=== PATIENT | male | born 1955 | race Caucasian/White ===

== ENCOUNTER 2016-11-12 20:37 | Inpatient (IN) | payer BC, MEDICARE, OTHER ==
[~2016-11-12] VITALS: Ht 177.8 cm; Wt 114.5 kg
[~2016-11-12 20:37] MED LIST: AMLO-147 PO; AMLO2.5T78; ATOR40TA68 PO; AZIT500T2 PO; BACL10TA PO; BUSP10TA2; BUSP10TA2 PO; CAPS42.510 TOP; CLON1TAB3; FLUO120C4 TOP; FORM12CA2; INSU100V19; IPRA30SP7; IPRA4AER INHALATION; LAMO150T15; LANT3I SC; LASIX; LIT300; LOSA100T7 PO; LOSA25TA2; METF1000 PO; METO-429 PO; METO100T13; MOMETASONE FUROATE; MTF1000T; MUPI22OI; NITR0.4T6; NOV; NOVO3I SC; OMEP20TA42; POTA-57; ROSU20TA; RTPRO5; TAMS0.4C2 PO; TOF50 PO; TRAZ50TA18; TRIA15CR; [UNRECOGNIZED DRUG - CODE]
--- NOTE | 2016-11-12 22:25 | ERA ---
ER Documentation Chief Complaint Date/Time DATE: 11/12/16 TIME: 22:24 Chief Complaint chest pain since 6 pm HPI The patient is a 61-year-old male, presenting to the ER because of sternal chest pain that began at 6 PM, associated with dyspnea. He had similar symptoms previously. He was admitted recently on October 28, 2016 He already had 3 stents about 10 years ago. The chest pain is 5/10, not associated with exertion, vomiting, diaphoresis. He did take antacid without relief. He denies vomiting, diarrhea, dysuria, polyuria. He used to smoke and drink but he quit many years ago. Past medical history: CAD, hypertension, diabetes mellitus, OCD, dyslipidemia, obstructive sleep apnea, bipolar disorder, asthma, history of CHF, GERD, pulmonary nodule Past surgical history: 3 stent PCI, thoracic outlet obstruction, cholecystectomy , appendectomy, right ankle ROS All systems reviewed and are negative except as per history of present illness. Medications Home Meds Reported Medications Amlodipine Besylate* (Amlodipine Besylate*) 10 Mg Tablet, 10 MG PO DAILY, #30 TAB 11/12/16 Losartan Potassium* (Losartan Potassium*) 100 Mg Tablet, 100 MG PO DAILY, TAB 11/12/16 Albuterol/Ipratropium* (Combivent Respimat*) 20-100 Mcg/Inh - 4 Gm Aer.w.adap, 1 PUFF INHALATION QID, #1 INHALER 11/12/16 Tamsulosin Hcl* (Tamsulosin Hcl*) 0.4 Mg Cap.er.24h, 0.4 MG PO HS, CAP 11/12/16 Insulin Glargine* (Lantus*) 100 Unit/Ml Soln, 56 UNIT SC QHS, #1 VIAL 11/12/16 Insulin Glargine* (Lantus*) 100 Unit/Ml Soln, 46 UNIT SC QAM, #1 VIAL 11/12/16 Fluocinonide* (Fluocinonide* Cream) 0.1% - 120 Gm Cream..g., 1 APPLIC TOP BID, TUB 11/12/16 Insulin Aspart* (Novolog Insulin Pen*) 100 Unit/Ml Soln, 30-40 UNIT SC WITH MEALS, EA 11/12/16 Metformin Hcl* (Metformin Hcl*) 1,000 Mg Tablet, 1000 MG PO WITH BREAKFAST DINNE , #60 TAB 11/12/16 Imipramine Hcl* (Imipramine Hcl*) 50 Mg Tablet, 100 MG PO BID, TAB 11/12/16 Baclofen* (Baclofen*) 10 Mg Tablet, 10 MG PO TID, TAB 11/12/16 Metoprolol Tartrate* (Lopressor*) 50 Mg Tab, 50 MG PO BID, #60 TAB 11/12/16 Capsaicin (Capsaicin) 42.5 Gm Cream.gm., 1 APPLIC TOP QID, #1 TUB 11/12/16 Atorvastatin* (Atorvastatin*) 40 Mg Tablet, 40 MG PO QHS, #30 TAB 11/12/16 Buspirone Hcl* (Buspirone Hcl*) 10 Mg Tab, 20 MG PO TID, TAB 11/12/16 Discontinued Reported Medications Triamcinolone Acetonide/L.s.b. (Aristocort A 0.1% Cream) 15 Gm Cream.gm. 03/17/10 Trazodone Hcl* (Desyrel*) 50 Mg Tablet 03/17/10 Rosuvastatin Calcium* (Crestor*) 20 Mg Tablet 03/17/10 Potassium Chloride* (Klor-Con*) 20 Meq Tabsr 03/17/10 Omeprazole (Omeprazole) 20 Mg Tablet.dr 03/17/10 Nitroglycerin* (Nitroglycerin* SL) 0.4 Mg Tab.subl 03/17/10 Mupirocin (Bactroban) 22 Gm Oint..gm. 03/17/10 [Mometasone Furoate] No Conflict Check 03/17/10 Metoprolol Succinate* (Toprol XL*) 100 Mg Tab.sr.24h 03/17/10 Metformin* (Glucophage*) 1,000 Mg Tablet 03/17/10 Losartan Potassium* (Cozaar*) 25 Mg Tablet 03/17/10 Casmalia Carbonate* (Casmalia*) 300 Mg Cap 03/17/10 Casmalia Carbonate* (Casmalia*) 300 Mg Cap 03/17/10 Lamotrigine* (Lamictal*) 150 Mg Tablet 03/17/10 Ipratropium [place]* (Atrovent*) 21 Mcg [place] 03/17/10 Insulin Glargine,Hum.rec.anlog (Lantus) 100 U/Ml Vial 03/17/10 Insulin Aspart* (Novolog Insulin Vial*) 100 U/Ml Vial 03/17/10 [Lasix] No Conflict Check 03/17/10 Flunisolide (Nasarel) 25 Ml [place] 03/17/10 Formoterol Fumarate* (Foradil*) 12 Mcg Cap.w.dev 03/17/10 Clonazepam* (Clonazepam*) 1 Mg Tablet 03/17/10 Buspirone Hcl* (Buspirone Hcl*) 10 Mg Tablet 03/17/10 Amlodipine Besylate* (Amlodipine Besylate*) 2.5 Mg Tablet 03/17/10 Albuterol Sulfate* (Proventil* Neb) 0.5 Ml Nebu 03/17/10 Allergies Allergies: Coded Allergies: Penicillins (Verified Allergy, Severe, DIFFICULTY BREATHING, 11/12/16) cefazolin (Verified Allergy, Severe, DIFFICULTY BREATHING, 11/12/16) ciprofloxacin (Verified Allergy, Mild, RASH, 11/12/16) ketorolac (Verified Allergy, Unknown, pain worse, 11/12/16) PMhx/Soc History of Surgery: Yes (MANY MANY PER PT. STATES, IT'S ON FILE.) Anesthesia Reaction: No Hx Neurological Disorder: No Hx Respiratory Disorders: No Hx Cardiac Disorders: No Hx Psychiatric Problems: Yes (BIPOLAR) Hx Miscellaneous Medical Probl: No Hx Alcohol Use: No Hx Substance Use: No Hx Tobacco Use: No Physical Exam Vitals Vital Signs Date Time Temp Pulse Resp B/P Pulse Ox O2 Delivery O2 Flow Rate FiO2 11/12/16 20:45 98.0 77 20 169/77 96 Physical Exam Const: No acute distress. Head: Atraumatic. Eyes: Normal Conjunctiva. ENT: Normal External Ears, Nose and Mouth. Neck: Full range of motion. No meningismus. Resp: Clear to auscultation bilaterally. Cardio: Regular rate and rhythm, no murmurs. Abd: Soft, non distended, normal bowel sounds, non tender. Skin: No petechiae or rashes. Back: No midline or flank tenderness. Ext: No cyanosis, or edema. Neur: Awake and alert. No focal deficit Psych: Normal Mood and Affect. Result Diagram: 11/12/16 2250 11/12/16 2250 Results 24 hrs Laboratory Tests Test 11/12/16 22:50 Activated Partial Thromboplast Time 24.4Sec Anion Gap 15 Basophils # 0.010^3/ul Basophils % 0.3% Blood Morphology Comment Blood Urea Nitrogen 26mg/dl Calcium Level 9.9mg/dl Carbon Dioxide Level 25mmol/L Chloride Level 98mmol/L Creatinine 0.81mg/dl Eosinophils # 0.110^3/ul Eosinophils % 1.8% Glucose Level 201mg/dl Hematocrit 39.7% Hemoglobin 13.6g/dl INR International Normalized Ratio 0.91 Lymphocytes # 2.010^3/ul Lymphocytes % 27.7% Mean Corpuscular Hemoglobin 29.3pg Mean Corpuscular Hemoglobin Concent 34.4g/dl Mean Corpuscular Volume 85.3fl Mean Platelet Volume 7.7fl Monocytes # 0.710^3/ul Monocytes % 9.6% Neutrophils # 4.310^3/ul Neutrophils % 60.6% Nucleated Red Blood Cells # 0.010^3/ul Nucleated Red Blood Cells % 0.0/100WBC Platelet Count 26463^3/UL Potassium Level 4.2mmol/L Prothrombin Time 12.3Sec Prothrombin Time Ratio 1.0 Red Blood Count 4.6510^6/ul Red Cell Distribution Width 15.6% Sodium Level 134mmol/L Troponin I 0.056ng/ml White Blood Count 7.010^3/ul Current Medications Medications (Trade) Dose Ordered Sig/Giovanni Route PRN Reason Start Time Stop Time Status Last Admin Dose Admin Aspirin (Aspirin) 162 mg ONCE STAT PO 11/12/16 22:37 11/12/16 22:48 DC 11/12/16 23:16 Nitroglycerin (Nitroglycerin 2% Oint) 1 inch ONCE STAT TD 11/12/16 22:37 11/12/16 22:48 DC 11/12/16 23:17 Morphine Sulfate (morphine) 4 mg ONCE STAT IV 11/13/16 00:23 11/13/16 00:24 DC Ondansetron HCl (Zofran Inj) 4 mg ONCE STAT IV 11/13/16 00:23 11/13/16 00:24 DC Procedures/MDM EKG: Read by emergency physician at 10:52 PM Rate/Rhythm: Normal Sinus Rhythm 75 beats per min QRS, ST, T-waves: No ST elevation, no T wave inversion, nonspecific T abnormality Impression: Abnormal EKG EKG: Read by emergency physician at 11:26 PM Rate/Rhythm: Normal Sinus Rhythm 79 beats per min QRS, ST, T-waves: No ST elevation, no T wave inversion, nonspecific T abnormality Impression: Abnormal EKG [place] [id number] Radiology Main Line: [phone] DIAGNOSTIC IMAGING REPORT Patient: ZONIA BRAR : 1955 Age: 61 Sex: M MR #: [id number] DOS: 11/12/162236 Ordering MD: MUNDO HERZOG MD Location: E/R Room/Bed: PROCEDURE: XR Chest. CLINICAL INDICATION: Chest pain. TECHNIQUE: Single frontal view of the chest was obtained COMPARISON: 07/01/2007. FINDINGS: Cardiomegaly. This is substantially stable over interval, given differences in technique. Mild right lung base atelectasis. Lungs otherwise clear. There is no pleural effusion or pneumothorax. IMPRESSION: New mild right lung base atelectasis, with substantially stable cardiomegaly. RPTAT: [facility] Physician Titus Date Time Electronically viewed and signed by Physician Titus on 11/12/2016 23:03 RS/ CC: MUNDO HERZOG MD MEDICAL MAKING DECISION: The patient is a 61-year-old male, with multiple cardiac risk factors, presenting with acute chest pain that is concerning for ACS. He was treated with aspirin 160 mg since he already took 2 baby aspirin at home, 1 inch of nitroglycerin ointment, morphine formula IV for pain, Zofran formula IV for nausea with good response. The differential diagnoses considered include but are not limited to acute coronary syndrome, acute myocardial infarction, pericarditis, pulmonary embolism, aortic dissection, pneumonia, pleural effusion, pneumothorax, GERD, chest wall pain. Departure Diagnosis: Primary Impression: Chest pain Additional Impression: Anemia Condition: Stable Comments I discussed the findings with the patient. I discussed the patient with the on- call hospitalist Dr. Whitley who was made aware of the lab, the treatment, the patient condition. The patient is admitted to telemetry at 11:40 PM. Please note that this patient was last admitted on October 28, 2016 with a different medical record [id number] MUNDO HERZOG MD Nov 12, 2016 22:24
[2016-11-12] MEDS ORDERED: ASPIRIN 81 MG TAB PO STA (22:37)
[2016-11-12] MEDS ORDERED: NITROGLYCERIN 2% 1 GM OINT PKT TD STA (22:37)
[2016-11-12] MEDS ORDERED: BUSP10TA2 PO (22:46)
[2016-11-12] MEDS ORDERED: ATOR40TA68 PO (22:46)
[2016-11-12] MEDS ORDERED: METO-429 PO (22:47)
[2016-11-12] MEDS ORDERED: CAPS42.510 TOP (22:47)
[2016-11-12] MEDS ORDERED: BACL10TA PO (22:48)
[2016-11-12] MEDS ORDERED: TOF50 PO (22:48)
[2016-11-12] MEDS ORDERED: NOVO3I SC (22:49)
[2016-11-12] MEDS ORDERED: METF1000 PO (22:49)
[2016-11-12] MEDS ORDERED: FLUO120C4 TOP (22:50)
[2016-11-12] MEDS ORDERED: LANT3I SC ×2 (22:51)
[2016-11-12] MEDS ORDERED: TAMS0.4C2 PO (22:51)
[2016-11-12] MEDS ORDERED: IPRA4AER INHALATION (22:52)
[2016-11-12] MEDS ORDERED: AMLO-147 PO (22:53)
[2016-11-12] MEDS ORDERED: LOSA100T7 PO (22:53)
--- NOTE | 2016-11-12 23:03 | RADRPT ---
PROCEDURE: XR Chest. CLINICAL INDICATION: Chest pain. TECHNIQUE: Single frontal view of the chest was obtained COMPARISON: 07/01/2007. FINDINGS: Cardiomegaly. This is substantially stable over interval, given differences in technique. Mild right lung base atelectasis. Lungs otherwise clear. There is no pleural effusion or pneumothorax. IMPRESSION: New mild right lung base atelectasis, with substantially stable cardiomegaly. RPTAT: [facility] Physician Titus Date Time Electronically viewed and signed by Physician Titus on 11/12/2016 23:03 RS/
[2016-11-12 23:11] LABS: BASOPHILS % 0.3 % (0.0-2.0); EOSINOPHILS # 0.1 10^3/ul (0.0-0.5); EOSINOPHILS % 1.8 % (0.0-7.0); HEMATOCRIT 39.7 % (42.0-52.0); HEMOGLOBIN 13.6 g/dl (14.0-18.0); LYMPHOCYTES % 27.7 % (15.0-51.0); MEAN CORPUSCULAR HEMOGLOBIN 29.3 pg (29.0-33.0); MEAN CORPUSCULAR HGB CONC 34.4 g/dl (32.0-37.0); MEAN CORPUSCULAR VOLUME 85.3 fl (82.0-101.0); MEAN PLATELET VOLUME 7.7 fl (7.4-10.4); MONOCYTE # 0.7 10^3/ul (0.3-0.9); MONOCYTES % 9.6 % (0.0-11.0); NEUTROPHIL # 4.3 10^3/ul (1.6-7.5); NEUTROPHILS % 60.6 % (39.0-77.0); PLATELET COUNT 183 10^3/UL (140-440); RED BLOOD COUNT 4.65 10^6/ul (4.70-6.10); RED CELL DISTRIBUTION WIDTH 15.6 % (11.5-14.5)
[2016-11-12 23:12] LABS: CONDITION 1; LH ANALYZER COMMENTS 1
[2016-11-12 23:17] LABS: INR 0.91; PARTIAL THROMBOPLASTIN TIME 24.4 Sec (25.0-35.0); PROTIME 12.3 Sec (12.2-14.2)
[2016-11-12 23:24] LABS: POTASSIUM 4.2 mmol/L (3.5-5.1)
[2016-11-12 23:27] LABS: CALCIUM 9.9 mg/dl (8.4-10.2); CREATININE 0.81 mg/dl (0.61-1.24)
[2016-11-12 23:39] LABS: TROPONIN-I 0.056 ng/ml (0.00-0.12)
[2016-11-13] MEDS ORDERED: morphine 4 MG/ML VIAL IV STA (00:23)
[2016-11-13] MEDS ORDERED: ONDANSETRON 4 MG INJ IV STA (00:23)
[2016-11-13 06:27] LABS: CK-MB 1.45 ng/ml (0.0-2.4); TROPONIN-I 0.166 ng/ml (0.00-0.12)
[2016-11-13] MEDS ORDERED: ONDANSETRON 4 MG INJ IV PRN (07:30)
[2016-11-13] MEDS ORDERED: NACL 0.9% 3 ML SYG IV SCH (07:30)
[2016-11-13] MEDS ORDERED: ACETAMINOPHEN 325 MG TAB PO PRN (07:30)
[2016-11-13 08:29] LABS: ALBUMIN 3.7 g/dl (3.3-4.9)
[2016-11-13 08:30] LABS: BASOPHILS % 0.7 % (0.0-2.0); EOSINOPHILS # 0.1 10^3/ul (0.0-0.5); EOSINOPHILS % 1.8 % (0.0-7.0); HEMATOCRIT 40.6 % (42.0-52.0); HEMOGLOBIN 13.7 g/dl (14.0-18.0); LYMPHOCYTES # 2.2 10^3/ul (0.8-2.9); LYMPHOCYTES % 34.1 % (15.0-51.0); MEAN CORPUSCULAR HGB CONC 33.8 g/dl (32.0-37.0); MEAN CORPUSCULAR VOLUME 85.8 fl (82.0-101.0); MEAN PLATELET VOLUME 8.5 fl (7.4-10.4); MONOCYTE # 0.7 10^3/ul (0.3-0.9); NEUTROPHIL # 3.4 10^3/ul (1.6-7.5); NEUTROPHILS % 52.4 % (39.0-77.0); PLATELET COUNT 181 10^3/UL (140-440); POTASSIUM 4.3 mmol/L (3.5-5.1); RED BLOOD COUNT 4.73 10^6/ul (4.70-6.10); RED CELL DISTRIBUTION WIDTH 15.9 % (11.5-14.5); UNCORRECTED WBC 6.5 10^3/ul (4.8-10.8); WHITE BLOOD COUNT 6.5 10^3/ul (4.8-10.8)
[2016-11-13] MEDS ORDERED: NITROGLYCERIN (SL) 0.4 MG TAB ONE (08:30)
[2016-11-13 08:31] LABS: CONDITION 1; LH ANALYZER COMMENTS 1
[2016-11-13 08:32] LABS: ALBUMIN/GLOBULIN RATIO 1.15; CREATININE 0.8 mg/dl (0.61-1.24); TOTAL PROTEIN 6.9 g/dl (6.1-8.1)
[2016-11-13 08:33] LABS: CALCIUM 9.5 mg/dl (8.4-10.2)
[2016-11-13] MEDS: NITROGLYCERIN (SL) 0.4 MG TAB SL PRN ×2 (08:38→08:43)
[2016-11-13] MEDS: morphine 2 MG INJ IV PRN ×2 (08:38→21:05)
[2016-11-13] MEDS: FLUOCINONIDE 0.05% CR 30GM TUBE TOP SCH ×2 (09:00→21:00)
[2016-11-13] MEDS ORDERED: DEXTROSE 5%-0.45% NACL 1,000 ML IV SCH (09:00)
[2016-11-13] MEDS ORDERED: HEPARIN 5,000 UNIT/0.5 ML SYG SC SCH (09:00)
[2016-11-13] MEDS: IMIPRAMINE 25 MG TAB PO SCH ×2 (09:44→22:18)
[2016-11-13] MEDS: BUSPIRONE 10 MG TAB PO SCH ×3 (09:44→22:18)
[2016-11-13] MEDS: LOSARTAN 50 MG TAB PO SCH (09:44)
[2016-11-13] MEDS: BACLOFEN 10 MG TAB PO SCH ×3 (09:45→21:09)
[2016-11-13] MEDS: AMLODIPINE 10 MG TAB PO SCH (09:45)
[2016-11-13] MEDS: METOPROLOL 50 MG TAB PO SCH ×2 (09:54→21:10)
--- NOTE | 2016-11-13 10:29 | HP ---
DATE OF ADMISSION: 11/12/2016 TIME SEEN: 4 a.m. CHIEF COMPLAINT: Chest pain. HISTORY OF PRESENT ILLNESS: The patient is a 61-year-old male with a history of coronary artery dis ease with stent, hypertension, CHF, asthma, sleep apnea, diabetes, bipolar and obsessive compulsive disorder and a history of pericardial window, who presented to the emergency department with chest p ain. The pain started late in the afternoon and associated with shortness of breath. Reported nonb ilious, nonbloody vomiting. Denied diaphoresis, palpitations, or lightheadedness. When he presented to the ER, blood pressure 169/77, heart rate 77, respiratory rate 20, temperature 98, oxygen saturation 97% on room air. Laboratory value shows a hemoglobin of 13.6. Sodium 134 and second troponin of 0.166. Otherwise, the rest of his basic labs were within normal limits. Chest x-ray shows new mild right lung base atelectasis with substantially stable cardiomegaly. The patient was given aspirin, nitroglycerin, Zofran and morphine in the ER and currently awaiting telem etry admission. REVIEW OF SYSTEMS: A 12-point review of systems negative except as mentioned in HPI. PAST MEDICAL HISTORY: As per HPI. PAST SURGICAL HISTORY: Cardiac stents, pericardial window, cholecystectomy, appendectomy, right ank le surgery. ALLERGIES: 1. PENICILLIN. 2. CEFAZOLIN. 3. CIPROFLOXACIN. 4. KETOROLAC. PHYSICAL EXAMINATION: VITAL SIGNS: Blood pressure 151/84, heart rate 84, respiratory rate 18, temperature 98.0, oxygen sa turation 98% on 2 liters. GENERAL: No acute distress, answering questions appropriately. HEENT: No obvious head deformity. Pupils reactive to light. CARDIOVASCULAR: Regular rate and rhythm. No extra sounds. LUNGS: Clear. ABDOMEN: Obese, soft, nontender, nondistended. Positive bowel sounds. EXTREMITIES: No edema. IMAGING: Chest x-ray revealed mild right lung base atelectasis with essentially stable cardiomegaly , otherwise, lungs are clear. IMPRESSION: 1. Non-ST elevation myocardial infarction. 2. History of coronary artery disease with stent. 3. History of diabetes. 4. History of obstructive sleep apnea. 5. History of asthma. 6. History of congestive heart failure. 7. History of dyslipidemia. 8. History of bipolar disorder and obsessive compulsive disorder. PLAN: Admit to telemetry unit. He will be placed on oxygen, beta tomas, statin and as needed nit roglycerin and morphine. Breathing treatments will also be provided as needed. We will trend his t roponin, obtain a 2D echo and place a cardiology consult. For diabetes, he will be on insulin. Further workup and management per clinical course. Dictated By: TIM MAIN/TEVIN Conf#: [id number] DID#: [id number]
[2016-11-13] MEDS: ALBUTEROL HFA 8 GM INHALER INH SCH ×3 (12:00→22:29)
[2016-11-13] MEDS: IPRATROPIUM (HFA) 12.9 GM INHALER INH SCH ×3 (12:00→20:00)
[2016-11-13 12:26] LABS: CHOL/HDL RATIO 3.6 RATIO
[2016-11-13] MEDS: INSULIN ASPART [NOVOLOG] 3 ML PEN SC SCH ×4 (12:31→21:31)
[2016-11-13 12:48] LABS: CK-MB 1.7 ng/ml (0.0-2.4); TROPONIN-I 0.221 ng/ml (0.00-0.12)
[2016-11-13] MEDS ORDERED: HEPARIN 25000 UNITS/250 ML 250 ML IV SCH (14:30)
[2016-11-13] MEDS ORDERED: HEPARIN 1000 UNITS/ML 10 ML INJ IV ONE (14:30)
[2016-11-13] MEDS ORDERED: SOD CHLORIDE 0.9% 1,000 ML IV SCH (14:30)
[2016-11-13] MEDS ORDERED: HEPARIN 1000 UNITS/ML 10 ML INJ IV PRN (14:30)
--- NOTE | 2016-11-13 14:42 | CONS ---
Date/Time of Note Date/Time of Note DATE: 11/13/16 TIME: 14:30 Assessment/Plan Assessment/Plan Additional Assessment/Plan Hypertension Elevated troponin Chest pain Preserved ejection fraction Coronary artery disease with history of PCI -Patient with recent bronchitis infection. Yesterday with elevated blood pressure and mild chest pain afterwards. Over a number of years he has been having intermittent shortness of breath and chest pain. He did have a cardiac catheterization approximately 3 years ago at the [facility] and as per the patient everything was normal. Angiogram was reviewed done at our facility in 2009 with patent LAD stent and mild to moderate disease in the mid RCA. Troponins are minimally elevated and unclear if secondary to hypertension versus ACS. Would continue to trend troponins. If trending down, would proceed with vasodilatory nuclear stress test. Continue aspirin, statin, beta tomas. FYI patient was admitted in early October under different medical record number. Consultation Date/Type/Reason Admit Date/Time Type of Consultation: cv Reason for Consultation Hypertension, chest pain and elevated troponin Hx of Present Illness This is a 61-year-old male known to me from a recent previous admission ( patient admitted under different medical record number on the previous visit in early October) who presents with hypertension and chest pain. Patient has been having symptoms of cough, phlegm production and shortness of breath off-and-on over the past 2 months. He has had intermittent chest discomfort at times with inspiration. Yesterday, patient with elevated blood pressure in the 190s. When he saw us pressure that elevated, he also had chest pain to was well. He believes the hypertension occurred prior to the chest pain. Because of his continued symptoms, he came to the emergency room for further evaluation and care. He currently denies any chest pain, dizziness or lightheadedness. He denies any shortness of breath. 12 point review of systems was performed with all pertinent positives and negatives mentioned above and all else is negative Past Medical History Sleep apnea Medical History: coronary artery disease, high cholesterol, hypertension Past Surgical History Thoracic outlet surgery Past Surgical Hx: angioplasty Social History Smoking Status: Former smoker Exam/Review of Systems Vital Signs Vitals Vital Signs Date Time Temp Pulse Resp B/P Pulse Ox O2 Delivery O2 Flow Rate FiO2 11/13/16 12:50 77 136/82 11/13/16 10:55 18 98 Room Air 11/12/16 23:00 2 11/12/16 20:45 98.0 Exam No apparent distress Constitutional: alert, obese, oriented Head: normocephalic Neck: supple Respiratory: other (course breath sounds bilaterally, no wheezing) Cardiovascular: other (S1-S2 heard), regular rate and rhythm Gastrointestinal: bowel sounds, non-tender, soft Extremities: edema Results Result Diagram: 11/13/16 0520 11/13/16 0520 Results 24 hrs Laboratory Tests Test 11/12/16 22:50 11/13/16 05:20 11/13/16 11:30 11/13/16 12:20 Activated Partial Thromboplast Time 24.4 L Anion Gap 15 14 Basophils # 0.0 0.0 Basophils % 0.3 0.7 Blood Morphology Comment Blood Urea Nitrogen 26 H 23 H Calcium Level 9.9 9.5 Carbon Dioxide Level 25 26 Chloride Level 98 100 Creatinine 0.81 0.80 Eosinophils # 0.1 0.1 Eosinophils % 1.8 1.8 Glucose Level 201 156 Hematocrit 39.7 L 40.6 L Hemoglobin 13.6 L 13.7 L INR International Normalized Ratio 0.91 Lymphocytes # 2.0 2.2 Lymphocytes % 27.7 34.1 Mean Corpuscular Hemoglobin 29.3 29.0 Mean Corpuscular Hemoglobin Concent 34.4 33.8 Mean Corpuscular Volume 85.3 85.8 Mean Platelet Volume 7.7 8.5 Monocytes # 0.7 0.7 Monocytes % 9.6 11.0 Neutrophils # 4.3 3.4 Neutrophils % 60.6 52.4 Nucleated Red Blood Cells # 0.0 0.0 Nucleated Red Blood Cells % 0.0 0.0 Platelet Count 183 181 Potassium Level 4.2 4.3 Prothrombin Time 12.3 Prothrombin Time Ratio 1.0 Red Blood Count 4.65 L 4.73 Red Cell Distribution Width 15.6 H 15.9 H Sodium Level 134 L 136 Troponin I 0.056 0.166 *H 0.221 *H White Blood Count 7.0 6.5 Alanine Aminotransferase (ALT/SGPT) 92 H Albumin 3.7 Albumin/Globulin Ratio 1.15 Alkaline Phosphatase 163 H Aspartate Amino Transf (AST/SGOT) 138 H Creatine Kinase 59 56 Creatine Kinase Index 2.5 3.0 Creatinine Kinase MB (Mass) 1.45 1.70 Direct Bilirubin 0.00 Globulin 3.20 Indirect Bilirubin 0.0 Total Bilirubin 0.0 L Total Protein 6.9 Cholesterol Level 149 Cholesterol/HDL Ratio 3.6 Free Thyroxine 0.95 HDL Cholesterol 41 Hemoglobin A1c 12.3 H LDL Cholesterol, Calculated 60 Thyroid Stimulating Hormone (TSH) 2.830 Triglycerides Level 239 H Bedside Glucose 308 H Medications Medications Current Medications Ondansetron HCl (Zofran Inj) 4 mg Q6H PRN IV NAUSEA AND/OR VOMITING; Start 11/13 at 07:30 Nitroglycerin (Nitroglycerin (Sl Tab) 0.4 Mg) 1 tab Q5M PRN SL CHEST PAIN Last administered on 11/13/16 08:43; Admin Dose 1 TAB; Start 11/13/16 at 07:30 Acetaminophen (Tylenol Tab) 650 mg Q6H PRN PO PAIN LEVEL 1-3 OR FEVER; Start at 07:30 Morphine Sulfate (morphine) 2 mg Q4H PRN IV PAIN LEVEL 7-10 Last administered on 11/13/16 08:38; Admin Dose 2 MG; Start 11/13/16 at 07:30 Amlodipine Besylate (Norvasc) 10 mg DAILY PO Last administered on 11/13/16 09: 45; Admin Dose 10 MG; Start 11/13/16 at 09:00 Atorvastatin Calcium (Lipitor) 40 mg QHS PO ; Start 11/13/16 at 21:00 Baclofen (Lioresal) 10 mg TID PO Last administered on 11/13/16 12:34; Admin Dose 10 MG; Start 11/13/16 at 09:00 Buspirone HCl (Buspar) 20 mg TID PO Last administered on 11/13/16 12:34; Admin Dose 20 MG; Start 11/13/16 at 09:00 Fluocinonide (Lidex 0.05% Cr) 1 applic BID TOP Last administered on 11/13/16 09 :00; Admin Dose 1 APPLIC; Start 11/13/16 at 09:00 Imipramine HCl (Tofranil) 100 mg BID PO Last administered on 11/13/16 09:44; Admin Dose 100 MG; Start 11/13/16 at 09:00 Insulin Glargine (Lantus) 56 unit QHS SC ; Start 11/13/16 at 21:00 Losartan Potassium (Cozaar) 100 mg DAILY PO Last administered on 11/13/16 09:44 ; Admin Dose 100 MG; Start 11/13/16 at 09:00 Metoprolol Tartrate (Lopressor) 50 mg BID PO Last administered on 11/13/16 09: 54; Admin Dose 50 MG; Start 11/13/16 at 09:00 Tamsulosin HCl (Flomax) 0.4 mg HS PO ; Start 11/13/16 at 21:00 Insulin Aspart (Novolog Insulin Pen) NOVOLOG *MILD* ALGORI... Q6 SC Last administered on 11/13/16 12:31; Admin Dose 5 UNIT; Start 11/13/16 at 12:00 Heparin Sodium (Porcine) 4000 unit 4,000 unit ONCE ONCE IV ; Start 11/13/16 at 14:30; Stop 11/13/16 at 14:31 Sodium Chloride (NS) 1,000 ml @ 75 mls/hr [id number] IV ; Start 11/13/16 at 14:30 Procedures Procedures ECG demonstrates sinus rhythm, normal QRS duration, nonspecific T-wave abnormalities Humble Cohen DO Nov 13, 2016 14:41
--- NOTE | 2016-11-13 14:58 | PN ---
DATE: 11/13/2016 TIME OF EVALUATION: 1400 SUBJECTIVE DATA: Denies any chest pain at this time. OBJECTIVE DATA: VITAL SIGNS: Temperature 98.0, pulse rate 77, respiratory rate 18, blood pressure 136/82, oxygen saturation 98% on room air. GENERAL: This is an obese male patient sitting in bed in no apparent distress. HEENT: Head normocephalic and atraumatic. Eyes: Anicteric sclerae. Conjunctivae clear. ENT: Nasal septum is midline. Oral mucosa is dry. NECK: Short and obese. RESPIRATORY: Bilaterally diminished breath sounds. No adventitious breath sounds. No use of accessory muscles of respiration. CARDIAC: Regular rate and rhythm. No murmurs heard. ABDOMEN: Soft, nontender and nondistended. Bowel sounds positive in all 4 quadrants. GENITOURINARY: Deferred. EXTREMITIES: No cyanosis, no clubbing. Bilateral lower extremity 1 to 2+ pitting edema. Peripheral pulses are palpable. NEUROLOGIC: The patient is awake, alert and oriented. Cranial nerves are grossly intact. LABORATORY AND DIAGNOSTIC DATA: WBC 6.5, hemoglobin 13.7, hematocrit 40.6, platelets of 181. Sodium 136, potassium 4.3, chloride 100, carbon dioxide 26, anion gap 14, BUN 23, creatinine 0.87, glucose 156, calcium 9.5, AST 138, ALT 90 , alkaline phosphatase 163. Troponin 0.221. ASSESSMENT AND PLAN: 1. Non-ST elevation myocardial infarction. The patient will be started on a heparin drip. The patient will be kept n.p.o. A cardiology consult was already called on this patient. 2. CAD, status post stenting in the past. Continue aspirin. 3. Essential hypertension. Continue antihypertensives. Blood pressure fairly well controlled. 4. Dyslipidemia. Fasting lipid panel suboptimal. However, the patient was noticed to have transaminitis. Hence, the patient's statins will be put on hold. 5. Type 2 diabetes mellitus. Hemoglobin A1c 12.3. The patient will be continued on sliding scale insulin. 6. Obstructive sleep apnea. 7. Obesity. Weight reduction will be advised. 8. Depression. Continue TCAs. 9. Fluid, electrolytes and nutrition. The patient was on a calorie controlled diet. However, because of worsening troponins, the patient will be kept n.p.o. 10. Deep venous thrombosis prophylaxis. The patient already on therapeutic heparin. 11. Gastrointestinal prophylaxis. H2 receptor blockers. PLAN: Start the patient on heparin drip. Keep the patient n.p.o. Continue telemetry monitoring. Case discussed with Dr. Pillai. FARZANA PILLAI MD, AM/TEVIN Conf#: [id number] DID#: [id number] MTDD
--- NOTE | 2016-11-13 15:03 | RADRPT ---
Echocardiogram Report Patient Name: ZONIA BRAR Gender: Male Date: 1955 Study Date: 13-Nov-2016 Hatchery Helper: Jah Rose RDCS Location: [facility] Ref. Physician: TIM SARMIENTO Quality: Technically Difficult Study Procedures: Transthoracic echocardiogram with complete 2D, M-Mode, and doppler examination. Indications: NSTEMI. 2D/M Mode Doppler Measurement Value Normal Ranges Measurement Value Normal Ranges LVIDd 2D 4.5 3.5 - 5.6 cm AV Peak Deniz 1.5 m/sec LVIDs 2D 2.1 2.1 - 4.1 cm AV Peak PG 9.0 mmHg FS 2D 53.2 % LVOT Peak Deinz 1.4 m/sec LVPWd 2D 1.3 0.6 - 1.1 cm LVOT Peak PG 8.0 mmHg IVSd 2D 1.2 0.6 - 1.1 cm MV E Peak Deniz 0.7 m/sec IVS/LVPW 2D 1.0 MV A Peak Deniz 0.9 m/sec AoR Diam 2D 3.1 2.0 - 3.7 cm MV E/A 0.7 LA/Ao 2D 1 0 - 1 MV Decel Time 183 msec EDV 2D 90.5 cm3 MV E/A 0.7 ESV 2D 9.3 cm3 LA Dimen 2D 3.6 2.3 - 4.0 cm Findings Left Ventricle: Normal left ventricular systolic function. Normal left ventricular cavity size. Mild concentric left ventricular hypertrophy. Ejection fraction is visually estimated at 60 %. Tissue Doppler/Mitral Doppler indices are consistent with impaired relaxation (Stage I diastolic dysfunction). Right Ventricle: Normal right ventricular size. Normal right ventricular systolic function. Left Atrium: Upper limit of normal left atrial size. Right Atrium: The right atrium is normal in size. Mitral Valve: Normal appearance and function of the mitral valve with trace physiologic regurgitation. Aortic Valve: No significant aortic stenosis or insufficiency. Aortic cusps appear mildly calcified. Tricuspid Valve: Normal appearance and function of the tricuspid valve with trace physiologic regurgitation. Pericardium: Normal pericardium with no significant pericardial effusion. Aorta: Normal aortic root. IVC: Normal size and normal respiratory collapse consistent with normal right atrial pressure. Conclusions Normal left ventricular systolic function. Normal left ventricular cavity size. Mild concentric left ventricular hypertrophy. Ejection fraction is visually estimated at 60 %. Tissue Doppler/Mitral Doppler indices are consistent with impaired relaxation (Stage I diastolic dysfunction). Normal right ventricular size. Normal right ventricular systolic function. Upper limit of normal left atrial size. The right atrium is normal in size. No significant valvular stenosis or regurgitation seen. Normal pericardium with no significant pericardial effusion. Electronically Signed By: Humble Cohen 13-Nov-2016 15:02:01 0800 Patient Name: ZONIA BRAR Study Date: 13-Nov-2016 [id number]
[2016-11-13 17:39] VITALS: BP 133/60; PULSE 70; RESP 18
[2016-11-13 17:58] VITALS: Ht 177.8 cm; Wt 114.5 kg
[2016-11-13 19:24] LABS: CK-MB 1.59 ng/ml (0.0-2.4); TROPONIN-I 0.231 ng/ml (0.00-0.12)
[2016-11-13 19:40] VITALS: PULSE 78
[2016-11-13 20:00] VITALS: BP 161/66; RESP 19
[2016-11-13 20:09] VITALS: PULSE 86
[2016-11-13] MEDS ORDERED: GLUCAGON 1 MG INJ IM PRN (21:00)
[2016-11-13] MEDS ORDERED: GLUCOSE GEL 15 GRAM TUBE BUCCAL PRN (21:00)
[2016-11-13] MEDS ORDERED: DEXTROSE 50% 50 ML SYRINGE IV PRN ×2 (21:00)
[2016-11-13] MEDS ORDERED: GLUCOSE GEL 15 GRAM TUBE PO PRN ×2 (21:00)
[2016-11-13] MEDS ORDERED: ATORVASTATIN 40 MG TAB PO SCH (21:00)
[2016-11-13] MEDS: TAMSULOSIN (SR) 0.4 MG CAP PO SCH (21:09)
[2016-11-13] MEDS: FAMOTIDINE 20 MG TAB PO SCH (21:09)
[2016-11-13] MEDS: ENOXAPARIN 60 MG/0.6 ML SYG SC SCH (21:24)
[2016-11-13] MEDS: INSULIN GLARGINE [LANtus] 3 ML PEN SC SCH (22:01)
[2016-11-14] VITALS (12 sets, daily range): BP systolic 105–149; BP diastolic 53–67; PULSE 70–97; RESP 17–20
[2016-11-14] MEDS: ACCUCHECK XX SCH (02:00)
[2016-11-14] MEDS: TOPIRAMATE 25 MG TAB PO SCH ×3 (02:14→21:33)
[2016-11-14] MEDS: INSULIN ASPART [NOVOLOG] 3 ML PEN SC SCH ×9 (07:25→21:42)
[2016-11-14 07:44] LABS: MAGNESIUM 1.9 mg/dl (1.7-2.5); PHOSPHORUS 3.2 mg/dl (2.5-4.9)
[2016-11-14 07:46] LABS: POTASSIUM 4.4 mmol/L (3.5-5.1)
[2016-11-14 07:49] LABS: CALCIUM 8.8 mg/dl (8.4-10.2); CREATININE 0.85 mg/dl (0.61-1.24)
[2016-11-14 07:50] LABS: CK-MB 0.83 ng/ml (0.0-2.4)
[2016-11-14 07:52] LABS: TROPONIN-I 0.157 ng/ml (0.00-0.12)
[2016-11-14] MEDS: IPRATROPIUM (HFA) 12.9 GM INHALER INH SCH ×5 (08:00→21:13)
[2016-11-14 08:06] LABS: CHOL/HDL RATIO 5.6 RATIO
[2016-11-14 08:11] LABS: ALBUMIN 3.1 g/dl (3.3-4.9)
[2016-11-14 08:14] LABS: TOTAL PROTEIN 5.8 g/dl (6.1-8.1)
[2016-11-14] MEDS: LOSARTAN 50 MG TAB PO SCH (08:17)
[2016-11-14] MEDS: BUSPIRONE 10 MG TAB PO SCH ×3 (08:17→21:14)
[2016-11-14] MEDS: ASPIRIN 81 MG TAB PO SCH (08:17)
[2016-11-14] MEDS: AMLODIPINE 10 MG TAB PO SCH (08:18)
[2016-11-14] MEDS: BACLOFEN 10 MG TAB PO SCH ×3 (08:18→21:15)
[2016-11-14] MEDS: FAMOTIDINE 20 MG TAB PO SCH ×2 (08:18→21:15)
[2016-11-14] MEDS: IMIPRAMINE 25 MG TAB PO SCH ×2 (08:18→21:15)
[2016-11-14] MEDS: ENOXAPARIN 60 MG/0.6 ML SYG SC SCH ×2 (08:20→21:41)
[2016-11-14] MEDS: METOPROLOL 50 MG TAB PO SCH ×2 (08:21→21:18)
[2016-11-14] MEDS: FLUOCINONIDE 0.05% CR 30GM TUBE TOP SCH ×2 (08:22→21:16)
[2016-11-14 08:37] LABS: THYROID STIMULATING HORMONE 1.88 MIU/L (0.465-4.680)
[2016-11-14] MEDS ORDERED: ASPIRIN (EC) 81 MG TAB PO SCH (09:00)
[2016-11-14 09:03] LABS: HEMATOCRIT 37.1 % (42.0-52.0); HEMOGLOBIN 12.3 g/dl (14.0-18.0); MEAN CORPUSCULAR HEMOGLOBIN 28.8 pg (29.0-33.0); MEAN CORPUSCULAR VOLUME 86.9 fl (82.0-101.0); RED BLOOD COUNT 4.27 10^6/ul (4.70-6.10); UNCORRECTED WBC 5.6 10^3/ul (4.8-10.8); WHITE BLOOD COUNT 5.6 10^3/ul (4.8-10.8)
[2016-11-14 09:04] LABS: BASOPHILS % 0.7 % (0.0-2.0); EOSINOPHILS # 0.1 10^3/ul (0.0-0.5); EOSINOPHILS % 1.3 % (0.0-7.0); LYMPHOCYTES # 1.8 10^3/ul (0.8-2.9); LYMPHOCYTES % 32.1 % (15.0-51.0); MEAN CORPUSCULAR HGB CONC 33.2 g/dl (32.0-37.0); MEAN PLATELET VOLUME 9.9 fl (7.4-10.4); MONOCYTE # 0.7 10^3/ul (0.3-0.9); MONOCYTES % 12.3 % (0.0-11.0); NEUTROPHILS % 53.2 % (39.0-77.0); PLATELET COUNT 164 10^3/UL (140-440); RED CELL DISTRIBUTION WIDTH 14.8 % (11.5-14.5)
[2016-11-14] MEDS: ALBUTEROL HFA 8 GM INHALER INH SCH ×5 (10:17→21:13)
--- NOTE | 2016-11-14 10:49 | PN ---
Date/Time of Note Date/Time of Note DATE: 11/14/16 TIME: 10:46 Assessment/Plan VTE Prophylaxis VTE Prophylaxis Intervention: heparin Lines/Catheters IV Catheter Type (from Nrs): Saline Lock Assessment/Plan Problems: (1) Obstructive sleep apnea Status: Chronic Comment: Will place him on CPAP BiPAP during hours of sleep to assist with this and decrease any stress on his system ultimately management as an outpatient as per the doctors that he sees through the [facility] (2) Systolic CHF with reduced left ventricular function, NYHA class 2 Status: Chronic Comment: Please note he is on beta blockade and H2 receptor tomas drug therapy for this (3) Diabetes mellitus type 2 in obese Status: Chronic Comment: I am going to add back in metformin to help control his sugars which are not well controlled and have not been controlled as an outpatient. I discussed this with the patient at length he at this time is not interested in making aggressive changes. Please note anything that would decrease his p.o. intake such as the addition of a medicine that would decrease appetite and deal with his headaches and a psychiatric disorder such as topiramate would be a legitimate consideration (4) Obesity (BMI 30-39.9) Status: Chronic Comment: Noted attempting to work with (5) Bipolar affective disorder Status: Chronic Comment: Noted he is on treatment through the psychiatry staff at the [facility] Qualifiers: Active/Remission status: currently active Current bipolar episode type: depressed Current episode severity: mild Qualified Code: F31.31 - Bipolar affective disorder, currently depressed, mild (6) Coronary artery disease Status: Chronic Comment: Please see cardiology consultation. I believe he has had an NST DAVE and needs investigation Qualifiers: Coronary Disease-Associated Artery/Lesion type: [place] artery [place] vs. transplanted heart: [place] heart Associated angina: with unstable angina Qualified Code: I25.110 - Coronary artery disease involving [place] coronary artery of [place] heart with unstable angina pectoris (7) Elevated troponin Status: Acute Comment: As per cardiology Subjective 24 Hr Interval Summary Free Text/Dictation Sleeping in bed on his side easily awakened; please note he informs me [facility] in the [place]; as well as going to private physicians that and that these groups do not have communication with each other Constitutional: no complaints Respiratory: no complaints Cardiovascular: no complaints (Presently denies chest pain or palpitations) Gastrointestinal: no complaints Genitourinary: no complaints Exam/Review of Systems Vital Signs Vitals Vital Signs Date Time Temp Pulse Resp B/P Pulse Ox O2 Delivery O2 Flow Rate FiO2 11/14/16 08:07 79 11/14/16 07:03 97.8 18 127/66 93 11/13/16 17:39 Room Air 11/12/16 23:00 2 Intake and Output 11/13/16 11/13/16 11/14/16 15:00 23:00 07:00 Intake Total 350 ml Balance 350 ml Exam Constitutional: alert, oriented Respiratory: clear to auscultation, normal air movement Cardiovascular: nl pulses, regular rate and rhythm Results Result Diagram: 11/14/16 0638 11/14/16 0638 Results 24 hrs Laboratory Tests Test 11/13/16 11:30 11/13/16 12:20 11/13/16 18:31 11/13/16 18:37 Cholesterol Level 149 Cholesterol/HDL Ratio 3.6 Creatine Kinase 56 64 Creatine Kinase Index 3.0 2.5 Creatinine Kinase MB (Mass) 1.70 1.59 Free Thyroxine 0.95 HDL Cholesterol 41 Hemoglobin A1c 12.3 H LDL Cholesterol, Calculated 60 Thyroid Stimulating Hormone (TSH) 2.830 Triglycerides Level 239 H Troponin I 0.221 *H 0.231 *H Bedside Glucose 308 H 387 H Test 11/13/16 21:14 11/14/16 02:28 11/14/16 06:30 11/14/16 06:38 Bedside Glucose 401 *H 248 H Cholesterol Level 152 Cholesterol/HDL Ratio 5.6 HDL Cholesterol 27 #L LDL Cholesterol, Calculated 44 Thyroid Stimulating Hormone (TSH) 1.880 Triglycerides Level 404 H Alanine Aminotransferase (ALT/SGPT) 84 H Albumin 3.1 L Alkaline Phosphatase 112 Anion Gap 13 Aspartate Amino Transf (AST/SGOT) 61 #H Basophils # 0.0 Basophils % 0.7 Blood Urea Nitrogen 19 Calcium Level 8.8 Carbon Dioxide Level 28 Chloride Level 101 Creatine Kinase 48 Creatine Kinase Index 1.7 Creatinine 0.85 Creatinine Kinase MB (Mass) 0.83 Direct Bilirubin 0.00 Eosinophils # 0.1 Eosinophils % 1.3 Glucose Level 230 H Hematocrit 37.1 L Hemoglobin 12.3 L Hemoglobin A1c 12.1 H Indirect Bilirubin 0.0 Lymphocytes # 1.8 Lymphocytes % 32.1 Magnesium Level 1.9 Mean Corpuscular Hemoglobin 28.8 L Mean Corpuscular Hemoglobin Concent 33.2 Mean Corpuscular Volume 86.9 Mean Platelet Volume 9.9 Monocytes # 0.7 Monocytes % 12.3 H Neutrophils # 3.0 Neutrophils % 53.2 Nucleated Red Blood Cells # 0.0 Nucleated Red Blood Cells % 0.0 Phosphorus Level 3.2 Platelet Count 164 Potassium Level 4.4 Red Blood Count 4.27 L Red Cell Distribution Width 14.8 H Sodium Level 138 Total Bilirubin 0.0 L Total Protein 5.8 #L Troponin I 0.157 *H White Blood Count 5.6 Test 11/14/16 07:41 Bedside Glucose 225 H Medications Medications Current Medications Ondansetron HCl (Zofran Inj) 4 mg Q6H PRN IV NAUSEA AND/OR VOMITING; Start 11/13 at 07:30 Nitroglycerin (Nitroglycerin (Sl Tab) 0.4 Mg) 1 tab Q5M PRN SL CHEST PAIN Last administered on 11/13/16 08:43; Admin Dose 1 TAB; Start 11/13/16 at 07:30 Acetaminophen (Tylenol Tab) 650 mg Q6H PRN PO PAIN LEVEL 1-3 OR FEVER; Start at 07:30 Morphine Sulfate (morphine) 2 mg Q4H PRN IV PAIN LEVEL 7-10 Last administered on 11/13/16 21:05; Admin Dose 2 MG; Start 11/13/16 at 07:30 Amlodipine Besylate (Norvasc) 10 mg DAILY PO Last administered on 11/14/16 08: 18; Admin Dose 10 MG; Start 11/13/16 at 09:00 Baclofen (Lioresal) 10 mg TID PO Last administered on 11/14/16 08:18; Admin Dose 10 MG; Start 11/13/16 at 09:00 Buspirone HCl (Buspar) 20 mg TID PO Last administered on 11/14/16 08:17; Admin Dose 20 MG; Start 11/13/16 at 09:00 Fluocinonide (Lidex 0.05% Cr) 1 applic BID TOP Last administered on 11/14/16 08 :22; Admin Dose 1 APPLIC; Start 11/13/16 at 09:00 Imipramine HCl (Tofranil) 100 mg BID PO Last administered on 11/14/16 08:18; Admin Dose 100 MG; Start 11/13/16 at 09:00 Insulin Glargine (Lantus) 56 unit QHS SC Last administered on 11/13/16 22:01; Admin Dose 56 UNIT; Start 11/13/16 at 21:00 Losartan Potassium (Cozaar) 100 mg DAILY PO Last administered on 11/14/16 08:17 ; Admin Dose 100 MG; Start 11/13/16 at 09:00 Metoprolol Tartrate (Lopressor) 50 mg BID PO Last administered on 11/13/16 21: 10; Admin Dose 50 MG; Start 11/13/16 at 09:00 Tamsulosin HCl (Flomax) 0.4 mg HS PO Last administered on 11/13/16 21:09; Admin Dose 0.4 MG; Start 11/13/16 at 21:00 Famotidine (Pepcid) 20 mg BID PO Last administered on 11/14/16 08:18; Admin Dose 20 MG; Start 11/13/16 at 21:00 Enoxaparin Sodium (Lovenox) 110 mg BID SC Last administered on 11/14/16 08:20; Admin Dose 110 MG; Start 11/13/16 at 21:00 Aspirin (Aspirin) 81 mg DAILY PO Last administered on 11/14/16 08:17; Admin Dose 81 MG; Start 11/14/16 at 09:00 Diagnostic Test (Pha) (Accucheck) 1 ea 02 XX ; Start 11/14/16 at 02:00 Miscellaneous Information 1 ea NOTE XX ; Start 11/13/16 at 21:00 Glucose (Glutose) 15 gm Q15M PRN PO DECREASED GLUCOSE; Start 11/13/16 at 21:00 Glucose (Glutose) 22.5 gm Q15M PRN PO DECREASED GLUCOSE; Start 11/13/16 at 21:00 Dextrose (D50w Syringe) 25 ml Q15M PRN IV DECREASED GLUCOSE; Start 11/13/16 at 21:00 Dextrose (D50w Syringe) 50 ml Q15M PRN IV DECREASED GLUCOSE; Start 11/13/16 at 21:00 Glucagon (Glucagen) 1 mg Q15M PRN IM DECREASED GLUCOSE; Start 11/13/16 at 21:00 Glucose (Glutose) 15 gm Q15M PRN BUCCAL DECREASED GLUCOSE; Start 11/13/16 at 21: 00 Topiramate (Topamax) 25 mg BID PO ; Start 11/14/16 at 11:00 SUNI CORRALES MD Nov 14, 2016 10:49
[2016-11-14] MEDS ORDERED: REGADENOSON 0.4 MG/5 ML SYG ONE (11:37)
[2016-11-14 11:58] LABS: IRON 48 ug/dl (35-150)
[2016-11-14 12:09] LABS: TOTAL IRON BINDING CAPACITY 230 ug/dl (241-421)
--- NOTE | 2016-11-14 13:51 | ECORPT ---
DATE OF SERVICE: 11/14/2016 SUPERVISING PHYSICIAN: Jovani Cronin MD CLINICAL INDICATION: Chest pain. PROCEDURE: The patient was attached to clinical monitoring, as well as EKG monitoring. Subsequentl y open 4 mg of Lexiscan was injected. This was followed by SPECT nuclear imaging. CLINICAL INFORMATION: Resting heart rate is 83, peak heart rate is 91, resting blood pressure is 15 3/85. Blood pressure after Lexiscan injection 145/73. CLINICAL SYMPTOMS: None. Resting EKG sinus rhythm, nonspecific ST-T changes. EKG post-Lexiscan injection sinus rhythm, nonsp ecific ST-T changes. This was followed by SPECT nuclear imaging, which is reportedly separately. Dictated By: JOVANI JIN/TEVIN Conf#: [id number] DID#: [id number]
--- NOTE | 2016-11-14 13:53 | CONS ---
Date/Time of Note Date/Time of Note DATE: 11/14/16 TIME: 13:52 Assessment/Plan Assessment/Plan Chief Complaint/Hosp Course Hypertension Elevated troponin Chest pain Preserved ejection fraction Coronary artery disease with history of PCI Problems: Additional Assessment/Plan 1) continue current meds 2) await results of stress test 3) if stress negative would further optimize BP treatment Consultation Date/Type/Reason Admit Date/Time Nov 12, 2016 at 23:43 Initial Consult Date Type of Consultation: cv 24 HR Interval Summary Free Text/Dictation no further chest pain, no sob, no syncope or near syncope, no palpitations. has palpitations at home Detailed Summary Respiratory: no complaints Cardiovascular: no complaints Gastrointestinal: no complaints Musculoskeletal: no complaints Skin: no complaints Neurologic: no complaints Exam/Review of Systems Vital Signs Vitals Vital Signs Date Time Temp Pulse Resp B/P Pulse Ox O2 Delivery O2 Flow Rate FiO2 11/14/16 12:05 87 11/14/16 07:03 97.8 18 127/66 93 11/13/16 17:39 Room Air 11/12/16 23:00 2 Intake and Output 11/13/16 11/13/16 11/14/16 15:00 23:00 07:00 Intake Total 350 ml Balance 350 ml Exam Constitutional: alert, oriented Head: atraumatic, normocephalic Neck: supple Respiratory: clear to auscultation Cardiovascular: regular rate and rhythm Gastrointestinal: soft Musculoskeletal: nl extremities to inspection Extremities: normal pulses Results Result Diagram: 11/14/16 0638 11/14/16 0638 Results 24 hrs Laboratory Tests Test 11/13/16 18:31 11/13/16 18:37 11/13/16 21:14 11/14/16 02:28 Bedside Glucose 387 H 401 *H 248 H Creatine Kinase 64 Creatine Kinase Index 2.5 Creatinine Kinase MB (Mass) 1.59 Troponin I 0.231 *H Test 11/14/16 06:30 11/14/16 06:38 11/14/16 07:41 Cholesterol Level 152 Cholesterol/HDL Ratio 5.6 HDL Cholesterol 27 #L LDL Cholesterol, Calculated 44 Thyroid Stimulating Hormone (TSH) 1.880 Triglycerides Level 404 H Alanine Aminotransferase (ALT/SGPT) 84 H Albumin 3.1 L Alkaline Phosphatase 112 Anion Gap 13 Aspartate Amino Transf (AST/SGOT) 61 #H Basophils # 0.0 Basophils % 0.7 Blood Urea Nitrogen 19 Calcium Level 8.8 Carbon Dioxide Level 28 Chloride Level 101 Creatine Kinase 48 Creatine Kinase Index 1.7 Creatinine 0.85 Creatinine Kinase MB (Mass) 0.83 Direct Bilirubin 0.00 Eosinophils # 0.1 Eosinophils % 1.3 Ferritin 215.0 Glucose Level 230 H Hematocrit 37.1 L Hemoglobin 12.3 L Hemoglobin A1c 12.1 H Hepatitis B Surface Antigen NEGATIVE Hepatitis C Antibody NEGATIVE Indirect Bilirubin 0.0 Iron Level 48 Lymphocytes # 1.8 Lymphocytes % 32.1 Magnesium Level 1.9 Mean Corpuscular Hemoglobin 28.8 L Mean Corpuscular Hemoglobin Concent 33.2 Mean Corpuscular Volume 86.9 Mean Platelet Volume 9.9 Monocytes # 0.7 Monocytes % 12.3 H Neutrophils # 3.0 Neutrophils % 53.2 Nucleated Red Blood Cells # 0.0 Nucleated Red Blood Cells % 0.0 Percent Iron Saturation 21 L Phosphorus Level 3.2 Platelet Count 164 Potassium Level 4.4 Red Blood Count 4.27 L Red Cell Distribution Width 14.8 H Sodium Level 138 Total Bilirubin 0.0 L Total Iron Binding Capacity 230 L Total Protein 5.8 #L Troponin I 0.157 *H White Blood Count 5.6 Bedside Glucose 225 H Medications Medications Current Medications Ondansetron HCl (Zofran Inj) 4 mg Q6H PRN IV NAUSEA AND/OR VOMITING; Start 11/13 at 07:30 Nitroglycerin (Nitroglycerin (Sl Tab) 0.4 Mg) 1 tab Q5M PRN SL CHEST PAIN Last administered on 11/13/16 08:43; Admin Dose 1 TAB; Start 11/13/16 at 07:30 Acetaminophen (Tylenol Tab) 650 mg Q6H PRN PO PAIN LEVEL 1-3 OR FEVER; Start at 07:30 Morphine Sulfate (morphine) 2 mg Q4H PRN IV PAIN LEVEL 7-10 Last administered on 11/13/16 21:05; Admin Dose 2 MG; Start 11/13/16 at 07:30 Amlodipine Besylate (Norvasc) 10 mg DAILY PO Last administered on 11/14/16 08: 18; Admin Dose 10 MG; Start 11/13/16 at 09:00 Baclofen (Lioresal) 10 mg TID PO Last administered on 11/14/16 08:18; Admin Dose 10 MG; Start 11/13/16 at 09:00 Buspirone HCl (Buspar) 20 mg TID PO Last administered on 11/14/16 08:17; Admin Dose 20 MG; Start 11/13/16 at 09:00 Fluocinonide (Lidex 0.05% Cr) 1 applic BID TOP Last administered on 11/14/16 08 :22; Admin Dose 1 APPLIC; Start 11/13/16 at 09:00 Imipramine HCl (Tofranil) 100 mg BID PO Last administered on 11/14/16 08:18; Admin Dose 100 MG; Start 11/13/16 at 09:00 Insulin Glargine (Lantus) 56 unit QHS SC Last administered on 11/13/16 22:01; Admin Dose 56 UNIT; Start 11/13/16 at 21:00 Losartan Potassium (Cozaar) 100 mg DAILY PO Last administered on 11/14/16 08:17 ; Admin Dose 100 MG; Start 11/13/16 at 09:00 Metoprolol Tartrate (Lopressor) 50 mg BID PO Last administered on 11/13/16 21: 10; Admin Dose 50 MG; Start 11/13/16 at 09:00 Tamsulosin HCl (Flomax) 0.4 mg HS PO Last administered on 11/13/16 21:09; Admin Dose 0.4 MG; Start 11/13/16 at 21:00 Famotidine (Pepcid) 20 mg BID PO Last administered on 11/14/16 08:18; Admin Dose 20 MG; Start 11/13/16 at 21:00 Enoxaparin Sodium (Lovenox) 110 mg BID SC Last administered on 11/14/16 08:20; Admin Dose 110 MG; Start 11/13/16 at 21:00 Aspirin (Aspirin) 81 mg DAILY PO Last administered on 11/14/16 08:17; Admin Dose 81 MG; Start 11/14/16 at 09:00 Diagnostic Test (Pha) (Accucheck) 1 ea 02 XX ; Start 11/14/16 at 02:00 Miscellaneous Information 1 ea NOTE XX ; Start 11/13/16 at 21:00 Glucose (Glutose) 15 gm Q15M PRN PO DECREASED GLUCOSE; Start 11/13/16 at 21:00 Glucose (Glutose) 22.5 gm Q15M PRN PO DECREASED GLUCOSE; Start 11/13/16 at 21:00 Dextrose (D50w Syringe) 25 ml Q15M PRN IV DECREASED GLUCOSE; Start 11/13/16 at 21:00 Dextrose (D50w Syringe) 50 ml Q15M PRN IV DECREASED GLUCOSE; Start 11/13/16 at 21:00 Glucagon (Glucagen) 1 mg Q15M PRN IM DECREASED GLUCOSE; Start 11/13/16 at 21:00 Glucose (Glutose) 15 gm Q15M PRN BUCCAL DECREASED GLUCOSE; Start 11/13/16 at 21: 00 Topiramate (Topamax) 25 mg BID PO ; Start 11/14/16 at 11:00 JOVANI LONGORIA MD Nov 14, 2016 13:53
[2016-11-14] MEDS: metFORMIN 500 MG TAB PO SCH ×2 (14:13→17:06)
--- NOTE | 2016-11-14 14:27 | RADRPT ---
PROCEDURE: Lexiscan myocardial perfusion study CLINICAL INDICATION: 61 -year-old patient complaining of chest pain. TECHNIQUE: Lexiscan 0.4 mg intravenously separate acquisition gated myocardial perfusion SPECT usi ng Tc 99m Myoview 29.1 mCi intravenously at stress and Tc-99m Myoview, 10.9 mCi intravenously at res t was performed using the rest/stress sequence. Poststress Myoview SPECT images were obtained in th e supine position. COMPARISON: No prior studies. FINDINGS: Perfusion images reveal a small size mild to moderate in degree reversible perfusion defect in the d istal to mid anterior wall. Lexiscan post stress gated SPECT images demonstrate no wall motion abnormalities. IMPRESSION: 1. The type and distribution of the scintigraphic abnormalities are most consistent with a small re versible perfusion defect in the distal to mid anterior wall. 2. No wall motion abnormalities. 3. The left ventricle ejection fraction at stress is 63%. A call report was made to Dr. Cronin at 02:34 p.m. on November 14 2016. RPTAT: HH .Greta Rose MD, Date Time Electronically viewed and signed by .Greta Rose MD, on 11/14/2016 14:26 .L/
[2016-11-14] MEDS: morphine 2 MG INJ IV PRN (15:33)
[2016-11-14] MEDS: TAMSULOSIN (SR) 0.4 MG CAP PO SCH (21:14)
[2016-11-14] MEDS: INSULIN GLARGINE [LANtus] 3 ML PEN SC SCH (21:40)
[2016-11-15] VITALS (12 sets, daily range): BP systolic 118–151; BP diastolic 52–71; PULSE 72–95; RESP 12–20
[2016-11-15] MEDS: ACCUCHECK XX SCH (02:00)
[2016-11-15] MEDS: INSULIN ASPART [NOVOLOG] 3 ML PEN SC SCH ×7 (07:30→21:00)
[2016-11-15] MEDS: ASPIRIN 81 MG TAB PO SCH (08:38)
[2016-11-15] MEDS: AMLODIPINE 10 MG TAB PO SCH (08:39)
[2016-11-15] MEDS: LOSARTAN 50 MG TAB PO SCH (08:39)
[2016-11-15] MEDS: metFORMIN 500 MG TAB PO SCH (08:40)
[2016-11-15] MEDS: BACLOFEN 10 MG TAB PO SCH ×3 (08:40→21:11)
[2016-11-15] MEDS: METOPROLOL 50 MG TAB PO SCH ×2 (08:40→21:12)
[2016-11-15] MEDS: ENOXAPARIN 60 MG/0.6 ML SYG SC SCH (08:42)
[2016-11-15] MEDS: TOPIRAMATE 25 MG TAB PO SCH ×2 (08:43→21:00)
[2016-11-15] MEDS: IMIPRAMINE 25 MG TAB PO SCH ×2 (08:43→21:10)
[2016-11-15] MEDS: IPRATROPIUM (HFA) 12.9 GM INHALER INH SCH ×4 (08:44→21:13)
[2016-11-15] MEDS: ALBUTEROL HFA 8 GM INHALER INH SCH ×4 (08:45→21:13)
[2016-11-15] MEDS: FLUOCINONIDE 0.05% CR 30GM TUBE TOP SCH ×2 (08:53→21:15)
[2016-11-15] MEDS: BUSPIRONE 10 MG TAB PO SCH ×3 (08:55→21:11)
[2016-11-15] MEDS: FAMOTIDINE 20 MG TAB PO SCH ×2 (08:55→21:11)
--- NOTE | 2016-11-15 11:26 | PN ---
Date/Time of Note Date/Time of Note DATE: 11/15/16 TIME: 11:23 Assessment/Plan VTE Prophylaxis VTE Prophylaxis Intervention: LMWH Lines/Catheters IV Catheter Type (from Nrs): Saline Lock Assessment/Plan Problems: (1) Systolic CHF with reduced left ventricular function, NYHA class 2 Status: Chronic Comment: Patient's on appropriate medication management using losartan and beta blockade. Continue treatment and optimize (2) Obstructive sleep apnea Status: Chronic Comment: This is noted. He has his home CPAP device as he does not use hospital CPAP BiPAP (3) Diabetes mellitus type 2 in obese Status: Chronic Comment: Well-controlled and improved now with the adjustments to the medication regimen (4) Obesity (BMI 30-39.9) Status: Chronic Comment: Counseled. Specifically a modest degree of weight loss of 5% would have a drastic beneficial effect on almost all his metabolic parameters (5) Bipolar affective disorder Status: Chronic Comment: He is on treatment Qualifiers: Active/Remission status: currently active Current bipolar episode type: depressed Current episode severity: mild Qualified Code: F31.31 - Bipolar affective disorder, currently depressed, mild (6) Status post angioplasty with stent Status: Chronic Comment: Given the positive troponin and the prior history of this Dr. Cohen has informed me that he believes the patient would best served with angiography to verify. He will be set up for that in the morning. (7) Coronary artery disease Status: Chronic Comment: As above Qualifiers: Coronary Disease-Associated Artery/Lesion type: [place] artery [place] vs. transplanted heart: [place] heart Associated angina: with unstable angina Qualified Code: I25.110 - Coronary artery disease involving [place] coronary artery of [place] heart with unstable angina pectoris (8) Chest pain Status: Acute Comment: As above Qualifiers: Chest pain type: unspecified Qualified Code: R07.9 - Chest pain, unspecified type Subjective 24 Hr Interval Summary Free Text/Dictation Patient on the phone speaking to his brother Constitutional: no complaints (No fever chills or sweats) Respiratory: no complaints (No shortness of breath) Cardiovascular: no complaints (No complaints of chest pain pressure gripping sensation cramping or anything to the neck or the lower jaw) Gastrointestinal: no complaints Genitourinary: no complaints Neurologic: no complaints Exam/Review of Systems Vital Signs Vitals Vital Signs Date Time Temp Pulse Resp B/P Pulse Ox O2 Delivery O2 Flow Rate FiO2 2/5/17 11:08 97.8 79 18 151/71 94 11/15/16 02:13 2.0 11/13/16 17:39 Room Air Intake and Output 11/14/16 11/14/16 11/15/16 15:00 23:00 07:00 Intake Total 480 ml 800 ml Balance 480 ml 800 ml Exam Constitutional: alert Neck: non-tender, supple Respiratory: clear to auscultation, normal air movement Cardiovascular: nl pulses, regular rate and rhythm Gastrointestinal: nl liver, spleen, non-tender, soft Results Result Diagram: 11/14/16 0638 11/14/16 0638 Results 24 hrs Laboratory Tests Test 11/14/16 14:11 11/14/16 17:02 11/14/16 21:11 11/15/16 02:40 Bedside Glucose 252 H 328 H 340 H 238 H Test 11/15/16 07:19 Bedside Glucose 228 H Medications Medications Current Medications Ondansetron HCl (Zofran Inj) 4 mg Q6H PRN IV NAUSEA AND/OR VOMITING; Start 11/13 at 07:30 Nitroglycerin (Nitroglycerin (Sl Tab) 0.4 Mg) 1 tab Q5M PRN SL CHEST PAIN Last administered on 11/13/16 08:43; Admin Dose 1 TAB; Start 11/13/16 at 07:30 Acetaminophen (Tylenol Tab) 650 mg Q6H PRN PO PAIN LEVEL 1-3 OR FEVER; Start at 07:30 Morphine Sulfate (morphine) 2 mg Q4H PRN IV PAIN LEVEL 7-10 Last administered on 11/14/16 15:33; Admin Dose 2 MG; Start 11/13/16 at 07:30 Amlodipine Besylate (Norvasc) 10 mg DAILY PO Last administered on 11/15/16 08: 39; Admin Dose 10 MG; Start 11/13/16 at 09:00 Baclofen (Lioresal) 10 mg TID PO Last administered on 11/15/16 08:40; Admin Dose 10 MG; Start 11/13/16 at 09:00 Buspirone HCl (Buspar) 20 mg TID PO Last administered on 11/15/16 08:55; Admin Dose 20 MG; Start 11/13/16 at 09:00 Fluocinonide (Lidex 0.05% Cr) 1 applic BID TOP Last administered on 11/15/16 08 :53; Admin Dose 1 APPLIC; Start 11/13/16 at 09:00 Imipramine HCl (Tofranil) 100 mg BID PO Last administered on 11/15/16 08:43; Admin Dose 100 MG; Start 11/13/16 at 09:00 Insulin Glargine (Lantus) 56 unit QHS SC Last administered on 11/14/16 21:40; Admin Dose 56 UNIT; Start 11/13/16 at 21:00 Losartan Potassium (Cozaar) 100 mg DAILY PO Last administered on 11/15/16 08:39 ; Admin Dose 100 MG; Start 11/13/16 at 09:00 Metoprolol Tartrate (Lopressor) 50 mg BID PO Last administered on 11/15/16 08: 40; Admin Dose 50 MG; Start 11/13/16 at 09:00 Tamsulosin HCl (Flomax) 0.4 mg HS PO Last administered on 11/14/16 21:14; Admin Dose 0.4 MG; Start 11/13/16 at 21:00 Famotidine (Pepcid) 20 mg BID PO Last administered on 11/15/16 08:55; Admin Dose 20 MG; Start 11/13/16 at 21:00 Enoxaparin Sodium (Lovenox) 110 mg BID SC Last administered on 11/15/16 08:42; Admin Dose 110 MG; Start 11/13/16 at 21:00 Aspirin (Aspirin) 81 mg DAILY PO Last administered on 11/15/16 08:38; Admin Dose 81 MG; Start 11/14/16 at 09:00 Diagnostic Test (Pha) (Accucheck) 1 ea 02 XX ; Start 11/14/16 at 02:00 Miscellaneous Information 1 ea NOTE XX ; Start 11/13/16 at 21:00 Glucose (Glutose) 15 gm Q15M PRN PO DECREASED GLUCOSE; Start 11/13/16 at 21:00 Glucose (Glutose) 22.5 gm Q15M PRN PO DECREASED GLUCOSE; Start 11/13/16 at 21:00 Dextrose (D50w Syringe) 25 ml Q15M PRN IV DECREASED GLUCOSE; Start 11/13/16 at 21:00 Dextrose (D50w Syringe) 50 ml Q15M PRN IV DECREASED GLUCOSE; Start 11/13/16 at 21:00 Glucagon (Glucagen) 1 mg Q15M PRN IM DECREASED GLUCOSE; Start 11/13/16 at 21:00 Glucose (Glutose) 15 gm Q15M PRN BUCCAL DECREASED GLUCOSE; Start 11/13/16 at 21: 00 Topiramate (Topamax) 25 mg BID PO ; Start 11/14/16 at 11:00 SUNI CORRALES MD Nov 15, 2016 11:26
--- NOTE | 2016-11-15 15:55 | CONS ---
Date/Time of Note Date/Time of Note DATE: 11/15/16 TIME: 15:50 Assessment/Plan Assessment/Plan Additional Assessment/Plan Hypertension Elevated troponin with abnormal stress test Chest pain Preserved ejection fraction Coronary artery disease with history of PCI -Patient with anterior ischemia noted on stress test and history of LAD stent. Extensive discussion was had with the patient, given symptoms, abnormal stress test and elevated troponin, would proceed with coronary angiogram. Patient to be nothing by mouth after midnight. Consultation Date/Type/Reason Admit Date/Time Nov 12, 2016 at 23:43 Initial Consult Date Type of Consultation: cv 24 HR Interval Summary Free Text/Dictation denies any shortness of breath or chest pain today Exam/Review of Systems Vital Signs Vitals Vital Signs Date Time Temp Pulse Resp B/P Pulse Ox O2 Delivery O2 Flow Rate FiO2 11/15/16 15:41 97.9 76 18 139/63 93 11/15/16 02:13 2.0 11/13/16 17:39 Room Air Intake and Output 11/14/16 11/14/16 11/15/16 15:00 23:00 07:00 Intake Total 480 ml 800 ml Balance 480 ml 800 ml Exam No apparent distress Constitutional: alert, obese, oriented Head: normocephalic Neck: supple Respiratory: other (course breath sounds bilaterally, no wheezing) Cardiovascular: other (S1 and S2 heard), regular rate and rhythm Gastrointestinal: bowel sounds, non-tender, soft Extremities: edema Results Result Diagram: 11/14/16 0638 11/14/16 0638 Results 24 hrs Laboratory Tests Test 11/14/16 17:02 11/14/16 21:11 11/15/16 02:40 11/15/16 07:19 Bedside Glucose 328 H 340 H 238 H 228 H Test 11/15/16 11:38 Bedside Glucose 236 H Medications Medications Current Medications Ondansetron HCl (Zofran Inj) 4 mg Q6H PRN IV NAUSEA AND/OR VOMITING; Start 11/13 at 07:30 Nitroglycerin (Nitroglycerin (Sl Tab) 0.4 Mg) 1 tab Q5M PRN SL CHEST PAIN Last administered on 11/13/16t 08:43; Admin Dose 1 TAB; Start 11/13/16 at 07:30 Acetaminophen (Tylenol Tab) 650 mg Q6H PRN PO PAIN LEVEL 1-3 OR FEVER; Start at 07:30 Morphine Sulfate (morphine) 2 mg Q4H PRN IV PAIN LEVEL 7-10 Last administered on 11/14/16 15:33; Admin Dose 2 MG; Start 11/13/16 at 07:30 Amlodipine Besylate (Norvasc) 10 mg DAILY PO Last administered on 11/15/16 08: 39; Admin Dose 10 MG; Start 11/13/16 at 09:00 Baclofen (Lioresal) 10 mg TID PO Last administered on 11/15/16 13:01; Admin Dose 10 MG; Start 11/13/16 at 09:00 Buspirone HCl (Buspar) 20 mg TID PO Last administered on 11/15/16 13:01; Admin Dose 20 MG; Start 11/13/16 at 09:00 Fluocinonide (Lidex 0.05% Cr) 1 applic BID TOP Last administered on 11/15/16 08 :53; Admin Dose 1 APPLIC; Start 11/13/16 at 09:00 Imipramine HCl (Tofranil) 100 mg BID PO Last administered on 11/15/16 08:43; Admin Dose 100 MG; Start 11/13/16 at 09:00 Insulin Glargine (Lantus) 56 unit QHS SC Last administered on 11/14/16 21:40; Admin Dose 56 UNIT; Start 11/13/16 at 21:00 Losartan Potassium (Cozaar) 100 mg DAILY PO Last administered on 11/15/16 08:39 ; Admin Dose 100 MG; Start 11/13/16 at 09:00 Metoprolol Tartrate (Lopressor) 50 mg BID PO Last administered on 11/15/16 08: 40; Admin Dose 50 MG; Start 11/13/16 at 09:00 Tamsulosin HCl (Flomax) 0.4 mg HS PO Last administered on 11/14/16 21:14; Admin Dose 0.4 MG; Start 11/13/16 at 21:00 Famotidine (Pepcid) 20 mg BID PO Last administered on 11/15/16 08:55; Admin Dose 20 MG; Start 11/13/16 at 21:00 Enoxaparin Sodium (Lovenox) 110 mg BID SC Last administered on 2/5/17at 08:42; Admin Dose 110 MG; Start 11/13/16 at 21:00; Status Future hold Aspirin (Aspirin) 81 mg DAILY PO Last administered on 11/15/16t 08:38; Admin Dose 81 MG; Start 11/14/16 at 09:00 Diagnostic Test (Pha) (Accucheck) 1 ea 02 XX ; Start 11/14/16 at 02:00 Miscellaneous Information 1 ea NOTE XX ; Start 11/13/16 at 21:00 Glucose (Glutose) 15 gm Q15M PRN PO DECREASED GLUCOSE; Start 11/13/16 at 21:00 Glucose (Glutose) 22.5 gm Q15M PRN PO DECREASED GLUCOSE; Start 11/13/16 at 21:00 Dextrose (D50w Syringe) 25 ml Q15M PRN IV DECREASED GLUCOSE; Start 11/13/16 at 21:00 Dextrose (D50w Syringe) 50 ml Q15M PRN IV DECREASED GLUCOSE; Start 11/13/16 at 21:00 Glucagon (Glucagen) 1 mg Q15M PRN IM DECREASED GLUCOSE; Start 11/13/16 at 21:00 Glucose (Glutose) 15 gm Q15M PRN BUCCAL DECREASED GLUCOSE; Start 11/13/16 at 21: 00 Topiramate (Topamax) 25 mg BID PO ; Start 11/14/16 at 11:00 Humble Cohen DO Nov 15, 2016 15:55
[2016-11-15] MEDS: morphine 2 MG INJ IV PRN (15:58)
[2016-11-15] MEDS: TAMSULOSIN (SR) 0.4 MG CAP PO SCH (21:11)
[2016-11-15] MEDS: INSULIN GLARGINE [LANtus] 3 ML PEN SC SCH (21:21)
[2016-11-16] VITALS (19 sets, daily range): BP systolic 111–159; BP diastolic 56–90; PULSE 69–85; RESP 12–20
[2016-11-16] MEDS: ACCUCHECK XX SCH (02:00)
[2016-11-16] MEDS: INSULIN ASPART [NOVOLOG] 3 ML PEN SC SCH ×7 (07:25→20:53)
[2016-11-16] MEDS: BUSPIRONE 10 MG TAB PO SCH ×3 (08:35→23:07)
[2016-11-16] MEDS: ASPIRIN 81 MG TAB PO SCH (08:35)
[2016-11-16] MEDS: AMLODIPINE 10 MG TAB PO SCH (08:36)
[2016-11-16] MEDS: IMIPRAMINE 25 MG TAB PO SCH ×2 (08:36→23:07)
[2016-11-16] MEDS: FAMOTIDINE 20 MG TAB PO SCH ×2 (08:36→20:43)
[2016-11-16] MEDS: FLUOCINONIDE 0.05% CR 30GM TUBE TOP SCH (08:37)
[2016-11-16] MEDS: METOPROLOL 50 MG TAB PO SCH ×2 (08:37→20:44)
[2016-11-16] MEDS: TOPIRAMATE 25 MG TAB PO SCH ×2 (08:37→20:56)
[2016-11-16] MEDS: BACLOFEN 10 MG TAB PO SCH ×3 (08:41→20:44)
--- NOTE | 2016-11-16 09:41 | PN ---
Date/Time of Note Date/Time of Note DATE: 11/16/16 TIME: 09:40 Assessment/Plan VTE Prophylaxis VTE Prophylaxis Intervention: SCD's Lines/Catheters IV Catheter Type (from Nrsg): [place] Assessment/Plan Assessment/Plan 1. Non-ST elevation myocardial infarction. 2. History of coronary artery disease with stent. 3. History of diabetes. 4. History of obstructive sleep apnea. 5. History of asthma. 6. History of congestive heart failure. 7. History of dyslipidemia. 8. History of bipolar disorder and obsessive compulsive disorder. Plan: continue current care Plan for C today if Cath negativen will plan for d/c on Wednesday Subjective 24 Hr Interval Summary Free Text/Dictation pt plan for [facility] today Exam/Review of Systems Vital Signs Vitals Vital Signs Date Time Temp Pulse Resp B/P Pulse Ox O2 Delivery O2 Flow Rate FiO2 11/16/16 08:51 72 11/16/16 07:42 98.0 20 129/69 96 11/16/16 00:29 CPAP 11/15/16 22:37 2.0 Intake and Output 11/15/16 11/15/16 11/16/16 15:00 23:00 07:00 Intake Total 960 ml Balance 960 ml Exam GENERAL: No acute distress, answering questions appropriately. HEENT: No obvious head deformity. Pupils reactive to light. CARDIOVASCULAR: Regular rate and rhythm. No extra sounds. LUNGS: Clear. ABDOMEN: Obese, soft, nontender, nondistended. Positive bowel sounds. EXTREMITIES: No edema. Results Result Diagram: 11/14/16 0638 11/14/16 0638 Results 24 hrs Laboratory Tests Test 11/15/16 11:38 11/15/16 16:57 11/15/16 21:06 11/16/16 07:55 Bedside Glucose 236 H 140 130 237 H Medications Medications Current Medications Ondansetron HCl (Zofran Inj) 4 mg Q6H PRN IV NAUSEA AND/OR VOMITING; Start 11/13 at 07:30 Nitroglycerin (Nitroglycerin (Sl Tab) 0.4 Mg) 1 tab Q5M PRN SL CHEST PAIN Last administered on 11/13/16 08:43; Admin Dose 1 TAB; Start 11/13/16 at 07:30 Acetaminophen (Tylenol Tab) 650 mg Q6H PRN PO PAIN LEVEL 1-3 OR FEVER; Start at 07:30 Morphine Sulfate (morphine) 2 mg Q4H PRN IV PAIN LEVEL 7-10 Last administered on 11/15/16 15:58; Admin Dose 2 MG; Start 11/13/16 at 07:30 Amlodipine Besylate (Norvasc) 10 mg DAILY PO Last administered on 11/16/16 08: 36; Admin Dose 10 MG; Start 11/13/16 at 09:00 Baclofen (Lioresal) 10 mg TID PO Last administered on 11/16/16 08:41; Admin Dose 10 MG; Start 11/13/16 at 09:00 Buspirone HCl (Buspar) 20 mg TID PO Last administered on 11/16/16 08:35; Admin Dose 20 MG; Start 11/13/16 at 09:00 Fluocinonide (Lidex 0.05% Cr) 1 applic BID TOP Last administered on 11/16/16 08 :37; Admin Dose 1 APPLIC; Start 11/13/16 at 09:00 Imipramine HCl (Tofranil) 100 mg BID PO Last administered on 11/16/16 08:36; Admin Dose 100 MG; Start 11/13/16 at 09:00 Losartan Potassium (Cozaar) 100 mg DAILY PO Last administered on 11/15/16 08:39 ; Admin Dose 100 MG; Start 11/13/16 at 09:00; Status Future Hold Metoprolol Tartrate (Lopressor) 50 mg BID PO Last administered on 11/16/16 08: 37; Admin Dose 50 MG; Start 11/13/16 at 09:00 Tamsulosin HCl (Flomax) 0.4 mg HS PO Last administered on 11/15/16 21:11; Admin Dose 0.4 MG; Start 11/13/16 at 21:00 Famotidine (Pepcid) 20 mg BID PO Last administered on 11/16/16 08:36; Admin Dose 20 MG; Start 11/13/16 at 21:00 Enoxaparin Sodium (Lovenox) 110 mg BID SC Last administered on 11/15/16 08:42; Admin Dose 110 MG; Start 11/13/16 at 21:00; Status Future hold Aspirin (Aspirin) 81 mg DAILY PO Last administered on 2/6/17at 08:35; Admin Dose 81 MG; Start 11/14/16 at 09:00 Diagnostic Test (Pha) (Accucheck) 1 ea 02 XX ; Start 11/14/16 at 02:00 Miscellaneous Information 1 ea NOTE XX ; Start 11/13/16 at 21:00 Glucose (Glutose) 15 gm Q15M PRN PO DECREASED GLUCOSE; Start 11/13/16 at 21:00 Glucose (Glutose) 22.5 gm Q15M PRN PO DECREASED GLUCOSE; Start 11/13/16 at 21:00 Dextrose (D50w Syringe) 25 ml Q15M PRN IV DECREASED GLUCOSE; Start 11/13/16 at 21:00 Dextrose (D50w Syringe) 50 ml Q15M PRN IV DECREASED GLUCOSE; Start 11/13/16 at 21:00 Glucagon (Glucagen) 1 mg Q15M PRN IM DECREASED GLUCOSE; Start 11/13/16 at 21:00 Glucose (Glutose) 15 gm Q15M PRN BUCCAL DECREASED GLUCOSE; Start 11/13/16 at 21: 00 Topiramate (Topamax) 25 mg BID PO ; Start 11/14/16 at 11:00 Insulin Glargine (Lantus) 25 unit QHS SC Last administered on 11/15/16t 21:21; Admin Dose 25 UNIT; Start 11/15/16 at 21:00 ESHA SIMMONS MD Nov 16, 2016 09:41
[2016-11-16] MEDS: IPRATROPIUM (HFA) 12.9 GM INHALER INH SCH ×4 (12:00→21:00)
[2016-11-16] MEDS ORDERED: DIAZEPAM 5 MG TAB PO ONE (12:00)
--- NOTE | 2016-11-16 12:22 | CONS ---
Date/Time of Note Date/Time of Note DATE: 11/16/16 TIME: 12:20 Assessment/Plan Assessment/Plan Additional Assessment/Plan Hypertension Elevated troponin with abnormal stress test Chest pain Preserved ejection fraction Coronary artery disease with history of PCI -Patient plan for left heart catheterization today. The procedure was explained to the patient including benefits and risks and agree to proceed. Given patient nothing by mouth, Lantus dose was decreased last night and metformin held. Consultation Date/Type/Reason Admit Date/Time Nov 12, 2016 at 23:43 Type of Consultation: cv 24 HR Interval Summary Free Text/Dictation Denies shortness of breath or chest pain today. Exam/Review of Systems Vital Signs Vitals Vital Signs Date Time Temp Pulse Resp B/P Pulse Ox O2 Delivery O2 Flow Rate FiO2 11/16/16 12:14 98.2 54 20 111/56 96 11/16/16 00:29 CPAP 11/15/16 22:37 2.0 Intake and Output 11/15/16 11/15/16 11/16/16 15:00 23:00 07:00 Intake Total 960 ml Balance 960 ml Exam No apparent distress Constitutional: alert, obese, oriented Head: normocephalic Neck: supple Respiratory: clear to auscultation, normal air movement Cardiovascular: other (S1-S2 heard), regular rate and rhythm Gastrointestinal: bowel sounds, non-tender, other (no guarding), soft Extremities: edema Results Result Diagram: 11/14/16 0638 11/14/16 0638 Results 24 hrs Laboratory Tests Test 11/15/16 16:57 11/15/16 21:06 11/16/16 07:55 11/16/16 11:24 Bedside Glucose 140 130 237 H 256 H Medications Medications Current Medications Ondansetron HCl (Zofran Inj) 4 mg Q6H PRN IV NAUSEA AND/OR VOMITING; Start 11/13 at 07:30 Nitroglycerin (Nitroglycerin (Sl Tab) 0.4 Mg) 1 tab Q5M PRN SL CHEST PAIN Last administered on 11/13/16 08:43; Admin Dose 1 TAB; Start 11/13/16 at 07:30 Acetaminophen (Tylenol Tab) 650 mg Q6H PRN PO PAIN LEVEL 1-3 OR FEVER; Start at 07:30 Morphine Sulfate (morphine) 2 mg Q4H PRN IV PAIN LEVEL 7-10 Last administered on 11/15/16 15:58; Admin Dose 2 MG; Start 11/13/16 at 07:30 Amlodipine Besylate (Norvasc) 10 mg DAILY PO Last administered on 11/16/16 08: 36; Admin Dose 10 MG; Start 11/13/16 at 09:00 Baclofen (Lioresal) 10 mg TID PO Last administered on 11/16/16 08:41; Admin Dose 10 MG; Start 11/13/16 at 09:00 Buspirone HCl (Buspar) 20 mg TID PO Last administered on 11/16/16 08:35; Admin Dose 20 MG; Start 11/13/16 at 09:00 Fluocinonide (Lidex 0.05% Cr) 1 applic BID TOP Last administered on 11/16/16 08 :37; Admin Dose 1 APPLIC; Start 11/13/16 at 09:00 Imipramine HCl (Tofranil) 100 mg BID PO Last administered on 11/16/16 08:36; Admin Dose 100 MG; Start 11/13/16 at 09:00 Losartan Potassium (Cozaar) 100 mg DAILY PO Last administered on 11/15/16 08:39 ; Admin Dose 100 MG; Start 11/13/16 at 09:00; Status Future Hold Metoprolol Tartrate (Lopressor) 50 mg BID PO Last administered on 11/16/16 08: 37; Admin Dose 50 MG; Start 11/13/16 at 09:00 Tamsulosin HCl (Flomax) 0.4 mg HS PO Last administered on 11/15/16 21:11; Admin Dose 0.4 MG; Start 11/13/16 at 21:00 Famotidine (Pepcid) 20 mg BID PO Last administered on 11/16/16 08:36; Admin Dose 20 MG; Start 11/13/16 at 21:00 Enoxaparin Sodium (Lovenox) 110 mg BID SC Last administered on 11/15/16 08:42; Admin Dose 110 MG; Start 11/13/16 at 21:00; Status Future hold Aspirin (Aspirin) 81 mg DAILY PO Last administered on 11/16/16 08:35; Admin Dose 81 MG; Start 11/14/16 at 09:00 Diagnostic Test (Pha) (Accucheck) 1 ea 02 XX ; Start 11/14/16 at 02:00 Miscellaneous Information 1 ea NOTE XX ; Start 11/13/16 at 21:00 Glucose (Glutose) 15 gm Q15M PRN PO DECREASED GLUCOSE; Start 11/13/16 at 21:00 Glucose (Glutose) 22.5 gm Q15M PRN PO DECREASED GLUCOSE; Start 11/13/16 at 21:00 Dextrose (D50w Syringe) 25 ml Q15M PRN IV DECREASED GLUCOSE; Start 11/13/16 at 21:00 Dextrose (D50w Syringe) 50 ml Q15M PRN IV DECREASED GLUCOSE; Start 11/13/16 at 21:00 Glucagon (Glucagen) 1 mg Q15M PRN IM DECREASED GLUCOSE; Start 11/13/16 at 21:00 Glucose (Glutose) 15 gm Q15M PRN BUCCAL DECREASED GLUCOSE; Start 11/13/16 at 21: 00 Topiramate (Topamax) 25 mg BID PO ; Start 11/14/16 at 11:00 Insulin Glargine (Lantus) 25 unit QHS SC Last administered on 11/15/16t 21:21; Admin Dose 25 UNIT; Start 11/15/16 at 21:00 Humble Cohen DO Nov 16, 2016 12:22
[2016-11-16] MEDS ORDERED: IODIXANOL LOCM 100 ML BTL ONE ×3 (12:58→15:29)
[2016-11-16] MEDS ORDERED: LIDOCAINE 1% (MDV) 20 ML INJ ONE (12:58)
[2016-11-16] MEDS ORDERED: FENTAnyl 50 MCG/ML VIAL ONE ×3 (12:58→16:23)
[2016-11-16] MEDS ORDERED: MIDAZOLAM 1 MG/ML 2 ML INJ ONE ×2 (12:58→14:40)
[2016-11-16] MEDS ORDERED: VERAPAMIL 5 MG INJ ONE (12:58)
[2016-11-16] MEDS ORDERED: HEPARIN 1000 UNITS/ML 10 ML INJ ONE (12:58)
[2016-11-16] MEDS ORDERED: NITROGLYCERIN (IC) 100 MCG/ML INJ ONE (12:58)
[2016-11-16] MEDS ORDERED: BIVALIRUDIN 250MG /NS 50 ML 50 ML IVPB ONE ×2 (14:34→14:56)
[2016-11-16] MEDS ORDERED: SOD CHLORIDE 0.9% 500 ML ONE (14:34)
[2016-11-16] MEDS ORDERED: IODIXANOL LOCM 50 ML BTL ONE (14:34)
[2016-11-16] MEDS ORDERED: TICAGRELOR 90 MG TABLET ONE (15:38)
[2016-11-16] MEDS ORDERED: ASPIRIN 81 MG TAB ONE (15:38)
[2016-11-16] MEDS ORDERED: ACETAMINOPHEN 325 MG TAB PO PRN (16:30)
[2016-11-16] MEDS ORDERED: ONDANSETRON 4 MG INJ IV PRN (16:30)
[2016-11-16] MEDS ORDERED: AL HYDROX/MG HYDROX/SIMETH 30 ML CUP PO PRN (16:30)
[2016-11-16] MEDS: morphine 2 MG INJ IV PRN ×2 (17:46→23:28)
[2016-11-16] MEDS: ALBUTEROL HFA 8 GM INHALER INH SCH ×2 (17:54→20:00)
[2016-11-16] MEDS ORDERED: OXYCODONE/ACETAMINOPHEN (5/325) TAB PO PRN (18:00)
[2016-11-16] MEDS: TAMSULOSIN (SR) 0.4 MG CAP PO SCH (20:43)
[2016-11-16] MEDS: INSULIN GLARGINE [LANtus] 3 ML PEN SC SCH (20:54)
[2016-11-16] MEDS: FLUOCINONIDE 0.05% 15 GM CR TOP SCH (20:59)
--- NOTE | 2016-11-16 21:04 | CARRPT ---
DATE OF PROCEDURE: 11/16/2016 PROCEDURES: 1. Left heart catheterization. 2. Right and left coronary angiogram. 3. Interpretation and supervision of right and left coronary angiogram. 4. Left ventricular pressure measurements. 5. PCI of the mid to distal LAD with placement of a 2.5 x 12 mm Promus drug-eluting stent. 6. PCI of the first obtuse marginal with a 2.25 x 8 mm Resolute drug-eluting stent. 7. PCI of the second obtuse marginal with placement of a 3.0 x 60 mm Promus drug-eluting stent. 8. Left radial artery approach. PATIENT HISTORY: This is a 61-year-old male who presents with non-ST elevation VA. HEMODYNAMICS: 1. LV pressure was 135/0 with EDP of 11. 2. Aortic pressure was 141/71. FINDINGS: 1. Left main is a large-caliber vessel with no significant disease. 2. Circumflex is a medium-caliber vessel. There is bifurcation stenting seen into the first and se cond obtuse marginal. The second obtuse marginal at the distal edge of the stent has an 80% eccentr ic calcified area of stenosis. Distally there is 20% stenosis. The true circumflex has mid 20% luis felipe nosis. 3. LAD is a medium-caliber vessel. In the mid region, there is bifurcation stenting into the diago nal. The LAD has 20% in-stent restenosis. In the mid to distal aspect, there is a 95% stenosis. T he diagonal which is stented, at the distal edge, there is a 90% stenosis. 4. RCA is a medium-caliber vessel and is dominant. In the mid vessel where the acute marginal come s off, there is a 30% to 40% area of stenosis. DESCRIPTION OF PROCEDURE: The patient was brought to the microbiology laboratory manager after informed consent. The art ent was prepped and draped as per protocol. Left radial access was obtained, and a 5/6-Slovak sheat h was placed in left radial artery. A 5-Slovak JL3.5 diagnostic catheter was used in attempts to en nieves the left main but unsuccessful. We next exchanged for a 6-Slovak JL3.0 diagnostic catheter. T his fell into the left ventricle, and pressure measurements were obtained as well as pullback. We n ext engaged the left main. Angiogram was performed. We next engaged the RCA with a 5-Slovak JR4 ca theter, and angiogram was performed. There is severe disease noted in the LAD and diagonal as well as obtuse marginal. Given the setting of a non-ST elevation myocardial infarction, intervention was performed within the same setting. Angiomax was used for anticoagulation. We used an XB 3.0 guide catheter to engage the left main. We were able to wire the lesion with a Runthrough wire. We init ially tried to direct stent but unable to. We predilated the LAD with a 2.0 balloon and then stente d with a 2.5 x 12 mm Promus drug-eluting stent. This was postdilated with the stent delivery system balloon at high pressure. There was an excellent angiographic result with FRANCOIS 3 flow with no evid ence of dissection. Given also the disease noted at distal edge of the diagonal, proceeded with int ervention of that vessel. A Runthrough wire was used to cross the lesion. This lesion was predilat ed and stented with a 2.25 x 8 mm Resolute drug-eluting stent. There was some spasming noted distal to the stent with some residual disease of approximately 20%. Given the small vessel distally and ____ dissection, no further intervention was performed of this vessel. We next turned out attention to the circumflex/obtuse marginal given the severe disease noted at the distal edge of the stent. This lesion was crossed with a Runthrough wire, was predilated first with a 2.5 compliant balloon. There was still residual stenosis and not good balloon expansion so used a 2.75 noncompliant balloon at high pressure. We next stented with a 3.0 x 60 mm Promus drug-eluting stent. This was postdila brianne with 3.25 noncompliant balloon at high pressure. There was a good step up proximally and step d own distally. There was some residual stenosis also at the edge before the bend of the obtuse grady nal, but given it being the bend and the risks of dissection and this area of stenosis being approxi mately 20%, no further intervention was performed. All catheters and wires removed. There were no immediate complications. DIAGNOSES: 1. Non-ST elevation myocardial infarction. 2. Coronary artery disease. COMPLICATIONS: None. BLOOD LOSS: Minimal. RECOMMENDATIONS: Dual antiplatelet therapy for minimum of 1 year to maintain stent patency. Aggres sive risk factor modification. Dictated By: MUNDO BROWNING/TEVIN Conf#: [id number] DID#: [id number]
[2016-11-16] MEDS: SOD CHLORIDE 0.9% 1,000 ML IV SCH (23:28)
[2016-11-17] VITALS (14 sets, daily range): BP systolic 119–145; BP diastolic 57–87; PULSE 61–80; RESP 12–18
[2016-11-17] MEDS: ACCUCHECK XX SCH (02:35)
[2016-11-17] MEDS: SOD CHLORIDE 0.9% 1,000 ML IV SCH (02:53)
[2016-11-17] MEDS ORDERED: INSULIN ASPART [NOVOLOG] 3 ML PEN SC ONE ×2 (03:00)
[2016-11-17 04:57] LABS: BASOPHILS % 0.3 % (0.0-2.0); EOSINOPHILS # 0.1 10^3/ul (0.0-0.5); EOSINOPHILS % 1.6 % (0.0-7.0); HEMATOCRIT 36.9 % (42.0-52.0); HEMOGLOBIN 12.4 g/dl (14.0-18.0); LYMPHOCYTES # 1.4 10^3/ul (0.8-2.9); LYMPHOCYTES % 26.8 % (15.0-51.0); MEAN CORPUSCULAR HEMOGLOBIN 28.8 pg (29.0-33.0); MEAN CORPUSCULAR HGB CONC 33.7 g/dl (32.0-37.0); MEAN CORPUSCULAR VOLUME 85.4 fl (82.0-101.0); MEAN PLATELET VOLUME 7.6 fl (7.4-10.4); MONOCYTE # 0.6 10^3/ul (0.3-0.9); NEUTROPHILS % 59.3 % (39.0-77.0); PLATELET COUNT 155 10^3/UL (140-440); RED BLOOD COUNT 4.32 10^6/ul (4.70-6.10); RED CELL DISTRIBUTION WIDTH 15.2 % (11.5-14.5); UNCORRECTED WBC 5.1 10^3/ul (4.8-10.8); WHITE BLOOD COUNT 5.1 10^3/ul (4.8-10.8)
[2016-11-17 04:59] LABS: CREATININE 0.75 mg/dl (0.61-1.24)
[2016-11-17 05:00] LABS: CALCIUM 8.8 mg/dl (8.4-10.2)
[2016-11-17 05:04] LABS: INR 1.09; PROTIME 14.1 Sec (12.2-14.2); PT RATIO 1.1
[2016-11-17 05:13] LABS: POTASSIUM 4.2 mmol/L (3.5-5.1)
[2016-11-17 05:14] LABS: PARTIAL THROMBOPLASTIN TIME 35.5 Sec (25.0-35.0)
[2016-11-17 05:30] LABS: CONDITION 1; LH ANALYZER COMMENTS 1
[2016-11-17] MEDS: INSULIN ASPART [NOVOLOG] 3 ML PEN SC SCH ×4 (08:23→12:56)
[2016-11-17] MEDS: ALBUTEROL HFA 8 GM INHALER INH SCH ×2 (08:26→12:58)
[2016-11-17] MEDS: IPRATROPIUM (HFA) 12.9 GM INHALER INH SCH ×2 (08:26→12:58)
[2016-11-17] MEDS: TICAGRELOR 90 MG TABLET PO SCH ×2 (08:33→08:42)
[2016-11-17] MEDS: BUSPIRONE 10 MG TAB PO SCH ×2 (08:34→14:32)
[2016-11-17] MEDS: ASPIRIN 81 MG TAB PO SCH (08:34)
[2016-11-17] MEDS: BACLOFEN 10 MG TAB PO SCH ×2 (08:35→13:19)
[2016-11-17] MEDS: METOPROLOL 50 MG TAB PO SCH (08:35)
[2016-11-17] MEDS: AMLODIPINE 10 MG TAB PO SCH (08:36)
[2016-11-17] MEDS: TOPIRAMATE 25 MG TAB PO SCH (08:37)
[2016-11-17] MEDS: FAMOTIDINE 20 MG TAB PO SCH (08:38)
[2016-11-17] MEDS: FLUOCINONIDE 0.05% 15 GM CR TOP SCH (08:38)
--- NOTE | 2016-11-17 08:43 | PN ---
Date/Time of Note Date/Time of Note DATE: 11/17/16 TIME: 08:42 Assessment/Plan VTE Prophylaxis VTE Prophylaxis Intervention: SCD's Lines/Catheters IV Catheter Type (from Nrs): Peripheral IV Urinary Cath still in place: No Assessment/Plan Assessment/Plan 1. Non-ST elevation myocardial infarction s/p LHC and Stent placement x 3 2. History of coronary artery disease with stent. 3. History of diabetes. 4. History of obstructive sleep apnea. 5. History of asthma. 6. History of congestive heart failure. 7. History of dyslipidemia. 8. History of bipolar disorder and obsessive compulsive disorder. Plan: continue current care s/p LHC with stent placement downgrade to telemetry floor Subjective 24 Hr Interval Summary Free Text/Dictation s/p LHC and PCI with stent placement, no chest pain, vitals stable Exam/Review of Systems Vital Signs Vitals Vital Signs Date Time Temp Pulse Resp B/P Pulse Ox O2 Delivery O2 Flow Rate FiO2 11/17/16 06:00 63 14 133/75 97 Room Air 11/17/16 04:00 97.7 11/15/16 22:37 2.0 Intake and Output 11/16/16 11/16/16 11/17/16 15:00 23:00 07:00 Intake Total 360 ml 1150 ml Output Total 600 ml 1900 ml Balance -240 ml -750 ml Exam GENERAL: No acute distress, answering questions appropriately. HEENT: No obvious head deformity. Pupils reactive to light. CARDIOVASCULAR: Regular rate and rhythm. No extra sounds. LUNGS: Clear. ABDOMEN: Obese, soft, nontender, nondistended. Positive bowel sounds. EXTREMITIES: No edema. Results Result Diagram: 11/17/16 0400 11/17/16 0400 Results 24 hrs Laboratory Tests Test 11/16/16 11:24 11/16/16 16:55 11/16/16 20:51 11/17/16 02:29 Bedside Glucose 256 H 221 H 215 216 Test 11/17/16 04:00 11/17/16 08:14 Activated Partial Thromboplast Time 35.5 H Anion Gap 12 Basophils # 0.0 Basophils % 0.3 Blood Morphology Comment Blood Urea Nitrogen 13 Calcium Level 8.8 Carbon Dioxide Level 26 Chloride Level 103 Creatinine 0.75 Eosinophils # 0.1 Eosinophils % 1.6 Glucose Level 203 Hematocrit 36.9 L Hemoglobin 12.4 L INR International Normalized Ratio 1.09 Lymphocytes # 1.4 Lymphocytes % 26.8 Mean Corpuscular Hemoglobin 28.8 L Mean Corpuscular Hemoglobin Concent 33.7 Mean Corpuscular Volume 85.4 Mean Platelet Volume 7.6 # Monocytes # 0.6 Monocytes % 12.0 H Neutrophils # 3.0 Neutrophils % 59.3 Nucleated Red Blood Cells # 0.0 Nucleated Red Blood Cells % 0.0 Platelet Count 155 Potassium Level 4.2 Prothrombin Time 14.1 Prothrombin Time Ratio 1.1 Red Blood Count 4.32 L Red Cell Distribution Width 15.2 H Sodium Level 137 White Blood Count 5.1 Bedside Glucose 234 H Medications Medications Current Medications Nitroglycerin (Nitroglycerin (Sl Tab) 0.4 Mg) 1 tab Q5M PRN SL CHEST PAIN Last administered on 11/13/16 08:43; Admin Dose 1 TAB; Start 11/13/16 at 07:30 Acetaminophen (Tylenol Tab) 650 mg Q6H PRN PO PAIN LEVEL 1-3 OR FEVER; Start at 07:30 Morphine Sulfate (morphine) 2 mg Q4H PRN IV PAIN LEVEL 7-10 Last administered on 11/16/16 23:28; Admin Dose 2 MG; Start 11/13/16 at 07:30 Amlodipine Besylate (Norvasc) 10 mg DAILY PO Last administered on 11/17/16 08: 36; Admin Dose 10 MG; Start 11/13/16 at 09:00 Baclofen (Lioresal) 10 mg TID PO Last administered on 11/17/16 08:35; Admin Dose 10 MG; Start 11/13/16 at 09:00 Buspirone HCl (Buspar) 20 mg TID PO Last administered on 11/17/16 08:34; Admin Dose 20 MG; Start 11/13/16 at 09:00 Imipramine HCl (Tofranil) 100 mg BID PO Last administered on 11/16/16 23:07; Admin Dose 100 MG; Start 11/13/16 at 09:00 Metoprolol Tartrate (Lopressor) 50 mg BID PO Last administered on 11/17/16 08: 35; Admin Dose 50 MG; Start 11/13/16 at 09:00 Tamsulosin HCl (Flomax) 0.4 mg HS PO Last administered on 11/16/16 20:43; Admin Dose 0.4 MG; Start 11/13/16 at 21:00 Famotidine (Pepcid) 20 mg BID PO Last administered on 11/17/16 08:38; Admin Dose 20 MG; Start 11/13/16 at 21:00 Aspirin (Aspirin) 81 mg DAILY PO Last administered on 11/17/16 08:34; Admin Dose 81 MG; Start 11/14/16 at 09:00 Diagnostic Test (Pha) (Accucheck) 1 ea 02 XX Last administered on 11/17/16 02: 35; Admin Dose 1 EA; Start 11/14/16 at 02:00 Miscellaneous Information 1 ea NOTE XX ; Start 11/13/16 at 21:00 Glucose (Glutose) 15 gm Q15M PRN PO DECREASED GLUCOSE; Start 11/13/16 at 21:00 Glucose (Glutose) 22.5 gm Q15M PRN PO DECREASED GLUCOSE; Start 11/13/16 at 21:00 Dextrose (D50w Syringe) 25 ml Q15M PRN IV DECREASED GLUCOSE; Start 11/13/16 at 21:00 Dextrose (D50w Syringe) 50 ml Q15M PRN IV DECREASED GLUCOSE; Start 11/13/16 at 21:00 Glucagon (Glucagen) 1 mg Q15M PRN IM DECREASED GLUCOSE; Start 11/13/16 at 21:00 Glucose (Glutose) 15 gm Q15M PRN BUCCAL DECREASED GLUCOSE; Start 11/13/16 at 21: 00 Topiramate (Topamax) 25 mg BID PO ; Start 11/14/16 at 11:00 Insulin Glargine (Lantus) 25 unit QHS SC Last administered on 11/16/16 20:54; Admin Dose 25 UNIT; Start 11/15/16 at 21:00 Ticagrelor (Brilinta) 90 mg BID PO Last administered on 11/17/16 08:33; Admin Dose 90 MG; Start 11/17/16 at 08:00 Acetaminophen (Tylenol Tab) 650 mg Q4H PRN PO NON-CARDIAC PAIN LEVEL 1-3; Start 11/16/16 at 16:30 Al Hydrox/Mg Hydrox/Simethicone (Mag-Al Plus) 30 ml Q4H PRN PO GASTROINTESTINAL UPSET; Start 2/6/17 at 16:30 Ondansetron HCl 4 mg 4 mg Q4H PRN IV NAUSEA AND/OR VOMITING; Start 11/16/16 at 16:30 Sodium Chloride (NS) 1,000 ml @ 100 mls/hr Q10H IV Last administered on 23:28; Admin Dose 100 MLS/HR; Start 11/16/16 at 18:00; Stop 11/17/16 at 13:59 Oxycodone/ Acetaminophen (Percocet (5/ 325)) 1 tab Q4H PRN PO PAIN; Start at 18:00 Fluocinonide (Lidex 0.05% Cr) 1 applic BID TOP Last administered on 11/17/16 08 :38; Admin Dose 1 APPLIC; Start 11/16/16 at 21:00 ESHA SIMMONS MD Nov 17, 2016 08:43
[2016-11-17] MEDS: IMIPRAMINE 25 MG TAB PO SCH (12:44)
[2016-11-17] MEDS ORDERED: BUSPIRONE 10 MG TAB PO SCH (13:26)
--- NOTE | 2016-11-17 15:44 | CONS ---
Date/Time of Note Date/Time of Note DATE: 11/17/16 TIME: 15:41 Assessment/Plan Assessment/Plan Additional Assessment/Plan Non-ST elevation [place] status post PCI to LAD, diagonal and obtuse marginal Hypertension Preserved ejection fraction Coronary artery disease Diabetes -Patient status post cardiac catheterization yesterday with multivessel PCI. Multiple vessels were performed at once secondary to severe stenosis in the vessels and difficulty with access and concern of staging procedures. Patient has been doing well. Renal function has remained stable. I did discuss with case management, and Brilinta is covered by patient's insurance. Patient counseled on importance of taking dual antiplatelet therapy for minimum of 1 year to maintain stent patency. Would continue statin therapy and beta tomas. Hold ARB for the next few days secondary to contrast use and hold metformin for the next 2 days. Did recommend patient to have outpatient BMP checked in the next one to 2 days. DC planning. Consultation Date/Type/Reason Admit Date/Time Nov 12, 2016 at 23:43 Type of Consultation: cv 24 HR Interval Summary Free Text/Dictation Denies chest pain, shortness of breath or palpitations. Feeling better since cardiac catheterization. Exam/Review of Systems Vital Signs Vitals Vital Signs Date Time Temp Pulse Resp B/P Pulse Ox O2 Delivery O2 Flow Rate FiO2 11/17/16 12:00 71 11/17/16 10:00 17 135/76 100 Room Air 11/17/16 07:00 98.6 11/15/16 22:37 2.0 Intake and Output 11/16/16 11/16/16 11/17/16 15:00 23:00 07:00 Intake Total 360 ml 1150 ml Output Total 600 ml 1900 ml Balance -240 ml -750 ml Exam No apparent distress Constitutional: alert, obese, oriented Head: normocephalic Neck: supple Respiratory: clear to auscultation, normal air movement Cardiovascular: other (S1 and S2 heard), regular rate and rhythm Gastrointestinal: bowel sounds, non-tender, soft Extremities: edema (trace) Results Result Diagram: 11/17/16 0400 11/17/16 0400 Results 24 hrs Laboratory Tests Test 11/16/16 16:55 11/16/16 20:51 11/17/16 02:29 11/17/16 04:00 Bedside Glucose 221 H 215 216 Activated Partial Thromboplast Time 35.5 H Anion Gap 12 Basophils # 0.0 Basophils % 0.3 Blood Morphology Comment Blood Urea Nitrogen 13 Calcium Level 8.8 Carbon Dioxide Level 26 Chloride Level 103 Creatinine 0.75 Eosinophils # 0.1 Eosinophils % 1.6 Glucose Level 203 Hematocrit 36.9 L Hemoglobin 12.4 L INR International Normalized Ratio 1.09 Lymphocytes # 1.4 Lymphocytes % 26.8 Mean Corpuscular Hemoglobin 28.8 L Mean Corpuscular Hemoglobin Concent 33.7 Mean Corpuscular Volume 85.4 Mean Platelet Volume 7.6 # Monocytes # 0.6 Monocytes % 12.0 H Neutrophils # 3.0 Neutrophils % 59.3 Nucleated Red Blood Cells # 0.0 Nucleated Red Blood Cells % 0.0 Platelet Count 155 Potassium Level 4.2 Prothrombin Time 14.1 Prothrombin Time Ratio 1.1 Red Blood Count 4.32 L Red Cell Distribution Width 15.2 H Sodium Level 137 White Blood Count 5.1 Test 11/17/16 08:14 11/17/16 12:41 Bedside Glucose 234 H 205 Medications Medications Current Medications Nitroglycerin (Nitroglycerin (Sl Tab) 0.4 Mg) 1 tab Q5M PRN SL CHEST PAIN Last administered on 11/13/16 08:43; Admin Dose 1 TAB; Start 11/13/16 at 07:30 Acetaminophen (Tylenol Tab) 650 mg Q6H PRN PO PAIN LEVEL 1-3 OR FEVER; Start at 07:30 Morphine Sulfate (morphine) 2 mg Q4H PRN IV PAIN LEVEL 7-10 Last administered on 11/16/16 23:28; Admin Dose 2 MG; Start 11/13/16 at 07:30 Amlodipine Besylate (Norvasc) 10 mg DAILY PO Last administered on 11/17/16 08: 36; Admin Dose 10 MG; Start 11/13/16 at 09:00 Baclofen (Lioresal) 10 mg TID PO Last administered on 11/17/16 13:19; Admin Dose 10 MG; Start 11/13/16 at 09:00 Buspirone HCl (Buspar) 20 mg TID PO Last administered on 11/17/16 14:32; Admin Dose 20 MG; Start 11/13/16 at 09:00 Imipramine HCl (Tofranil) 100 mg BID PO Last administered on 11/17/16 12:44; Admin Dose 100 MG; Start 11/13/16 at 09:00 Metoprolol Tartrate (Lopressor) 50 mg BID PO Last administered on 11/17/16 08: 35; Admin Dose 50 MG; Start 11/13/16 at 09:00 Tamsulosin HCl (Flomax) 0.4 mg HS PO Last administered on 11/16/16 20:43; Admin Dose 0.4 MG; Start 11/13/16 at 21:00 Famotidine (Pepcid) 20 mg BID PO Last administered on 11/17/16 08:38; Admin Dose 20 MG; Start 11/13/16 at 21:00 Aspirin (Aspirin) 81 mg DAILY PO Last administered on 11/17/16 08:34; Admin Dose 81 MG; Start 11/14/16 at 09:00 Diagnostic Test (Pha) (Accucheck) 1 ea 02 XX Last administered on 11/17/16 02: 35; Admin Dose 1 EA; Start 11/14/16 at 02:00 Miscellaneous Information 1 ea NOTE XX ; Start 11/13/16 at 21:00 Glucose (Glutose) 15 gm Q15M PRN PO DECREASED GLUCOSE; Start 11/13/16 at 21:00 Glucose (Glutose) 22.5 gm Q15M PRN PO DECREASED GLUCOSE; Start 11/13/16 at 21:00 Dextrose (D50w Syringe) 25 ml Q15M PRN IV DECREASED GLUCOSE; Start 11/13/16 at 21:00 Dextrose (D50w Syringe) 50 ml Q15M PRN IV DECREASED GLUCOSE; Start 11/13/16 at 21:00 Glucagon (Glucagen) 1 mg Q15M PRN IM DECREASED GLUCOSE; Start 11/13/16 at 21:00 Glucose (Glutose) 15 gm Q15M PRN BUCCAL DECREASED GLUCOSE; Start 11/13/16 at 21: 00 Topiramate (Topamax) 25 mg BID PO ; Start 11/14/16 at 11:00 Insulin Glargine (Lantus) 25 unit QHS SC Last administered on 11/16/16 20:54; Admin Dose 25 UNIT; Start 11/15/16 at 21:00 Ticagrelor (Brilinta) 90 mg BID PO Last administered on 11/17/16 08:42; Admin Dose 90 MG; Start 11/17/16 at 08:00 Acetaminophen (Tylenol Tab) 650 mg Q4H PRN PO NON-CARDIAC PAIN LEVEL 1-3; Start 11/16/16 at 16:30 Al Hydrox/Mg Hydrox/Simethicone (Mag-Al Plus) 30 ml Q4H PRN PO GASTROINTESTINAL UPSET; Start 11/16/16 at 16:30 Ondansetron HCl (Zofran Inj) 4 mg Q4H PRN IV NAUSEA AND/OR VOMITING; Start 11/16 at 16:30 Oxycodone/ Acetaminophen (Percocet (5/ 325)) 1 tab Q4H PRN PO PAIN; Start at 18:00 Fluocinonide (Lidex 0.05% Cr) 1 applic BID TOP Last administered on 11/17/16t 08 :38; Admin Dose 1 APPLIC; Start 11/16/16 at 21:00 Humble Cohen DO Nov 17, 2016 15:44
--- NOTE | 2016-11-17 16:17 | PDOCDIS ---
Discharge Instructions CONDITION Patient Condition: Good HOME CARE INSTRUCTIONS: Special Diet: Cardiac diet ACTIVITY: Activity Restrictions: Slowly Increase Activity Rest between Activity Avoid heavy lifting Avoid Heavy Housework FOLLOW UP/APPOINTMENTS Appointments Follow up with DR.Kalpesh Simmons in 2-3 week. Follow up with Dr.Michael Penny in 2 weeks after discharge ESHA SIMMONS MD Nov 17, 2016 16:17
[2016-11-17] MEDS ORDERED: TICA90TA PO (16:19)
--- NOTE | 2016-11-17 17:06 | DS ---
DATE OF ADMISSION: 11/12/2016 DATE OF DISCHARGE: 11/17/2016 FINAL DISCHARGE DIAGNOSES: 1. Acute non-ST elevation myocardial infarction, status post left heart catheterization with stent placement x3. 2. History of coronary artery disease with previous percutaneous coronary intervention and stent pl acement. 3. History of diabetes mellitus. 4. History of asthma. 5. History of obstructive sleep apnea. 6. History of congestive heart failure, diastolic and systolic. 7. History of dyslipidemia. 8. History of bipolar disorder and obsessive-compulsive disorder. CONSULTATIONS DONE DURING THIS HOSPITALIZATION: Cardiology consult, Dr. Humble Cohen. PROCEDURES PERFORMED DURING THIS HOSPITALIZATION: The patient underwent a left heart catheterizatio n with PCI to left anterior descending and diagonal and obtuse marginal with stent placement. HOSPITAL COURSE: This is a 61-year-old male with a past medical history of hypertension, CHF, histo ry of previous coronary artery disease, and had multiple stent placements, as per the patient, asthm a, sleep apnea, gastroesophageal reflux disease, BPH, diabetes mellitus, bipolar disorder. The art ent presented with a complaint of chest pain. He was noted to have acute non-ST elevation myocardia l infarction for which he was treated with IV heparin drip for a non-ST elevation myocardial infarct ion. He was evaluated by wharf operator, Dr. Humble Cohen, and had left heart catheterization done, which revealed obstructive coronary artery disease and the patient had a stent placement in the lef t anterior descending artery, diagonal, and obtuse marginal. Post-cath, the patient was monitored i n the ICU where he remained hemodynamically stable. He was started on Brilinta 90 mg p.o. b.i.d. P rescription was written by cardiology. He is being discharged to home. DISPOSITION: To home. DISCHARGE CONDITION: Stable and improved compared to admission. DISCHARGE ACTIVITIES: As tolerated, slowly resume to the normal baseline activity. DISCHARGE DIET: Cardiac diet. DISCHARGE MEDICATIONS: 1. He is given a new prescription of Brilinta 90 mg p.o. b.i.d. 2. He is continued on all of his other home medications. DISCHARGE FOLLOWUP AND INSTRUCTIONS: 1. The patient is to follow with Dr. Esha Simmons [facility] 2. The patient is to follow up with wharf operator, Dr. Humble Cohen, in 1 to 2 weeks after dischar ge. He has been explained about the discharge plan and followup instructions. He understood and verbali zed understanding. Dictated By: ESHA SIMMONS MD, KP/NTS Conf#: [id number] DID#: [id number] CC: TIM SARMIENTO MD;*EndCC*
[2016-11-17] MEDS ORDERED: ATORVASTATIN 40 MG TAB PO SCH (21:00)
--- NOTE | 2016-11-19 11:49 | RADRPT ---
Vent Rate: 76 bpm RR Interval: 0 msec MI Interval: 188 msec QRS Duration: 94 msec QT Interval: 402 msec QTC Interval: 452 msec P-R-T Brady: 19 - 52 - 19 degrees Normal sinus rhythm Nonspecific T wave abnormality Abnormal ECG Electronically Signed By: Garry Hurtado [id number]
== END 2016-11-17 18:09 | disposition home or self-care (01) | DRG 247 ==
LOC: E/R 20:37 → TEL 23:43 → ICU 11-16 16:53
PROVIDERS: ADMIT Internal Medicine; ATTEND Internal Medicine
PROC: C22G1ZZ Tomographic (Tomo) Nuclear Medicine Imaging of Myocardium using Technetium 99m (Tc-99m) (ICD-10-PCS; 2016-11-14)
PROC: 027236Z Dilation of Coronary Artery, Three Arteries with Three Drug-eluting Intraluminal Devices, Percutaneous Approach (ICD-10-PCS; principal; 2016-11-16)
PROC: 4A023N7 Measurement of Cardiac Sampling and Pressure, Left Heart, Percutaneous Approach (ICD-10-PCS; 2016-11-16)
PROC: B2111ZZ Fluoroscopy of Multiple Coronary Arteries using Low Osmolar Contrast (ICD-10-PCS; 2016-11-16)
DX: I21.4 Non-ST elevation (NSTEMI) myocardial infarction (principal); T82.855A Stenosis of coronary artery stent, initial encounter; I11.0 Hypertensive heart disease with heart failure; I50.40 Unspecified combined systolic (congestive) and diastolic (congestive) heart failure; I25.118 Atherosclerotic heart disease of native coronary artery with other forms of angina pectoris; Z95.5 Presence of coronary angioplasty implant and graft; G47.33 Obstructive sleep apnea (adult) (pediatric); E78.5 Hyperlipidemia, unspecified; F31.9 Bipolar disorder, unspecified; F42.9 Obsessive-compulsive disorder, unspecified; J45.909 Unspecified asthma, uncomplicated; E11.9 Type 2 diabetes mellitus without complications; E66.9 Obesity, unspecified; Z68.36 Body mass index [BMI] 36.0-36.9, adult; K21.9 Gastro-esophageal reflux disease without esophagitis; N40.0 Benign prostatic hyperplasia without lower urinary tract symptoms; Y71.3 Surgical instruments, materials and cardiovascular devices (including sutures) associated with adverse incidents
CPT/HCPCS: 71010; 78452; 80048; 80053; 80061; 80076; 82550; 82553; 82728; 82962; 83036; 83540; 83735; 84100; 84439; 84443; 84484; 85025; 85610; 85730; 86803; 87081; 87340; 93005; 93017; 93306; 93458; 96372; 96374; 96375; 96376; A9500; A9505; C1725; C1769; C1874; C1887; C9600; C9601; J0583; J1644; J1815; J2250; J2270; J2405; J2785; J3010; J7030; J7040; J7042; Q9967

== ENCOUNTER 2016-12-24 16:59 | Inpatient (IN) | payer BC, MEDICARE, OTHER ==
[~2016-12-24] VITALS: Ht 179.1 cm; Wt 97.0 kg
[~2016-12-24 16:59] MED LIST changes: -AMLO2.5T78; -AZIT500T2 PO; -BUSP10TA2; -CLON1TAB3; -FORM12CA2; -INSU100V19; -IPRA30SP7; -LAMO150T15; -LASIX; -LIT300; -LOSA25TA2; -METO100T13; -MOMETASONE FUROATE; -MTF1000T; -MUPI22OI; -NITR0.4T6; -NOV; -OMEP20TA42; -POTA-57; -ROSU20TA; -RTPRO5; +TICA90TA PO; -TRAZ50TA18; -TRIA15CR; -[UNRECOGNIZED DRUG - CODE]
[2016-12-24] MEDS ORDERED: morphine 4 MG/ML VIAL IV STA (17:42)
[2016-12-24] MEDS ORDERED: NITROGLYCERIN 2% 1 GM OINT PKT TD STA (17:42)
[2016-12-24] MEDS ORDERED: ONDANSETRON 4 MG INJ IV STA (17:42)
[2016-12-24] MEDS ORDERED: NITROGLYCERIN (SL) 0.4 MG TAB SL PRN ×2 (18:00→21:30)
[2016-12-24 18:19] LABS: ADD SCAN DIFF NO
[2016-12-24 18:21] LABS: BASOPHILS % 0.3 % (0.0-2.0); EOSINOPHILS # 0.1 10^3/ul (0.0-0.5); EOSINOPHILS % 1.4 % (0.0-7.0); LYMPHOCYTES % 15.4 % (15.0-51.0); MEAN CORPUSCULAR HEMOGLOBIN 28.4 pg (29.0-33.0); MEAN CORPUSCULAR HGB CONC 32.4 g/dl (32.0-37.0); MEAN CORPUSCULAR VOLUME 87.9 fl (82.0-101.0); MEAN PLATELET VOLUME 10.3 fl (7.4-10.4); MONOCYTES % 14.8 % (0.0-11.0); NEUTROPHIL # 4.3 10^3/ul (1.6-7.5); NEUTROPHILS % 67.6 % (39.0-77.0); PLATELET COUNT 147 10^3/UL (140-415); RED BLOOD COUNT 3.87 10^6/ul (4.70-6.10); RED CELL DISTRIBUTION WIDTH 15.5 % (11.5-14.5); WHITE BLOOD COUNT 6.4 10^3/ul (4.8-10.8)
--- NOTE | 2016-12-24 18:25 | RADRPT ---
PROCEDURE: CHEST 1VW CLINICAL INDICATION: Shortness of breath TECHNIQUE: Single frontal view of the chest was obtained COMPARISON: 11/12/2016 FINDINGS: Stable cervical orthopedic hardware. The cardiac size is moderately enlarged, stable. Aortic vascular calcifications are demonstrated. There is no pulmonary vascular congestion. The lungs are clear. No consolidation, effusion, or pneumothorax. Mild degenerative changes of the visualized osseous structures are visualized. IMPRESSION: 1. No acute cardiopulmonary process. 2. Atherosclerosis with stable cardiomegaly. 3. Cervical orthopedic hardware is seen. RPTAT:PP .Markus Crum MD, Date Time Electronically viewed and signed by .Markus Crum MD, on 12/24/2016 18:25 .V/
[2016-12-24 18:31] LABS: ALBUMIN 3.5 g/dl (3.3-4.9); CHLORIDE 101 mmol/L (97-110); SODIUM 138 mmol/L (135-144)
[2016-12-24 18:32] LABS: INR 1.09; POTASSIUM 4.4 mmol/L (3.5-5.1); PROTIME 14.1 Sec (12.2-14.2); PT RATIO 1.1
[2016-12-24 18:33] LABS: CREATININE 1.17 mg/dl (0.61-1.24); PARTIAL THROMBOPLASTIN TIME 29.3 Sec (25.0-35.0)
[2016-12-24 18:34] LABS: ALANINE AMINOTRANSFERASE 44 IU/L (13-69); ALBUMIN/GLOBULIN RATIO 1.12; ALKALINE PHOSPHATASE 128 IU/L (42-121); ANION GAP 16 (8-16); ASPARTATE AMINO TRANSFERASE 25 IU/L (15-46); BILIRUBIN,INDIRECT 0.4 mg/dl (0-1.1); BILIRUBIN,TOTAL 0.4 mg/dl (0.2-1.3); BLOOD UREA NITROGEN 36 mg/dl (7-20); CARBON DIOXIDE 25 mmol/L (21-31); GLUCOSE 264 mg/dl (70-220); TOTAL PROTEIN 6.6 g/dl (6.1-8.1)
[2016-12-24 18:35] LABS: CALCIUM 9.5 mg/dl (8.4-10.2)
[2016-12-24 19:08] LABS: TROPONIN-I < 0.012 ng/ml (0.00-0.12)
[2016-12-24] MEDS ORDERED: ALBUTEROL/IPRATROPIUM (NEB) 3 ML AMP HHN PRN (21:30)
[2016-12-24] MEDS ORDERED: DOCUSATE SODIUM 100 MG CAP PO PRN (21:30)
[2016-12-24] MEDS ORDERED: MAGNESIUM HYDROXIDE 30ML CUP PO PRN (21:30)
[2016-12-24] MEDS ORDERED: ONDANSETRON 4 MG INJ IV PRN ×2 (21:30→22:30)
[2016-12-24] MEDS ORDERED: NACL 0.9% 3 ML SYG IV SCH (21:30)
[2016-12-24] MEDS ORDERED: ACETAMINOPHEN 325 MG TAB PO PRN ×2 (21:30→22:30)
[2016-12-24] MEDS ORDERED: NA PHOSPHATE/BIPHOS 133 ML ENEMA PR PRN (21:30)
[2016-12-24] MEDS ORDERED: LORAZEPAM 2 MG INJ IV PRN (21:30)
[2016-12-24] MEDS ORDERED: DEXTROSE 50% 50 ML SYRINGE IV PRN ×2 (22:00)
[2016-12-24] MEDS ORDERED: GLUCOSE GEL 15 GRAM TUBE BUCCAL PRN (22:00)
[2016-12-24] MEDS ORDERED: GLUCOSE GEL 15 GRAM TUBE PO PRN ×2 (22:00)
[2016-12-24] MEDS ORDERED: GLUCAGON 1 MG INJ IM PRN (22:00)
[2016-12-24] MEDS: morphine 2 MG INJ IV PRN (22:02)
[2016-12-24] MEDS ORDERED: SOD CHLORIDE 0.9% 1,000 ML IV SCH (22:04)
--- NOTE | 2016-12-24 22:09 | ERA ---
ER Documentation Chief Complaint Date/Time DATE: 12/24/16 TIME: 22:05 Chief Complaint SHOULDER PAIN 2 DAYS MAXIMUM WITH CHEST TIGHTNESS WITH NO DIAPHORESIS HPI This is a 61-year-old male who 3 months ago had 3 stents placed in his heart, one was a replacement the other 2 are new. Stents are in the distal LAD, circumflex, OM. The patient states that today he has been having chest pain that smiled in the substernal region but mostly located in both shoulders and radiates up his neck into his jaw with some shortness of breath and mild diaphoresis. No palpitations no syncope. The patient states this is how his chest pain felt when he had the stents placed. Did not have a myocardial infarction he states that they caught it early before a cardiac event. The patient does not have any nitroglycerin at home. Currently his pain is mild ROS All systems reviewed and are negative except as per history of present illness. Medications Home Meds Active Scripts Ticagrelor* (Brilinta*) 90 Mg Tablet, 90 MG PO BID for 30 Days, #60 TAB Prov:ESHA SIMMONS MD 11/17/16 Reported Medications Insulin Glargine* (Lantus*) 100 Unit/Ml Soln, 56 UNIT SC QHS, #1 VIAL 11/12/16 Insulin Glargine* (Lantus*) 100 Unit/Ml Soln, 50 UNIT SC QAM, #1 VIAL 11/12/16 Insulin Aspart* (Novolog Insulin Pen*) 100 Unit/Ml Soln, 30-40 UNIT SC WITH MEALS, EA 11/12/16 Buspirone Hcl* (Buspirone Hcl*) 10 Mg Tab, 20 MG PO TID, TAB 10/28/16 Atorvastatin* (Atorvastatin*) 40 Mg Tablet, 40 MG PO DAILY, #30 TAB 10/28/16 Capsaicin (Capsaicin) 42.5 Gm Cream.gm., 1 APPLIC TOP QID, #1 TUB 10/28/16 Metoprolol Tartrate* (Lopressor*) 50 Mg Tab, 50 MG PO BID, #60 TAB 10/28/16 Baclofen* (Baclofen*) 10 Mg Tablet, 10 MG PO TID, TAB 10/28/16 Imipramine Hcl* (Imipramine Hcl*) 50 Mg Tablet, 100 MG PO BID, TAB 10/28/16 Metformin Hcl* (Metformin Hcl*) 1,000 Mg Tablet, 1000 MG PO WITH BREAKFAST DINNE , #60 TAB 10/28/16 Fluocinonide* (Fluocinonide* Cream) 0.1% - 120 Gm Cream..g., 1 APPLIC TOP BID, TUB 10/28/16 Tamsulosin Hcl* (Tamsulosin Hcl*) 0.4 Mg Cap.er.24h, 0.4 MG PO HS, CAP 10/28/16 Albuterol/Ipratropium* (Combivent Respimat*) 20-100 Mcg/Inh - 4 Gm Aer.w.adap, 1 PUFF INHALATION QID, #1 INHALER 10/28/16 Losartan Potassium* (Losartan Potassium*) 100 Mg Tablet, 100 MG PO DAILY, TAB 10/28/16 Amlodipine Besylate* (Amlodipine Besylate*) 10 Mg Tablet, 10 MG PO DAILY, #30 TAB 10/28/16 Allergies Allergies: Coded Allergies: Penicillins (Verified Allergy, Severe, DIFFICULTY BREATHING, 12/24/16) cefazolin (Verified Allergy, Severe, DIFFICULTY BREATHING, 12/24/16) ciprofloxacin (Verified Allergy, Mild, RASH, 12/24/16) benazepril (Unverified Allergy, Unknown, 12/24/16) ketorolac (Verified Allergy, Unknown, pain worse, 12/24/16) sildenafil (Unverified Allergy, Unknown, 12/24/16) PMhx/Soc History of Surgery: Yes (Apendix removed, 3 stents placed around 10years ago. ) Anesthesia Reaction: No Hx Neurological Disorder: No Hx Respiratory Disorders: Yes (Asthma, Sleep Apnea ) Hx Cardiac Disorders: Yes (HTN, CHF, CAD, 3 Stents placed. ) Hx Psychiatric Problems: Yes (OCD, Biploar) Hx Miscellaneous Medical Probl: No Hx Alcohol Use: No Hx Substance Use: No Hx Tobacco Use: No Smoking Status: Former smoker FmHx Family History: No coronary disease Physical Exam Vitals Vital Signs Date Time Temp Pulse Resp B/P Pulse Ox O2 Delivery O2 Flow Rate FiO2 12/24/16 20:30 99.0 81 20 147/65 98 Nasal Cannula 2.0 12/24/16 18:42 98.9 74 20 150/71 98 Nasal Cannula 2.0 12/24/16 17:30 Nasal Cannula 2 12/24/16 17:06 99.8 80 20 174/74 98 Physical Exam Const: [Well-developed, well-nourished] Head: [Atraumatic, normocephalic] Eyes: [Normal Conjunctiva, PERRLA, EOMI, normal sclera, no nystagmus] ENT: [Normal External Ears, Nose and Mouth, moist mucus membranes.] Neck: [Full range of motion. No meningismus, no lymphadenopathy.] Resp: [Clear to auscultation bilaterally, no wheezing, rhonchi, rales] Cardio: [Regular rate and rhythm, no murmurs, S1 S2 present] Abd: [Soft, non tender x 4, non distended. Normal bowel sounds, no guarding or rebound, no pulsitile abdominal masses or bruits] Skin: [No petechiae or rashes, no ecchymosis , no maculopapular rash] Back: [No midline or flank tenderness] Ext: [No cyanosis, or edema, FROM x 4, normal inspection, neurovascularly intact x 4] Neur: [Awake and alert, STR 5/5 x 4, sensation intact x 4, no focal findings, cerebellum intact] Psych: [Normal Mood and Affect] Result Diagram: 12/24/16 1735 12/24/16 1735 Results 24 hrs Laboratory Tests Test 12/24/16 17:35 Activated Partial Thromboplast Time 29.3Sec Alanine Aminotransferase (ALT/SGPT) 44IU/L Albumin 3.5g/dl Albumin/Globulin Ratio 1.12 Alkaline Phosphatase 128IU/L Anion Gap 16 Aspartate Amino Transf (AST/SGOT) 25IU/L Basophils # 0.010^3/ul Basophils % 0.3% Blood Urea Nitrogen 36mg/dl Calcium Level 9.5mg/dl Carbon Dioxide Level 25mmol/L Chloride Level 101mmol/L Creatinine 1.17mg/dl Direct Bilirubin 0.00mg/dl Eosinophils # 0.110^3/ul Eosinophils % 1.4% Globulin 3.10g/dl Glucose Level 264mg/dl Hematocrit 34.0% Hemoglobin 11.0g/dl INR International Normalized Ratio 1.09 Indirect Bilirubin 0.4mg/dl Lymphocytes # 1.010^3/ul Lymphocytes % 15.4% Mean Corpuscular Hemoglobin 28.4pg Mean Corpuscular Hemoglobin Concent 32.4g/dl Mean Corpuscular Volume 87.9fl Mean Platelet Volume 10.3fl Monocytes # 1.010^3/ul Monocytes % 14.8% Neutrophils # 4.310^3/ul Neutrophils % 67.6% Nucleated Red Blood Cells # 0.010^3/ul Nucleated Red Blood Cells % 0.0/100WBC Platelet Count 91322^3/UL Potassium Level 4.4mmol/L Prothrombin Time 14.1Sec Prothrombin Time Ratio 1.1 Red Blood Count 3.8710^6/ul Red Cell Distribution Width 15.5% Sodium Level 138mmol/L Total Bilirubin 0.4mg/dl Total Protein 6.6g/dl Troponin I < 0.012ng/ml White Blood Count 6.410^3/ul Current Medications Medications (Trade) Dose Ordered Sig/Giovanni Route PRN Reason Start Time Stop Time Status Last Admin Dose Admin Nitroglycerin (Nitroglycerin 2% Oint) 1 inch ONCE STAT TD 12/24/16 17:42 12/24/16 17:45 DC 12/24/16 18:01 Nitroglycerin (Nitroglycerin (Sl Tab) 0.4 Mg) 1 tab Q5M UP TO 3 DOSES PRN SL CHEST PAIN 12/24/16 18:00 12/24/16 21:56 DC Morphine Sulfate (morphine) 4 mg ONCE STAT IV 12/24/16 17:42 12/24/16 17:45 DC 12/24/16 18:01 Ondansetron HCl (Zofran Inj) 4 mg ONCE STAT IV 12/24/16 17:42 12/24/16 17:45 DC 12/24/16 18:01 IV Flush (NS 3 ml) 3 ml PER PROTOCOL IV 12/24/16 21:30 Ondansetron HCl (Zofran Inj) 4 mg Q6H PRN IV NAUSEA AND/OR VOMITING 12/24/16 21:30 Acetaminophen (Tylenol Tab) 650 mg Q6H PRN PO PAIN LEVEL 1-3 OR FEVER 12/24/16 21:30 Acetaminophen/ Hydrocodone Bitart ([place] (5/325)) 1 tab Q6H PRN PO MODERATE PAIN LEVEL 4-6 12/24/16 21:30 Morphine Sulfate (morphine) 2 mg Q4H PRN IV SEVERE PAIN LEVEL 7-10 12/24/16 21:30 12/24/16 22:02 Docusate Sodium (Colace) 100 mg Q12H PRN PO CONSTIPATION 12/24/16 21:30 Magnesium Hydroxide (Milk Of Mag) 30 ml DAILY PRN PO CONSTIPATION 12/24/16 21:30 Sodium Biphosphate/ Sodium Phosphate (Fleet Enema) 133 ml DAILY PRN IA CONSTIPATION 12/24/16 21:30 Heparin Sodium (Porcine) (Heparin (5000 Units/0.5 ml)) 5,000 unit Q12 SC 12/25/16 09:00 Lorazepam (Ativan) 0.5 mg Q6H PRN IV ANXIETY 12/24/16 21:30 Albuterol/ Ipratropium (Duoneb) 3 ml Q4H RESP THERAPY PRN HHN SHORTNESS OF BREATH 12/24/16 21:30 Nitroglycerin (Nitroglycerin (Sl Tab) 0.4 Mg) 1 tab Q5M PRN SL ANGINA 12/24/16 21:30 Amlodipine Besylate (Norvasc) 10 mg DAILY PO 12/25/16 09:00 Atorvastatin Calcium (Lipitor) 40 mg DAILY PO 12/25/16 09:00 Baclofen (Lioresal) 10 mg TID PO 12/25/16 09:00 Buspirone HCl (Buspar) 20 mg TID PO 12/25/16 09:00 Fluocinonide (Lidex 0.05% Cr) 1 applic BID TOP 12/25/16 09:00 Imipramine HCl (Tofranil) 100 mg BID PO 12/25/16 09:00 Insulin Aspart (Novolog Insulin Pen) 30 unit WITH MEALS SC 12/25/16 08:00 Insulin Glargine (Lantus) 50 unit QAM SC 12/25/16 09:00 Insulin Glargine (Lantus) 56 unit QHS SC 12/25/16 21:00 Losartan Potassium (Cozaar) 100 mg DAILY PO 12/25/16 09:00 Metoprolol Tartrate (Lopressor) 50 mg BID PO 12/25/16 09:00 Tamsulosin HCl (Flomax) 0.4 mg HS PO 12/25/16 21:00 Ticagrelor (Brilinta) 90 mg BID PO 12/25/16 09:00 Miscellaneous Information 1 puff QID INHALATION 12/25/16 09:00 UNV Miscellaneous Information 1 applic QID TOP 12/25/16 09:00 UNV Famotidine (Pepcid) 20 mg DAILY PO 12/25/16 09:00 Insulin Aspart (Novolog Insulin Pen) NOVOLOG *MODERATE* ALGORITHM WITH MEALS BEDTIME SC 12/25/16 08:00 Miscellaneous Information (* Miscellaneous Pharmacy Order) HYPOGLYCEMIA PROTOCOL w... ONCE ONCE XX 12/24/16 21:30 12/24/16 21:49 DC Miscellaneous Information (* Miscellaneous Pharmacy Order) Discontinue Glyburide, Glipizide,... ONCE ONCE XX 12/24/16 21:30 12/24/16 21:49 DC Miscellaneous Information (* Miscellaneous Pharmacy Order) Discontinue all previ... ONCE ONCE XX 12/24/16 21:30 12/24/16 21:49 DC Miscellaneous Information 1 ea NOTE XX 12/24/16 22:00 Glucose (Glutose) 15 gm Q15M PRN PO DECREASED GLUCOSE 12/24/16 22:00 Glucose (Glutose) 22.5 gm Q15M PRN PO DECREASED GLUCOSE 12/24/16 22:00 Dextrose (D50w Syringe) 25 ml Q15M PRN IV DECREASED GLUCOSE 12/24/16 22:00 Dextrose (D50w Syringe) 50 ml Q15M PRN IV DECREASED GLUCOSE 12/24/16 22:00 Glucagon (Glucagen) 1 mg Q15M PRN IM DECREASED GLUCOSE 12/24/16 22:00 Glucose (Glutose) 15 gm Q15M PRN BUCCAL DECREASED GLUCOSE 12/24/16 22:00 Procedures/MDM PROCEDURE: CHEST 1VW CLINICAL INDICATION: Shortness of breath TECHNIQUE: Single frontal view of the chest was obtained COMPARISON: 11/12/2016 FINDINGS: Stable cervical orthopedic hardware. The cardiac size is moderately enlarged, stable. Aortic vascular calcifications are demonstrated. There is no pulmonary vascular congestion. The lungs are clear. No consolidation, effusion, or pneumothorax. Mild degenerative changes of the visualized osseous structures are visualized. IMPRESSION: 1. No acute cardiopulmonary process. 2. Atherosclerosis with stable cardiomegaly. 3. Cervical orthopedic hardware is seen. RPTAT:PP .Markus Crum MD, MD Date Time Electronically viewed and signed by .Markus Crum MD, on 12/24/2016 18:25 .V/ CC: GLENN CALLAWAY DO EKG: Rate/Rhythm: Normal Sinus Rhythm,NL intervals QRS, ST, QT: NORMAL IA, QRS, QT] Impression: NORMAL EKG Patient received sublingual nitroglycerin and morphine is pain-free. Workup is negative Patient's symptoms are concerning for cardiac cause will require inpatient workup and continuous monitoring. Further w/u for ischemia, arrhythmia, PE or dissection will be deferred to the inpatient team. Accepting Care Team: Current data and ongoing care discussed. Time: Time of admission Primary Provider: Consulting: [dr Henry] Outstanding Data: none Departure Diagnosis: Primary Impression: Chest pain Qualified Code: R07.9 - Chest pain, unspecified type Additional Impression: Status post angioplasty with stent Condition: Stable GLENN CALLAWAY DO Dec 24, 2016 22:09
[2016-12-24 23:17] LABS: CK-MB 1.06 ng/ml (0.0-2.4)
[2016-12-24 23:18] VITALS: TEMP 98.7
[2016-12-24 23:20] LABS: TROPONIN-I 0.019 ng/ml (0.00-0.12)
[2016-12-25] VITALS (12 sets, daily range): BP systolic 124–188; BP diastolic 58–84; PULSE 65–90; RESP 17–20; Ht 179.1 cm; Wt 97.0 kg
[2016-12-25] MEDS: morphine 2 MG INJ IV PRN ×2 (02:07→08:15)
[2016-12-25] MEDS: hydrALAzine 20 MG INJ IV PRN (02:07)
[2016-12-25] MEDS: HYDROCODONE/APAP (5/325) TAB PO PRN ×2 (05:09→15:32)
--- NOTE | 2016-12-25 05:28 | HP ---
DATE OF ADMISSION: 12/24/2016 The patient was seen and examined by me on 12/24/2016 at 9:30 p.m. CHIEF COMPLAINT: Shoulder pain and chest tightness. HISTORY OF PRESENT ILLNESS: The patient is a 61-year-old male with past medical history of hyperten makayla, CHF, coronary artery disease status post 3 stent placements in the past, OCD, and bipolar diso rder who presents with chest pain in the substernal area radiating to the shoulders and up to the ne ck and jaw. Denied any palpitations. No upper or lower GI bleeding. No fevers or chills. No naus ea or vomiting. No diarrhea or constipation. The patient was recently here at our hospital from to 11/17/2016. At that time, he had a non-ST elevation myocardial infarction and had left heart catheterization with 3 stents placed at that time. The patient does not take any nitroglyceri n at home. PAST MEDICAL HISTORY: As stated above. ALLERGIES: 1. PENICILLIN. 2. BENAZEPRIL. 3. CEFAZOLIN. 4. CIPROFLOXACIN. 5. TORADOL. 6. SILDENAFIL. PAST SURGICAL HISTORY: Appendectomy in the past and again 3 coronary stents placed as well. SOCIAL HISTORY: Negative for smoking, drinking, or IV drug abuse. FAMILY HISTORY: Noncontributory. PHYSICAL EXAMINATION: VITAL SIGNS: T-max 99.8, pulse 74 to 81, respirations 20, blood pressure is 147 to 174 systolic ove r 65 to 74 diastolic, saturating at 98% on 2 liters nasal cannula. GENERAL: The patient is lying in bed, answering questions appropriately, in no acute distress. HEENT: Pupils equal, round, react to light. Extraocular muscles intact. NECK: Supple, no thyromegaly. LUNGS: Clear to auscultation bilaterally. CARDIOVASCULAR: S1, S2 heard. No rubs or gallops. ABDOMEN: Soft, nontender, nondistended. Normal bowel sounds. No rebound or guarding. MUSCULOSKELETAL: No lower extremity edema bilaterally. NEUROLOGIC: No focal deficits. LABORATORIES: CBC is normal. Basic metabolic panel: Sodium 138, potassium 4.4, chloride 101, CO2 of 25, BUN of 36, creatinine 1.17, glucose of 264. LFTs are normal. Troponin is negative x1. Coag s are normal. IMAGING: Chest x-ray was performed and shows no acute cardiopulmonary process. ASSESSMENT AND PLAN: The patient is a 61-year-old male with recent non-ST elevation myocardial infa rction, status post stent placement x3, 1 month ago, who presented with chest pain. 1. Chest pain, rule out for acute coronary syndrome. Admit him to telemetry floor. We will get a cardiology consult. Continue current medications of Norvasc, Lipitor, Brilinta, and metoprolol. Fo llow up cardiology recommendations as well. 2. History of type 2 diabetes. Continue sliding scale insulin and home Lantus medicine. Consider checking an A1c. 3. History of bipolar disorder. He is on Ativan p.r.n. No signs of any current issues. 4. History of congestive heart failure. Again, see #1. Continue to monitor for now. 5. History of chronic obstructive pulmonary disease. No signs of any shortness breath. He is on D uoNeb p.r.n. 6. High cholesterol. Continue lipid medication. 7. Gastrointestinal prophylaxis. He is on famotidine. 8. Deep venous thrombosis prophylaxis. He is on aspirin and Brilinta for now. Dictated By: FRACISCO PENA/TEVIN Conf#: [id number] DID#: [id number]
[2016-12-25] MEDS: ALBUTEROL/IPRATROPIUM (NEB) 3 ML AMP NEB SCH ×4 (07:57→19:27)
[2016-12-25] MEDS: INSULIN ASPART [NOVOLOG] 3 ML PEN SC SCH ×7 (08:00→21:00)
[2016-12-25 08:15] LABS: TROPONIN-I 0.033 ng/ml (0.00-0.12)
[2016-12-25 08:20] LABS: CK-MB 0.62 ng/ml (0.0-2.4)
[2016-12-25] MEDS: LOSARTAN 50 MG TAB PO SCH (08:33)
[2016-12-25] MEDS: AMLODIPINE 10 MG TAB PO SCH (08:34)
[2016-12-25] MEDS: ATORVASTATIN 40 MG TAB PO SCH (08:34)
[2016-12-25] MEDS: FAMOTIDINE 20 MG TAB PO SCH (08:34)
[2016-12-25 08:36] LABS: ADD SCAN DIFF NO
[2016-12-25 08:49] LABS: POTASSIUM 4.8 mmol/L (3.5-5.1)
[2016-12-25 08:52] LABS: CREATININE 1.03 mg/dl (0.61-1.24)
[2016-12-25 08:53] LABS: CALCIUM 8.8 mg/dl (8.4-10.2)
[2016-12-25 08:58] LABS: THYROID STIMULATING HORMONE 1.89 MIU/L (0.465-4.680)
[2016-12-25] MEDS: CAPSAICIN 0.025% 60 GM CR TOP SCH ×4 (09:00→21:53)
[2016-12-25] MEDS ORDERED: HEPARIN 5,000 UNIT/0.5 ML SYG SC SCH (09:00)
[2016-12-25] MEDS ORDERED: METOPROLOL 50 MG TAB PO SCH (09:00)
[2016-12-25] MEDS ORDERED: INSULIN GLARGINE [LANtus] 3 ML PEN SC SCH (09:00)
[2016-12-25] MEDS: IMIPRAMINE 25 MG TAB PO SCH ×2 (09:29→21:49)
[2016-12-25 09:52] LABS: BASOPHILS % 0.3 % (0.0-2.0); EOSINOPHILS % 0.6 % (0.0-7.0); HEMATOCRIT 32.9 % (42.0-52.0); HEMOGLOBIN 10.5 g/dl (14.0-18.0); LYMPHOCYTES # 0.7 10^3/ul (0.8-2.9); LYMPHOCYTES % 9.7 % (15.0-51.0); MEAN CORPUSCULAR HEMOGLOBIN 28.4 pg (29.0-33.0); MEAN CORPUSCULAR HGB CONC 31.9 g/dl (32.0-37.0); MEAN CORPUSCULAR VOLUME 88.9 fl (82.0-101.0); MEAN PLATELET VOLUME 10.6 fl (7.4-10.4); MONOCYTES % 13.8 % (0.0-11.0); NEUTROPHIL # 5.2 10^3/ul (1.6-7.5); NEUTROPHILS % 75.3 % (39.0-77.0); PLATELET COUNT 150 10^3/UL (140-415); RED CELL DISTRIBUTION WIDTH 15.4 % (11.5-14.5); WHITE BLOOD COUNT 6.9 10^3/ul (4.8-10.8)
[2016-12-25 10:49] LABS: CHOL/HDL RATIO 2.3 RATIO
[2016-12-25] MEDS: BACLOFEN 10 MG TAB PO SCH ×3 (10:57→21:52)
[2016-12-25] MEDS: TICAGRELOR 90 MG TABLET PO SCH ×2 (10:57→21:47)
[2016-12-25] MEDS: BUSPIRONE 10 MG TAB PO SCH ×3 (10:57→21:51)
[2016-12-25] MEDS: FLUOCINONIDE 0.05% 15 GM CR TOP SCH ×2 (10:59→21:53)
--- NOTE | 2016-12-25 11:40 | CONS ---
Date/Time of Note Date/Time of Note DATE: 12/25/16 TIME: 11:33 Assessment/Plan Assessment/Plan Additional Assessment/Plan Shortness of breath, body aches and mild fevers CAD with history of recent PCI Hypertension Preserved ejection fraction Diabetes Obesity Arthritis -Patient with multiple complaints including body aches, cough, and subjective fevers and chills. Temperature has been mildly elevated. Serial ECGs have remained unremarkable, cardiac enzymes within normal limits. Chest x-ray reviewed with no evidence of significant pulmonary vascular congestion. Blood pressure has been elevated, would change metoprolol to Coreg given diabetic and for better blood pressure control. Would give 1 dose of IV Lasix now. Consider infectious workup and diabetes medication adjustments. Continue dual antiplatelet therapy, statin therapy. Consultation Date/Type/Reason Admit Date/Time Dec 24, 2016 at 22:04 Type of Consultation: cv Reason for Consultation Shortness of breath, fatigue Hx of Present Illness This is a 61-year-old male well-known to me from previous admission with a recent myocardial infarction status post multivessel stenting who presented with multiple complaints. Patient states he has been having issues with his CPAP machine at nighttime and has not been using it. He has been complaining of daytime sleepiness and shortness of breath. He also complains of subjective fevers and chills, cough which is wet and mildly productive. He denies any abdominal pain, but has been having intermittent nausea. He also has been complaining of body aches more show in his bilateral shoulders. He does have a history of osteoarthritis in her shoulders and with his arm movements, he is been getting shooting pains from his shoulders to his neck. He also complains of blood sugars have been uncontrolled over the past few weeks. Because of the multiple complaints he came to the emergency room for evaluation. He currently feels much better, denies shortness of breath, dizziness or chest pain. He denies exertional chest pain. 12 point review of systems was performed with all pertinent positives and negatives mentioned above and all else is negative Past Medical History Osteoarthritis Obstructive sleep apnea Medical History: coronary artery disease, diabetes, high cholesterol, hypertension Past Surgical History Thoracic outlet surgery Past Surgical Hx: angioplasty Family History Significant Family History: no pertinent family hx Social History Smoking Status: Former smoker Other Social History Retired respiratory therapist Exam/Review of Systems Vital Signs Vitals Vital Signs Date Time Temp Pulse Resp B/P Pulse Ox O2 Delivery O2 Flow Rate FiO2 3/17/17 08:51 84 12/25/16 08:15 Nasal Cannula 2.0 12/25/16 04:00 100.7 20 188/84 88 Intake and Output 12/24/16 12/24/16 12/25/16 15:00 23:00 07:00 Intake Total 400 ml Output Total 450 ml Balance -50 ml Exam No apparent distress Constitutional: alert, obese, oriented Head: normocephalic Neck: supple Respiratory: other (Coarse breath sounds bilaterally, no wheezing or rhonchi) Cardiovascular: other (S1-S2 heard, no murmurs appreciated), regular rate and rhythm Gastrointestinal: bowel sounds, non-tender, other (No guarding), soft Extremities: edema (Trace to +1), other (No cyanosis) Results Result Diagram: 12/25/16 0625 12/25/16 0625 Results 24 hrs Laboratory Tests Test 12/24/16 17:35 12/24/16 21:55 12/24/16 22:35 12/25/16 02:17 Activated Partial Thromboplast Time 29.3 Alanine Aminotransferase (ALT/SGPT) 44 Albumin 3.5 Albumin/Globulin Ratio 1.12 Alkaline Phosphatase 128 H Anion Gap 16 Aspartate Amino Transf (AST/SGOT) 25 Basophils # 0.0 Basophils % 0.3 Blood Urea Nitrogen 36 H Calcium Level 9.5 Carbon Dioxide Level 25 Chloride Level 101 Creatinine 1.17 Direct Bilirubin 0.00 Eosinophils # 0.1 Eosinophils % 1.4 Globulin 3.10 Glucose Level 264 H Hematocrit 34.0 L Hemoglobin 11.0 L INR International Normalized Ratio 1.09 Indirect Bilirubin 0.4 Lymphocytes # 1.0 Lymphocytes % 15.4 Mean Corpuscular Hemoglobin 28.4 L Mean Corpuscular Hemoglobin Concent 32.4 Mean Corpuscular Volume 87.9 Mean Platelet Volume 10.3 # Monocytes # 1.0 H Monocytes % 14.8 H Neutrophils # 4.3 Neutrophils % 67.6 Nucleated Red Blood Cells # 0.0 Nucleated Red Blood Cells % 0.0 Platelet Count 147 Potassium Level 4.4 Prothrombin Time 14.1 Prothrombin Time Ratio 1.1 Red Blood Count 3.87 L Red Cell Distribution Width 15.5 H Sodium Level 138 Total Bilirubin 0.4 Total Protein 6.6 Troponin I < 0.012 0.019 White Blood Count 6.4 # Free Thyroxine 1.10 Creatine Kinase 78 Creatine Kinase Index 1.4 Creatinine Kinase MB (Mass) 1.06 Bedside Glucose 279 H Test 12/25/16 06:25 12/25/16 08:03 Anion Gap 15 Basophils # 0.0 Basophils % 0.3 Blood Urea Nitrogen 28 H Calcium Level 8.8 Carbon Dioxide Level 24 Chloride Level 104 Cholesterol Level 105 Cholesterol/HDL Ratio 2.3 Creatine Kinase 64 Creatine Kinase Index 1.0 Creatinine 1.03 Creatinine Kinase MB (Mass) 0.62 Eosinophils # 0.0 Eosinophils % 0.6 Glucose Level 273 H HDL Cholesterol 45 Hematocrit 32.9 L Hemoglobin 10.5 L Hemoglobin A1c 10.2 H LDL Cholesterol, Calculated 38 Lymphocytes # 0.7 L Lymphocytes % 9.7 L Mean Corpuscular Hemoglobin 28.4 L Mean Corpuscular Hemoglobin Concent 31.9 L Mean Corpuscular Volume 88.9 Mean Platelet Volume 10.6 H Monocytes # 1.0 H Monocytes % 13.8 H Neutrophils # 5.2 Neutrophils % 75.3 Nucleated Red Blood Cells # 0.0 Nucleated Red Blood Cells % 0.0 Platelet Count 150 Potassium Level 4.8 Red Blood Count 3.70 L Red Cell Distribution Width 15.4 H Sodium Level 138 Thyroid Stimulating Hormone (TSH) 1.890 Triglycerides Level 111 Troponin I 0.033 White Blood Count 6.9 Bedside Glucose 307 H Medications Medications Current Medications Ondansetron HCl (Zofran Inj) 4 mg Q6H PRN IV NAUSEA AND/OR VOMITING; Start at 21:30 Acetaminophen (Tylenol Tab) 650 mg Q6H PRN PO PAIN LEVEL 1-3 OR FEVER; Start at 21:30 Acetaminophen/ Hydrocodone Bitart ([place] (5/325)) 1 tab Q6H PRN PO MODERATE PAIN LEVEL 4-6 Last administered on 12/25/16 05:09; Admin Dose 1 TAB; Start at 21:30 Morphine Sulfate (morphine) 2 mg Q4H PRN IV SEVERE PAIN LEVEL 7-10 Last administered on 12/25/16 08:15; Admin Dose 2 MG; Start 12/24/16 at 21:30 Docusate Sodium (Colace) 100 mg Q12H PRN PO CONSTIPATION; Start 12/24/16 at 21: 30 Magnesium Hydroxide (Milk Of Mag) 30 ml DAILY PRN PO CONSTIPATION; Start at 21:30 Sodium Biphosphate/ Sodium Phosphate (Fleet Enema) 133 ml DAILY PRN [place] CONSTIPATION; Start 12/24/16 at 21:30 Lorazepam (Ativan) 0.5 mg Q6H PRN IV ANXIETY; Start 12/24/16 at 21:30 Nitroglycerin (Nitroglycerin (Sl Tab) 0.4 Mg) 1 tab Q5M PRN SL ANGINA; Start at 21:30 Amlodipine Besylate (Norvasc) 10 mg DAILY PO Last administered on 12/25/16 08: 34; Admin Dose 10 MG; Start 12/25/16 at 09:00 Atorvastatin Calcium (Lipitor) 40 mg DAILY PO Last administered on 12/25/16 08 :34; Admin Dose 40 MG; Start 12/25/16 at 09:00 Baclofen (Lioresal) 10 mg TID PO Last administered on 12/25/16 10:57; Admin Dose 10 MG; Start 12/25/16 at 09:00 Buspirone HCl (Buspar) 20 mg TID PO Last administered on 12/25/16 10:57; Admin Dose 20 MG; Start 12/25/16 at 09:00 Fluocinonide (Lidex 0.05% Cr) 1 applic BID TOP Last administered on 12/25/16 10:59; Admin Dose 1 APPLIC; Start 12/25/16 at 09:00 Imipramine HCl (Tofranil) 100 mg BID PO Last administered on 12/25/16 09:29; Admin Dose 100 MG; Start 12/25/16 at 09:00 Insulin Glargine (Lantus) 50 unit QAM SC Last administered on 12/25/16 09:28; Admin Dose 50 UNIT; Start 12/25/16 at 09:00 Insulin Glargine (Lantus) 56 unit QHS SC ; Start 12/25/16 at 21:00 Losartan Potassium (Cozaar) 100 mg DAILY PO Last administered on 12/25/16 08: 33; Admin Dose 100 MG; Start 12/25/16 at 09:00 Metoprolol Tartrate (Lopressor) 50 mg BID PO Last administered on 12/25/16 08: 35; Admin Dose 50 MG; Start 12/25/16 at 09:00 Tamsulosin HCl (Flomax) 0.4 mg HS PO ; Start 12/25/16 at 21:00 Ticagrelor (Brilinta) 90 mg BID PO Last administered on 12/25/16 10:57; Admin Dose 90 MG; Start 12/25/16 at 09:00 Capsaicin (Theragen) 1 applic QID TOP Last administered on 12/25/16 09:00; Admin Dose 1 APPLIC; Start 12/25/16 at 09:00 Famotidine (Pepcid) 20 mg DAILY PO Last administered on 12/25/16 08:34; Admin Dose 20 MG; Start 12/25/16 at 09:00 Miscellaneous Information 1 ea NOTE XX ; Start 12/24/16 at 22:00 Glucose (Glutose) 15 gm Q15M PRN PO DECREASED GLUCOSE; Start 12/24/16 at 22:00 Glucose (Glutose) 22.5 gm Q15M PRN PO DECREASED GLUCOSE; Start 12/24/16 at 22: 00 Dextrose (D50w Syringe) 25 ml Q15M PRN IV DECREASED GLUCOSE; Start 12/24/16 at 22:00 Dextrose (D50w Syringe) 50 ml Q15M PRN IV DECREASED GLUCOSE; Start 12/24/16 at 22:00 Glucagon (Glucagen) 1 mg Q15M PRN IM DECREASED GLUCOSE; Start 12/24/16 at 22:00 Glucose (Glutose) 15 gm Q15M PRN BUCCAL DECREASED GLUCOSE; Start 12/24/16 at 22 :00 Hydralazine HCl (Apresoline) 10 mg Q6H PRN IV sbp Last administered on 02:07; Admin Dose 10 MG; Start 12/25/16 at 02:00 Procedures Procedures ECG done this morning demonstrates sinus rhythm at 85 bpm, QRS 70 ms, nonspecific T-wave abnormalities, no significant ischemic abnormalities seen on 2 ECGs done yesterday. Humble Cohen DO Dec 25, 2016 11:39
[2016-12-25] MEDS ORDERED: FUROSEMIDE 20 MG INJ IV ONE (12:00)
--- NOTE | 2016-12-25 12:42 | PN ---
Date/Time of Note Date/Time of Note DATE: 12/25/16 TIME: 11:59 Assessment/Plan VTE Prophylaxis VTE Prophylaxis Intervention: other Lines/Catheters IV [facility] Type (from [facility]): [facility] Urinary Cath still in place: No Assessment/Plan Assessment/Plan 1. Chest pain, atypical, follow up with cardiology 2. Acute bronchitis/pneumonia, levaquin 3. COPD, exacerbation, on neb/levaquin, no steroid needed at this point. 4. Diabetes mellitus, increase lantus 5. Sleep apnea, on CPAP at night 6. CAD, s/p PCI/stent, follow up with cardiology 7. Bipolar disorder. He is on Ativan p.r.n. No signs of any current issues. 8. Dyslipidemia, on statin. 9. Hypertension, stable 10. Gastrointestinal prophylaxis. He is on famotidine. 11. Deep venous thrombosis prophylaxis. He is on aspirin and Brilinta for now. Subjective 24 Hr Interval Summary Free Text/Dictation cough, shortness of breath Exam/Review of Systems Vital Signs Vitals Vital Signs Date Time Temp Pulse Resp B/P Pulse Ox O2 Delivery O2 Flow Rate FiO2 12/25/16 08:51 84 12/25/16 08:15 Nasal Cannula 2.0 12/25/16 04:00 100.7 20 188/84 88 Intake and Output 12/24/16 12/24/16 12/25/16 14:59 22:59 06:59 Intake Total 400 ml Output Total 450 ml Balance -50 ml Exam Constitutional: alert, obese, oriented, well developed Psych: nl mood/affect, no complaints Head: atraumatic, normocephalic Eyes: EOMI, PERRL, nl conjunctiva, nl lids ENMT: nl external ears & nose, nl lips & teeth, nl nasal mucosa & septum Neck: non-tender, supple Respiratory: crackles/rales (both back) Cardiovascular: nl pulses, regular rate and rhythm, No S3, No S4, No bruits, No diastolic murmur, No edema, No gallop, No irregular rhythm, No jugular venous distention (JVD), No murmurs/extra sounds, No other, No rub, No systolic murmur Gastrointestinal: nl liver, spleen, non-tender, soft, No ascites, No bowel sounds, No distended, No firm, No hepatomegaly, No mass , No other, No rebound or guarding, No splenomegaly, No surgical scars, No tender Musculoskeletal: nl extremities to inspection Extremities: normal pulses, No calf tenderness, No clubbing, No cyanosis, No edema, No other, No palpable cord, No pitting pedal edema, No tenderness Neurological: [employer] II-XII intact, nl mental status, nl speech, nl strength Skin: nl turgor Results Result Diagram: 12/25/16 0625 12/25/16 0625 Results 24 hrs Laboratory Tests Test 12/24/16 17:35 12/24/16 21:55 12/24/16 22:35 12/25/16 02:17 Activated Partial Thromboplast Time 29.3 Alanine Aminotransferase (ALT/SGPT) 44 Albumin 3.5 Albumin/Globulin Ratio 1.12 Alkaline Phosphatase 128 H Anion Gap 16 Aspartate Amino Transf (AST/SGOT) 25 Basophils # 0.0 Basophils % 0.3 Blood Urea Nitrogen 36 H Calcium Level 9.5 Carbon Dioxide Level 25 Chloride Level 101 Creatinine 1.17 Direct Bilirubin 0.00 Eosinophils # 0.1 Eosinophils % 1.4 Globulin 3.10 Glucose Level 264 H Hematocrit 34.0 L Hemoglobin 11.0 L INR International Normalized Ratio 1.09 Indirect Bilirubin 0.4 Lymphocytes # 1.0 Lymphocytes % 15.4 Mean Corpuscular Hemoglobin 28.4 L Mean Corpuscular Hemoglobin Concent 32.4 Mean Corpuscular Volume 87.9 Mean Platelet Volume 10.3 # Monocytes # 1.0 H Monocytes % 14.8 H Neutrophils # 4.3 Neutrophils % 67.6 Nucleated Red Blood Cells # 0.0 Nucleated Red Blood Cells % 0.0 Platelet Count 147 Potassium Level 4.4 Prothrombin Time 14.1 Prothrombin Time Ratio 1.1 Red Blood Count 3.87 L Red Cell Distribution Width 15.5 H Sodium Level 138 Total Bilirubin 0.4 Total Protein 6.6 Troponin I < 0.012 0.019 White Blood Count 6.4 # Free Thyroxine 1.10 Creatine Kinase 78 Creatine Kinase Index 1.4 Creatinine Kinase MB (Mass) 1.06 Bedside Glucose 279 H Test 12/25/16 06:25 12/25/16 08:03 12/25/16 11:54 Anion Gap 15 Basophils # 0.0 Basophils % 0.3 Blood Urea Nitrogen 28 H Calcium Level 8.8 Carbon Dioxide Level 24 Chloride Level 104 Cholesterol Level 105 Cholesterol/HDL Ratio 2.3 Creatine Kinase 64 Creatine Kinase Index 1.0 Creatinine 1.03 Creatinine Kinase MB (Mass) 0.62 Eosinophils # 0.0 Eosinophils % 0.6 Glucose Level 273 H HDL Cholesterol 45 Hematocrit 32.9 L Hemoglobin 10.5 L Hemoglobin A1c 10.2 H LDL Cholesterol, Calculated 38 Lymphocytes # 0.7 L Lymphocytes % 9.7 L Mean Corpuscular Hemoglobin 28.4 L Mean Corpuscular Hemoglobin Concent 31.9 L Mean Corpuscular Volume 88.9 Mean Platelet Volume 10.6 H Monocytes # 1.0 H Monocytes % 13.8 H Neutrophils # 5.2 Neutrophils % 75.3 Nucleated Red Blood Cells # 0.0 Nucleated Red Blood Cells % 0.0 Platelet Count 150 Potassium Level 4.8 Red Blood Count 3.70 L Red Cell Distribution Width 15.4 H Sodium Level 138 Thyroid Stimulating Hormone (TSH) 1.890 Triglycerides Level 111 Troponin I 0.033 White Blood Count 6.9 Bedside Glucose 307 H 265 H Medications Medications Current Medications Ondansetron HCl (Zofran Inj) 4 mg Q6H PRN IV NAUSEA AND/OR VOMITING; Start at 21:30 Acetaminophen (Tylenol Tab) 650 mg Q6H PRN PO PAIN LEVEL 1-3 OR FEVER; Start at 21:30 Acetaminophen/ Hydrocodone Bitart ([place] (5/325)) 1 tab Q6H PRN PO MODERATE PAIN LEVEL 4-6 Last administered on 12/25/16 05:09; Admin Dose 1 TAB; Start at 21:30 Morphine Sulfate (morphine) 2 mg Q4H PRN IV SEVERE PAIN LEVEL 7-10 Last administered on 12/25/16 08:15; Admin Dose 2 MG; Start 12/24/16 at 21:30 Docusate Sodium (Colace) 100 mg Q12H PRN PO CONSTIPATION; Start 12/24/16 at 21: 30 Magnesium Hydroxide (Milk Of Mag) 30 ml DAILY PRN PO CONSTIPATION; Start at 21:30 Sodium Biphosphate/ Sodium Phosphate (Fleet Enema) 133 ml DAILY PRN [place] CONSTIPATION; Start 12/24/16 at 21:30 Lorazepam (Ativan) 0.5 mg Q6H PRN IV ANXIETY; Start 12/24/16 at 21:30 Nitroglycerin (Nitroglycerin (Sl Tab) 0.4 Mg) 1 tab Q5M PRN SL ANGINA; Start at 21:30 Amlodipine Besylate (Norvasc) 10 mg DAILY PO Last administered on 12/25/16 08: 34; Admin Dose 10 MG; Start 12/25/16 at 09:00 Atorvastatin Calcium (Lipitor) 40 mg DAILY PO Last administered on 12/25/16 08 :34; Admin Dose 40 MG; Start 12/25/16 at 09:00 Baclofen (Lioresal) 10 mg TID PO Last administered on 12/25/16 10:57; Admin Dose 10 MG; Start 12/25/16 at 09:00 Buspirone HCl (Buspar) 20 mg TID PO Last administered on 12/25/16 10:57; Admin Dose 20 MG; Start 12/25/16 at 09:00 Fluocinonide (Lidex 0.05% Cr) 1 applic BID TOP Last administered on 12/25/16 10:59; Admin Dose 1 APPLIC; Start 12/25/16 at 09:00 Imipramine HCl (Tofranil) 100 mg BID PO Last administered on 12/25/16 09:29; Admin Dose 100 MG; Start 12/25/16 at 09:00 Insulin Glargine (Lantus) 50 unit QAM SC Last administered on 12/25/16 09:28; Admin Dose 50 UNIT; Start 12/25/16 at 09:00 Insulin Glargine (Lantus) 56 unit QHS SC ; Start 12/25/16 at 21:00 Losartan Potassium (Cozaar) 100 mg DAILY PO Last administered on 12/25/16 08: 33; Admin Dose 100 MG; Start 12/25/16 at 09:00 Tamsulosin HCl (Flomax) 0.4 mg HS PO ; Start 12/25/16 at 21:00 Ticagrelor (Brilinta) 90 mg BID PO Last administered on 12/25/16 10:57; Admin Dose 90 MG; Start 12/25/16 at 09:00 Capsaicin (Theragen) 1 applic QID TOP Last administered on 12/25/16 09:00; Admin Dose 1 APPLIC; Start 12/25/16 at 09:00 Famotidine (Pepcid) 20 mg DAILY PO Last administered on 12/25/16 08:34; Admin Dose 20 MG; Start 12/25/16 at 09:00 Miscellaneous Information 1 ea NOTE XX ; Start 12/24/16 at 22:00 Glucose (Glutose) 15 gm Q15M PRN PO DECREASED GLUCOSE; Start 12/24/16 at 22:00 Glucose (Glutose) 22.5 gm Q15M PRN PO DECREASED GLUCOSE; Start 12/24/16 at 22: 00 Dextrose (D50w Syringe) 25 ml Q15M PRN IV DECREASED GLUCOSE; Start 12/24/16 at 22:00 Dextrose (D50w Syringe) 50 ml Q15M PRN IV DECREASED GLUCOSE; Start 12/24/16 at 22:00 Glucagon (Glucagen) 1 mg Q15M PRN IM DECREASED GLUCOSE; Start 12/24/16 at 22:00 Glucose (Glutose) 15 gm Q15M PRN BUCCAL DECREASED GLUCOSE; Start 12/24/16 at 22 :00 Hydralazine HCl (Apresoline) 10 mg Q6H PRN IV sbp Last administered on 02:07; Admin Dose 10 MG; Start 12/25/16 at 02:00 Carvedilol (Coreg) 6.25 mg BID PO ; Start 12/25/16 at 12:00 Furosemide (Lasix) 20 mg ONCE ONCE IV ; Start 12/25/16 at 12:00; Stop 12/25/16 at 12:01 MARLYN PELAYO MD Dec 25, 2016 12:09
[2016-12-25] MEDS: LEVOFLOXACIN 500MG/D5W (PMX) 100 ML IVPB SCH (13:33)
[2016-12-25] MEDS: INSULIN GLARGINE [LANtus] 3 ML PEN SC SCH (21:48)
[2016-12-25] MEDS: TAMSULOSIN (SR) 0.4 MG CAP PO SCH (21:51)
[2016-12-26] VITALS (9 sets, daily range): BP systolic 137–163; BP diastolic 60–72; PULSE 83–102; RESP 17–20
[2016-12-26] MEDS: hydrALAzine 20 MG INJ IV PRN (06:03)
[2016-12-26] MEDS: HYDROCODONE/APAP (5/325) TAB PO PRN ×2 (06:11→12:52)
[2016-12-26] MEDS: INSULIN ASPART [NOVOLOG] 3 ML PEN SC SCH ×7 (08:00→20:17)
[2016-12-26] MEDS: ALBUTEROL/IPRATROPIUM (NEB) 3 ML AMP NEB SCH ×5 (08:25→20:05)
[2016-12-26] MEDS: CAPSAICIN 0.025% 60 GM CR TOP SCH ×4 (09:00→20:18)
[2016-12-26] MEDS: ATORVASTATIN 40 MG TAB PO SCH (09:52)
[2016-12-26] MEDS: BUSPIRONE 10 MG TAB PO SCH ×3 (09:53→20:15)
[2016-12-26] MEDS: IMIPRAMINE 25 MG TAB PO SCH ×2 (09:53→20:16)
[2016-12-26] MEDS: FLUOCINONIDE 0.05% 15 GM CR TOP SCH ×2 (09:54→20:18)
[2016-12-26] MEDS: FAMOTIDINE 20 MG TAB PO SCH (09:54)
[2016-12-26] MEDS: LOSARTAN 50 MG TAB PO SCH (09:57)
[2016-12-26] MEDS: BACLOFEN 10 MG TAB PO SCH ×3 (09:58→20:16)
[2016-12-26] MEDS: AMLODIPINE 10 MG TAB PO SCH (09:59)
[2016-12-26 10:02] LABS: ADD SCAN DIFF NO
[2016-12-26 10:04] LABS: BASOPHILS % 0.3 % (0.0-2.0); EOSINOPHILS # 0.1 10^3/ul (0.0-0.5); EOSINOPHILS % 1.2 % (0.0-7.0); HEMATOCRIT 34.7 % (42.0-52.0); HEMOGLOBIN 11.2 g/dl (14.0-18.0); LYMPHOCYTES # 0.9 10^3/ul (0.8-2.9); MEAN CORPUSCULAR HEMOGLOBIN 28.6 pg (29.0-33.0); MEAN CORPUSCULAR HGB CONC 32.3 g/dl (32.0-37.0); MEAN CORPUSCULAR VOLUME 88.5 fl (82.0-101.0); MEAN PLATELET VOLUME 9.7 fl (7.4-10.4); MONOCYTE # 0.9 10^3/ul (0.3-0.9); MONOCYTES % 12.9 % (0.0-11.0); NEUTROPHIL # 4.7 10^3/ul (1.6-7.5); PLATELET COUNT 168 10^3/UL (140-415); RED BLOOD COUNT 3.92 10^6/ul (4.70-6.10); RED CELL DISTRIBUTION WIDTH 15.1 % (11.5-14.5); WHITE BLOOD COUNT 6.7 10^3/ul (4.8-10.8)
[2016-12-26 10:16] LABS: POTASSIUM 4.4 mmol/L (3.5-5.1)
[2016-12-26 10:18] LABS: CREATININE 0.95 mg/dl (0.61-1.24)
[2016-12-26 10:19] LABS: CALCIUM 9.2 mg/dl (8.4-10.2)
[2016-12-26] MEDS: INSULIN GLARGINE [LANtus] 3 ML PEN SC SCH ×2 (10:32→20:17)
--- NOTE | 2016-12-26 11:02 | CONS ---
Date/Time of Note Date/Time of Note DATE: 12/26/16 TIME: 10:58 Assessment/Plan Assessment/Plan Chief Complaint/Hosp Course Shortness of breath, body aches and mild fevers CAD with history of recent PCI Hypertension Preserved ejection fraction Diabetes Obesity Arthritis Problems: Additional Assessment/Plan 1) Patient does not seem to be asa. Will restart ASA provided he did not have adverse events 2) Currently symptoms seem to be non cardiac 3) No other cardiac studies Consultation Date/Type/Reason Admit Date/Time Dec 24, 2016 at 22:04 Initial Consult Date Type of Consultation: cv 24 HR Interval Summary Free Text/Dictation no chest pain, no sob, no palpitations Detailed Summary Respiratory: no complaints Cardiovascular: no complaints Gastrointestinal: no complaints Musculoskeletal: no complaints Skin: no complaints Neurologic: no complaints Exam/Review of Systems Vital Signs Vitals Vital Signs Date Time Temp Pulse Resp B/P Pulse Ox O2 Delivery O2 Flow Rate FiO2 12/26/16 08:25 94 2.0 12/26/16 08:25 101 20 Nasal Cannula 12/26/16 07:30 99.0 163/72 Intake and Output 12/25/16 12/25/16 12/26/16 15:00 23:00 07:00 Intake Total 1200 ml 800 ml Output Total 900 ml 1000 ml Balance 300 ml -200 ml Exam Constitutional: alert, oriented Head: atraumatic, normocephalic Neck: supple Respiratory: clear to auscultation Cardiovascular: regular rate and rhythm Gastrointestinal: soft Musculoskeletal: nl extremities to inspection Extremities: normal pulses Results Result Diagram: 12/26/16 0945 12/26/16 0945 Results 24 hrs Laboratory Tests Test 12/25/16 11:54 12/25/16 17:19 12/25/16 21:23 12/26/16 02:39 Bedside Glucose 265 H 436 *H 154 290 H Test 12/26/16 08:27 12/26/16 09:45 Bedside Glucose 279 H Anion Gap 15 Basophils # 0.0 Basophils % 0.3 Blood Urea Nitrogen 23 H Calcium Level 9.2 Carbon Dioxide Level 26 Chloride Level 99 Creatinine 0.95 Eosinophils # 0.1 Eosinophils % 1.2 Glucose Level 332 H Hematocrit 34.7 L Hemoglobin 11.2 L Lymphocytes # 0.9 Lymphocytes % 14.0 L Mean Corpuscular Hemoglobin 28.6 L Mean Corpuscular Hemoglobin Concent 32.3 Mean Corpuscular Volume 88.5 Mean Platelet Volume 9.7 Monocytes # 0.9 Monocytes % 12.9 H Neutrophils # 4.7 Neutrophils % 71.0 Nucleated Red Blood Cells # 0.0 Nucleated Red Blood Cells % 0.0 Platelet Count 168 Potassium Level 4.4 Red Blood Count 3.92 L Red Cell Distribution Width 15.1 H Sodium Level 136 White Blood Count 6.7 Medications Medications Current Medications Ondansetron HCl (Zofran Inj) 4 mg Q6H PRN IV NAUSEA AND/OR VOMITING; Start at 21:30 Acetaminophen (Tylenol Tab) 650 mg Q6H PRN PO PAIN LEVEL 1-3 OR FEVER; Start at 21:30 Acetaminophen/ Hydrocodone Bitart ([place] (5/325)) 1 tab Q6H PRN PO MODERATE PAIN LEVEL 4-6 Last administered on 12/26/16 06:11; Admin Dose 1 TAB; Start at 21:30 Morphine Sulfate (morphine) 2 mg Q4H PRN IV SEVERE PAIN LEVEL 7-10 Last administered on 12/25/16 08:15; Admin Dose 2 MG; Start 12/24/16 at 21:30 Docusate Sodium (Colace) 100 mg Q12H PRN PO CONSTIPATION; Start 12/24/16 at 21: 30 Magnesium Hydroxide (Milk Of Mag) 30 ml DAILY PRN PO CONSTIPATION; Start at 21:30 Sodium Biphosphate/ Sodium Phosphate (Fleet Enema) 133 ml DAILY PRN [place] CONSTIPATION; Start 12/24/16 at 21:30 Lorazepam (Ativan) 0.5 mg Q6H PRN IV ANXIETY; Start 12/24/16 at 21:30 Nitroglycerin (Nitroglycerin (Sl Tab) 0.4 Mg) 1 tab Q5M PRN SL ANGINA; Start at 21:30 Amlodipine Besylate (Norvasc) 10 mg DAILY PO Last administered on 12/26/16 09: 59; Admin Dose 10 MG; Start 12/25/16 at 09:00 Atorvastatin Calcium (Lipitor) 40 mg DAILY PO Last administered on 12/26/16 09 :52; Admin Dose 40 MG; Start 12/25/16 at 09:00 Baclofen (Lioresal) 10 mg TID PO Last administered on 12/26/16 09:58; Admin Dose 10 MG; Start 12/25/16 at 09:00 Buspirone HCl (Buspar) 20 mg TID PO Last administered on 12/26/16 09:53; Admin Dose 20 MG; Start 12/25/16 at 09:00 Fluocinonide (Lidex 0.05% Cr) 1 applic BID TOP Last administered on 12/26/16 09:54; Admin Dose 1 APPLIC; Start 12/25/16 at 09:00 Imipramine HCl (Tofranil) 100 mg BID PO Last administered on 12/26/16 09:53; Admin Dose 100 MG; Start 12/25/16 at 09:00 Insulin Glargine (Lantus) 56 unit QHS SC Last administered on 12/25/16 21:48; Admin Dose 56 UNIT; Start 12/25/16 at 21:00 Losartan Potassium (Cozaar) 100 mg DAILY PO Last administered on 12/26/16 09: 57; Admin Dose 100 MG; Start 12/25/16 at 09:00 Tamsulosin HCl (Flomax) 0.4 mg HS PO Last administered on 12/25/16 21:51; Admin Dose 0.4 MG; Start 12/25/16 at 21:00 Ticagrelor (Brilinta) 90 mg BID PO Last administered on 12/25/16 21:47; Admin Dose 90 MG; Start 12/25/16 at 09:00 Capsaicin (Theragen) 1 applic QID TOP Last administered on 12/26/16 09:00; Admin Dose 1 APPLIC; Start 12/25/16 at 09:00 Famotidine (Pepcid) 20 mg DAILY PO Last administered on 12/26/16 09:54; Admin Dose 20 MG; Start 12/25/16 at 09:00 Miscellaneous Information 1 ea NOTE XX ; Start 12/24/16 at 22:00 Glucose (Glutose) 15 gm Q15M PRN PO DECREASED GLUCOSE; Start 12/24/16 at 22:00 Glucose (Glutose) 22.5 gm Q15M PRN PO DECREASED GLUCOSE; Start 12/24/16 at 22: 00 Dextrose (D50w Syringe) 25 ml Q15M PRN IV DECREASED GLUCOSE; Start 3/16/17 at 22:00 Dextrose (D50w Syringe) 50 ml Q15M PRN IV DECREASED GLUCOSE; Start 12/24/16 at 22:00 Glucagon (Glucagen) 1 mg Q15M PRN IM DECREASED GLUCOSE; Start 12/24/16 at 22:00 Glucose (Glutose) 15 gm Q15M PRN BUCCAL DECREASED GLUCOSE; Start 12/24/16 at 22 :00 Hydralazine HCl (Apresoline) 10 mg Q6H PRN IV sbp Last administered on 06:03; Admin Dose 10 MG; Start 12/25/16 at 02:00 Carvedilol (Coreg) 6.25 mg BID PO Last administered on 12/26/16 09:53; Admin Dose 6.25 MG; Start 12/25/16 at 12:00 Insulin Glargine 56 unit 56 unit QAM SC Last administered on 12/26/16 10:32; Admin Dose 56 UNIT; Start 12/26/16 at 09:00 Levofloxacin/ Dextrose (Levaquin 500mg/ D5W 100 ml (Pmx)) 100 ml @ 100 mls/hr Q24H IVPB Last administered on 12/25/16 13:33; Admin Dose 100 MLS/HR; Start at 13:00 JOVANI LONGORIA MD Dec 26, 2016 11:02
[2016-12-26] MEDS: LEVOFLOXACIN 500MG/D5W (PMX) 100 ML IVPB SCH (12:52)
[2016-12-26] MEDS: TICAGRELOR 90 MG TABLET PO SCH ×2 (12:53→20:15)
[2016-12-26] MEDS: ASPIRIN (EC) 81 MG TAB PO SCH (13:07)
[2016-12-26] MEDS ORDERED: CARV6.2579 PO (14:17)
[2016-12-26] MEDS ORDERED: NOVO3I SC (14:17)
[2016-12-26] MEDS ORDERED: LANT3I SC (14:17)
[2016-12-26] MEDS ORDERED: ASPI-664 PO (14:17)
[2016-12-26] MEDS ORDERED: LEVO500T72 PO (14:18)
--- NOTE | 2016-12-26 17:23 | PN ---
Date/Time of Note Date/Time of Note DATE: 12/26/16 TIME: 17:21 Assessment/Plan VTE Prophylaxis VTE Prophylaxis Intervention: other Lines/Catheters IV Catheter Type (from Nrs): [facility] Urinary Cath still in place: No Assessment/Plan Assessment/Plan 1. Chest pain, atypical, follow up with cardiology 2. Acute bronchitis/pneumonia, levaquin 3. COPD, exacerbation, on neb/levaquin, no steroid needed at this point. 4. Diabetes mellitus, increase lantus 5. Sleep apnea, on CPAP at night 6. CAD, s/p PCI/stent, follow up with cardiology 7. Bipolar disorder. He is on Ativan p.r.n. No signs of any current issues. 8. Dyslipidemia, on statin. 9. Hypertension, stable 10. Gastrointestinal prophylaxis. He is on famotidine. 11. Deep venous thrombosis prophylaxis. He is on aspirin and Brilinta for now. DISPO: Patient needs better DM control and more diuresis prior to d/c Subjective 24 Hr Interval Summary Constitutional: improved, no complaints Musculoskeletal: swelling Exam/Review of Systems Vital Signs Vitals Vital Signs Date Time Temp Pulse Resp B/P Pulse Ox O2 Delivery O2 Flow Rate FiO2 12/26/16 16:18 100 12/26/16 16:10 18 98 Nasal Cannula 2.0 12/26/16 15:50 98.8 137/65 Intake and Output 12/25/16 12/25/16 12/26/16 15:00 23:00 07:00 Intake Total 1200 ml 800 ml Output Total 900 ml 1000 ml Balance 300 ml -200 ml Exam Constitutional: alert, obese Psych: nl mood/affect Head: normocephalic ENMT: mucosa pink and moist Neck: supple Respiratory: diminished breath sounds, No wheezing Cardiovascular: regular rate and rhythm Gastrointestinal: bowel sounds, non-tender, soft Extremities: pitting pedal edema (2+) Neurological: nl mental status, nl speech, No focal weakness Skin: No diaphoresis Results Result Diagram: 12/26/16 0945 12/26/16 0945 Results 24 hrs Laboratory Tests Test 12/25/16 21:23 12/26/16 02:39 12/26/16 08:27 12/26/16 09:45 Bedside Glucose 154 290 H 279 H Anion Gap 15 Basophils # 0.0 Basophils % 0.3 Blood Urea Nitrogen 23 H Calcium Level 9.2 Carbon Dioxide Level 26 Chloride Level 99 Creatinine 0.95 Eosinophils # 0.1 Eosinophils % 1.2 Glucose Level 332 H Hematocrit 34.7 L Hemoglobin 11.2 L Lymphocytes # 0.9 Lymphocytes % 14.0 L Mean Corpuscular Hemoglobin 28.6 L Mean Corpuscular Hemoglobin Concent 32.3 Mean Corpuscular Volume 88.5 Mean Platelet Volume 9.7 Monocytes # 0.9 Monocytes % 12.9 H Neutrophils # 4.7 Neutrophils % 71.0 Nucleated Red Blood Cells # 0.0 Nucleated Red Blood Cells % 0.0 Platelet Count 168 Potassium Level 4.4 Red Blood Count 3.92 L Red Cell Distribution Width 15.1 H Sodium Level 136 White Blood Count 6.7 Test 12/26/16 12:31 Bedside Glucose 214 Medications Medications Current Medications Ondansetron HCl (Zofran Inj) 4 mg Q6H PRN IV NAUSEA AND/OR VOMITING; Start at 21:30 Acetaminophen (Tylenol Tab) 650 mg Q6H PRN PO PAIN LEVEL 1-3 OR FEVER; Start at 21:30 Acetaminophen/ Hydrocodone Bitart ([place] (5/325)) 1 tab Q6H PRN PO MODERATE PAIN LEVEL 4-6 Last administered on 12/26/16 12:52; Admin Dose 1 TAB; Start at 21:30 Morphine Sulfate (morphine) 2 mg Q4H PRN IV SEVERE PAIN LEVEL 7-10 Last administered on 12/25/16 08:15; Admin Dose 2 MG; Start 12/24/16 at 21:30 Docusate Sodium (Colace) 100 mg Q12H PRN PO CONSTIPATION; Start 12/24/16 at 21: 30 Magnesium Hydroxide (Milk Of Mag) 30 ml DAILY PRN PO CONSTIPATION; Start at 21:30 Sodium Biphosphate/ Sodium Phosphate (Fleet Enema) 133 ml DAILY PRN [place] CONSTIPATION; Start 12/24/16 at 21:30 Lorazepam (Ativan) 0.5 mg Q6H PRN IV ANXIETY; Start 12/24/16 at 21:30 Nitroglycerin (Nitroglycerin (Sl Tab) 0.4 Mg) 1 tab Q5M PRN SL ANGINA; Start at 21:30 Amlodipine Besylate (Norvasc) 10 mg DAILY PO Last administered on 12/26/16 09: 59; Admin Dose 10 MG; Start 12/25/16 at 09:00 Atorvastatin Calcium (Lipitor) 40 mg DAILY PO Last administered on 12/26/16 09 :52; Admin Dose 40 MG; Start 12/25/16 at 09:00 Baclofen (Lioresal) 10 mg TID PO Last administered on 12/26/16 12:54; Admin Dose 10 MG; Start 12/25/16 at 09:00 Buspirone HCl (Buspar) 20 mg TID PO Last administered on 12/26/16 12:54; Admin Dose 20 MG; Start 12/25/16 at 09:00 Fluocinonide (Lidex 0.05% Cr) 1 applic BID TOP Last administered on 12/26/16 09:54; Admin Dose 1 APPLIC; Start 12/25/16 at 09:00 Imipramine HCl (Tofranil) 100 mg BID PO Last administered on 12/26/16 09:53; Admin Dose 100 MG; Start 12/25/16 at 09:00 Insulin Glargine (Lantus) 56 unit QHS SC Last administered on 12/25/16 21:48; Admin Dose 56 UNIT; Start 12/25/16 at 21:00 Losartan Potassium (Cozaar) 100 mg DAILY PO Last administered on 12/26/16 09: 57; Admin Dose 100 MG; Start 12/25/16 at 09:00 Tamsulosin HCl (Flomax) 0.4 mg HS PO Last administered on 12/25/16 21:51; Admin Dose 0.4 MG; Start 12/25/16 at 21:00 Ticagrelor (Brilinta) 90 mg BID PO Last administered on 12/26/16 12:53; Admin Dose 90 MG; Start 12/25/16 at 09:00 Capsaicin (Theragen) 1 applic QID TOP Last administered on 12/26/16 12:54; Admin Dose 1 APPLIC; Start 12/25/16 at 09:00 Famotidine (Pepcid) 20 mg DAILY PO Last administered on 12/26/16 09:54; Admin Dose 20 MG; Start 12/25/16 at 09:00 Miscellaneous Information 1 ea NOTE XX ; Start 12/24/16 at 22:00 Glucose (Glutose) 15 gm Q15M PRN PO DECREASED GLUCOSE; Start 12/24/16 at 22:00 Glucose (Glutose) 22.5 gm Q15M PRN PO DECREASED GLUCOSE; Start 12/24/16 at 22: 00 Dextrose (D50w Syringe) 25 ml Q15M PRN IV DECREASED GLUCOSE; Start 12/24/16 at 22:00 Dextrose (D50w Syringe) 50 ml Q15M PRN IV DECREASED GLUCOSE; Start 12/24/16 at 22:00 Glucagon (Glucagen) 1 mg Q15M PRN IM DECREASED GLUCOSE; Start 12/24/16 at 22:00 Glucose (Glutose) 15 gm Q15M PRN BUCCAL DECREASED GLUCOSE; Start 12/24/16 at 22 :00 Hydralazine HCl (Apresoline) 10 mg Q6H PRN IV sbp Last administered on 06:03; Admin Dose 10 MG; Start 12/25/16 at 02:00 Carvedilol (Coreg) 6.25 mg BID PO Last administered on 12/26/16 09:53; Admin Dose 6.25 MG; Start 12/25/16 at 12:00 Insulin Glargine 56 unit 56 unit QAM SC Last administered on 12/26/16 10:32; Admin Dose 56 UNIT; Start 12/26/16 at 09:00 Levofloxacin/ Dextrose (Levaquin 500mg/ D5W 100 ml (Pmx)) 100 ml @ 100 mls/hr Q24H IVPB Last administered on 12/26/16 12:52; Admin Dose 100 MLS/HR; Start at 13:00 Aspirin (Halfprin) 81 mg DAILY PO Last administered on 12/26/16 13:07; Admin Dose 81 MG; Start 12/26/16 at 11:30 SHILO PAREKH Dec 26, 2016 17:23
[2016-12-26] MEDS: FUROSEMIDE 20 MG INJ IV SCH (18:09)
[2016-12-26] MEDS: TAMSULOSIN (SR) 0.4 MG CAP PO SCH (20:16)
[2016-12-27] VITALS (11 sets, daily range): BP systolic 129–169; BP diastolic 60–79; PULSE 77–92; RESP 18–19
[2016-12-27] MEDS: morphine 2 MG INJ IV PRN (04:35)
[2016-12-27] MEDS: FUROSEMIDE 20 MG INJ IV SCH ×2 (05:54→18:29)
[2016-12-27] MEDS: FLUOCINONIDE 0.05% 15 GM CR TOP SCH ×2 (07:55→21:13)
[2016-12-27] MEDS: LOSARTAN 50 MG TAB PO SCH (07:55)
[2016-12-27] MEDS: ATORVASTATIN 40 MG TAB PO SCH (07:55)
[2016-12-27] MEDS: BACLOFEN 10 MG TAB PO SCH ×3 (07:56→21:12)
[2016-12-27] MEDS: ASPIRIN (EC) 81 MG TAB PO SCH (07:56)
[2016-12-27] MEDS: FAMOTIDINE 20 MG TAB PO SCH (07:56)
[2016-12-27] MEDS: IMIPRAMINE 25 MG TAB PO SCH ×2 (07:57→21:00)
[2016-12-27] MEDS: TICAGRELOR 90 MG TABLET PO SCH ×2 (07:58→21:09)
[2016-12-27] MEDS: INSULIN GLARGINE [LANtus] 3 ML PEN SC SCH ×2 (07:59→21:10)
[2016-12-27] MEDS: INSULIN ASPART [NOVOLOG] 3 ML PEN SC SCH ×7 (08:00→21:11)
[2016-12-27] MEDS: AMLODIPINE 10 MG TAB PO SCH (08:11)
[2016-12-27] MEDS: CAPSAICIN 0.025% 60 GM CR TOP SCH ×4 (08:13→21:13)
[2016-12-27] MEDS: BUSPIRONE 10 MG TAB PO SCH ×3 (08:21→21:11)
[2016-12-27] MEDS: ALBUTEROL/IPRATROPIUM (NEB) 3 ML AMP NEB SCH ×4 (08:34→20:14)
[2016-12-27 09:19] LABS: ADD SCAN DIFF NO
[2016-12-27 09:36] LABS: BASOPHILS % 0.4 % (0.0-2.0); EOSINOPHILS # 0.1 10^3/ul (0.0-0.5); EOSINOPHILS % 2.2 % (0.0-7.0); HEMATOCRIT 35.1 % (42.0-52.0); HEMOGLOBIN 11.5 g/dl (14.0-18.0); LYMPHOCYTES # 0.9 10^3/ul (0.8-2.9); LYMPHOCYTES % 19.6 % (15.0-51.0); MEAN CORPUSCULAR HEMOGLOBIN 28.7 pg (29.0-33.0); MEAN CORPUSCULAR HGB CONC 32.8 g/dl (32.0-37.0); MEAN CORPUSCULAR VOLUME 87.5 fl (82.0-101.0); MEAN PLATELET VOLUME 9.6 fl (7.4-10.4); MONOCYTE # 0.6 10^3/ul (0.3-0.9); NEUTROPHIL # 2.9 10^3/ul (1.6-7.5); NEUTROPHILS % 64.6 % (39.0-77.0); PLATELET COUNT 194 10^3/UL (140-415); RED BLOOD COUNT 4.01 10^6/ul (4.70-6.10); RED CELL DISTRIBUTION WIDTH 14.9 % (11.5-14.5); WHITE BLOOD COUNT 4.5 10^3/ul (4.8-10.8)
[2016-12-27 09:44] LABS: CREATININE 0.96 mg/dl (0.61-1.24)
[2016-12-27 09:45] LABS: CALCIUM 9.2 mg/dl (8.4-10.2)
[2016-12-27] MEDS: LEVOFLOXACIN 500MG/D5W (PMX) 100 ML IVPB SCH (12:57)
--- NOTE | 2016-12-27 17:59 | PN ---
Date/Time of Note Date/Time of Note DATE: 12/27/16 TIME: 17:57 Assessment/Plan VTE Prophylaxis VTE Prophylaxis Intervention: heparin Lines/Catheters IV Catheter Type (from Nrs): Saline Lock Urinary Cath still in place: No Assessment/Plan Assessment/Plan 1. Chest pain, atypical: resolved 2. Acute bronchitis/pneumonia: improving on levaquin 3. COPD, exacerbation: much improved, on neb/levaquin, no steroid needed at this point. 4. Diabetes mellitus on high doses of insulin , stil with hyperglycemia, ?2/2 steroids vs poor dietary compliance, no change to regimen for now / d/c steroid cream 5. Sleep apnea, on CPAP at night 6. CAD, s/p recent multivessel PCI/stent 11/27: stable 7. Bipolar disorder. He is on Ativan p.r.n. Patient has a history of this condition. No acute issues so far on this admission. 8. Dyslipidemia, on statin. 9. Hypertension, stable 10. Liam LE edema: ?venous stasis, no CHF on echo or CXR: keep LE elevated DISPO: Patient needs better DM control and more diuresis prior to d/c hold steroid cream / get UA / get LE duplex Gastrointestinal prophylaxis. He is on famotidine. Deep venous thrombosis prophylaxis. He is on aspirin and Brilinta for now. Subjective 24 Hr Interval Summary Constitutional: improved Cardiovascular: No chest pain Exam/Review of Systems Vital Signs Vitals Vital Signs Date Time Temp Pulse Resp B/P Pulse Ox O2 Delivery O2 Flow Rate FiO2 12/27/16 16:43 2.0 12/27/16 16:23 83 20 97 Nasal Cannula 12/27/16 16:19 99.1 129/69 Intake and Output 12/26/16 12/26/16 12/27/16 15:00 23:00 07:00 Intake Total 100 ml 800 ml Balance 100 ml 800 ml Exam Constitutional: alert, obese Psych: nl mood/affect Head: normocephalic ENMT: mucosa pink and moist Neck: supple Respiratory: diminished breath sounds, No wheezing Cardiovascular: regular rate and rhythm Gastrointestinal: bowel sounds, non-tender, soft Extremities: pitting pedal edema (2+) Neurological: nl mental status, nl speech, No focal weakness Skin: No diaphoresis Results Result Diagram: 12/27/1657 12/27/16 0857 Results 24 hrs Laboratory Tests Test 12/26/16 18:05 12/26/16 20:12 12/27/16 07:36 12/27/16 08:57 Bedside Glucose 73 130 265 H Anion Gap 15 Basophils # 0.0 Basophils % 0.4 Blood Urea Nitrogen 22 H Calcium Level 9.2 Carbon Dioxide Level 29 Chloride Level 98 Creatinine 0.96 Eosinophils # 0.1 Eosinophils % 2.2 Glucose Level 278 H Hematocrit 35.1 L Hemoglobin 11.5 L Lymphocytes # 0.9 Lymphocytes % 19.6 Mean Corpuscular Hemoglobin 28.7 L Mean Corpuscular Hemoglobin Concent 32.8 Mean Corpuscular Volume 87.5 Mean Platelet Volume 9.6 Monocytes # 0.6 Monocytes % 13.0 H Neutrophils # 2.9 Neutrophils % 64.6 Nucleated Red Blood Cells # 0.0 Nucleated Red Blood Cells % 0.0 Platelet Count 194 Potassium Level 4.0 Red Blood Count 4.01 L Red Cell Distribution Width 14.9 H Sodium Level 138 White Blood Count 4.5 #L Test 12/27/16 12:31 Bedside Glucose 335 H Medications Medications Current Medications Ondansetron HCl (Zofran Inj) 4 mg Q6H PRN IV NAUSEA AND/OR VOMITING; Start at 21:30 Acetaminophen (Tylenol Tab) 650 mg Q6H PRN PO PAIN LEVEL 1-3 OR FEVER; Start at 21:30 Acetaminophen/ Hydrocodone Bitart ([place] (5/325)) 1 tab Q6H PRN PO MODERATE PAIN LEVEL 4-6 Last administered on 12/26/16 12:52; Admin Dose 1 TAB; Start at 21:30 Morphine Sulfate (morphine) 2 mg Q4H PRN IV SEVERE PAIN LEVEL 7-10 Last administered on 12/27/16 04:35; Admin Dose 2 MG; Start 12/24/16 at 21:30 Docusate Sodium (Colace) 100 mg Q12H PRN PO CONSTIPATION Last administered on 07:55; Admin Dose 100 MG; Start 12/24/16 at 21:30 Magnesium Hydroxide (Milk Of Mag) 30 ml DAILY PRN PO CONSTIPATION; Start at 21:30 Sodium Biphosphate/ Sodium Phosphate (Fleet Enema) 133 ml DAILY PRN [place] CONSTIPATION; Start 12/24/16 at 21:30 Lorazepam (Ativan) 0.5 mg Q6H PRN IV ANXIETY; Start 12/24/16 at 21:30 Nitroglycerin (Nitroglycerin (Sl Tab) 0.4 Mg) 1 tab Q5M PRN SL ANGINA; Start at 21:30 Amlodipine Besylate (Norvasc) 10 mg DAILY PO Last administered on 12/27/16 08: 11; Admin Dose 10 MG; Start 12/25/16 at 09:00 Atorvastatin Calcium (Lipitor) 40 mg DAILY PO Last administered on 12/27/16 07 :55; Admin Dose 40 MG; Start 12/25/16 at 09:00 Baclofen (Lioresal) 10 mg TID PO Last administered on 12/27/16 13:02; Admin Dose 10 MG; Start 12/25/16 at 09:00 Buspirone HCl (Buspar) 20 mg TID PO Last administered on 12/27/16 12:58; Admin Dose 20 MG; Start 12/25/16 at 09:00 Fluocinonide (Lidex 0.05% Cr) 1 applic BID TOP Last administered on 12/27/16 07:55; Admin Dose 1 APPLIC; Start 12/25/16 at 09:00 Imipramine HCl (Tofranil) 100 mg BID PO Last administered on 12/27/16 07:57; Admin Dose 100 MG; Start 12/25/16 at 09:00 Insulin Glargine (Lantus) 56 unit QHS SC Last administered on 12/25/16 21:48; Admin Dose 56 UNIT; Start 12/25/16 at 21:00 Losartan Potassium (Cozaar) 100 mg DAILY PO Last administered on 12/27/16 07: 55; Admin Dose 100 MG; Start 12/25/16 at 09:00 Tamsulosin HCl (Flomax) 0.4 mg HS PO Last administered on 12/26/16 20:16; Admin Dose 0.4 MG; Start 12/25/16 at 21:00 Ticagrelor (Brilinta) 90 mg BID PO Last administered on 12/27/16 07:58; Admin Dose 90 MG; Start 12/25/16 at 09:00 Capsaicin (Theragen) 1 applic QID TOP Last administered on 12/27/16 13:02; Admin Dose 1 APPLIC; Start 12/25/16 at 09:00 Famotidine (Pepcid) 20 mg DAILY PO Last administered on 12/27/16 07:56; Admin Dose 20 MG; Start 12/25/16 at 09:00 Miscellaneous Information 1 ea NOTE XX ; Start 12/24/16 at 22:00 Glucose (Glutose) 15 gm Q15M PRN PO DECREASED GLUCOSE; Start 12/24/16 at 22:00 Glucose (Glutose) 22.5 gm Q15M PRN PO DECREASED GLUCOSE; Start 12/24/16 at 22: 00 Dextrose (D50w Syringe) 25 ml Q15M PRN IV DECREASED GLUCOSE; Start 12/24/16 at 22:00 Dextrose (D50w Syringe) 50 ml Q15M PRN IV DECREASED GLUCOSE; Start 12/24/16 at 22:00 Glucagon (Glucagen) 1 mg Q15M PRN IM DECREASED GLUCOSE; Start 12/24/16 at 22:00 Glucose (Glutose) 15 gm Q15M PRN BUCCAL DECREASED GLUCOSE; Start 12/24/16 at 22 :00 Hydralazine HCl (Apresoline) 10 mg Q6H PRN IV sbp Last administered on 06:03; Admin Dose 10 MG; Start 12/25/16 at 02:00 Carvedilol (Coreg) 6.25 mg BID PO Last administered on 12/27/16 07:56; Admin Dose 6.25 MG; Start 12/25/16 at 12:00 Insulin Glargine 56 unit 56 unit QAM SC Last administered on 12/27/16 07:59; Admin Dose 56 UNIT; Start 12/26/16 at 09:00 Levofloxacin/ Dextrose (Levaquin 500mg/ D5W 100 ml (Pmx)) 100 ml @ 100 mls/hr Q24H IVPB Last administered on 12/27/16 12:57; Admin Dose 100 MLS/HR; Start at 13:00 Aspirin (Halfprin) 81 mg DAILY PO Last administered on 12/27/16 07:56; Admin Dose 81 MG; Start 12/26/16 at 11:30 SHILO PAREKH 19, 2017 17:59
[2016-12-27] MEDS: TAMSULOSIN (SR) 0.4 MG CAP PO SCH (21:12)
[2016-12-27] MEDS: HYDROCODONE/APAP (5/325) TAB PO PRN (21:14)
[2016-12-28] VITALS (13 sets, daily range): BP systolic 131–173; BP diastolic 60–91; PULSE 80–102; RESP 17–20
[2016-12-28] MEDS: HYDROCODONE/APAP (5/325) TAB PO PRN ×3 (05:48→18:16)
[2016-12-28] MEDS: ALBUTEROL/IPRATROPIUM (NEB) 3 ML AMP NEB SCH ×4 (08:02→19:41)
[2016-12-28] MEDS: ASPIRIN (EC) 81 MG TAB PO SCH (08:25)
[2016-12-28] MEDS: ATORVASTATIN 40 MG TAB PO SCH (08:25)
[2016-12-28] MEDS: AMLODIPINE 10 MG TAB PO SCH (08:25)
[2016-12-28] MEDS: BUSPIRONE 10 MG TAB PO SCH ×3 (08:25→22:40)
[2016-12-28] MEDS: LOSARTAN 50 MG TAB PO SCH (08:26)
[2016-12-28] MEDS: INSULIN ASPART [NOVOLOG] 3 ML PEN SC SCH ×7 (08:26→21:00)
[2016-12-28] MEDS: FAMOTIDINE 20 MG TAB PO SCH (08:28)
[2016-12-28] MEDS: TICAGRELOR 90 MG TABLET PO SCH ×2 (08:28→22:40)
[2016-12-28] MEDS: BACLOFEN 10 MG TAB PO SCH ×3 (08:28→22:38)
[2016-12-28] MEDS: INSULIN GLARGINE [LANtus] 3 ML PEN SC SCH (08:28)
[2016-12-28] MEDS: IMIPRAMINE 25 MG TAB PO SCH ×2 (08:34→21:00)
--- NOTE | 2016-12-28 09:44 | RADRPT ---
PROCEDURE: US Lower extremity Venous. CLINICAL INDICATION: Bilateral lower extremity swelling TECHNIQUE: Multiple sonographic images of the bilateral lower extremity deep venous system was obt ained utilizing grayscale, color-flow, compressive sonography and doppler imaging with augmentation. The images were reviewed on a PACS workstation. COMPARISON: None. FINDINGS: There is normal compressibility and flow within the bilateral common femoral, superficial femoral , posterior tibial and popliteal veins. RPTAT: AA IMPRESSION: No sonographic evidence for deep venous thrombosis. .Tan Lopez MD, MD Date Time Electronically viewed and signed by .Tan Lopez MD, on 12/28/2016 09:43 .S/
[2016-12-28] MEDS: DOCUSATE SODIUM 100 MG CAP PO SCH ×2 (09:46→22:38)
[2016-12-28] MEDS: CAPSAICIN 0.025% 60 GM CR TOP SCH ×4 (09:51→21:00)
[2016-12-28 10:30] LABS: ADD SCAN DIFF NO
[2016-12-28 10:34] LABS: BASOPHILS % 0.4 % (0.0-2.0); EOSINOPHILS # 0.1 10^3/ul (0.0-0.5); EOSINOPHILS % 1.8 % (0.0-7.0); HEMATOCRIT 35.7 % (42.0-52.0); HEMOGLOBIN 11.4 g/dl (14.0-18.0); LYMPHOCYTES # 0.9 10^3/ul (0.8-2.9); MEAN CORPUSCULAR HEMOGLOBIN 28.1 pg (29.0-33.0); MEAN CORPUSCULAR HGB CONC 31.9 g/dl (32.0-37.0); MEAN CORPUSCULAR VOLUME 88.1 fl (82.0-101.0); MEAN PLATELET VOLUME 9.6 fl (7.4-10.4); MONOCYTE # 0.5 10^3/ul (0.3-0.9); MONOCYTES % 10.7 % (0.0-11.0); NEUTROPHIL # 3.1 10^3/ul (1.6-7.5); NEUTROPHILS % 68.1 % (39.0-77.0); PLATELET COUNT 197 10^3/UL (140-415); RED BLOOD COUNT 4.05 10^6/ul (4.70-6.10); RED CELL DISTRIBUTION WIDTH 14.8 % (11.5-14.5); WHITE BLOOD COUNT 4.5 10^3/ul (4.8-10.8)
[2016-12-28 11:01] LABS: POTASSIUM 4.5 mmol/L (3.5-5.1)
[2016-12-28 11:03] LABS: CREATININE 1.01 mg/dl (0.61-1.24)
[2016-12-28 11:04] LABS: CALCIUM 9.3 mg/dl (8.4-10.2)
[2016-12-28] MEDS: LEVOFLOXACIN 500MG/D5W (PMX) 100 ML IVPB SCH (12:26)
--- NOTE | 2016-12-28 13:25 | PN ---
Date/Time of Note Date/Time of Note DATE: 12/28/16 TIME: 13:23 Assessment/Plan VTE Prophylaxis VTE Prophylaxis Intervention: other Lines/Catheters IV Catheter Type (from Nrs): [facility] Urinary Cath still in place: No Assessment/Plan Assessment/Plan 1. Chest pain, atypical, no further cardiac work up needed per cardiology 2. Acute bronchitis/pneumonia, levaquin 3. COPD, exacerbation, on neb/levaquin, no steroid needed at this point. 4. Diabetes mellitus, increase lantus 5. Sleep apnea, on CPAP at night 6. CAD, s/p PCI/stent, follow up with cardiology 7. Bipolar disorder. He is on Ativan p.r.n. No signs of any current issues. 8. Dyslipidemia, on statin. 9. Hypertension, stable 10. Gastrointestinal prophylaxis. He is on famotidine. 11. Deep venous thrombosis prophylaxis. He is on aspirin and Brilinta for now. Subjective 24 Hr Interval Summary Free Text/Dictation much less SOB Exam/Review of Systems Vital Signs Vitals Vital Signs Date Time Temp Pulse Resp B/P Pulse Ox O2 Delivery O2 Flow Rate FiO2 12/28/16 12:12 82 12/28/16 12:07 98.5 20 131/60 95 12/28/16 11:17 Nasal Cannula 2.0 12/28/16 08:03 21 Intake and Output 12/27/16 12/27/16 12/28/16 15:00 23:00 07:00 Intake Total 750 ml 800 ml 700 ml Output Total 900 ml 850 ml 300 ml Balance -150 ml -50 ml 400 ml Exam Constitutional: alert, obese, oriented, well developed Psych: nl mood/affect, no complaints Head: atraumatic, normocephalic Eyes: EOMI, PERRL, nl conjunctiva, nl lids ENMT: nl external ears & nose, nl lips & teeth, nl nasal mucosa & septum Neck: non-tender, supple Respiratory: clear to auscultation, normal air movement, No congested cough, No crackles/rales, No diminished breath sounds, No intercostal retraction, No labored breathing, No other, No respirations, No tactile fremitus, No wheezing Cardiovascular: nl pulses, regular rate and rhythm, No S3, No S4, No bruits, No diastolic murmur, No edema, No gallop, No irregular rhythm, No jugular venous distention (JVD), No murmurs/extra sounds, No other, No rub, No systolic murmur Gastrointestinal: nl liver, spleen, non-tender, soft, No ascites, No bowel sounds, No distended, No firm, No hepatomegaly, No mass , No other, No rebound or guarding, No splenomegaly, No surgical scars, No tender Musculoskeletal: nl extremities to inspection Extremities: normal pulses, No calf tenderness, No clubbing, No cyanosis, No edema, No other, No palpable cord, No pitting pedal edema, No tenderness Neurological: DEVICE ENGINEER II-XII intact, nl mental status, nl speech, nl strength Skin: nl turgor Lymph: nl lymph nodes Results Result Diagram: 12/28/16 0946 12/28/16 0946 Results 24 hrs Laboratory Tests Test 12/27/16 18:28 12/27/16 21:07 12/28/16 02:16 12/28/16 07:59 Bedside Glucose 381 H 313 H 253 H 241 H Test 12/28/16 09:46 12/28/16 12:08 Anion Gap 16 Basophils # 0.0 Basophils % 0.4 Blood Urea Nitrogen 22 H Calcium Level 9.3 Carbon Dioxide Level 29 Chloride Level 97 Creatinine 1.01 Eosinophils # 0.1 Eosinophils % 1.8 Glucose Level 322 H Hematocrit 35.7 L Hemoglobin 11.4 L Lymphocytes # 0.9 Lymphocytes % 19.0 Mean Corpuscular Hemoglobin 28.1 L Mean Corpuscular Hemoglobin Concent 31.9 L Mean Corpuscular Volume 88.1 Mean Platelet Volume 9.6 Monocytes # 0.5 Monocytes % 10.7 Neutrophils # 3.1 Neutrophils % 68.1 Nucleated Red Blood Cells # 0.0 Nucleated Red Blood Cells % 0.0 Platelet Count 197 Potassium Level 4.5 Red Blood Count 4.05 L Red Cell Distribution Width 14.8 H Sodium Level 137 White Blood Count 4.5 L Bedside Glucose 320 H Medications Medications Current Medications Ondansetron HCl (Zofran Inj) 4 mg Q6H PRN IV NAUSEA AND/OR VOMITING; Start at 21:30 Acetaminophen (Tylenol Tab) 650 mg Q6H PRN PO PAIN LEVEL 1-3 OR FEVER; Start at 21:30 Acetaminophen/ Hydrocodone Bitart ([place] (5/325)) 1 tab Q6H PRN PO MODERATE PAIN LEVEL 4-6 Last administered on 12/28/16 12:25; Admin Dose 1 TAB; Start at 21:30 Morphine Sulfate (morphine) 2 mg Q4H PRN IV SEVERE PAIN LEVEL 7-10 Last administered on 12/27/16 04:35; Admin Dose 2 MG; Start 12/24/16 at 21:30 Magnesium Hydroxide (Milk Of Mag) 30 ml DAILY PRN PO CONSTIPATION; Start at 21:30 Sodium Biphosphate/ Sodium Phosphate (Fleet Enema) 133 ml DAILY PRN [place] CONSTIPATION; Start 12/24/16 at 21:30 Lorazepam (Ativan) 0.5 mg Q6H PRN IV ANXIETY; Start 12/24/16 at 21:30 Nitroglycerin (Nitroglycerin (Sl Tab) 0.4 Mg) 1 tab Q5M PRN SL ANGINA; Start at 21:30 Amlodipine Besylate (Norvasc) 10 mg DAILY PO Last administered on 12/28/16 08: 25; Admin Dose 10 MG; Start 12/25/16 at 09:00 Atorvastatin Calcium (Lipitor) 40 mg DAILY PO Last administered on 12/28/16 08 :25; Admin Dose 40 MG; Start 12/25/16 at 09:00 Baclofen (Lioresal) 10 mg TID PO Last administered on 12/28/16 12:25; Admin Dose 10 MG; Start 12/25/16 at 09:00 Buspirone HCl (Buspar) 20 mg TID PO Last administered on 12/28/16 12:25; Admin Dose 20 MG; Start 12/25/16 at 09:00 Imipramine HCl (Tofranil) 100 mg BID PO Last administered on 12/27/16 07:57; Admin Dose 100 MG; Start 12/25/16 at 09:00 Losartan Potassium (Cozaar) 100 mg DAILY PO Last administered on 12/28/16 08: 26; Admin Dose 100 MG; Start 12/25/16 at 09:00 Tamsulosin HCl (Flomax) 0.4 mg HS PO Last administered on 12/27/16 21:12; Admin Dose 0.4 MG; Start 12/25/16 at 21:00 Ticagrelor (Brilinta) 90 mg BID PO Last administered on 12/28/16 08:28; Admin Dose 90 MG; Start 12/25/16 at 09:00 Capsaicin (Theragen) 1 applic QID TOP Last administered on 12/28/16 09:51; Admin Dose 1 APPLIC; Start 12/25/16 at 09:00 Famotidine (Pepcid) 20 mg DAILY PO Last administered on 12/28/16 08:28; Admin Dose 20 MG; Start 12/25/16 at 09:00 Miscellaneous Information 1 ea NOTE XX ; Start 12/24/16 at 22:00 Glucose (Glutose) 15 gm Q15M PRN PO DECREASED GLUCOSE; Start 12/24/16 at 22:00 Glucose (Glutose) 22.5 gm Q15M PRN PO DECREASED GLUCOSE; Start 12/24/16 at 22: 00 Dextrose (D50w Syringe) 25 ml Q15M PRN IV DECREASED GLUCOSE; Start 12/24/16 at 22:00 Dextrose (D50w Syringe) 50 ml Q15M PRN IV DECREASED GLUCOSE; Start 12/24/16 at 22:00 Glucagon (Glucagen) 1 mg Q15M PRN IM DECREASED GLUCOSE; Start 12/24/16 at 22:00 Glucose (Glutose) 15 gm Q15M PRN BUCCAL DECREASED GLUCOSE; Start 12/24/16 at 22 :00 Hydralazine HCl (Apresoline) 10 mg Q6H PRN IV sbp Last administered on 06:03; Admin Dose 10 MG; Start 12/25/16 at 02:00 Carvedilol 6.25 mg 6.25 mg BID PO Last administered on 12/28/16 08:25; Admin Dose 6.25 MG; Start 12/25/16 at 12:00 Levofloxacin/ Dextrose (Levaquin 500mg/ D5W 100 ml (Pmx)) 100 ml @ 100 mls/hr Q24H IVPB Last administered on 12/28/16 12:26; Admin Dose 100 MLS/HR; Start at 13:00 Aspirin (Halfprin) 81 mg DAILY PO Last administered on 12/28/16 08:25; Admin Dose 81 MG; Start 12/26/16 at 11:30 Docusate Sodium (Colace) 100 mg Q12H PO Last administered on 12/28/16t 09:46; Admin Dose 100 MG; Start 12/28/16 at 09:30 Insulin Glargine (Lantus) 58 unit QHS SC ; Start 12/28/16 at 21:00 Insulin Glargine (Lantus) 58 unit QAM SC ; Start 12/29/16 at 09:00 MARLYN PELAYO MD Dec 28, 2016 13:25
[2016-12-28] MEDS: metFORMIN 850 MG TAB PO SCH ×2 (14:57→17:25)
--- NOTE | 2016-12-28 18:41 | CONS ---
Date/Time of Note Date/Time of Note DATE: 12/28/16 TIME: 18:39 Assessment/Plan Assessment/Plan Additional Assessment/Plan Respiratory infection SIRS CAD with history of recent PCI Hypertension Preserved ejection fraction Diabetes Obesity Arthritis -Blood pressure remains elevated, would give 1 dose of diuretics today. Blood pressure remains elevated, would adjust antihypertensive medications. Continue dual antiplatelet therapy given recent PCI. Consultation Date/Type/Reason Admit Date/Time Dec 24, 2016 at 22:04 Initial Consult Date Type of Consultation: cv 24 HR Interval Summary Free Text/Dictation Shortness of breath is much better, denies chest pain or palpitations. Still with lower extremity edema Exam/Review of Systems Vital Signs Vitals Vital Signs Date Time Temp Pulse Resp B/P Pulse Ox O2 Delivery O2 Flow Rate FiO2 12/28/16 17:47 2.0 12/28/16 17:16 98.1 96 20 173/83 97 12/28/16 16:29 Nasal Cannula 12/28/16 08:03 21 Intake and Output 12/27/16 12/27/16 12/28/16 14:59 22:59 06:59 Intake Total 750 ml 800 ml 700 ml Output Total 900 ml 850 ml 300 ml Balance -150 ml -50 ml 400 ml Exam Sitting in chair, no apparent distress Constitutional: alert, obese, oriented Head: normocephalic Neck: supple Respiratory: other (Coarse breath sounds bilaterally, no wheezing) Cardiovascular: other, regular rate and rhythm Gastrointestinal: bowel sounds, non-tender, other (No guarding), soft Extremities: edema, other (No cyanosis) Results Result Diagram: 12/28/16 0946 12/28/16 0946 Results 24 hrs Laboratory Tests Test 12/27/16 21:07 12/28/16 02:16 12/28/16 07:59 12/28/16 09:46 Bedside Glucose 313 H 253 H 241 H Anion Gap 16 Basophils # 0.0 Basophils % 0.4 Blood Urea Nitrogen 22 H Calcium Level 9.3 Carbon Dioxide Level 29 Chloride Level 97 Creatinine 1.01 Eosinophils # 0.1 Eosinophils % 1.8 Glucose Level 322 H Hematocrit 35.7 L Hemoglobin 11.4 L Lymphocytes # 0.9 Lymphocytes % 19.0 Mean Corpuscular Hemoglobin 28.1 L Mean Corpuscular Hemoglobin Concent 31.9 L Mean Corpuscular Volume 88.1 Mean Platelet Volume 9.6 Monocytes # 0.5 Monocytes % 10.7 Neutrophils # 3.1 Neutrophils % 68.1 Nucleated Red Blood Cells # 0.0 Nucleated Red Blood Cells % 0.0 Platelet Count 197 Potassium Level 4.5 Red Blood Count 4.05 L Red Cell Distribution Width 14.8 H Sodium Level 137 White Blood Count 4.5 L Test 12/28/16 12:08 12/28/16 16:54 Bedside Glucose 320 H 225 H Medications Medications Current Medications Ondansetron HCl (Zofran Inj) 4 mg Q6H PRN IV NAUSEA AND/OR VOMITING; Start at 21:30 Acetaminophen (Tylenol Tab) 650 mg Q6H PRN PO PAIN LEVEL 1-3 OR FEVER; Start at 21:30 Acetaminophen/ Hydrocodone Bitart ([place] (5/325)) 1 tab Q6H PRN PO MODERATE PAIN LEVEL 4-6 Last administered on 12/28/16 18:16; Admin Dose 1 TAB; Start at 21:30 Morphine Sulfate (morphine) 2 mg Q4H PRN IV SEVERE PAIN LEVEL 7-10 Last administered on 12/27/16 04:35; Admin Dose 2 MG; Start 12/24/16 at 21:30 Magnesium Hydroxide (Milk Of Mag) 30 ml DAILY PRN PO CONSTIPATION; Start at 21:30 Sodium Biphosphate/ Sodium Phosphate (Fleet Enema) 133 ml DAILY PRN [place] CONSTIPATION; Start 12/24/16 at 21:30 Lorazepam (Ativan) 0.5 mg Q6H PRN IV ANXIETY; Start 12/24/16 at 21:30 Nitroglycerin (Nitroglycerin (Sl Tab) 0.4 Mg) 1 tab Q5M PRN SL ANGINA; Start at 21:30 Amlodipine Besylate (Norvasc) 10 mg DAILY PO Last administered on 12/28/16 08: 25; Admin Dose 10 MG; Start 12/25/16 at 09:00 Atorvastatin Calcium (Lipitor) 40 mg DAILY PO Last administered on 12/28/16 08 :25; Admin Dose 40 MG; Start 12/25/16 at 09:00 Baclofen (Lioresal) 10 mg TID PO Last administered on 12/28/16 12:25; Admin Dose 10 MG; Start 12/25/16 at 09:00 Buspirone HCl (Buspar) 20 mg TID PO Last administered on 12/28/16 12:25; Admin Dose 20 MG; Start 12/25/16 at 09:00 Imipramine HCl (Tofranil) 100 mg BID PO Last administered on 12/27/16 07:57; Admin Dose 100 MG; Start 12/25/16 at 09:00 Losartan Potassium (Cozaar) 100 mg DAILY PO Last administered on 12/28/16 08: 26; Admin Dose 100 MG; Start 12/25/16 at 09:00 Tamsulosin HCl (Flomax) 0.4 mg HS PO Last administered on 12/27/16 21:12; Admin Dose 0.4 MG; Start 12/25/16 at 21:00 Ticagrelor (Brilinta) 90 mg BID PO Last administered on 12/28/16 08:28; Admin Dose 90 MG; Start 12/25/16 at 09:00 Capsaicin (Theragen) 1 applic QID TOP Last administered on 12/28/16 17:25; Admin Dose 1 APPLIC; Start 12/25/16 at 09:00 Famotidine (Pepcid) 20 mg DAILY PO Last administered on 12/28/16 08:28; Admin Dose 20 MG; Start 12/25/16 at 09:00 Miscellaneous Information 1 ea NOTE XX ; Start 12/24/16 at 22:00 Glucose (Glutose) 15 gm Q15M PRN PO DECREASED GLUCOSE; Start 12/24/16 at 22:00 Glucose (Glutose) 22.5 gm Q15M PRN PO DECREASED GLUCOSE; Start 12/24/16 at 22: 00 Dextrose (D50w Syringe) 25 ml Q15M PRN IV DECREASED GLUCOSE; Start 12/24/16 at 22:00 Dextrose (D50w Syringe) 50 ml Q15M PRN IV DECREASED GLUCOSE; Start 12/24/16 at 22:00 Glucagon (Glucagen) 1 mg Q15M PRN IM DECREASED GLUCOSE; Start 12/24/16 at 22:00 Glucose (Glutose) 15 gm Q15M PRN BUCCAL DECREASED GLUCOSE; Start 12/24/16 at 22 :00 Hydralazine HCl (Apresoline) 10 mg Q6H PRN IV sbp Last administered on 06:03; Admin Dose 10 MG; Start 12/25/16 at 02:00 Carvedilol (Coreg) 6.25 mg BID PO Last administered on 12/28/16 08:25; Admin Dose 6.25 MG; Start 12/25/16 at 12:00 Aspirin (Halfprin) 81 mg DAILY PO Last administered on 12/28/16 08:25; Admin Dose 81 MG; Start 12/26/16 at 11:30 Docusate Sodium (Colace) 100 mg Q12H PO Last administered on 12/28/16 09:46; Admin Dose 100 MG; Start 12/28/16 at 09:30 Insulin Glargine (Lantus) 58 unit QHS SC ; Start 12/28/16 at 21:00 Insulin Glargine (Lantus) 58 unit QAM SC ; Start 12/29/16 at 09:00 Levofloxacin (Levaquin) 500 mg DAILY@06 PO ; Start 12/29/16 at 06:00 Humble Cohen DO Dec 28, 2016 18:41
[2016-12-28 18:47] LABS: ADD UMIC YES; URINE BILIRUBIN (Dip) NEGATIVE (NEGATIVE); URINE BLOOD (Dip) NEGATIVE (NEGATIVE); URINE COLOR LT. YELLOW (YELLOW); URINE KETONES (Dip) NEGATIVE (NEGATIVE); URINE LEUKOCYTE ESTERASE (Dip) NEGATIVE (NEGATIVE); URINE NITRITE (Dip) NEGATIVE (NEGATIVE); URINE TOTAL PROTEIN (Dip) 1+ (NEGATIVE); URINE UROBILINOGEN (Dip) 0.2 E.U./dL (0.1-1.0)
[2016-12-28 18:55] LABS: URINE RBCS NONE SEEN /HPF (0)
[2016-12-28 18:56] LABS: MUCUS,URINE FEW
[2016-12-28] MEDS ORDERED: FUROSEMIDE 40 MG INJ IV ONE (19:00)
[2016-12-28] MEDS ORDERED: INSULIN GLARGINE [LANtus] 3 ML PEN SC SCH (21:00)
[2016-12-28] MEDS: TAMSULOSIN (SR) 0.4 MG CAP PO SCH (22:38)
[2016-12-29] VITALS (7 sets, daily range): BP systolic 117–132; BP diastolic 62–72; PULSE 77–89; RESP 17–20
[2016-12-29] MEDS: HYDROCODONE/APAP (5/325) TAB PO PRN (05:47)
[2016-12-29] MEDS ORDERED: LEVOFLOXACIN 500 MG TAB PO SCH (06:00)
[2016-12-29] MEDS: INSULIN ASPART [NOVOLOG] 3 ML PEN SC SCH ×4 (08:00→12:55)
[2016-12-29 08:12] LABS: ADD SCAN DIFF NO
[2016-12-29 08:23] LABS: BASOPHILS % 0.4 % (0.0-2.0); EOSINOPHILS # 0.1 10^3/ul (0.0-0.5); EOSINOPHILS % 2.1 % (0.0-7.0); HEMATOCRIT 35.9 % (42.0-52.0); HEMOGLOBIN 11.6 g/dl (14.0-18.0); LYMPHOCYTES % 19.9 % (15.0-51.0); MEAN CORPUSCULAR HEMOGLOBIN 28.2 pg (29.0-33.0); MEAN CORPUSCULAR HGB CONC 32.3 g/dl (32.0-37.0); MEAN CORPUSCULAR VOLUME 87.3 fl (82.0-101.0); MEAN PLATELET VOLUME 9.5 fl (7.4-10.4); MONOCYTE # 0.7 10^3/ul (0.3-0.9); MONOCYTES % 13.3 % (0.0-11.0); NEUTROPHIL # 3.1 10^3/ul (1.6-7.5); NEUTROPHILS % 64.1 % (39.0-77.0); PLATELET COUNT 206 10^3/UL (140-415); RED BLOOD COUNT 4.11 10^6/ul (4.70-6.10); RED CELL DISTRIBUTION WIDTH 14.6 % (11.5-14.5); WHITE BLOOD COUNT 4.9 10^3/ul (4.8-10.8)
[2016-12-29] MEDS: ALBUTEROL/IPRATROPIUM (NEB) 3 ML AMP NEB SCH ×2 (08:46→12:31)
[2016-12-29] MEDS: metFORMIN 850 MG TAB PO SCH (08:51)
[2016-12-29] MEDS: FAMOTIDINE 20 MG TAB PO SCH (08:53)
[2016-12-29] MEDS: LOSARTAN 50 MG TAB PO SCH (08:53)
[2016-12-29] MEDS: DOCUSATE SODIUM 100 MG CAP PO SCH (08:53)
[2016-12-29] MEDS: BUSPIRONE 10 MG TAB PO SCH ×2 (08:53→12:53)
[2016-12-29] MEDS: BACLOFEN 10 MG TAB PO SCH ×2 (08:53→12:52)
[2016-12-29] MEDS: ATORVASTATIN 40 MG TAB PO SCH (08:53)
[2016-12-29] MEDS: ASPIRIN (EC) 81 MG TAB PO SCH (08:53)
[2016-12-29] MEDS: AMLODIPINE 10 MG TAB PO SCH (08:53)
[2016-12-29] MEDS: IMIPRAMINE 25 MG TAB PO SCH (08:54)
[2016-12-29] MEDS ORDERED: INSULIN GLARGINE [LANtus] 3 ML PEN SC SCH (09:00)
[2016-12-29] MEDS: TICAGRELOR 90 MG TABLET PO SCH (09:01)
[2016-12-29] MEDS: CAPSAICIN 0.025% 60 GM CR TOP SCH ×2 (09:05→12:53)
[2016-12-29 09:23] LABS: POTASSIUM 4.1 mmol/L (3.5-5.1)
[2016-12-29 09:25] LABS: CREATININE 0.95 mg/dl (0.61-1.24)
[2016-12-29 09:26] LABS: CALCIUM 9.2 mg/dl (8.4-10.2)
--- NOTE | 2016-12-29 13:32 | DS ---
Date/Time of Note Date/Time of Note DATE: 12/29/16 TIME: 13:26 Discharge Summary Admission/Discharge Info Admit Date/Time Dec 24, 2016 at 22:04 Discharge Date/Time Final Diagnosis 1. Chest pain, atypical, no further cardiac work up needed per cardiology 2. Acute bronchitis/pneumonia, stable, levaquin 3. COPD, exacerbation, improved 4. Diabetes mellitus, stable 5. Sleep apnea, on CPAP at night 6. CAD, s/p PCI/stent, stable, follow up with cardiology 7. Bipolar disorder. stable 8. Dyslipidemia, on statin. 9. Hypertension, stable Patient Condition: Stable Hospital Course The patient is a 61-year-old male with past medical history of hypertension, CHF , coronary artery disease status post 3 stent placements in the past, OCD, and bipolar disorder who presents with chest pain in the substernal area radiating to the shoulders and up to the neck and jaw. Denied any palpitations. No upper or lower GI bleeding. No fevers or chills. No nausea or vomiting. No diarrhea or constipation. The patient was recently here at our hospital from to 11/17/2016. At that time, he had a non-ST elevation myocardial infarction and had left heart catheterization with 3 stents placed at that time. The patient does not take any nitroglycerin at home. For chest pain, it is atypical, negative ECG changes and troponin.Chest pain resolved. Follow up with cardiology outpatient. Patient has cough and shortness of breath. He used to smoke. He is treated with antibiotics and nebulizer for COPD, acute bronchitis. Symp=toms improved. Home Meds Active Scripts Levofloxacin* (Levaquin*) 500 Mg Tablet, 500 MG PO DAILY for 5 Days, TAB Prov:JAY PAREKHCeli Ferrera. 12/26/16 Carvedilol* (Carvedilol*) 6.25 Mg Tablet, 6.25 MG PO BID for 30 Days, TAB 2 Refills Prov:IGLESIA,GAETANOHEIDY Ferrera. 12/26/16 Aspirin* (Aspirin* EC) 81 Mg Tablet.dr, 81 MG PO DAILY for 30 Days, 2 Refills Prov:SHILO PAREKH. 12/26/16 Insulin Glargine* (Lantus*) 100 Unit/Ml Soln, 56 UNIT SC BID for 30 Days, VIAL 2 Refills Prov:SHILO PAREKH. 12/26/16 Insulin Aspart* (Novolog Insulin Pen*) 100 Unit/Ml Soln, 30 UNIT SC WITH MEALS for 30 Days, EA 2 Refills Prov:SHILO PAREKH. 12/26/16 Ticagrelor* (Brilinta*) 90 Mg Tablet, 90 MG PO BID for 30 Days, #60 TAB Prov:ESHA SIMMONS MD 11/17/16 Reported Medications Buspirone Hcl* (Buspirone Hcl*) 10 Mg Tab, 20 MG PO TID, TAB 10/28/16 Atorvastatin* (Atorvastatin*) 40 Mg Tablet, 40 MG PO DAILY, #30 TAB 10/28/16 Capsaicin (Capsaicin) 42.5 Gm Cream.gm., 1 APPLIC TOP QID, #1 TUB 10/28/16 Baclofen* (Baclofen*) 10 Mg Tablet, 10 MG PO TID, TAB 10/28/16 Metformin Hcl* (Metformin Hcl*) 1,000 Mg Tablet, 1000 MG PO WITH BREAKFAST DINNE , #60 TAB 10/28/16 Fluocinonide* (Fluocinonide* Cream) 0.1% - 120 Gm Cream..g., 1 APPLIC TOP BID, TUB 10/28/16 Tamsulosin Hcl* (Tamsulosin Hcl*) 0.4 Mg Cap.er.24h, 0.4 MG PO HS, CAP 10/28/16 Albuterol/Ipratropium* (Combivent Respimat*) 20-100 Mcg/Inh - 4 Gm Aer.w.adap, 1 PUFF INHALATION QID, #1 INHALER 10/28/16 Losartan Potassium* (Losartan Potassium*) 100 Mg Tablet, 100 MG PO DAILY, TAB 10/28/16 Amlodipine Besylate* (Amlodipine Besylate*) 10 Mg Tablet, 10 MG PO DAILY, #30 TAB 10/28/16 Discontinued Reported Medications Imipramine Hcl* (Imipramine Hcl*) 50 Mg Tablet, 100 MG PO BID, TAB 10/28/16 Insulin Glargine* (Lantus*) 100 Unit/Ml Soln, 56 UNIT SC QHS, #1 VIAL 11/12/16 Metoprolol Tartrate* (Lopressor*) 50 Mg Tab, 50 MG PO BID, #60 TAB 10/28/16 Follow-up Plan PCP and cardiology in one week Pending Labs Laboratory Tests Test 12/28/16 16:54 12/28/16 18:00 12/28/16 22:06 12/29/16 02:28 Bedside Glucose 225mg/dL (70-220) 126mg/dL (70-220) 125mg/dL (70-220) Urine Bilirubin NEGATIVE (NEGATIVE) Urine Clarity CLEAR (CLEAR) Urine Color LT. YELLOW (YELLOW) Urine Epithelial Cells OCCASIONAL Urine Glucose 0.1%% (NEGATIVE) Urine Hemoglobin NEGATIVE (NEGATIVE) Urine Ketones NEGATIVE (NEGATIVE) Urine Leukocyte Esterase NEGATIVE (NEGATIVE) Urine Microscopic RBC NONE SEEN/HPF (0) Urine Microscopic WBC NONE SEEN/HPF (0) Urine Mucus FEW Urine Nitrite NEGATIVE (NEGATIVE) Urine Specific [place] 1.010 (1.003-1.030) Urine Total Protein 1+ (NEGATIVE) Urine Urobilinogen 0.2 E.U./dL (0.1-1.0) Urine pH 6.0 (5.0-9.0) Test 12/29/16 07:25 12/29/16 07:38 12/29/16 11:43 Anion Gap 16 (8-16) Basophils # 0.010^3/ul (0.0-0.1) Basophils % 0.4% (0.0-2.0) Blood Urea Nitrogen 21mg/dl (7-20) Calcium Level 9.2mg/dl (8.4-10.2) Carbon Dioxide Level 27mmol/L (21-31) Chloride Level 99mmol/L (97-110) Creatinine 0.95mg/dl (0.61-1.24) Eosinophils # 0.110^3/ul (0.0-0.5) Eosinophils % 2.1% (0.0-7.0) Glucose Level 139mg/dl (70-220) Hematocrit 35.9% (42.0-52.0) Hemoglobin 11.6g/dl (14.0-18.0) Lymphocytes # 1.010^3/ul (0.8-2.9) Lymphocytes % 19.9% (15.0-51.0) Magnesium Level 2.0mg/dl (1.7-2.5) Mean Corpuscular Hemoglobin 28.2pg (29.0-33.0) Mean Corpuscular Hemoglobin Concent 32.3g/dl (32.0-37.0) Mean Corpuscular Volume 87.3fl (82.0-101.0) Mean Platelet Volume 9.5fl (7.4-10.4) Monocytes # 0.710^3/ul (0.3-0.9) Monocytes % 13.3% (0.0-11.0) Neutrophils # 3.110^3/ul (1.6-7.5) Neutrophils % 64.1% (39.0-77.0) Nucleated Red Blood Cells # 0.010^3/ul (0.0-0.0) Nucleated Red Blood Cells % 0.0/100WBC (0.0-0.0) Platelet Count 24818^3/UL (140-415) Potassium Level 4.1mmol/L (3.5-5.1) Red Blood Count 4.1110^6/ul (4.70-6.10) Red Cell Distribution Width 14.6% (11.5-14.5) Sodium Level 138mmol/L (135-144) White Blood Count 4.910^3/ul (4.8-10.8) Bedside Glucose 128mg/dL (70-220) 181mg/dL (70-220) MARLYN PELAYO MD Dec 29, 2016 13:31
--- NOTE | 2016-12-29 18:13 | RADRPT ---
Vent Rate: 85 bpm RR Interval: 0 msec [place] Interval: 146 msec QRS Duration: 78 msec QT Interval: 364 msec QTC Interval: 433 msec P-R-T [place]: 47 - 71 - 66 degrees Normal sinus rhythm Possible Left atrial enlargement Nonspecific T wave abnormality Abnormal ECG Electronically Signed By: Blake Hoffman [id number]
== END 2016-12-29 14:49 | disposition home or self-care (01) | DRG 190 ==
LOC: EEVIPCON 16:59 → E/R 16:59 → MS4 22:04
PROVIDERS: ADMIT Hospitalist; ATTEND Hospitalist
DX: J44.0 Chronic obstructive pulmonary disease with (acute) lower respiratory infection (principal); J18.9 Pneumonia, unspecified organism; I11.0 Hypertensive heart disease with heart failure; I50.30 Unspecified diastolic (congestive) heart failure; I25.2 Old myocardial infarction; J44.1 Chronic obstructive pulmonary disease with (acute) exacerbation; I25.10 Atherosclerotic heart disease of native coronary artery without angina pectoris; Z95.5 Presence of coronary angioplasty implant and graft; F42.9 Obsessive-compulsive disorder, unspecified; F31.9 Bipolar disorder, unspecified; E11.9 Type 2 diabetes mellitus without complications; E78.00 Pure hypercholesterolemia, unspecified; E66.9 Obesity, unspecified; Z68.30 Body mass index [BMI] 30.0-30.9, adult; J20.9 Acute bronchitis, unspecified; E78.5 Hyperlipidemia, unspecified; R60.0 Localized edema; Z87.891 Personal history of nicotine dependence; G47.33 Obstructive sleep apnea (adult) (pediatric); M19.019 Primary osteoarthritis, unspecified shoulder
CPT/HCPCS: 36415; 71010; 80048; 80053; 80061; 81001; 81003; 82550; 82553; 82962; 83036; 83735; 84439; 84443; 84484; 85025; 85610; 85730; 93005; 93970; 94640; 94664; 96374; 96375; 96376; J1940; J0360; J1815; J1956; J2270; J2405; J7030

== ENCOUNTER 2017-01-13 20:17 | Emergency (ER) | payer BC, OTHER ==
[~2017-01-13] VITALS: Ht 180.3 cm; Wt 112.0 kg
[~2017-01-13 20:17] MED LIST changes: +ASPI-664 PO; +CARV6.2579 PO; +LEVO500T72 PO; -METO-429 PO; -TOF50 PO
[2017-01-13 21:13] VITALS: Ht 180.3 cm; Wt 112.0 kg
--- NOTE | 2017-01-14 01:28 | ERA ---
ER Documentation Chief Complaint Date/Time DATE: 01/14/17 TIME: 01:27 Chief Complaint Shortness of breath HPI The patient is a 61-year-old male, presenting to the ER because of acute on chronic shortness of breath for the last 3 days. He had similar symptoms previously. He went to see his doctor at the [facility] who treated him with Lasix 20 mg po. He used to take Lasix but did not take them for the last couple of days. He denies any chest pain with exertion or vomiting or diaphoresis. He denies abdominal pain, vomiting, diarrhea, dysuria, polyuria. He used to smoke and drink but he quit many years ago. Past medical history: CAD, hypertension, diabetes mellitus, OCD, dyslipidemia, obstructive sleep apnea, bipolar disorder, asthma, history of CHF, GERD, pulmonary nodule Past surgical history: 3 stent PCI, thoracic outlet obstruction, cholecystectomy , appendectomy, right ankle ROS All systems reviewed and are negative except as per history of present illness. Medications Home Meds Active Scripts Levofloxacin* (Levaquin*) 500 Mg Tablet, 500 MG PO DAILY for 5 Days, TAB Prov:GAETANO PAREKHHEIDY Ferrera. 12/26/16 Carvedilol* (Carvedilol*) 6.25 Mg Tablet, 6.25 MG PO BID for 30 Days, TAB 2 Refills Prov:JAY PAREKHCeli Ferrera. 12/26/16 Aspirin* (Aspirin* EC) 81 Mg Tablet.dr, 81 MG PO DAILY for 30 Days, 2 Refills Prov:JAY PAREKHCeli Lesvia 12/26/16 Insulin Glargine* (Lantus*) 100 Unit/Ml Soln, 56 UNIT SC BID for 30 Days, VIAL 2 Refills Prov:JAY PAREKHCeli Lesvia 12/26/16 Insulin Aspart* (Novolog Insulin Pen*) 100 Unit/Ml Soln, 30 UNIT SC WITH MEALS for 30 Days, EA 2 Refills Prov:JAY PAREKHCeli Lesvia 12/26/16 Ticagrelor* (Brilinta*) 90 Mg Tablet, 90 MG PO BID for 30 Days, #60 TAB Prov:ESHA SIMMONS MD 11/17/16 Reported Medications Buspirone Hcl* (Buspirone Hcl*) 10 Mg Tab, 20 MG PO TID, TAB 10/28/16 Atorvastatin* (Atorvastatin*) 40 Mg Tablet, 40 MG PO DAILY, #30 TAB 10/28/16 Capsaicin (Capsaicin) 42.5 Gm Cream.gm., 1 APPLIC TOP QID, #1 TUB 10/28/16 Baclofen* (Baclofen*) 10 Mg Tablet, 10 MG PO TID, TAB 10/28/16 Metformin Hcl* (Metformin Hcl*) 1,000 Mg Tablet, 1000 MG PO WITH BREAKFAST DINNE , #60 TAB 10/28/16 Fluocinonide* (Fluocinonide* Cream) 0.1% - 120 Gm Cream..g., 1 APPLIC TOP BID, TUB 10/28/16 Tamsulosin Hcl* (Tamsulosin Hcl*) 0.4 Mg Cap.er.24h, 0.4 MG PO HS, CAP 10/28/16 Albuterol/Ipratropium* (Combivent Respimat*) 20-100 Mcg/Inh - 4 Gm Aer.w.adap, 1 PUFF INHALATION QID, #1 INHALER 10/28/16 Losartan Potassium* (Losartan Potassium*) 100 Mg Tablet, 100 MG PO DAILY, TAB 10/28/16 Amlodipine Besylate* (Amlodipine Besylate*) 10 Mg Tablet, 10 MG PO DAILY, #30 TAB 10/28/16 Allergies Allergies: Coded Allergies: Penicillins (Verified Allergy, Severe, DIFFICULTY BREATHING, 12/24/16) cefazolin (Verified Allergy, Severe, DIFFICULTY BREATHING, 12/24/16) ciprofloxacin (Verified Allergy, Mild, RASH, 12/24/16) benazepril (Unverified Allergy, Unknown, 12/24/16) ketorolac (Verified Allergy, Unknown, pain worse, 12/24/16) sildenafil (Unverified Allergy, Unknown, 12/24/16) PMhx/Soc History of Surgery: Yes (Appendectomy,Gall Bladder removal Bilat. thoracic out let,stents placement ) Anesthesia Reaction: No Hx Neurological Disorder: No Hx Respiratory Disorders: Yes (Asthma, sleep apnea,bronchitis) Hx Cardiac Disorders: Yes (HTN,CHF,CAD S/P 3 STENTS PLACEMENT) Hx Psychiatric Problems: Yes (Bipolar,Depression) Hx Miscellaneous Medical Probl: No Hx Alcohol Use: No Hx Substance Use: No Hx Tobacco Use: No Physical Exam Vitals Vital Signs Date Time Temp Pulse Resp B/P Pulse Ox O2 Delivery O2 Flow Rate FiO2 4/6/17 02:33 98.3 77 20 174/80 98 Room Air 01/14/17 02:12 Nasal Cannula 2 01/13/17 21:13 97.7 81 20 175/77 96 Physical Exam Const: No acute distress. Head: Atraumatic. Eyes: Normal Conjunctiva. ENT: Normal External Ears, Nose and Mouth. Neck: Full range of motion. No meningismus. Resp: Clear to auscultation bilaterally. Cardio: Regular rate and rhythm, no murmurs. Abd: Soft, non distended, normal bowel sounds, non tender. Skin: No petechiae or rashes. Back: No midline or flank tenderness. Ext: No cyanosis, minimal leg edema, no calf tenderness Neur: Awake and alert. No focal deficit Psych: Normal Mood and Affect. Result Diagram: 01/14/174 01/14/174 Results 24 hrs Laboratory Tests Test 01/14/17 02:14 White Blood Count 6.310^3/ul Red Blood Count 4.2410^6/ul Hemoglobin 12.0g/dl Hematocrit 36.9% Mean Corpuscular Volume 87.0fl Mean Corpuscular Hemoglobin 28.3pg Mean Corpuscular Hemoglobin Concent 32.5g/dl Red Cell Distribution Width 15.5% Platelet Count 56624^3/UL Mean Platelet Volume 9.4fl Neutrophils % 62.3% Lymphocytes % 25.1% Monocytes % 10.7% Eosinophils % 1.4% Basophils % 0.3% Nucleated Red Blood Cells % 0.0/100WBC Neutrophils # 3.910^3/ul Lymphocytes # 1.610^3/ul Monocytes # 0.710^3/ul Eosinophils # 0.110^3/ul Basophils # 0.010^3/ul Nucleated Red Blood Cells # 0.010^3/ul Prothrombin Time 13.7Sec Prothrombin Time Ratio 1.1 INR International Normalized Ratio 1.05 Activated Partial Thromboplast Time 28.2Sec Sodium Level 138mmol/L Potassium Level 4.0mmol/L Chloride Level 101mmol/L Carbon Dioxide Level 25mmol/L Anion Gap 16 Blood Urea Nitrogen 25mg/dl Creatinine 1.01mg/dl Glucose Level 157mg/dl Calcium Level 9.6mg/dl Total Bilirubin 0.2mg/dl Direct Bilirubin 0.00mg/dl Indirect Bilirubin 0.2mg/dl Aspartate Amino Transf (AST/SGOT) 37IU/L Alanine Aminotransferase (ALT/SGPT) 44IU/L Alkaline Phosphatase 118IU/L Troponin I < 0.012ng/ml B-Type Natriuretic Peptide 137PG/ML Total Protein 7.6g/dl Albumin 4.3g/dl Globulin 3.30g/dl Albumin/Globulin Ratio 1.30 Procedures/[place] [id number] Radiology Main Line: [phone] DIAGNOSTIC IMAGING REPORT Patient: ZONIA BRAR : 1955 Age: 61 Sex: M MR #: [id number] DOS: 01/14/17 0139 Ordering MD: HUMBLE HERZOG MD Location: E/R Room/Bed: PROCEDURE: XR Chest. CLINICAL INDICATION: Shortness of breath. TECHNIQUE: Single frontal chest x-ray. COMPARISON: 12/24/2016 FINDINGS: Heart is enlarged.. There is no CHF.. No focal infiltrate is seen. There is no pleural effusion. There is no pneumothorax. Lower cervical spine anterior fusion plate is partially visualized. Surgical clips overlie the right axilla.. IMPRESSION: Cardiomegaly. No acute infiltrate or CHF. RPTAT: [facility] .Humble Henry MD, Date Time Electronically viewed and signed by .Humble Henry MD, MD on 01/14/2017 02:16 .K/ CC: HUMBLE HERZOG MD EKG: Read by emergency physician 20:32 hours Rate/Rhythm: Normal Sinus Rhythm 79 beats/min QRS, ST, T-waves: No ST elevation, no T inversion, nonspecific T abnormality Impression: Abnormal EKG EKG: Read by emergency physician 02:03 hours Rate/Rhythm: Normal Sinus Rhythm 73 beats/min QRS, ST, T-waves: No ST elevation, no T inversion, nonspecific T abnormality Impression: Abnormal EKG MEDICAL MAKING DECISION: The patient is a 61-year-old male, presenting with chronic CHF He remains well emergency department. The differential diagnoses considered include but are not limited to asthma, COPD, pneumonia, pulmonary embolus, pleural effusion, congestive heart failure. Departure Diagnosis: Primary Impression: Congestive heart failure Additional Impression: Anemia Condition: Good Comments I discussed the findings with the patient. I advised the patient to follow-up with the primary physician in about 1-2 days, sooner if needed and return if any concern. HUMBLE HERZOG MD Jan 14, 2017 01:28
--- NOTE | 2017-01-14 02:17 | RADRPT ---
PROCEDURE: XR Chest. CLINICAL INDICATION: Shortness of breath. TECHNIQUE: Single frontal chest x-ray. COMPARISON: 12/24/2016 FINDINGS: Heart is enlarged.. There is no CHF.. No focal infiltrate is seen. There is no pleural effusion. There is no pneumothorax. Lower cervical spine anterior fusion plate is partially visualized. Surg ical clips overlie the right axilla.. IMPRESSION: Cardiomegaly. No acute infiltrate or CHF. RPTAT: [facility]K .Humble Henry MD, Date Time Electronically viewed and signed by .Humble Henry MD, on 01/14/2017 02:16 .K/
[2017-01-14 02:29] LABS: ADD SCAN DIFF NO
[2017-01-14 02:32] LABS: BASOPHILS % 0.3 % (0.0-2.0); EOSINOPHILS # 0.1 10^3/ul (0.0-0.5); EOSINOPHILS % 1.4 % (0.0-7.0); HEMATOCRIT 36.9 % (42.0-52.0); LYMPHOCYTES # 1.6 10^3/ul (0.8-2.9); LYMPHOCYTES % 25.1 % (15.0-51.0); MEAN CORPUSCULAR HEMOGLOBIN 28.3 pg (29.0-33.0); MEAN CORPUSCULAR HGB CONC 32.5 g/dl (32.0-37.0); MEAN PLATELET VOLUME 9.4 fl (7.4-10.4); MONOCYTE # 0.7 10^3/ul (0.3-0.9); MONOCYTES % 10.7 % (0.0-11.0); NEUTROPHIL # 3.9 10^3/ul (1.6-7.5); NEUTROPHILS % 62.3 % (39.0-77.0); PLATELET COUNT 189 10^3/UL (140-415); RED BLOOD COUNT 4.24 10^6/ul (4.70-6.10); RED CELL DISTRIBUTION WIDTH 15.5 % (11.5-14.5); WHITE BLOOD COUNT 6.3 10^3/ul (4.8-10.8)
[2017-01-14 02:33] VITALS: TEMP 98.3
[2017-01-14 02:50] LABS: ALBUMIN 4.3 g/dl (3.3-4.9); CHLORIDE 101 mmol/L (97-110); SODIUM 138 mmol/L (135-144)
[2017-01-14 02:52] LABS: BILIRUBIN,INDIRECT 0.2 mg/dl (0-1.1); BILIRUBIN,TOTAL 0.2 mg/dl (0.2-1.3); CREATININE 1.01 mg/dl (0.61-1.24)
[2017-01-14 02:53] LABS: ALANINE AMINOTRANSFERASE 44 IU/L (13-69); ALKALINE PHOSPHATASE 118 IU/L (42-121); ANION GAP 16 (8-16); ASPARTATE AMINO TRANSFERASE 37 IU/L (15-46); BLOOD UREA NITROGEN 25 mg/dl (7-20); CARBON DIOXIDE 25 mmol/L (21-31); GLUCOSE 157 mg/dl (70-220); TOTAL PROTEIN 7.6 g/dl (6.1-8.1)
[2017-01-14 02:54] LABS: CALCIUM 9.6 mg/dl (8.4-10.2); INR 1.05; PROTIME 13.7 Sec (12.2-14.2); PT RATIO 1.1
[2017-01-14 03:02] LABS: B-TYPE NATRIURETIC PEPTIDE 137 PG/ML (0-125)
[2017-01-14 03:10] LABS: TROPONIN-I < 0.012 ng/ml (0.00-0.12)
[2017-01-14 03:28] LABS: PARTIAL THROMBOPLASTIN TIME 28.2 Sec (25.0-35.0)
[2017-01-14 04:36] VITALS: BP 152/66; PULSE 75; RESP 18
== END 2017-01-14 04:37 | disposition home or self-care (01) ==
LOC: E/R 20:17
DX: I50.9 Heart failure, unspecified (principal); D64.9 Anemia, unspecified; I10 Essential (primary) hypertension; I25.10 Atherosclerotic heart disease of native coronary artery without angina pectoris; J45.909 Unspecified asthma, uncomplicated; E11.9 Type 2 diabetes mellitus without complications; Z98.61 Coronary angioplasty status; Z79.82 Long term (current) use of aspirin; Z79.84 Long term (current) use of oral hypoglycemic drugs; Z79.4 Long term (current) use of insulin
CPT/HCPCS: 36415; 71010; 80053; 83880; 84484; 85025; 85610; 85730; 93005

== ENCOUNTER 2017-05-16 08:53 | Emergency (ER) | payer BC, OTHER ==
[~2017-05-16] VITALS: Wt 110.0 kg
[2017-05-16] MEDS ORDERED: morphine 4 MG/ML VIAL IV STA (09:52)
[2017-05-16] MEDS ORDERED: ONDANSETRON 4 MG INJ IV STA (09:52)
[2017-05-16] MEDS ORDERED: SOD CHLORIDE 0.9% 500 ML IV STA (09:52)
[2017-05-16 10:16] LABS: BASOPHILS % 0.4 % (0.0-2.0); EOSINOPHILS # 0.1 10^3/ul (0.0-0.5); EOSINOPHILS % 1.1 % (0.0-7.0); HEMATOCRIT 39.3 % (42.0-52.0); HEMOGLOBIN 12.8 g/dl (14.0-18.0); LYMPHOCYTES # 1.2 10^3/ul (0.8-2.9); LYMPHOCYTES % 22.2 % (15.0-51.0); MEAN CORPUSCULAR HEMOGLOBIN 28.4 pg (29.0-33.0); MEAN CORPUSCULAR HGB CONC 32.6 g/dl (32.0-37.0); MEAN CORPUSCULAR VOLUME 87.3 fl (82.0-101.0); MEAN PLATELET VOLUME 9.4 fl (7.4-10.4); MONOCYTE # 0.5 10^3/ul (0.3-0.9); MONOCYTES % 9.7 % (0.0-11.0); NEUTROPHIL # 3.7 10^3/ul (1.6-7.5); NEUTROPHILS % 66.2 % (39.0-77.0); PLATELET COUNT 151 10^3/UL (140-415); RED CELL DISTRIBUTION WIDTH 15.1 % (11.5-14.5); WHITE BLOOD COUNT 5.6 10^3/ul (4.8-10.8)
[2017-05-16 10:20] LABS: ADD UMIC NO; UR ASCORBIC ACID NEGATIVE (NEGATIVE); UR BILIRUBIN (Dip) NEGATIVE (NEGATIVE); UR BLOOD (Dip) NEGATIVE (NEGATIVE); UR CLARITY SLIGHTLY CLOUDY (CLEAR); UR COLOR YELLOW (YELLOW); UR GLUCOSE (Dip) NEGATIVE (NEGATIVE); UR KETONES (Dip) NEGATIVE (NEGATIVE); UR LEUKOCYTE ESTERASE (Dip) NEGATIVE Leu/ul (NEGATIVE); UR NITRITE (Dip) NEGATIVE (NEGATIVE); UR RBC 0 /HPF (0-5); UR SPECIFIC GRAVITY (Dip) 1.006 (1.003-1.030); UR TOTAL PROTEIN (Dip) NEGATIVE (NEGATIVE); UR UROBILINOGEN (Dip) NEGATIVE (NEGATIVE)
[2017-05-16 10:35] LABS: INR 0.96; PROTIME 12.8 Sec (12.2-14.2)
[2017-05-16 10:36] LABS: PARTIAL THROMBOPLASTIN TIME 27.5 Sec (25.0-35.0)
[2017-05-16 10:43] LABS: ALANINE AMINOTRANSFERASE 52 IU/L (13-69); ALBUMIN 4.6 g/dl (3.3-4.9); ALBUMIN/GLOBULIN RATIO 1.39; ALKALINE PHOSPHATASE 139 IU/L (42-121); AMYLASE 95 U/L (11-123); ANION GAP 20 (8-16); ASPARTATE AMINO TRANSFERASE 34 IU/L (15-46); BILIRUBIN,INDIRECT 0.4 mg/dl (0-1.1); BILIRUBIN,TOTAL 0.4 mg/dl (0.2-1.3); BLOOD UREA NITROGEN 26 mg/dl (7-20); CALCIUM 10.1 mg/dl (8.4-10.2); CARBON DIOXIDE 26 mmol/L (21-31); CHLORIDE 100 mmol/L (97-110); CREATININE 1.07 mg/dl (0.61-1.24); GLUCOSE 233 mg/dl (70-220); SODIUM 141 mmol/L (135-144); TOTAL PROTEIN 7.9 g/dl (6.1-8.1)
[2017-05-16 10:55] LABS: TROPONIN-I < 0.012 ng/ml (0.00-0.12)
[2017-05-16] MEDS ORDERED: SOD CHLORIDE 0.9% 100 ML ONE (10:58)
[2017-05-16] MEDS ORDERED: IODIXANOL LOCM 100 ML BTL ONE (10:58)
[2017-05-16] MEDS ORDERED: LANT3I SC (11:00)
[2017-05-16] MEDS ORDERED: LIRA0.6P SQ (11:00)
[2017-05-16] MEDS ORDERED: NOVO3I SC (11:03)
--- NOTE | 2017-05-16 11:43 | RADRPT ---
PROCEDURE: CT Abdomen and Pelvis with contrast. CLINICAL INDICATION: Abdominal pain. TECHNIQUE: CT scan of the abdomen and pelvis with contrast was performed on a multi-detector high- resolution CT scanner. The patient was scanned following the uncomplicated intravenous administrati on of 100 cc of Visipaque 320. Coronal and sagittal reformatted images were obtained from the axial source images. One or more of the following dose reduction techniques were used: Automated exposur e control, adjustment of the mA and/or kV according to patient size, use of iterative reconstructio n technique. Images were reviewed on a high-resolution PACS workstation. The total exam CTDI equals 19.91 mGy and the total exam DLP equals 1321.6 mGy-cm. COMPARISON: None available. FINDINGS: CT abdomen: The lung bases are clear. The heart size is normal, without pericardial thickening or effusion. The liver is normal in size and density without focal mass or intrahepatic biliary dilatation. The liver surface is nodular. Mildly prominent dania hepatis lymph nodes are present. The spleen is pr ominent measuring 12.3 cm. Prominent perisplenic varices are present. The stomach is partially col lapsed, but is grossly unremarkable. The pancreas as visualized is normal. The gallbladder is surg ically absent. The biliary tree is unremarkable without evidence for biliary dilatation. The adren al glands are symmetric and normal. A 1.7 cm hypodense cortical lesion is present in the right kidn ey consistent with a cyst. There is moderate nonspecific bilateral perinephric fat stranding. Otherw ise, the kidneys are unremarkable. A small 3 mm nonobstructive calculus is present in the inferior pole of the left kidney. There is no hydronephrosis. A 9.7 x 10.1 x 2.3 cm region of skin thickening and subcutaneous soft tissue thickening and fat stra nding is seen in the anterior right lower quadrant. There is no evidence of organized fluid collecti on to suggest abscess. No intraperitoneal abnormality is seen. The aorta is of normal caliber. Moderate aortoiliac atherosclerotic calcifications are present. The re is no retroperitoneal lymphadenopathy. The dania hepatis region is clear. The small bowel and m esentery, as visualized, are unremarkable. CT pelvis: The small bowel loops situated within the pelvis are unremarkable. The pelvic organs are normal. T he pelvic sidewalls and inguinal regions are clear. The sigmoid colon and rectum are unremarkable. No mass, lymphadenopathy, or free fluid is seen. The bladder is normal. Moderate degenerative enthesopathy is present throughout the lumbar spine with posterior bridging os teophyte at T12-L1 resulting in moderate central canal narrowing. No osteolytic or osteoblastic les ion is detected. IMPRESSION: 1. Region of cutaneous and subcutaneous inflammation in the anterior right lower quadrant abdominal wall may be secondary to infectious, inflammatory, or post traumatic process. No evidence of assoc iated hematoma, abscess, or intraperitoneal process. 2. Evidence of cirrhosis with mild splenomegaly and perisplenic varices. 3. Lumbar degenerative enthesopathy. 4. Moderate aortoiliac atherosclerosis. 5. Nonspecific bilateral perinephric fat stranding, may be related to senescent change. No evidenc e of hydronephrosis or urolithiasis. 6. Small hypodense right renal lesion, likely representing a cyst. 7. Small 3 mm nonobstructive left renal calculus. 8. Status post cholecystectomy. RPTAT: HH .Jason Noonan MD, MD Date Time Electronically viewed and signed by .Jason Noonan MD, on 05/16/2017 11:43 .A/
--- NOTE | 2017-05-16 11:48 | ERD ---
ER Documentation Chief Complaint Date/Time DATE: 05/16/17 TIME: 11:47 Chief Complaint LOWER BACK PAIN RADIATES TO RIGHT LOWER LEG HPI This is a very pleasant 61-year-old male with a past medical history of coronary artery disease with 3 stents placed, diabetes mellitus, hypertension and osteoarthritis with lower back pain. The patient indicates however that over the past 24 hours he has had severe pain in his right buttocks that began to radiate to the lateral aspect of his right leg. He also stated that there was associated numbness in his groin on the right side. He denied any testicular pain or swelling. He denies any frequency urgency or dysuria no gross hematuria. He denies any changes in his bladder or bowel frequency. Indicates he has never had any similar symptoms in the past and denies any recent remote trauma to his lower back. He has had no fevers or shaking or chills. He denies any hemoptysis hematemesis or melanotic stools. He has no chest pain or pressure that radiates to the neck arm back or jaw. He indicated that the pain in the right buttocks and right leg was exacerbated when he moved and was 10 out of 10 in intensity. ROS All systems reviewed and are negative except as per history of present illness. Medications Home Meds Active Scripts Carvedilol* (Carvedilol*) 6.25 Mg Tablet, 6.25 MG PO BID for 30 Days, TAB 2 Refills Prov:SHILO PAREKH 12/26/16 Aspirin* (Aspirin* EC) 81 Mg Tablet.dr, 81 MG PO DAILY for 30 Days, 2 Refills Prov:SHILO PAREKH 12/26/16 Ticagrelor* (Brilinta*) 90 Mg Tablet, 90 MG PO BID for 30 Days, #60 TAB Prov:ESHA SIMMONS MD 11/17/16 Reported Medications Insulin Aspart* (Novolog Insulin Pen*) 100 Unit/Ml Soln, 20 UNIT SC WITH MEALS, EA PATIENT TAKE ONLY IF HE EAT CARBS 05/16/17 Insulin Glargine* (Lantus*) 100 Unit/Ml Soln, 40 UNIT SC BID, #1 VIAL 05/16/17 Liraglutide (Victoza 2-Juan C) 0.6 Mg/0.1 Ml Pen.injctr, 0.6 MG SQ QAM, SYR 05/16/17 Buspirone Hcl* (Buspirone Hcl*) 10 Mg Tab, 20 MG PO TID, TAB 10/28/16 Atorvastatin* (Atorvastatin*) 40 Mg Tablet, 40 MG PO DAILY, #30 TAB 10/28/16 Baclofen* (Baclofen*) 10 Mg Tablet, 10 MG PO TID, TAB 10/28/16 Metformin Hcl* (Metformin Hcl*) 1,000 Mg Tablet, 1000 MG PO WITH BREAKFAST DINNE , #60 TAB 10/28/16 Tamsulosin Hcl* (Tamsulosin Hcl*) 0.4 Mg Cap.er.24h, 0.8 MG PO HS, CAP 10/28/16 Albuterol/Ipratropium* (Combivent Respimat*) 20-100 Mcg/Inh - 4 Gm Aer.w.adap, 1 PUFF INHALATION QID, #1 INHALER 10/28/16 Losartan Potassium* (Losartan Potassium*) 100 Mg Tablet, 100 MG PO DAILY, TAB 10/28/16 Amlodipine Besylate* (Amlodipine Besylate*) 10 Mg Tablet, 10 MG PO DAILY, #30 TAB 10/28/16 Discontinued Reported Medications Capsaicin (Capsaicin) 42.5 Gm Cream.gm., 1 APPLIC TOP QID, #1 TUB 10/28/16 Fluocinonide* (Fluocinonide* Cream) 0.1% - 120 Gm Cream..g., 1 APPLIC TOP BID, TUB 10/28/16 Discontinued Scripts Levofloxacin* (Levaquin*) 500 Mg Tablet, 500 MG PO DAILY for 5 Days, TAB Prov:JAY PAREKHCeli Maisha. 12/26/16 Insulin Glargine* (Lantus*) 100 Unit/Ml Soln, 56 UNIT SC BID for 30 Days, VIAL 2 Refills Prov:JAY PAREKHCeli M. 12/26/16 Insulin Aspart* (Novolog Insulin Pen*) 100 Unit/Ml Soln, 30 UNIT SC WITH MEALS for 30 Days, EA 2 Refills Prov:JAY PAREKHCeli Maisha. 12/26/16 Allergies Allergies: Coded Allergies: Penicillins (Verified Allergy, Severe, DIFFICULTY BREATHING, 05/16/17) cefazolin (Verified Allergy, Severe, DIFFICULTY BREATHING, 05/16/17) ciprofloxacin (Verified Allergy, Mild, RASH, 05/16/17) benazepril (Unverified Allergy, Unknown, 05/16/17) ketorolac (Verified Allergy, Unknown, pain worse, 05/16/17) sildenafil (Unverified Allergy, Unknown, 05/16/17) PMhx/Soc History of Surgery: Yes (Appendectomy,Gall Bladder removal Bilat. thoracic out let,stents placement ) Anesthesia Reaction: No Hx Neurological Disorder: No Hx Respiratory Disorders: Yes (Asthma, sleep apnea,bronchitis) Hx Cardiac Disorders: Yes (HTN,CHF,CAD S/P 5 STENTS PLACEMENT) Hx Psychiatric Problems: Yes (Bipolar,Depression) Hx Miscellaneous Medical Probl: No Hx Alcohol Use: No Hx Substance Use: No Hx Tobacco Use: No (QUIT 20 YRS AGO.) Smoking Status: Former smoker Physical Exam Vitals Vital Signs Date Time Temp Pulse Resp B/P Pulse Ox O2 Delivery O2 Flow Rate FiO2 05/16/17 08:56 97.0 78 17 181/77 98 Physical Exam Constitutional:Well-developed. Well-nourished. HEENT:Normocephalic. Atraumatic.Pupils were equal round reactive to light. Moist mucous membranes.No tonsillar exudates. Neck: No nuchal rigidity. No lymphadenopathy. No posterior cervical spine tenderness or step-offs. Respiratory: Not using accessory muscles of respiration.Lungs were clear to auscultation bilaterally. No rhonchi. No rales. No wheezing. Cardiovascular: Regular rate regular rhythm.No murmurs. No rubs were appreciated.S1, S2 normal. Distal pulses are palpable 2+ bilaterally. GI: Abdomen was soft. Nontender. Non Distended. No pulsatile abdominal masses or bruits. No rebound. No guarding. Bowel sounds were present and normal. Rectal: Normal sphincter tone. Fecal occult blood test negative. Muscle skeletal: Full range of motion of both the upper and lower extremities bilaterally.Normal muscle tone.No assymetrical calf tenderness or swelling. Straight leg test positive on the right. Skin: No petechia, no purpura. No lesions on the palms or the soles of the feet. No maculopapular rash. NEURO: Patient was alert, awake, orientated x3.No facial droop. Gait observed and normal with no ataxia.Speech had regular rate and rhythm. No focal neurological deficits. Result Diagram: 05/16/17 1000 05/16/17 1000 Results 24 hrs Laboratory Tests Test 05/16/17 10:00 White Blood Count 5.610^3/ul Red Blood Count 4.5010^6/ul Hemoglobin 12.8g/dl Hematocrit 39.3% Mean Corpuscular Volume 87.3fl Mean Corpuscular Hemoglobin 28.4pg Mean Corpuscular Hemoglobin Concent 32.6g/dl Red Cell Distribution Width 15.1% Platelet Count 71714^3/UL Mean Platelet Volume 9.4fl Neutrophils % 66.2% Lymphocytes % 22.2% Monocytes % 9.7% Eosinophils % 1.1% Basophils % 0.4% Nucleated Red Blood Cells % 0.0/100WBC Neutrophils # 3.710^3/ul Lymphocytes # 1.210^3/ul Monocytes # 0.510^3/ul Eosinophils # 0.110^3/ul Basophils # 0.010^3/ul Nucleated Red Blood Cells # 0.010^3/ul Prothrombin Time 12.8Sec Prothrombin Time Ratio 1.0 INR International Normalized Ratio 0.96 Activated Partial Thromboplast Time 27.5Sec Urine Color YELLOW Urine Clarity SLIGHTLY CLOUDY Urine pH 6.0 Urine Specific [place] 1.006 Urine Ketones NEGATIVEmg/dL Urine Nitrite NEGATIVEmg/dL Urine Bilirubin NEGATIVEmg/dL Urine Urobilinogen NEGATIVEmg/dL Urine Leukocyte Esterase NEGATIVELeu/ul Urine Microscopic RBC 0/HPF Urine Microscopic WBC 0/HPF Urine Hemoglobin NEGATIVEmg/dL Urine Glucose NEGATIVEmg/dL Urine Total Protein NEGATIVEmg/dl Sodium Level 141mmol/L Potassium Level 5.0mmol/L Chloride Level 100mmol/L Carbon Dioxide Level 26mmol/L Anion Gap 20 Blood Urea Nitrogen 26mg/dl Creatinine 1.07mg/dl Glucose Level 233mg/dl Calcium Level 10.1mg/dl Total Bilirubin 0.4mg/dl Direct Bilirubin 0.00mg/dl Indirect Bilirubin 0.4mg/dl Aspartate Amino Transf (AST/SGOT) 34IU/L Alanine Aminotransferase (ALT/SGPT) 52IU/L Alkaline Phosphatase 139IU/L Troponin I < 0.012ng/ml Total Protein 7.9g/dl Albumin 4.6g/dl Globulin 3.30g/dl Albumin/Globulin Ratio 1.39 Amylase Level 95U/L Lipase 114U/L Current Medications Medications (Trade) Dose Ordered Sig/Giovanni Route PRN Reason Start Time Stop Time Status Last Admin Dose Admin Sodium Chloride (NS) 500 ml @ 500 mls/hr Q1H STAT IV 05/16/17 09:52 05/16/17 10:51 DC 05/16/17 10:19 Morphine Sulfate (morphine) 4 mg ONCE STAT IV 05/16/17 09:52 05/16/17 09:56 DC 05/16/17 10:19 Ondansetron HCl (Zofran Inj) 4 mg ONCE STAT IV 05/16/17 09:52 05/16/17 09:56 DC 05/16/17 10:19 IV Flush 10 ml 10 ml STK-MED ONCE .ROUTE 05/16/17 10:58 05/16/17 10:59 DC Sodium Chloride (NS) 100 ml @ ud STK-MED ONCE .ROUTE 05/16/17 10:58 05/16/17 10:59 DC Iodixanol (Visipaque Locm) 100 ml STK-MED ONCE .ROUTE 05/16/17 10:58 05/16/17 10:59 DC Procedures/MDM The patient presented to the emergency department with back pain. My differential diagnosis included but was not limited to spinal origins of the pain such as fracture, osteomyelitis, epidural abscess, neoplasm, spondylolishtesis, discogenic, cauda equina syndrome or musculoligamentous. Nonspinal causes such as AAA, upper UTI, renal colic, aortic dissection, abdominal neoplasm were also considered as an etiology into their pain. 12 Lead EKG tracing ordered and reviewed by myself showed: Normal sinus rhythm of 73 bpm and no arrhythmia. GA interval normal. QRS duration normal. No ST segment elevation No ST segment depression. No changes consistent with acute ischemia. The patient had no leukocytosis. The patient had hyperglycemia without ketosis his blood glucose was 233. He was treated with IV fluids to improve his hyperglycemia. He also received intravenous morphine and Zofran for analgesic control and was given a muscle relaxant of volume. I obtained a CT scan of the abdomen which was reviewed by myself the radiologist indicated the followin. Region of cutaneous and subcutaneous inflammation in the anterior right lower quadrant abdominal wall may be secondary to infectious, inflammatory, or post traumatic process. No evidence of associated hematoma, abscess, or intraperitoneal process. 2. Evidence of cirrhosis with mild splenomegaly and perisplenic varices. 3. Lumbar degenerative enthesopathy. 4. Moderate aortoiliac atherosclerosis. 5. Nonspecific bilateral perinephric fat stranding, may be related to senescent change. No evidence of hydronephrosis or urolithiasis. 6. Small hypodense right renal lesion, likely representing a cyst. 7. Small 3 mm nonobstructive left renal calculus. 8. Status post cholecystectomy. Given that the patient had new neurological symptoms with concern for cauda equina syndrome I did feel is necessary to obtain an emergent MRI of the patient 's lumbar spine. This was reviewed by the radiologist and there is no evidence at this time of cord compression to suggest cauda equina syndrome Departure Condition: Fair TRINA GONG May 16, 2017 11:48
[2017-05-16] MEDS ORDERED: HYDR-906 PO (13:00)
[2017-05-16] MEDS ORDERED: DOCU-144 PO (13:00)
[2017-05-16] MEDS ORDERED: DIAZ-90 PO (13:00)
[2017-05-16] MEDS ORDERED: DIAZEPAM 5 MG TAB PO ONE (13:00)
--- NOTE | 2017-05-16 14:08 | RADRPT ---
PROCEDURE: MRI OF THE LUMBAR SPINE. CLINICAL INDICATION: Right sciatica pain with numbness to the right groin. TECHNIQUE: Multiple MRI images were obtained utilizing multiple sequences in sagittal and axial hcetan martha. Images were interpreted on high-resolution PACS system. No contrast was administered. COMPARISON: None available FINDINGS: Note that the examination is limited in evaluation since a body coil was used instead spine coil. The vertebral bodies maintain normal height. There are no acute fractures. Bone marrow signal is w ithin normal limits. Alignment is maintained. There are small anterior endplate osteophytes throug hout the lumbar spine. The conus ends at L1-L2. The distal cord is normal in course and caliber. There is no evidence of arachnoiditis. Paraspinal musculature is unremarkable. There is disc dessication throughout the lower thoracic and lumbar spine. T12-L1: Mild loss of disk height. Minimal annular bulge and posterior osseous ridging with mild margareth tral canal narrowing. Minimal right and no left neural foraminal narrowing. L1-L2: Normal disk height. No annular bulge or central canal narrowing. Minimal bilateral neural foraminal narrowing. Mild bilateral facet arthropathy. L2-L3: Minimal loss of disk height with small Schmorl's nodes. No annular bulge or central canal na rrowing. Mild bilateral posterolateral osseous ridging with mild left and minimal right neural fora umberto narrowing. Mild bilateral facet arthropathy. L3-L4: Minimal loss of disk height. Minimal annular bulge and bilateral posterolateral osseous ridg ing but no central canal narrowing. Mild to moderate bilateral neural foraminal narrowing. Mild bi lateral facet arthropathy. L4-L5: Minimal loss of disk height. Minimal anterolisthesis. Mild annular bulge with right and left foraminal disk protrusions measuring up to 5 mm AP on the right and 3 mm AP on the left. There is slight narrowing of the right lateral recess with mild central canal narrowing. Severe right greate r than left neural foraminal narrowing with compression of the right greater than left L4 nerve root s due to the foraminal disk protrusions. Moderate to severe right and moderate left facet arthropat hy. L5-S1: Mild to moderate loss of disk height. Mild annular bulge with a 3 - 4 mm left posterolateral to foraminal disk protrusion and bilateral posterolateral osseous ridging but no central canal narr owing. Moderate bilateral neural foraminal narrowing. Mild bilateral facet arthropathy. RPTAT:EE IMPRESSION: 1. Severe right greater than left neural foraminal narrowing at L4-L5 with right and left foraminal disk protrusions larger on the right measuring up to 5 mm with compression of the right greater markus n left L4 nerve roots. Slight narrowing of the right lateral recess with mild central canal narrowi ng at this level. Moderate to severe right and moderate left facet arthropathy. 2. Moderate bilateral neural foraminal narrowing at L5-S1 with disk osteophytes, mild to moderate d egenerative disk disease, and a 3 - 4 mm left posterolateral to foraminal disk protrusion. 3. Mild central canal narrowing at T12-L1 with a mild annular bulge. .Lisa Strickland MD, Date Time Electronically viewed and signed by .Lisa Strickland MD, on 05/16/2017 14:13 .T/
[2017-05-16 16:00] VITALS: BP 187/79; PULSE 71; RESP 20; TEMP 98.3
== END 2017-05-16 16:17 | disposition home or self-care (01) ==
LOC: FTE 08:53 → E/R 16:17
DX: M54.5 Low back pain (principal); I25.10 Atherosclerotic heart disease of native coronary artery without angina pectoris; E11.9 Type 2 diabetes mellitus without complications; I10 Essential (primary) hypertension; J45.909 Unspecified asthma, uncomplicated; I50.9 Heart failure, unspecified; Z79.4 Long term (current) use of insulin; Z79.82 Long term (current) use of aspirin; Z79.84 Long term (current) use of oral hypoglycemic drugs; Z98.61 Coronary angioplasty status; Z87.891 Personal history of nicotine dependence
CPT/HCPCS: 72148; 74177; 80053; 81001; 82150; 83690; 84484; 85025; 85610; 85730; 87086; 93005; 96374; 96375; 99285; J2270; J2405; J7040; Q9967; 81003

== ENCOUNTER 2017-05-21 09:24 | Emergency (ER) | payer BC, OTHER ==
[~2017-05-21] VITALS: Ht 177.8 cm; Wt 110.5 kg
[~2017-05-21 09:24] MED LIST changes: -CAPS42.510 TOP; +DIAZ-90 PO; +DOCU-144 PO; -FLUO120C4 TOP; +HYDR-906 PO; -LEVO500T72 PO; +LIRA0.6P SQ
[2017-05-21 09:27] VITALS: Ht 177.8 cm; Wt 110.5 kg
[2017-05-21] MEDS ORDERED: HYDROmorphONE 1 MG/ML SYG IV STA (10:00)
[2017-05-21] MEDS ORDERED: ONDANSETRON 4 MG INJ IV STA (10:00)
[2017-05-21] MEDS ORDERED: METHYLPRED. NA SUCC 250 MG in DEXTROSE 5% 50 ML IV ONE (10:00)
[2017-05-21] MEDS ORDERED: HYDR-902 PO (11:51)
[2017-05-21] MEDS ORDERED: METH750T93 PO (11:51)
[2017-05-21] MEDS ORDERED: PRED20TA PO (11:51)
--- NOTE | 2017-05-21 11:55 | ERD ---
ER Documentation Chief Complaint Date/Time DATE: 05/21/17 TIME: 11:52 Chief Complaint Complains of back and leg pain HPI This is 61-year-old male with a history of chronic right back pain with sciatica. The patient MRI of his back here earlier this month that showed severe disc protrusion and foraminal stenosis at L4-5 S1. Patient says he is having uncontrolled pain and occasional muscle spasms in his leg. He is taking [place] 5 only. He has no loss of bowel or bladder. The pain is sharp and worse with movement better with rest and can radiate down the right leg with slight numbness of the medial thigh ROS All systems reviewed and are negative except as per history of present illness. Medications Home Meds Active Scripts Prednisone* (Prednisone*) 20 Mg Tab, 60 MG PO DAILY for 5 Days, TAB Prov:GLENN CALLAWAY DO 05/21/17 Methocarbamol* (Robaxin*) 750 Mg Tablet, 750 MG PO TID, #30 TAB Prov:GLENN CALLAWAY DO 05/21/17 Hydrocodone/Acetaminophen ([place] 10-325 Tablet) 1 Each Tablet, 1 TAB PO Q6H Y for PAIN, #30 TAB Prov:GLENN CALLAWAY DO 05/21/17 Diazepam* (Valium*) 5 Mg Tablet, 5 MG PO Q8 Y for MUSCLE SPASMS, #10 TAB Prov:TRINA GONG 05/16/17 Docusate Sodium* (Colace*) 100 Mg Capsule, 100 MG PO TID, #30 CAP Prov:TRINA GONG 05/16/17 Hydrocodone/Acetaminophen ([place] 5-325 Tablet) 1 Each Tablet, 1 TAB PO Q6H Y for PAIN, #20 TAB Prov:TRINA GONG 05/16/17 Carvedilol* (Carvedilol*) 6.25 Mg Tablet, 6.25 MG PO BID for 30 Days, TAB 2 Refills Prov:SHILO PAREKH 12/26/16 Aspirin* (Aspirin* EC) 81 Mg Tablet.dr, 81 MG PO DAILY for 30 Days, 2 Refills Prov:SHILO PAREKH 12/26/16 Ticagrelor* (Brilinta*) 90 Mg Tablet, 90 MG PO BID for 30 Days, #60 TAB Prov:ESHA SIMMONS MD 11/17/16 Reported Medications Insulin Aspart* (Novolog Insulin Pen*) 100 Unit/Ml Soln, 20 UNIT SC WITH MEALS, EA PATIENT TAKE ONLY IF HE EAT CARBS 05/16/17 Insulin Glargine* (Lantus*) 100 Unit/Ml Soln, 40 UNIT SC BID, #1 VIAL 05/16/17 Liraglutide (Victoza 2-Juan C) 0.6 Mg/0.1 Ml Pen.injctr, 0.6 MG SQ QAM, SYR 05/16/17 Buspirone Hcl* (Buspirone Hcl*) 10 Mg Tab, 20 MG PO TID, TAB 10/28/16 Atorvastatin* (Atorvastatin*) 40 Mg Tablet, 40 MG PO DAILY, #30 TAB 10/28/16 Baclofen* (Baclofen*) 10 Mg Tablet, 10 MG PO TID, TAB 10/28/16 Metformin Hcl* (Metformin Hcl*) 1,000 Mg Tablet, 1000 MG PO WITH BREAKFAST DINNE , #60 TAB 10/28/16 Tamsulosin Hcl* (Tamsulosin Hcl*) 0.4 Mg Cap.er.24h, 0.8 MG PO HS, CAP 10/28/16 Albuterol/Ipratropium* (Combivent Respimat*) 20-100 Mcg/Inh - 4 Gm Aer.w.adap, 1 PUFF INHALATION QID, #1 INHALER 10/28/16 Losartan Potassium* (Losartan Potassium*) 100 Mg Tablet, 100 MG PO DAILY, TAB 10/28/16 Amlodipine Besylate* (Amlodipine Besylate*) 10 Mg Tablet, 10 MG PO DAILY, #30 TAB 10/28/16 Discontinued Reported Medications Capsaicin (Capsaicin) 42.5 Gm Cream.gm., 1 APPLIC TOP QID, #1 TUB 10/28/16 Fluocinonide* (Fluocinonide* Cream) 0.1% - 120 Gm Cream..g., 1 APPLIC TOP BID, TUB 10/28/16 Discontinued Scripts Levofloxacin* (Levaquin*) 500 Mg Tablet, 500 MG PO DAILY for 5 Days, TAB Prov:SHILO PAREKH 12/26/16 Insulin Glargine* (Lantus*) 100 Unit/Ml Soln, 56 UNIT SC BID for 30 Days, VIAL 2 Refills Prov:SHILO PAREKH. 12/26/16 Insulin Aspart* (Novolog Insulin Pen*) 100 Unit/Ml Soln, 30 UNIT SC WITH MEALS for 30 Days, EA 2 Refills Prov:SHILO PAREKH. 12/26/16 Allergies Allergies: Coded Allergies: Penicillins (Verified Allergy, Severe, DIFFICULTY BREATHING, 05/21/17) cefazolin (Verified Allergy, Severe, DIFFICULTY BREATHING, 05/21/17) ciprofloxacin (Verified Allergy, Mild, RASH, 05/21/17) benazepril (Unverified Allergy, Unknown, 05/21/17) ketorolac (Verified Allergy, Unknown, pain worse, 05/21/17) sildenafil (Unverified Allergy, Unknown, 05/21/17) PMhx/Soc History of Surgery: Yes (Appendectomy,Gall Bladder removal Bilat. thoracic out let,stents placement ) Anesthesia Reaction: No Hx Neurological Disorder: No Hx Respiratory Disorders: Yes (Asthma, sleep apnea,bronchitis) Hx Cardiac Disorders: Yes (HTN,CHF,CAD S/P 5 STENTS PLACEMENT) Hx Psychiatric Problems: Yes (Bipolar,Depression) Hx Miscellaneous Medical Probl: No Hx Alcohol Use: No Hx Substance Use: No Hx Tobacco Use: No (QUIT 20 YRS AGO.) Smoking Status: Never smoker FmHx Family History: No coronary disease Physical Exam Vitals Vital Signs Date Time Temp Pulse Resp B/P Pulse Ox O2 Delivery O2 Flow Rate FiO2 05/21/17 09:27 98.3 79 20 188/82 96 Physical Exam Const: Well-developed, well-nourished Head: Atraumatic, normocephalic Eyes: Normal Conjunctiva, PERRLA, EOMI, normal sclera, no nystagmus ENT: Normal External Ears, Nose and Mouth, moist mucus membranes. Neck: Full range of motion. No meningismus, no lymphadenopathy. Resp: Clear to auscultation bilaterally, no wheezing, rhonchi, rales Cardio: Regular rate and rhythm, no murmurs, S1 S2 present Abd: Soft, non tender x 4, non distended. Normal bowel sounds, no guarding or rebound, no pulsitile abdominal masses or bruits Skin: No petechiae or rashes, no ecchymosis , no maculopapular rash Back: Bilateral low back pain right more, positive right straight leg Ext: No cyanosis, or edema, FROM x 4, normal inspection, neurovascularly intact x 4 Neur: Awake and alert, STR 5/5 x 4, sensation intact x 4, no focal findings, cerebellum intact Psych: Normal Mood and Affect Results 24 hrs Current Medications Medications (Trade) Dose Ordered Sig/Giovanni Route PRN Reason Start Time Stop Time Status Last Admin Dose Admin Hydromorphone HCl (Dilaudid) 1 mg ONCE STAT IV 05/21/17 10:00 05/21/17 10:02 DC 05/21/17 10:00 Ondansetron HCl 4 mg 4 mg ONCE STAT IV 05/21/17 10:00 05/21/17 10:02 DC 05/21/17 10:00 Methylprednisolone Sodium Succinate/ Dextrose (Solu-Medrol/D5W) 50 ml @ 100 mls/hr ONCE ONCE IV 05/21/17 10:00 05/21/17 10:29 DC 05/21/17 11:34 Procedures/MDM Patient will follow up with neurosurgery or physical therapy Departure Diagnosis: Primary Impression: Back pain Back pain location: low back pain Chronicity: chronic Back pain laterality : right Sciatica presence: with sciatica Sciatica laterality: sciatica of right side Qualified Code: M54.41 - Chronic right-sided low back pain with right-sided sciatica Condition: Stable Patient Instructions: Back Pain W/ Sciatica Referrals: ISABELA GARCIA MD (PCP) GLENN CALLAWAY DO May 21, 2017 11:54
[2017-05-21 12:35] VITALS: BP 135/79; PULSE 65; RESP 19; TEMP 98.3
== END 2017-05-21 12:36 | disposition home or self-care (01) ==
LOC: E/R 09:24
DX: M54.41 Lumbago with sciatica, right side (principal); I10 Essential (primary) hypertension; I50.9 Heart failure, unspecified; I25.10 Atherosclerotic heart disease of native coronary artery without angina pectoris; J45.909 Unspecified asthma, uncomplicated; Z79.82 Long term (current) use of aspirin; Z87.891 Personal history of nicotine dependence; Z98.61 Coronary angioplasty status
CPT/HCPCS: 96374; 96375; 99284; J1170; J2405; J2930

== ENCOUNTER 2017-06-03 17:55 | Inpatient (IN) | payer BC, OTHER ==
[~2017-06-03] VITALS: Ht 170.2 cm; Wt 108.0 kg
[~2017-06-03 17:55] MED LIST changes: +HYDR-902 PO; +METH750T93 PO; +PRED20TA PO
--- NOTE | 2017-06-03 22:40 | ERA ---
ER Documentation Chief Complaint Date/Time DATE: 06/03/17 TIME: 22:38 Chief Complaint BLACK STOOL X 3 DAYS , EPIGASTRIC PAIN HPI The patient is a 61-year-old male, presenting to the ER because of having black stool for the last 2-1/2 days. He has been taking Motrin and prednisone for his low back pain. he complains of epigastric abdominal pain, denies nausea, vomiting, dysuria, complains of constipation due to narcotic medication for lower back pain. He denies syncope, near syncope, denies smoking or drinking Past medical history: Diabetes mellitus, dyslipidemia, hypertension, history of CHF, CAD, bipolar, depression, OCD, COPD, sleep apnea, lower back pain Past surgical history: Stent PCI, neck ROS All systems reviewed and are negative except as per history of present illness. Medications Home Meds Active Scripts Hydrocodone/Acetaminophen ([place] 10-325 Tablet) 1 Each Tablet, 1 TAB PO Q6H Y for PAIN, #30 TAB Prov:GLENN CALLAWAY DO 05/21/17 Docusate Sodium* (Colace*) 100 Mg Capsule, 100 MG PO TID, #30 CAP Prov:TRINA GONG 05/16/17 Carvedilol* (Carvedilol*) 6.25 Mg Tablet, 6.25 MG PO BID for 30 Days, TAB 2 Refills Prov:SHILO PAREKH 12/26/16 Aspirin* (Aspirin* EC) 81 Mg Tablet.dr, 81 MG PO DAILY for 30 Days, 2 Refills Prov:SHILO PAREKH 12/26/16 Ticagrelor* (Brilinta*) 90 Mg Tablet, 90 MG PO BID for 30 Days, #60 TAB Prov:ESHA SIMMONS MD 11/17/16 Reported Medications Insulin Aspart* (Novolog Insulin Pen*) 100 Unit/Ml Soln, 20 UNIT SC WITH MEALS, EA PATIENT TAKE ONLY IF HE EAT CARBS 05/16/17 Insulin Glargine* (Lantus*) 100 Unit/Ml Soln, 40 UNIT SC BID, #1 VIAL 05/16/17 Liraglutide ([place] 2-Juan C) 0.6 Mg/0.1 Ml Pen.injctr, 0.6 MG SQ QAM, SYR 05/16/17 Buspirone Hcl* (Buspirone Hcl*) 10 Mg Tab, 20 MG PO TID, TAB 10/28/16 Atorvastatin* (Atorvastatin*) 40 Mg Tablet, 40 MG PO DAILY, #30 TAB 10/28/16 Baclofen* (Baclofen*) 10 Mg Tablet, 10 MG PO TID, TAB 10/28/16 Metformin Hcl* (Metformin Hcl*) 1,000 Mg Tablet, 1000 MG PO WITH BREAKFAST DINNE , #60 TAB 10/28/16 Tamsulosin Hcl* (Tamsulosin Hcl*) 0.4 Mg Cap.er.24h, 0.8 MG PO HS, CAP 10/28/16 Albuterol/Ipratropium* (Combivent Respimat*) 20-100 Mcg/Inh - 4 Gm Aer.w.adap, 1 PUFF INHALATION QID, #1 INHALER 10/28/16 Losartan Potassium* (Losartan Potassium*) 100 Mg Tablet, 100 MG PO DAILY, TAB 10/28/16 Amlodipine Besylate* (Amlodipine Besylate*) 10 Mg Tablet, 10 MG PO DAILY, #30 TAB 10/28/16 Discontinued Scripts Prednisone* (Prednisone*) 20 Mg Tab, 60 MG PO DAILY for 5 Days, TAB Prov:GLENN CALLAWAY. DO 05/21/17 Methocarbamol* (Robaxin*) 750 Mg Tablet, 750 MG PO TID, #30 TAB Prov:LECOURTNEYOSLEVONSTOLOS A. DO 05/21/17 Diazepam* (Valium*) 5 Mg Tablet, 5 MG PO Q8 Y for MUSCLE SPASMS, #10 TAB Prov:TRINA GONG 05/16/17 Hydrocodone/Acetaminophen ([place] 5-325 Tablet) 1 Each Tablet, 1 TAB PO Q6H Y for PAIN, #20 TAB Prov:TRINA GONG 05/16/17 Allergies Allergies: Coded Allergies: Penicillins (Unverified Allergy, Severe, DIFFICULTY BREATHING, 06/04/17) cefazolin (Unverified Allergy, Severe, DIFFICULTY BREATHING, 06/04/17) ciprofloxacin (Unverified Allergy, Mild, RASH, 06/04/17) benazepril (Unverified Allergy, Unknown, 06/04/17) ketorolac (Unverified Allergy, Unknown, pain worse, 06/04/17) sildenafil (Unverified Allergy, Unknown, 06/04/17) PMhx/Soc History of Surgery: Yes (Appendectomy,Gall Bladder removal Bilat. thoracic out let,stents placement ) Anesthesia Reaction: No Hx Neurological Disorder: No Hx Respiratory Disorders: Yes (Asthma, sleep apnea,bronchitis) Hx Cardiac Disorders: Yes (HTN,CHF,CAD S/P 5 STENTS PLACEMENT) Hx Psychiatric Problems: Yes (Bipolar,Depression) Hx Miscellaneous Medical Probl: No Hx Alcohol Use: No Hx Substance Use: No Hx Tobacco Use: No (QUIT 20 YRS AGO.) Physical Exam Vitals Vital Signs Date Time Temp Pulse Resp B/P Pulse Ox O2 Delivery O2 Flow Rate FiO2 06/04/17 03:08 98.2 66 16 173/84 95 Room Air 06/04/17 01:23 98.2 69 16 144/83 95 Room Air 06/04/17 01:01 80 16 144/83 99 Room Air 06/03/17 18:02 98.2 84 18 174/78 99 Physical Exam Const: No acute distress. Head: Atraumatic. Eyes: Normal Conjunctiva. ENT: Normal External Ears, Nose and Mouth. Neck: Full range of motion. No meningismus. Resp: Clear to auscultation bilaterally. Cardio: Regular rate and rhythm. Abd: Soft, non distended, normal bowel sounds, mild epigastric tenderness, no right lower quadrant, right upper quadrant, rigidity, rebound, CVA tenderness Skin: No petechiae or rashes. Back: No midline or flank tenderness. Ext: No cyanosis, or edema. Neur: Awake and alert. No focal deficit Psych: Normal Mood and Affect. Result Diagram: 06/03/17225406/03/172254 Results 24 hrs Laboratory Tests Test 06/03/17 22:55 White Blood Count 12.210^3/ul Red Blood Count 4.5210^6/ul Hemoglobin 12.4g/dl Hematocrit 39.1% Mean Corpuscular Volume 86.5fl Mean Corpuscular Hemoglobin 27.4pg Mean Corpuscular Hemoglobin Concent 31.7g/dl Red Cell Distribution Width 15.1% Platelet Count 21549^3/UL Mean Platelet Volume 9.8fl Neutrophils % 78.4% Lymphocytes % 13.7% Monocytes % 6.9% Eosinophils % 0.4% Basophils % 0.2% Nucleated Red Blood Cells % 0.0/100WBC Neutrophils # (Manual) 9.510^3/ul Lymphocytes # 1.710^3/ul Monocytes # 0.810^3/ul Eosinophils # 0.110^3/ul Basophils # 0.010^3/ul Nucleated Red Blood Cells # 0.010^3/ul Prothrombin Time 13.1Sec Prothrombin Time Ratio 1.0 INR International Normalized Ratio 0.99 Activated Partial Thromboplast Time 24.7Sec Sodium Level 135mmol/L Potassium Level 4.4mmol/L Chloride Level 93mmol/L Carbon Dioxide Level 27mmol/L Anion Gap 19 Blood Urea Nitrogen 33mg/dl Creatinine 1.04mg/dl Glucose Level 302mg/dl Calcium Level 9.9mg/dl Total Bilirubin 0.2mg/dl Direct Bilirubin 0.00mg/dl Indirect Bilirubin 0.2mg/dl Aspartate Amino Transf (AST/SGOT) 24IU/L Alanine Aminotransferase (ALT/SGPT) 48IU/L Alkaline Phosphatase 179IU/L Total Protein 7.0g/dl Albumin 4.0g/dl Globulin 3.00g/dl Albumin/Globulin Ratio 1.33 Current Medications Medications (Trade) Dose Ordered Sig/Giovanni Route PRN Reason Start Time Stop Time Status Last Admin Dose Admin Morphine Sulfate (morphine) 4 mg ONCE STAT IV 06/04/17 01:36 06/04/17 01:37 DC 06/04/17 01:40 Ondansetron HCl (Zofran Inj) 4 mg ONCE STAT IV 06/04/17 01:36 06/04/17 01:37 DC 06/04/17 01:40 Amlodipine Besylate (Norvasc) 10 mg DAILY PO 06/04/17 09:00 UNV Aspirin (Halfprin) 81 mg DAILY PO 06/04/17 09:00 UNV Atorvastatin Calcium (Lipitor) 40 mg DAILY PO 06/04/17 09:00 UNV Baclofen (Lioresal) 10 mg TID PO 06/04/17 09:00 UNV Buspirone HCl (Buspar) 20 mg TID PO 06/04/17 09:00 UNV Carvedilol (Coreg) 6.25 mg BID PO 06/04/17 09:00 UNV Docusate Sodium (Colace) 100 mg TID PO 06/04/17 09:00 UNV Acetaminophen/ Hydrocodone Bitart ([place] (10/325)) 1 tab Q6H PRN PO PAIN 06/04/17 04:00 Insulin Aspart (Novolog Insulin Pen) 20 unit WITH MEALS SC 06/04/17 08:00 UNV Insulin Glargine (Lantus) 40 unit BID SC 06/04/17 09:00 UNV Losartan Potassium (Cozaar) 100 mg DAILY PO 06/04/17 09:00 UNV Metformin HCl (Glucophage) 1,000 mg WITH BREAKFAST DINNE PO 06/04/17 08:00 UNV Tamsulosin HCl (Flomax) 0.8 mg HS PO 06/04/17 21:00 UNV Ticagrelor (Brilinta) 90 mg BID PO 06/04/17 09:00 06/04/17 09:00 DC Miscellaneous Information 1 puff QID INHALATION 06/04/17 09:00 UNV Miscellaneous Information 0.6 mg QAM SQ 06/04/17 09:00 UNV Pregabalin (Lyrica) 75 mg BID PO 06/04/17 09:00 UNV Albuterol/ Ipratropium 3 ml 3 ml Q2H RESP THERAPY PRN HHN sob/ wheezing 06/04/17 04:00 Pantoprazole/ Sodium Chloride (Protonix Iv/NS) 100 ml @ 10 mls/hr Q10H IV 06/04/17 04:00 Miscellaneous Information (* Miscellaneous Pharmacy Order) Discontinue current oral sulfonylur... ONCE ONCE XX 06/04/17 04:00 06/04/17 04:30 DC Diagnostic Test (Pha) (Accu-Chek) 1 ea 02 XX 06/05/17 02:00 Miscellaneous Information (* Miscellaneous Pharmacy Order) HYPOGLYCEMIA PROTOCOL w... ONCE ONCE XX 06/04/17 04:00 06/04/17 04:30 DC Insulin Aspart (Novolog Insulin Pen) NOVOLOG *MILD* ALGORI... Q4 SC 06/04/17 05:00 Miscellaneous Information (* Miscellaneous Pharmacy Order) Discontinue all previ... ONCE ONCE XX 06/04/17 04:00 06/04/17 04:30 DC Procedures/MDM MEDICAL MAKING DECISION: The patient is a 61-year-old male, presenting with acute hematochezia, probable acute upper GI bleed. He was treated with morphine 4 mg IV for chronic lower back pain, Zofran formula IV for nausea with good response The differential diagnoses considered include but are not limited to gastritis, peptic ulcer disease, esophageal varices, Erica-Hernandez tear, carcinoma, polyp , hemorrhoid, fissure, diverticulosis, angiodysplasia. Departure Diagnosis: Primary Impression: Hematochezia Additional Impressions: Anemia Acute hyperglycemia Condition: Stable Comments I discussed the findings with the patient. I discussed the patient with the on- call hospitalist Dr. Parekh who was made aware of the lab, the treatment, the patient condition. The patient is admitted to [facility] MUNDO HERZOG MD Jun 03, 2017 22:39
[2017-06-03 23:12] LABS: BASOPHILS % 0.2 % (0.0-2.0); EOSINOPHILS # 0.1 10^3/ul (0.0-0.5); EOSINOPHILS % 0.4 % (0.0-7.0); HEMATOCRIT 39.1 % (42.0-52.0); HEMOGLOBIN 12.4 g/dl (14.0-18.0); LYMPHOCYTES # 1.7 10^3/ul (0.8-2.9); LYMPHOCYTES % 13.7 % (15.0-51.0); MEAN CORPUSCULAR HEMOGLOBIN 27.4 pg (29.0-33.0); MEAN CORPUSCULAR HGB CONC 31.7 g/dl (32.0-37.0); MEAN CORPUSCULAR VOLUME 86.5 fl (82.0-101.0); MEAN PLATELET VOLUME 9.8 fl (7.4-10.4); MONOCYTE # 0.8 10^3/ul (0.3-0.9); MONOCYTES % 6.9 % (0.0-11.0); NEUTROPHILS % 78.4 % (39.0-77.0); PLATELET COUNT 145 10^3/UL (140-415); RED BLOOD COUNT 4.52 10^6/ul (4.70-6.10); RED CELL DISTRIBUTION WIDTH 15.1 % (11.5-14.5); WHITE BLOOD COUNT 12.2 10^3/ul (4.8-10.8)
[2017-06-03 23:27] LABS: INR 0.99; PROTIME 13.1 Sec (12.2-14.2)
[2017-06-03 23:28] LABS: PARTIAL THROMBOPLASTIN TIME 24.7 Sec (25.0-35.0)
[2017-06-03 23:31] LABS: ALBUMIN/GLOBULIN RATIO 1.33; BILIRUBIN,INDIRECT 0.2 mg/dl (0-1.1); BILIRUBIN,TOTAL 0.2 mg/dl (0.2-1.3); CALCIUM 9.9 mg/dl (8.4-10.2); CREATININE 1.04 mg/dl (0.61-1.24); POTASSIUM 4.4 mmol/L (3.5-5.1)
[2017-06-04] VITALS (7 sets, daily range): BP systolic 117–139; BP diastolic 55–64; PULSE 58–86; RESP 13–18; TEMP 98.2; Ht 170.2 cm; Wt 108.0 kg
[2017-06-04] MEDS ORDERED: morphine 4 MG/ML VIAL IV STA (01:36)
[2017-06-04] MEDS ORDERED: ONDANSETRON 4 MG INJ IV STA (01:36)
[2017-06-04] MEDS ORDERED: ALBUTEROL/IPRATROPIUM (NEB) 3 ML AMP HHN PRN (04:00)
[2017-06-04] MEDS: PANTOPRAZOLE IV 80 MG in SOD CHLORIDE 0.9% 100 ML IV SCH ×2 (04:49→14:00)
[2017-06-04] MEDS ORDERED: GLUCOSE GEL 15 GRAM TUBE BUCCAL PRN (05:00)
[2017-06-04] MEDS ORDERED: GLUCOSE GEL 15 GRAM TUBE PO PRN ×2 (05:00)
[2017-06-04] MEDS ORDERED: DEXTROSE 50% 50 ML SYRINGE IV PRN ×2 (05:00)
[2017-06-04] MEDS ORDERED: GLUCAGON 1 MG INJ IM PRN (05:00)
[2017-06-04] MEDS: INSULIN ASPART [NOVOLOG] 3 ML PEN SC SCH ×7 (05:07→20:25)
[2017-06-04] MEDS: FUROSEMIDE 20 MG TAB PO SCH ×2 (05:46→18:09)
[2017-06-04 05:51] LABS: BASOPHILS % 0.3 % (0.0-2.0); EOSINOPHILS # 0.1 10^3/ul (0.0-0.5); EOSINOPHILS % 0.9 % (0.0-7.0); HEMATOCRIT 37.1 % (42.0-52.0); HEMOGLOBIN 12.2 g/dl (14.0-18.0); LYMPHOCYTES # 2.1 10^3/ul (0.8-2.9); LYMPHOCYTES % 21.3 % (15.0-51.0); MEAN CORPUSCULAR HGB CONC 32.9 g/dl (32.0-37.0); MEAN CORPUSCULAR VOLUME 88.1 fl (82.0-101.0); MEAN PLATELET VOLUME 9.5 fl (7.4-10.4); MONOCYTE # 0.8 10^3/ul (0.3-0.9); MONOCYTES % 8.1 % (0.0-11.0); NEUTROPHILS % 68.9 % (39.0-77.0); PLATELET COUNT 130 10^3/UL (140-415); RED BLOOD COUNT 4.21 10^6/ul (4.70-6.10); RED CELL DISTRIBUTION WIDTH 14.8 % (11.5-14.5)
[2017-06-04 06:14] LABS: INR 0.97; PARTIAL THROMBOPLASTIN TIME 25.6 Sec (25.0-35.0); PROTIME 12.9 Sec (12.2-14.2)
[2017-06-04 06:19] LABS: CALCIUM 9.5 mg/dl (8.4-10.2); CHOL/HDL RATIO 2.4 RATIO; CREATININE 0.9 mg/dl (0.61-1.24); MAGNESIUM 2.2 mg/dl (1.7-2.5); PHOSPHORUS 3.6 mg/dl (2.5-4.9); POTASSIUM 4.1 mmol/L (3.5-5.1)
[2017-06-04] MEDS: HYDROCODONE/APAP (10/325) TAB PO PRN ×2 (07:05→21:55)
[2017-06-04] MEDS ORDERED: metFORMIN 500 MG TAB PO SCH (07:52)
[2017-06-04] MEDS ORDERED: TICAGRELOR 90 MG TABLET PO SCH (09:00)
[2017-06-04] MEDS ORDERED: IPRATROPIUM (HFA) 12.9 GM INHALER INH SCH (09:00)
[2017-06-04] MEDS: INSULIN GLARGINE [LANtus] 3 ML PEN SC SCH ×2 (09:00→20:26)
[2017-06-04] MEDS ORDERED: NON-FORMULARY/PATIENT OWN MED (Albuterol/Ipratropium* (Combivent Respimat*) 1 PUFF) INHALATION SCH (09:00)
[2017-06-04] MEDS ORDERED: ALBUTEROL 18 GM INHALER INH SCH (09:00)
[2017-06-04] MEDS ORDERED: LIRAGLUTIDE 0.6 MG SQ SCH (09:00)
[2017-06-04] MEDS: morphine 2 MG INJ IV PRN ×2 (09:34→09:45)
[2017-06-04] MEDS: DOCUSATE SODIUM 100 MG CAP PO SCH ×3 (10:12→20:16)
[2017-06-04] MEDS: BUSPIRONE 10 MG TAB PO SCH ×3 (10:12→20:15)
[2017-06-04] MEDS: ATORVASTATIN 40 MG TAB PO SCH (10:12)
[2017-06-04] MEDS: PREGABALIN 75 MG CAP PO SCH ×2 (10:12→20:16)
[2017-06-04] MEDS: LOSARTAN 50 MG TAB PO SCH (10:13)
[2017-06-04] MEDS: ASPIRIN (EC) 81 MG TAB PO SCH (10:13)
[2017-06-04] MEDS: BACLOFEN 10 MG TAB PO SCH ×3 (10:13→20:16)
[2017-06-04] MEDS: AMLODIPINE 10 MG TAB PO SCH (10:16)
[2017-06-04] MEDS: [UNRECOGNIZED DRUG - REMARK] XX SCH ×2 (11:30→19:30)
--- NOTE | 2017-06-04 14:31 | RADRPT ---
Echocardiogram Report Patient Name: ZONIA BRAR Gender: Male Date: 1955 Study Date: 04-Jun-2017 Emergency Response Coordinator: JUAN FRANCISCO GRAY Location: [id number] Ref. Physician: SHILO PAREKH Quality: Good Procedures: Transthoracic echocardiogram with complete 2D, M-Mode, and doppler examination. Indications: Congestive Heart Failure. 2D/M Mode Doppler Measurement Value Normal Ranges Measurement Value Normal Ranges LVIDd 2D 4.5 3.5 - 5.6 cm AV Mean Deniz 1.2 m/sec LVIDs 2D 2.1 2.1 - 4.1 cm AV Mean PG 6.8 mmHg LVPWd 2D 1.3 0.6 - 1.1 cm AV Peak Deniz 1.6 m/sec IVSd 2D 1.3 0.6 - 1.1 cm AV Peak PG 10.1 mmHg AoR Diam 2D 2.9 2.0 - 3.7 cm AV VTI 30.4 cm EDV 2D 91.6 cm3 MV E Peak Deniz 1.2 m/sec ESV 2D 8.7 cm3 MV A Peak [place]iz 1.1 m/sec LA Dimen 2D 3.7 2.3 - 4.0 cm MV E/A 1.1 MV Decel Time 181 msec MV Decel [place] 7 MV E/A 1.1 TR Peak Deniz 2.5 m/sec TR Peak PG 26.6 mmHg RVSP 39.8 mmHg Findings Left Ventricle: Normal left ventricular systolic function. Normal left ventricular cavity size. Mild concentric left ventricular hypertrophy. Ejection fraction is visually estimated at 55 %. Tissue Doppler/Mitral Doppler indices are consistent with impaired relaxation (Stage I diastolic dysfunction). Right Ventricle: Normal right ventricular size. Normal right ventricular systolic function. Left Atrium: There is mild enlargement of left atrium. Right Atrium: The right atrium is normal in size. Mitral Valve: Mild mitral valve regurgitation. Aortic Valve: Normal appearance of the aortic valve. No significant aortic stenosis or insufficiency. Tricuspid Valve: Estimated peak PA systolic pressure 31 mmHg. There is trace tricuspid regurgitation. Pulmonic Valve: Normal pulmonic valve appearance. Pericardium: Trivial pericardial effusion. Aorta: Normal aortic root. IVC: Normal size and normal respiratory collapse consistent with normal right atrial pressure. Pulmonary Artery: Not well visualized. Conclusions 1.Normal left ventricular systolic function. Normal left ventricular cavity size. Mild concentric left ventricular hypertrophy. Ejection fraction is visually estimated at 55 %. Tissue Doppler/Mitral Doppler indices are consistent with impaired relaxation (Stage I diastolic dysfunction). 2.Mild mitral valve regurgitation. 3.Estimated peak PA systolic pressure 31 mmHg based on RA pressure of 3 mmHg. Electronically Signed By: Chad Shepard 04-Jun-2017 14:30:34 -0700 Patient Name: ZONIA BRAR Study Date: 04-Jun-2017 [id number]
--- NOTE | 2017-06-04 16:56 | CONS ---
Date/Time of Note Date/Time of Note DATE: 06/04/17 TIME: 16:49 Assessment/Plan Assessment/Plan Additional Assessment/Plan GI bleeding/melena Rule out PUD/GERD versus others Coronary artery disease/post PTCA/post stent/on Brilinta COPD Sleep apnea Diabetes mellitus Dyslipidemia, Hypertension Bipolar disease/depression/OCD Consultation Date/Type/Reason Admit Date/Time Jun 04, 2017 at 01:43 Date of Consultation: Jun 04, 2017 Type of Consultation: GI Reason for Consultation GI bleeding/melena Hx of Present Illness 62-year-old male with multiple comorbidities including COPD, coronary artery disease with stent on Brilinta, chronic and acute back pain for which he has been taking steroids as well as nonsteroidal inflammatory agents. 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 Patient presents with 2-1/2 days of persistent black tarry stools associated with some epigastric discomfort. No nausea, vomiting. No hematemesis or hematochezia. Hemoglobin hematocrit stable at 12 g range. The patient will undergo urgent EGD giving significant bleeding while anticoagulated. His Brilinta was held today. The procedure was explained to the patient in detail including risks, benefits and alternatives. He is agreeable to proceed Past Medical History Coronary artery disease/post PTCA/post stent/on Brilinta COPD Sleep apnea Diabetes mellitus Dyslipidemia, Hypertension Bipolar disease/depression/OCD Past Surgical History Past Surgical Hx: angioplasty, other (Next surgery) Family History Significant Family History: no pertinent family hx Social History Alcohol Use: rarely Smoking Status: Former smoker Drug Use: none Exam/Review of Systems Vital Signs Vitals Vital Signs Date Time Temp Pulse Resp B/P Pulse Ox O2 Delivery O2 Flow Rate FiO2 06/04/17 16:01 Nasal Cannula 06/04/17 09:21 98.1 65 18 126/64 93 Exam PHYSICAL EXAMINATION: GENERAL: Well developed, well nourished, obese, alert & oriented x 3, in no acute distress SKIN: No lesions, no stigmata chronic liver disease, no evidence of bleeding diathesis LYMPHATIC: No palpable lymphadenopathy. HEAD: Normocephalic, atraumatic, no tenderness. EYES: Pupils equal reactive to light and accommodation, full extraocular movements, sclera clear, non-icteric, no discharge. EARS/NOSE AND THROAT: Ears normal, nose normal, oropharynx normal, oral membranes well hydrated without lesions. NECK: Supple, no masses, thyroid normal, JVP within normal limits, carotids normal without bruits. CHEST: Inspection within normal limits, breasts grossly normal. CARDIOVASCULAR: Heart: Regular rate and rhythm, no murmurs, gallops or rubs. Peripheral pulses present within normal limits, no cyanosis, clubbing or edemas. No pulsatile abdominal mass RESPIRATORY: Lungs clear to auscultation and percussion, no wheezing, no rubs GASTROINTESTINAL AND LIVER: Abdomen: Soft, mild epigastric tenderness, non- distended, no hernias, no masses, no organomegaly, no ascites, no guarding, no rebound tenderness, normoactive bowel sounds. Rectal: Melena in the emergency room GENITOURINARY: [Male genitalia within normal limits.] MUSCULO-SKELETAL: Gait and station within normal limits, range of motion adequate. Results Result Diagram: 06/04/17 0530 06/04/17 0530 Results 24 hrs Laboratory Tests Test 06/03/17 22:55 06/04/17 04:57 06/04/17 05:30 06/04/17 08:39 White Blood Count 12.2 #H 10.0 Red Blood Count 4.52 L 4.21 L Hemoglobin 12.4 L 12.2 L Hematocrit 39.1 L 37.1 L Mean Corpuscular Volume 86.5 88.1 Mean Corpuscular Hemoglobin 27.4 L 29.0 Mean Corpuscular Hemoglobin Concent 31.7 L 32.9 Red Cell Distribution Width 15.1 H 14.8 H Platelet Count 145 130 L Mean Platelet Volume 9.8 9.5 Neutrophils % 78.4 H 68.9 Lymphocytes % 13.7 L 21.3 Monocytes % 6.9 8.1 Eosinophils % 0.4 0.9 Basophils % 0.2 0.3 Nucleated Red Blood Cells % 0.0 0.0 Neutrophils # (Manual) 9.5 H 6.9 Lymphocytes # 1.7 2.1 Monocytes # 0.8 0.8 Eosinophils # 0.1 0.1 Basophils # 0.0 0.0 Nucleated Red Blood Cells # 0.0 0.0 Prothrombin Time 13.1 12.9 Prothrombin Time Ratio 1.0 1.0 INR International Normalized Ratio 0.99 0.97 Activated Partial Thromboplast Time 24.7 L 25.6 Sodium Level 135 134 L Potassium Level 4.4 4.1 Chloride Level 93 L 93 L Carbon Dioxide Level 27 31 Anion Gap 19 H 14 Blood Urea Nitrogen 33 H 30 H Creatinine 1.04 0.90 Glucose Level 302 H 213 Calcium Level 9.9 9.5 Total Bilirubin 0.2 Direct Bilirubin 0.00 Indirect Bilirubin 0.2 Aspartate Amino Transf (AST/SGOT) 24 Alanine Aminotransferase (ALT/SGPT) 48 Alkaline Phosphatase 179 H Total Protein 7.0 Albumin 4.0 Globulin 3.00 Albumin/Globulin Ratio 1.33 Bedside Glucose 199 209 Hemoglobin A1c 7.5 H Phosphorus Level 3.6 Magnesium Level 2.2 B-Type Natriuretic Peptide 275 H Triglycerides Level 234 H Cholesterol Level 117 LDL Cholesterol, Calculated 23 HDL Cholesterol 47 Cholesterol/HDL Ratio 2.4 Test 06/04/17 12:42 Bedside Glucose 207 Medications Medications Current Medications Amlodipine Besylate (Norvasc) 10 mg DAILY PO Last administered on 06/04/17 10: 16; Admin Dose 10 MG; Start 06/04/17 at 09:00 Aspirin (Halfprin) 81 mg DAILY PO Last administered on 06/04/17 10:13; Admin Dose 81 MG; Start 06/04/17 at 09:00 Atorvastatin Calcium (Lipitor) 40 mg DAILY PO Last administered on 06/04/17 10 :12; Admin Dose 40 MG; Start 06/04/17 at 09:00 Baclofen (Lioresal) 10 mg TID PO Last administered on 06/04/17 10:13; Admin Dose 10 MG; Start 06/04/17 at 09:00 Buspirone HCl (Buspar) 20 mg TID PO Last administered on 06/04/17 10:12; Admin Dose 20 MG; Start 06/04/17 at 09:00 Carvedilol (Coreg) 6.25 mg BID PO Last administered on 06/04/17 10:14; Admin Dose 6.25 MG; Start 06/04/17 at 09:00 Docusate Sodium (Colace) 100 mg TID PO Last administered on 06/04/17 10:12; Admin Dose 100 MG; Start 06/04/17 at 09:00 Acetaminophen/ Hydrocodone Bitart ([place] (10/325)) 1 tab Q6H PRN PO PAIN Last administered on 06/04/17 07:05; Admin Dose 1 TAB; Start 06/04/17 at 04:00 Insulin Glargine (Lantus) 40 unit BID SC ; Start 06/04/17 at 09:00 Losartan Potassium (Cozaar) 100 mg DAILY PO Last administered on 06/04/17 10: 13; Admin Dose 100 MG; Start 06/04/17 at 09:00 Tamsulosin HCl (Flomax) 0.8 mg HS PO ; Start 06/04/17 at 21:00 Miscellaneous Information 0.6 mg QAM SQ ; Start 06/04/17 at 09:00; Status UNV Pregabalin 75 mg 75 mg BID PO Last administered on 06/04/17 10:12; Admin Dose 75 MG; Start 06/04/17 at 09:00 Pantoprazole/ Sodium Chloride (Protonix Iv/NS) 100 ml @ 10 mls/hr Q10H IV Last administered on 06/04/17 04:49; Admin Dose 10 MLS/HR; Start 06/04/17 at 04 :00 Diagnostic Test (Pha) (Accu-Chek) 1 ea 02 XX ; Start 06/05/17 at 02:00 Insulin Aspart (Novolog Insulin Pen) NOVOLOG *MILD* ALGORI... Q4 SC Last administered on 06/04/17 05:07; Admin Dose 2 UNIT; Start 06/04/17 at 05:00 Miscellaneous Information 1 ea NOTE XX ; Start 06/04/17 at 05:00 Glucose (Glutose) 15 gm Q15M PRN PO DECREASED GLUCOSE; Start 06/04/17 at 05:00 Glucose (Glutose) 22.5 gm Q15M PRN PO DECREASED GLUCOSE; Start 06/04/17 at 05: 00 Dextrose (D50w Syringe) 25 ml Q15M PRN IV DECREASED GLUCOSE; Start 06/04/17 at 05:00 Dextrose (D50w Syringe) 50 ml Q15M PRN IV DECREASED GLUCOSE; Start 06/04/17 at 05:00 Glucagon (Glucagen) 1 mg Q15M PRN IM DECREASED GLUCOSE; Start 06/04/17 at 05:00 Glucose (Glutose) 15 gm Q15M PRN BUCCAL DECREASED GLUCOSE; Start 06/04/17 at 05 :00 Albuterol (Ventolin Hfa) 1 puff QID INH ; Start 06/04/17 at 09:00; Status Future Hold Ipratropium [place] (Atrovent Hfa) 1 puff QID INH ; Start 06/04/17 at 09:00; Status Future Hold Miscellaneous Information (*Order Clarification Bulletin) MEDICATION REQUIRES CLARIFICATI... Q8H XX ; Start 06/04/17 at 11:30 Hydromorphone HCl (Dilaudid) 1 mg Q6H PRN IV PAIN; Start 06/04/17 at 15:00 OLI BENNETT MD Jun 04, 2017 16:55
[2017-06-04] MEDS ORDERED: PROPOFOL 40 ML ONE (16:57)
[2017-06-04] MEDS ORDERED: LIDOCAINE 1% (MPF) 5 ML VIAL ONE (16:58)
--- NOTE | 2017-06-04 17:22 | OPPN ---
Date/Time of Note Date/Time of Note DATE: 06/04/17 TIME: 17:18 Proc Note GI Free Text/Dictation Preoperative Diagnosis: GI bleeding/melena Postoperative Diagnosis: * Mild distal esophagitis * Severe erosive gastritis, likely NSAID induced * Otherwise normal EGD Plan: * Protonix 40 mg daily * Monitor H&H, transfuse if necessary for hemoglobin less than 7.5 * Elective colonoscopy as an outpatient Procedure Performed: EGD with biopsies Surgeon: Oli Garcia MD Environmental Protection Specialist: None Second Pyridine Recovery Operator: None Anesthesia/Sedation: Monitored anesthesia care by anesthesiology Tourniquet Time: NA Estimated Blood Loss: 0 Transfusion Required: No Specimens: None Grafts/Implants: None Tubes/Drains: NA Complications: None Pt. Condition Post Procedure: Stable Disposition: PACU After informed consent, with the patient/relatives understanding the procedure, its indications, potential risks and complications, including but not limited to : allergic reaction, bleeding, perforation or infection, and after all pertinent questions were answered to the patients satisfaction, the patient/ relatives signed witnessed informed consent. Following this, premedication was administered slowly IV push under careful cardiovascular and respiratory monitoring with pulse oximetry, automatic blood pressure, and monitoring specialist. Once the sedative effect was achieved the patient was place in the left lateral decubitus, the panendoscope was introduced and advanced under visual control. Careful examination of the upper gastrointestinal tract, both on insertion as well as withdrawal of the instrument disclosing the following findings: ESOPHAGUS: the mucosa of the entire esophagus was carefully examined and showed the following findings: There is mild erythema of the mucosa at the e.g. junction. Otherwise the mucosa appears within normal limits. There is no evidence of varices, neoplasm, or stricture. No Hiatal Hernia identified. STOMACH: Upon entrance to the stomach air was insufflated, the gastric welch distended normally. The mucosa of the fundus, body and antrum of the stomach was carefully examined both head-on and on retroflexion, and showed the following findings: There is significant erythema edema and linear erosions of the mucosa in the body and antrum of the stomach highly suggestive of nonsteroidal inflammatory agent injury. No active bleeding or stigmata recent bleeding is present. No biopsies were obtained as patient is still anticoagulated. Otherwise the mucosa appears within normal limits with no abnormalities. There is no evidence of ulcers or neoplasm. PYLORUS: The pylorus was carefully examined and showed the following findings: []the pylorus appears patent and within normal limits, with no evidence of gastric outlet obstruction. DUODENUM: The duodenal mucosa was carefully examined in the duodenal bulb as well as the second portion of the duodenum and showed the following findings: []the mucosa appears unremarkable with no evidence of duodenitis, ulcer or neoplasm. Procedure date: Jun 04, 2017 OLI GARCIA MD Jun 04, 2017 17:22
[2017-06-04] MEDS: HYDROmorphONE 1 MG/ML SYG IV PRN (17:47)
[2017-06-04] MEDS: TAMSULOSIN (SR) 0.4 MG CAP PO SCH (20:16)
[2017-06-05] MEDS: INSULIN ASPART [NOVOLOG] 3 ML PEN SC SCH ×6 (01:00→20:49)
[2017-06-05] MEDS: HYDROmorphONE 1 MG/ML SYG IV PRN ×3 (01:07→16:08)
[2017-06-05 02:00] VITALS: BP 122/61; PULSE 61
[2017-06-05] MEDS: ACCU-CHEK XX SCH (02:00)
[2017-06-05] MEDS: [UNRECOGNIZED DRUG - REMARK] XX SCH ×3 (03:30→19:30)
[2017-06-05] MEDS: HYDROCODONE/APAP (10/325) TAB PO PRN ×2 (04:10→21:38)
[2017-06-05 05:28] LABS: BASOPHILS % 0.5 % (0.0-2.0); EOSINOPHILS # 0.1 10^3/ul (0.0-0.5); EOSINOPHILS % 1.1 % (0.0-7.0); HEMATOCRIT 41.1 % (42.0-52.0); HEMOGLOBIN 13.2 g/dl (14.0-18.0); LYMPHOCYTES # 1.7 10^3/ul (0.8-2.9); LYMPHOCYTES % 24.8 % (15.0-51.0); MEAN CORPUSCULAR HEMOGLOBIN 28.6 pg (29.0-33.0); MEAN CORPUSCULAR HGB CONC 32.1 g/dl (32.0-37.0); MEAN PLATELET VOLUME 9.9 fl (7.4-10.4); MONOCYTE # 0.6 10^3/ul (0.3-0.9); MONOCYTES % 9.5 % (0.0-11.0); NEUTROPHILS % 63.6 % (39.0-77.0); PLATELET COUNT 144 10^3/UL (140-415); RED BLOOD COUNT 4.62 10^6/ul (4.70-6.10); RED CELL DISTRIBUTION WIDTH 15.1 % (11.5-14.5); WHITE BLOOD COUNT 6.7 10^3/ul (4.8-10.8)
[2017-06-05 05:38] LABS: ALBUMIN 3.8 g/dl (3.3-4.9); BILIRUBIN,INDIRECT 0.3 mg/dl (0-1.1); BILIRUBIN,TOTAL 0.3 mg/dl (0.2-1.3); CALCIUM 9.6 mg/dl (8.4-10.2); CREATININE 1.05 mg/dl (0.61-1.24); POTASSIUM 4.5 mmol/L (3.5-5.1); TOTAL PROTEIN 6.8 g/dl (6.1-8.1)
[2017-06-05] MEDS: FUROSEMIDE 20 MG TAB PO SCH ×2 (06:00→18:08)
[2017-06-05 06:02] LABS: MAGNESIUM 2.1 mg/dl (1.7-2.5); PHOSPHORUS 4.6 mg/dl (2.5-4.9)
[2017-06-05 07:00] VITALS: BP 155/67; RESP 20
[2017-06-05] MEDS: ASPIRIN (EC) 81 MG TAB PO SCH (08:44)
[2017-06-05] MEDS: LOSARTAN 50 MG TAB PO SCH (08:45)
[2017-06-05] MEDS: BUSPIRONE 10 MG TAB PO SCH ×3 (08:45→20:41)
[2017-06-05] MEDS: DOCUSATE SODIUM 100 MG CAP PO SCH ×3 (08:45→20:41)
[2017-06-05] MEDS: ATORVASTATIN 40 MG TAB PO SCH (08:45)
[2017-06-05] MEDS: AMLODIPINE 10 MG TAB PO SCH (08:45)
[2017-06-05] MEDS: BACLOFEN 10 MG TAB PO SCH ×3 (08:45→20:41)
[2017-06-05] MEDS: PREGABALIN 75 MG CAP PO SCH ×2 (08:47→20:41)
[2017-06-05] MEDS: INSULIN GLARGINE [LANtus] 3 ML PEN SC SCH ×2 (09:05→20:48)
--- NOTE | 2017-06-05 09:18 | PN ---
Date/Time of Note Date/Time of Note DATE: 06/05/17 TIME: 09:14 Assessment/Plan VTE Prophylaxis VTE Prophylaxis Intervention: contraindicated (GI bleed) Lines/Catheters IV Catheter Type (from Nrs): Saline Lock Assessment/Plan Problems: (1) BPH w urinary obs/LUTS Status: Chronic Comment: Patient is on maximum dose tamsulosin. Given his blood pressure and may be a consideration to alter his regimen to be full dose alpha blockade with doxazosin there by allowing us to trim his blood pressure medications. Given that he is managed by the physicians at the [facility] will defer off these alterations to their expertise. (2) Diastolic dysfunction Status: Chronic Comment: He is on carvedilol and treatment of this successfully. I would consider raising the carvedilol and decreasing the amlodipine in the setting. However given that he is managed by our colleagues at the [facility] I must defer off to their expertise (3) Obesity (BMI 30-39.9) Status: Chronic Comment: Noted. Calorie restriction diet (4) Bipolar affective disorder Status: Chronic Comment: Noted. This is being managed by our colleagues at the [facility] Qualifiers: Active/Remission status: remission status unspecified Qualified Code: F31.9 - Bipolar affective disorder, remission status unspecified (5) Erosive gastritis with hemorrhage Status: Acute Comment: Secondary to the medications he was using for his lumbar disc disease with sciatica. I will initiate treatment with famotidine and sucralfate to help protect him. He is already better his hemoglobin hematocrit of and stable he should be able to be discharged in the morning (6) Obstructive sleep apnea Status: Chronic Comment: Noted. Nocturnal CPAP treatment (7) Diabetes mellitus type 2 in obese Status: Chronic Comment: His control is fair. He is under the guidance and direction of our colleagues at the [facility] I will not alter their treatments. (8) Coronary artery disease Status: Chronic Comment: Stable and quiescent. Qualifiers: Coronary Disease-Associated Artery/Lesion type: [place] artery [place] vs. transplanted heart: [place] heart Associated angina: without angina Qualified Code: I25.10 - Coronary artery disease involving [place] coronary artery of [place] heart without angina pectoris (9) Systolic CHF with reduced left ventricular function, NYHA class 2 Status: Chronic Comment: He is on angiotensin renin inhibitor therapy and carvedilol. Medication dosage could be adjusted. I would advocate for getting rid of the amlodipine and up titrating the other medications however this must be deferred to his primary treating team as an outpatient. Subjective 24 Hr Interval Summary Free Text/Dictation Patient reports that he tolerated the upper endoscopy without complications. Main complaint is right leg sciatica symptoms with muscle spasm Constitutional: no complaints (Fevers chills or sweats) Respiratory: no complaints (No shortness of breath) Cardiovascular: no complaints Gastrointestinal: pain (Pain is significantly improved) Exam/Review of Systems Vital Signs Vitals Vital Signs Date Time Temp Pulse Resp B/P Pulse Ox O2 Delivery O2 Flow Rate FiO2 06/05/17 07:00 97.5 68 20 155/67 95 06/05/17 02:00 Room Air Intake and Output 06/04/17 06/04/17 06/05/17 15:00 23:00 07:00 Intake Total 500 ml 480 ml Output Total 800 ml 800 ml Balance -300 ml -320 ml Exam Constitutional: alert, oriented Neck: non-tender, supple Respiratory: clear to auscultation, normal air movement Cardiovascular: nl pulses, regular rate and rhythm Gastrointestinal: nl liver, spleen, non-tender, soft Results Result Diagram: 06/05/17 0500 06/05/17 0500 Results 24 hrs Laboratory Tests Test 06/04/17 12:42 06/04/17 18:00 06/04/17 20:21 06/05/17 04:19 Bedside Glucose 207 203 306 H Phosphorus Level 4.6 Magnesium Level 2.1 Test 06/05/17 05:00 White Blood Count 6.7 # Red Blood Count 4.62 L Hemoglobin 13.2 L Hematocrit 41.1 L Mean Corpuscular Volume 89.0 Mean Corpuscular Hemoglobin 28.6 L Mean Corpuscular Hemoglobin Concent 32.1 Red Cell Distribution Width 15.1 H Platelet Count 144 Mean Platelet Volume 9.9 Neutrophils % 63.6 Lymphocytes % 24.8 Monocytes % 9.5 Eosinophils % 1.1 Basophils % 0.5 Nucleated Red Blood Cells % 0.0 Neutrophils # (Manual) 4.2 Lymphocytes # 1.7 Monocytes # 0.6 Eosinophils # 0.1 Basophils # 0.0 Nucleated Red Blood Cells # 0.0 Sodium Level 141 Potassium Level 4.5 Chloride Level 96 L Carbon Dioxide Level 33 H Anion Gap 17 H Blood Urea Nitrogen 25 H Creatinine 1.05 Glucose Level 179 Calcium Level 9.6 Total Bilirubin 0.3 Direct Bilirubin 0.00 Indirect Bilirubin 0.3 Aspartate Amino Transf (AST/SGOT) 38 # Alanine Aminotransferase (ALT/SGPT) 61 Alkaline Phosphatase 84 # Total Protein 6.8 Albumin 3.8 Medications Medications Current Medications Amlodipine Besylate (Norvasc) 10 mg DAILY PO Last administered on 06/05/17 08: 45; Admin Dose 10 MG; Start 06/04/17 at 09:00 Aspirin (Halfprin) 81 mg DAILY PO Last administered on 06/05/17 08:44; Admin Dose 81 MG; Start 06/04/17 at 09:00 Atorvastatin Calcium (Lipitor) 40 mg DAILY PO Last administered on 06/05/17 08 :45; Admin Dose 40 MG; Start 06/04/17 at 09:00 Baclofen (Lioresal) 10 mg TID PO Last administered on 06/05/17 08:45; Admin Dose 10 MG; Start 06/04/17 at 09:00 Buspirone HCl (Buspar) 20 mg TID PO Last administered on 06/05/17 08:45; Admin Dose 20 MG; Start 06/04/17 at 09:00 Carvedilol (Coreg) 6.25 mg BID PO Last administered on 06/05/17 08:46; Admin Dose 6.25 MG; Start 06/04/17 at 09:00 Docusate Sodium (Colace) 100 mg TID PO Last administered on 06/05/17 08:45; Admin Dose 100 MG; Start 06/04/17 at 09:00 Acetaminophen/ Hydrocodone Bitart ([place] (10/325)) 1 tab Q6H PRN PO PAIN Last administered on 06/05/17 04:10; Admin Dose 1 TAB; Start 06/04/17 at 04:00 Insulin Glargine (Lantus) 40 unit BID SC Last administered on 06/04/17 20:26; Admin Dose 40 UNIT; Start 06/04/17 at 09:00 Losartan Potassium (Cozaar) 100 mg DAILY PO Last administered on 06/05/17 08: 45; Admin Dose 100 MG; Start 06/04/17 at 09:00 Tamsulosin HCl (Flomax) 0.8 mg HS PO Last administered on 06/04/17 20:16; Admin Dose 0.8 MG; Start 06/04/17 at 21:00 Miscellaneous Information 0.6 mg QAM SQ ; Start 06/04/17 at 09:00; Status UNV Pregabalin 75 mg 75 mg BID PO Last administered on 06/05/17 08:47; Admin Dose 75 MG; Start 06/04/17 at 09:00 Pantoprazole/ Sodium Chloride (Protonix Iv/NS) 100 ml @ 10 mls/hr Q10H IV Last administered on 06/05/17 00:00; Admin Dose 10 MLS/HR; Start 06/04/17 at 04 :00 Diagnostic Test (Pha) (Accu-Chek) 1 ea 02 XX ; Start 06/05/17 at 02:00 Insulin Aspart (Novolog Insulin Pen) NOVOLOG *MILD* ALGORI... Q4 SC Last administered on 06/05/17 05:00; Admin Dose 1 UNIT; Start 06/04/17 at 05:00 Miscellaneous Information 1 ea NOTE XX ; Start 06/04/17 at 05:00 Glucose (Glutose) 15 gm Q15M PRN PO DECREASED GLUCOSE; Start 06/04/17 at 05:00 Glucose (Glutose) 22.5 gm Q15M PRN PO DECREASED GLUCOSE; Start 06/04/17 at 05: 00 Dextrose (D50w Syringe) 25 ml Q15M PRN IV DECREASED GLUCOSE; Start 06/04/17 at 05:00 Dextrose (D50w Syringe) 50 ml Q15M PRN IV DECREASED GLUCOSE; Start 06/04/17 at 05:00 Glucagon (Glucagen) 1 mg Q15M PRN IM DECREASED GLUCOSE; Start 06/04/17 at 05:00 Glucose (Glutose) 15 gm Q15M PRN BUCCAL DECREASED GLUCOSE; Start 06/04/17 at 05 :00 Albuterol (Ventolin Hfa) 1 puff QID INH ; Start 06/04/17 at 09:00; Status Future Hold Ipratropium [place] (Atrovent Hfa) 1 puff QID INH ; Start 06/04/17 at 09:00; Status Future Hold Miscellaneous Information (*Order Clarification Bulletin) MEDICATION REQUIRES CLARIFICATI... Q8H XX ; Start 06/04/17 at 11:30 Hydromorphone HCl (Dilaudid) 1 mg Q6H PRN IV PAIN Last administered on t 07:59; Admin Dose 1 MG; Start 06/04/17 at 15:00 SUNI CORRALES MD Jun 05, 2017 09:18
[2017-06-05] MEDS ORDERED: MAGNESIUM CITRATE 300 ML BTL PO ONE (09:30)
[2017-06-05] MEDS: PANTOPRAZOLE IV 80 MG in SOD CHLORIDE 0.9% 100 ML IV SCH ×4 (11:54→21:39)
[2017-06-05] MEDS: SUCRALFATE 1 GM TAB PO SCH ×3 (12:55→20:41)
[2017-06-05 14:00] VITALS: BP 128/63; RESP 18
--- NOTE | 2017-06-05 14:24 | HP ---
DATE OF ADMISSION: 06/03/2017 CHIEF COMPLAINT: Black stools. HISTORY OF PRESENT ILLNESS: Mr. Devaughn Cantor is a 61-year-old male with a known history of gastroesophageal reflux and previous upper GI bleeding in the past, who presents today with black stools for the last 3 days. The patient states that a few weeks ago he had been having difficulty with sciatica and pain in his right lower extremity and he had no medications and so he took 600 mg of ibuprofen 3 times a day. When he started feeling tingling pain in his mid sternal area, he decided to stop. He has since seen a back specialist, who put him on Lyrica, as well as [place] and steroids for his back. However, he noticed 3 days ago that his stool was turning black and it has really worsened since then. No indication of and because he is also taking Brilinta for cardiac stents that were put in back in February 2017, he decided to come to the emergency room to be evaluated. PAST MEDICAL HISTORY: 1. COPD. 2. Diabetes mellitus type 2. 3. Coronary artery disease, status post multiple PCIs. 4. . 5. Dyslipidemia. 6. Hypertension. 7. Chronic back pain/sciatica. SURGICAL HISTORY: Patient has had: 1. Appendectomy. 2. Cholecystectomy. 3. Bilateral thoracic outlet surgery. 4. Cardiac stent placements. ALLERGIES: HE IS ALLERGIC TO: PENICILLINS. BENAZEPRIL. CEFAZOLIN. CIPROFLOXACIN. TORADOL. SILDENAFIL. MEDICATIONS: Reviewed and reconciled. FAMILY HISTORY: Positive for diabetes and heart disease in his parents. REVIEW OF SYSTEMS: Twelve point review of systems was done. Pertinent findings are as noted in HPI. Patient denies abdominal pain. He denies blood in his urine. Denies passing out episodes. Denies dizziness. Has some mid sternal chest pain, especially with palpation, but no shortness of breath. The patient also notes bilateral lower extremity edema and some lethargy at rest. 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 PHYSICAL EXAMINATION: VITAL SIGNS: Temperature 98.2, pulse 66, respirations 16, blood pressure 173/84, saturation 95 percent on room air. GENERAL: Obese male, alert and oriented currently. No distress. HEENT: Head normocephalic. Pupils equal, round reactive. No scleral icterus and there is no conjunctival pallor. Mucous membranes moist. Posterior pharynx clear of exudate. NECK: Supple without adenopathy or JVD. LUNGS: Clear to auscultation with diminished air entry in the bases bilaterally. CARDIAC: S1, S2. No murmurs. ABDOMEN: Obese, soft, nontender, nondistended. Normoactive bowel sounds. EXTREMITIES: Positive for 1+ edema. SKIN: Devoid of rash or jaundice. LABORATORY VALUES: On his complete metabolic profile most profound is hyperglycemia of 302. On his CBC, he has a leukocytosis of 12,000 and hypochromic anemia of 12.4 with a neutrophil predominance of 78 percent, normal platelet count. Coag profile is unremarkable. Last CT scan done back in May 2017 is positive for cirrhosis with splenomegaly and perisplenic varices, and multiple nonspecific symptoms. IMPRESSION: 1. Melena, concerning for gastrointestinal bleed. 2. Back pain/sciatica, with nonsteroidal anti-inflammatory use. 3. Uncontrolled diabetes mellitus type 2, which is secondary to steroid use for back pain. 4. Hypertension, suboptimal control. 5. Coronary artery disease, status post multiple percutaneous coronary interventions. 6. Probable mild congestive heart failure causing fluid overload. 7. . 8. Dyslipidemia. 9. Probable noncompliance to therapy, as well as followup. 10. Liver cirrhosis with perisplenic varices, rule out esophageal varices as well. PLAN: Patient will be admitted for serial hemoglobin monitoring, as well as GI consultation for probable EGD. I will have to hold his Brilinta for now. I am going to put him on a Protonix drip until seen by GI. Also, the patient will be kept n.p.o for now and sliding scale insulin will be instituted. Patient will also be continued on his previous home meds. Further interventions will be per clinical course and the consultants recommendations. For prophylaxis, he is on Protonix drip and SCDs. Dictated By: Grzegorz Krishnamurthy MD /loni/jose /Document#: [id number]
[2017-06-05] MEDS: LINAGLIPTIN 5 MG TABLET PO SCH (18:08)
--- NOTE | 2017-06-05 18:20 | PN ---
Date/Time of Note Date/Time of Note DATE: 06/05/17 TIME: 18:16 Assessment/Plan VTE Prophylaxis VTE Prophylaxis Intervention: SCD's Lines/Catheters IV Catheter Type (from Nrsg): Saline Lock Assessment/Plan Assessment/Plan Assessment * GI bleeding/melena EGD Mild distal esophagitis * Severe erosive gastritis, likely NSAID induced * Otherwise normal EGD * Coronary artery disease/post PTCA/post stent/on Brilinta * COPD * Sleep apnea * Diabetes mellitus * Dyslipidemia, * Hypertension * Bipolar disease/depression/OCD Plan * Continue present management * Case discussed with Dr Garcia * Further orders will depend on clinical course Subjective 24 Hr Interval Summary Free Text/Dictation * Course reviewed * Patient seen and examined * No untoward events overnight Exam/Review of Systems Vital Signs Vitals Vital Signs Date Time Temp Pulse Resp B/P Pulse Ox O2 Delivery O2 Flow Rate FiO2 06/05/17 14:00 98.0 68 18 128/63 98 06/05/17 02:00 Room Air Intake and Output 06/04/17 06/04/17 06/05/17 15:00 23:00 07:00 Intake Total 500 ml 480 ml Output Total 800 ml 800 ml Balance -300 ml -320 ml Exam Constitutional: alert Neck: non-tender, supple Respiratory: clear to auscultation, normal air movement Cardiovascular: nl pulses, regular rate and rhythm Gastrointestinal: non-tender, soft, No rebound or guarding Musculoskeletal: nl extremities to inspection Neurological: nl speech Lymph: nl lymph nodes Results Result Diagram: 06/05/17 0500 06/05/17 0500 Results 24 hrs Laboratory Tests Test 06/04/17 20:21 06/05/17 00:12 06/05/17 04:19 06/05/17 05:00 Bedside Glucose 306 H 225 H Phosphorus Level 4.6 Magnesium Level 2.1 White Blood Count 6.7 # Red Blood Count 4.62 L Hemoglobin 13.2 L Hematocrit 41.1 L Mean Corpuscular Volume 89.0 Mean Corpuscular Hemoglobin 28.6 L Mean Corpuscular Hemoglobin Concent 32.1 Red Cell Distribution Width 15.1 H Platelet Count 144 Mean Platelet Volume 9.9 Neutrophils % 63.6 Lymphocytes % 24.8 Monocytes % 9.5 Eosinophils % 1.1 Basophils % 0.5 Nucleated Red Blood Cells % 0.0 Neutrophils # (Manual) 4.2 Lymphocytes # 1.7 Monocytes # 0.6 Eosinophils # 0.1 Basophils # 0.0 Nucleated Red Blood Cells # 0.0 Sodium Level 141 Potassium Level 4.5 Chloride Level 96 L Carbon Dioxide Level 33 H Anion Gap 17 H Blood Urea Nitrogen 25 H Creatinine 1.05 Glucose Level 179 Calcium Level 9.6 Total Bilirubin 0.3 Direct Bilirubin 0.00 Indirect Bilirubin 0.3 Aspartate Amino Transf (AST/SGOT) 38 # Alanine Aminotransferase (ALT/SGPT) 61 Alkaline Phosphatase 84 # Total Protein 6.8 Albumin 3.8 Test 06/05/17 05:05 06/05/17 08:42 06/05/17 12:20 06/05/17 14:00 Bedside Glucose 159 159 246 H Stool Occult Blood NEGATIVE Test 06/05/17 17:49 Bedside Glucose 245 H Medications Medications Current Medications Amlodipine Besylate (Norvasc) 10 mg DAILY PO Last administered on 06/05/17 08: 45; Admin Dose 10 MG; Start 06/04/17 at 09:00 Aspirin (Halfprin) 81 mg DAILY PO Last administered on 06/05/17 08:44; Admin Dose 81 MG; Start 06/04/17 at 09:00 Atorvastatin Calcium (Lipitor) 40 mg DAILY PO Last administered on 06/05/17 08 :45; Admin Dose 40 MG; Start 06/04/17 at 09:00 Baclofen (Lioresal) 10 mg TID PO Last administered on 06/05/17 12:55; Admin Dose 10 MG; Start 06/04/17 at 09:00 Buspirone HCl (Buspar) 20 mg TID PO Last administered on 06/05/17 12:55; Admin Dose 20 MG; Start 06/04/17 at 09:00 Carvedilol (Coreg) 6.25 mg BID PO Last administered on 06/05/17 08:46; Admin Dose 6.25 MG; Start 06/04/17 at 09:00 Docusate Sodium (Colace) 100 mg TID PO Last administered on 06/05/17 12:55; Admin Dose 100 MG; Start 06/04/17 at 09:00 Acetaminophen/ Hydrocodone Bitart ([place] (10/325)) 1 tab Q6H PRN PO PAIN Last administered on 06/05/17 04:10; Admin Dose 1 TAB; Start 06/04/17 at 04:00 Insulin Glargine (Lantus) 40 unit BID SC Last administered on 06/05/17 09:05; Admin Dose 40 UNIT; Start 06/04/17 at 09:00 Losartan Potassium (Cozaar) 100 mg DAILY PO Last administered on 06/05/17 08: 45; Admin Dose 100 MG; Start 06/04/17 at 09:00 Tamsulosin HCl (Flomax) 0.8 mg HS PO Last administered on 06/04/17 20:16; Admin Dose 0.8 MG; Start 06/04/17 at 21:00 Miscellaneous Information 0.6 mg QAM SQ ; Start 06/04/17 at 09:00; Status UNV Pregabalin 75 mg 75 mg BID PO Last administered on 06/05/17 08:47; Admin Dose 75 MG; Start 06/04/17 at 09:00 Pantoprazole/ Sodium Chloride (Protonix Iv/NS) 100 ml @ 10 mls/hr Q10H IV Last administered on 06/05/17 11:54; Admin Dose 10 MLS/HR; Start 06/04/17 at 04 :00 Diagnostic Test (Pha) (Accu-Chek) 1 ea 02 XX ; Start 06/05/17 at 02:00 Insulin Aspart (Novolog Insulin Pen) NOVOLOG *MILD* ALGORI... Q4 SC Last administered on 06/05/17 17:54; Admin Dose 3 UNIT; Start 06/04/17 at 05:00 Miscellaneous Information 1 ea NOTE XX ; Start 06/04/17 at 05:00 Glucose (Glutose) 15 gm Q15M PRN PO DECREASED GLUCOSE; Start 06/04/17 at 05:00 Glucose (Glutose) 22.5 gm Q15M PRN PO DECREASED GLUCOSE; Start 06/04/17 at 05: 00 Dextrose (D50w Syringe) 25 ml Q15M PRN IV DECREASED GLUCOSE; Start 06/04/17 at 05:00 Dextrose (D50w Syringe) 50 ml Q15M PRN IV DECREASED GLUCOSE; Start 06/04/17 at 05:00 Glucagon (Glucagen) 1 mg Q15M PRN IM DECREASED GLUCOSE; Start 06/04/17 at 05:00 Glucose (Glutose) 15 gm Q15M PRN BUCCAL DECREASED GLUCOSE; Start 06/04/17 at 05 :00 Albuterol (Ventolin Hfa) 1 puff QID INH ; Start 06/04/17 at 09:00; Status Future Hold Ipratropium [place] (Atrovent Hfa) 1 puff QID INH ; Start 06/04/17 at 09:00; Status Future Hold Miscellaneous Information (*Order Clarification Bulletin) MEDICATION REQUIRES CLARIFICATI... Q8H XX ; Start 06/04/17 at 11:30 Hydromorphone HCl (Dilaudid) 1 mg Q6H PRN IV PAIN Last administered on 16:08; Admin Dose 1 MG; Start 06/04/17 at 15:00 Sucralfate (Carafate) 1 gm QID PO Last administered on 06/05/17 17:29; Admin Dose 1 GM; Start 06/05/17 at 13:00; Stop 07/05/17 at 12:59 Famotidine (Pepcid) 40 mg HS PO ; Start 06/05/17 at 21:00; Stop 07/05/17 at 20: 59 Linagliptin (Tradjenta) 5 mg DAILY PO Last administered on 06/05/17 18:08; Admin Dose 5 MG; Start 06/05/17 at 17:30 SHARON GARCIA NP Jun 05, 2017 18:20
[2017-06-05 20:00] VITALS: BP 145/68; RESP 20
[2017-06-05] MEDS: TAMSULOSIN (SR) 0.4 MG CAP PO SCH (20:41)
[2017-06-05] MEDS ORDERED: FAMOTIDINE 20 MG TAB PO SCH (21:00)
[2017-06-06] MEDS: HYDROmorphONE 1 MG/ML SYG IV PRN ×2 (00:20→07:37)
[2017-06-06] MEDS: INSULIN ASPART [NOVOLOG] 3 ML PEN SC SCH ×3 (01:00→08:42)
[2017-06-06 02:00] VITALS: BP 123/63; RESP 19
[2017-06-06] MEDS: ACCU-CHEK XX SCH (02:00)
[2017-06-06] MEDS: [UNRECOGNIZED DRUG - REMARK] XX SCH ×2 (03:30→10:55)
[2017-06-06] MEDS: FUROSEMIDE 20 MG TAB PO SCH (05:17)
[2017-06-06 06:02] LABS: MAGNESIUM 2.4 mg/dl (1.7-2.5); PHOSPHORUS 4.2 mg/dl (2.5-4.9)
[2017-06-06] MEDS: HYDROCODONE/APAP (10/325) TAB PO PRN ×2 (06:03→12:10)
[2017-06-06] MEDS: PANTOPRAZOLE IV 80 MG in SOD CHLORIDE 0.9% 100 ML IV SCH (06:49)
[2017-06-06 07:37] LABS: BASOPHILS % 0.4 % (0.0-2.0); EOSINOPHILS # 0.1 10^3/ul (0.0-0.5); EOSINOPHILS % 0.8 % (0.0-7.0); HEMATOCRIT 40.6 % (42.0-52.0); HEMOGLOBIN 12.6 g/dl (14.0-18.0); LYMPHOCYTES # 1.6 10^3/ul (0.8-2.9); LYMPHOCYTES % 20.4 % (15.0-51.0); MEAN CORPUSCULAR HEMOGLOBIN 27.4 pg (29.0-33.0); MEAN CORPUSCULAR VOLUME 88.3 fl (82.0-101.0); MEAN PLATELET VOLUME 10.1 fl (7.4-10.4); MONOCYTES % 12.6 % (0.0-11.0); NEUTROPHILS % 65.4 % (39.0-77.0); PLATELET COUNT 135 10^3/UL (140-415); RED CELL DISTRIBUTION WIDTH 15.1 % (11.5-14.5); WHITE BLOOD COUNT 7.6 10^3/ul (4.8-10.8)
[2017-06-06 08:07] LABS: CALCIUM 9.4 mg/dl (8.4-10.2); CREATININE 1.03 mg/dl (0.61-1.24); POTASSIUM 4.4 mmol/L (3.5-5.1)
[2017-06-06 08:11] VITALS: BP 135/61; RESP 18
[2017-06-06] MEDS: DOCUSATE SODIUM 100 MG CAP PO SCH ×2 (08:36→12:10)
[2017-06-06] MEDS: AMLODIPINE 10 MG TAB PO SCH (08:36)
[2017-06-06] MEDS: LINAGLIPTIN 5 MG TABLET PO SCH (08:36)
[2017-06-06] MEDS: LOSARTAN 50 MG TAB PO SCH (08:37)
[2017-06-06] MEDS: BUSPIRONE 10 MG TAB PO SCH ×2 (08:37→12:10)
[2017-06-06] MEDS: BACLOFEN 10 MG TAB PO SCH ×2 (08:37→12:10)
[2017-06-06] MEDS: SUCRALFATE 1 GM TAB PO SCH ×2 (08:37→12:10)
[2017-06-06] MEDS: ATORVASTATIN 40 MG TAB PO SCH (08:38)
[2017-06-06] MEDS: ASPIRIN (EC) 81 MG TAB PO SCH (08:38)
[2017-06-06] MEDS: PREGABALIN 75 MG CAP PO SCH (08:38)
[2017-06-06] MEDS: INSULIN GLARGINE [LANtus] 3 ML PEN SC SCH (08:41)
[2017-06-06] MEDS ORDERED: FUROSEMIDE 40 MG INJ IV ONE (09:00)
--- NOTE | 2017-06-06 09:01 | PDOCDIS ---
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 Griffiths 3 weeks SUNI GRIFFITHS MD Jun 06, 2017 09:01
[2017-06-06] MEDS ORDERED: SUCR1TAB56 PO (09:04)
[2017-06-06] MEDS ORDERED: AMLO-147 PO (09:04)
[2017-06-06] MEDS ORDERED: FAMO40TA52 PO (09:04)
--- NOTE | 2017-06-06 09:09 | DS ---
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 Garcia Procedures Echocardiogram; upper endoscopy-EGD Hx of Present Illness HISTORY OF PRESENT ILLNESS: Mr. Devaughn Cantor is a 61-year-old male with a known history of gastroesophageal reflux and previous upper GI bleeding in the past, who presents today with black stools for the last 3 days. The patient states that a few weeks ago he had been having difficulty with sciatica and pain in his right lower extremity and he had no medications and so he took 600 mg of ibuprofen 3 times a day. When he started feeling tingling pain in his mid sternal area, he decided to stop. He has since seen a back specialist, who put him on Lyrica, as well as [place] and steroids for his back. However, he noticed 3 days ago that his stool was turning black and it has really worsened since then. No indication of and because he is also taking Brilinta for cardiac stents that were put in back in February 2017, he decided to come to the emergency room to be evaluated. Hospital Course 62-year-old male with multiple comorbidities including COPD, coronary artery disease with stent on Brilinta, chronic and acute back pain for which he has been taking steroids as well as nonsteroidal inflammatory agents. 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 Patient presents with 2-1/2 days of persistent black tarry stools associated with some epigastric discomfort. No nausea, vomiting. No hematemesis or hematochezia. Hemoglobin hematocrit stable at 12 g range. The patient will undergo urgent EGD giving significant bleeding while anticoagulated. His Brilinta was held today. The procedure was explained to the patient in detail including risks, benefits and alternatives. He is agreeable to proceed After upper endoscopy demonstrated erosive gastritis his H&H have been stable throughout the entire hospital stay. In addition the patient symptomatically improved. He is now going to be discharged home in improved condition as compared to the time of admission. He will be on a combination of sucralfate for 14 days and 1 months of famotidine. His medications will be adjusted slightly as he is having side effects from his amlodipine specifically is having lower extremity edema. Ultimately he will be followed up by his primary care physicians either at the [place] system or establish with new primary care physicians. Please note that time would be my recommendation to change his alpha-tomas from an alpha-1 C tomas to doxazosin and discontinue the amlodipine entirely titrate up on the carvedilol for blood pressure heart failure prostate and to decrease his side effects of the amlodipine. Home Meds Active Scripts Sucralfate* (Carafate*) 1 Gm Tab, 1 GM PO Q6 for 14 Days, TAB Prov:SUNI CORRALES MD 06/06/17 Famotidine* (Famotidine*) 40 Mg Tablet, 40 MG PO HS for 30 Days, #30 TAB Prov:SUNI CORRALES MD 06/06/17 Amlodipine Besylate* (Amlodipine Besylate*) 10 Mg Tablet, 10 MG PO DAILY, #30 TAB Take one half pill once a day Prov:SUNI CORRALES MD 06/06/17 Hydrocodone/Acetaminophen ([place] 10-325 Tablet) 1 Each Tablet, 1 TAB PO Q6H Y for PAIN, #30 TAB Prov:GLENN CALLAWAY DO 05/21/17 Docusate Sodium* (Colace*) 100 Mg Capsule, 100 MG PO TID, #30 CAP Prov:TRINA GONG 05/16/17 Carvedilol* (Carvedilol*) 6.25 Mg Tablet, 6.25 MG PO BID for 30 Days, TAB 2 Refills Prov:SHILO PAREKH 12/26/16 Aspirin* (Aspirin* EC) 81 Mg Tablet.dr 81 MG PO DAILY for 30 Days, 2 Refills Prov:SHILO PAREKH 12/26/16 Ticagrelor* (Brilinta*) 90 Mg Tablet, 90 MG PO BID for 30 Days, #60 TAB Prov:ESHA SIMMONS MD 11/17/16 Reported Medications Insulin Aspart* (Novolog Insulin Pen*) 100 Unit/Ml Soln, 20 UNIT SC WITH MEALS, EA PATIENT TAKE ONLY IF HE EAT CARBS 05/16/17 Insulin Glargine* (Lantus*) 100 Unit/Ml Soln, 40 UNIT SC BID, #1 VIAL 05/16/17 Liraglutide (Victoza 2-Juan C) 0.6 Mg/0.1 Ml Pen.injctr, 0.6 MG SQ QAM, SYR 05/16/17 Buspirone Hcl* (Buspirone Hcl*) 10 Mg Tab, 20 MG PO TID, TAB 10/28/16 Atorvastatin* (Atorvastatin*) 40 Mg Tablet, 40 MG PO DAILY, #30 TAB 10/28/16 Baclofen* (Baclofen*) 10 Mg Tablet, 10 MG PO TID, TAB 10/28/16 Metformin Hcl* (Metformin Hcl*) 1,000 Mg Tablet, 1000 MG PO WITH BREAKFAST DINNE , #60 TAB 10/28/16 Tamsulosin Hcl* (Tamsulosin Hcl*) 0.4 Mg Cap.er.24h, 0.8 MG PO HS, CAP 10/28/16 Albuterol/Ipratropium* (Combivent Respimat*) 20-100 Mcg/Inh - 4 Gm Aer.w.adap, 1 PUFF INHALATION QID, #1 INHALER 10/28/16 Losartan Potassium* (Losartan Potassium*) 100 Mg Tablet, 100 MG PO DAILY, TAB 10/28/16 Discontinued Scripts Prednisone* (Prednisone*) 20 Mg Tab, 60 MG PO DAILY for 5 Days, TAB Prov:JOOOSLEVONSTOLOS A. DO 05/21/17 Methocarbamol* (Robaxin*) 750 Mg Tablet, 750 MG PO TID, #30 TAB Prov:LEKKOSAPOSTOLOS A. DO 05/21/17 Diazepam* (Valium*) 5 Mg Tablet, 5 MG PO Q8 Y for MUSCLE SPASMS, #10 TAB Prov:TRINA GONG 05/16/17 Hydrocodone/Acetaminophen ([place] 5-325 Tablet) 1 Each Tablet, 1 TAB PO Q6H Y for PAIN, #20 TAB Prov:TRINA GONG 05/16/17 Primary Care Provider Eloy Cherry MD Pending Labs Laboratory Tests Test 06/05/17 12:20 06/05/17 14:00 06/05/17 17:49 06/05/17 20:40 Bedside Glucose 246mg/dL (70-220) 245mg/dL (70-220) 250mg/dL (70-220) Stool Occult Blood NEGATIVE (NEGATIVE) Test 06/06/17 00:57 06/06/17 04:44 06/06/17 05:14 06/06/17 08:40 Bedside Glucose 166mg/dL (70-220) 111mg/dL (70-220) 148mg/dL (70-220) White Blood Count 7.610^3/ul (4.8-10.8) Red Blood Count 4.6010^6/ul (4.70-6.10) Hemoglobin 12.6g/dl (14.0-18.0) Hematocrit 40.6% (42.0-52.0) Mean Corpuscular Volume 88.3fl (82.0-101.0) Mean Corpuscular Hemoglobin 27.4pg (29.0-33.0) Mean Corpuscular Hemoglobin Concent 31.0g/dl (32.0-37.0) Red Cell Distribution Width 15.1% (11.5-14.5) Platelet Count 31574^3/UL (140-415) Mean Platelet Volume 10.1fl (7.4-10.4) Neutrophils % 65.4% (39.0-77.0) Lymphocytes % 20.4% (15.0-51.0) Monocytes % 12.6% (0.0-11.0) Eosinophils % 0.8% (0.0-7.0) Basophils % 0.4% (0.0-2.0) Nucleated Red Blood Cells % 0.0/100WBC (0.0-0.0) Neutrophils # (Manual) 5.010^3/ul (1.7-7.5) Lymphocytes # 1.610^3/ul (0.8-2.9) Monocytes # 1.010^3/ul (0.3-0.9) Eosinophils # 0.110^3/ul (0.0-0.5) Basophils # 0.010^3/ul (0.0-0.1) Nucleated Red Blood Cells # 0.010^3/ul (0.0-0.0) Sodium Level 142mmol/L (135-144) Potassium Level 4.4mmol/L (3.5-5.1) Chloride Level 98mmol/L (97-110) Carbon Dioxide Level 34mmol/L (21-31) Anion Gap 14 (8-16) Blood Urea Nitrogen 23mg/dl (7-20) Creatinine 1.03mg/dl (0.61-1.24) Glucose Level 124mg/dl (70-220) Calcium Level 9.4mg/dl (8.4-10.2) Phosphorus Level 4.2mg/dl (2.5-4.9) Magnesium Level 2.4mg/dl (1.7-2.5) SUNI CORRALES MD Jun 06, 2017 09:09
[2017-06-06 10:19] VITALS: BP 132/60; PULSE 62; RESP 18
--- NOTE | 2017-06-06 11:33 | PN ---
Date/Time of Note Date/Time of Note DATE: 06/06/17 TIME: 11:30 Assessment/Plan VTE Prophylaxis VTE Prophylaxis Intervention: SCD's Lines/Catheters IV Catheter Type (from Nrsg): Saline Lock Assessment/Plan Assessment/Plan Assessment * GI bleeding/melena EGD Mild distal esophagitis * Severe erosive gastritis, likely NSAID induced * Otherwise normal EGD * Coronary artery disease/post PTCA/post stent/on Brilinta * COPD * Sleep apnea * Diabetes mellitus * Dyslipidemia, * Hypertension * Bipolar disease/depression/OCD Plan * Continue present management * Stable for outpatient management * Case discussed with Dr Garcia * Further orders will depend on clinical course Subjective 24 Hr Interval Summary Free Text/Dictation * Course reviewed with RN * Patient seen and examined * No untoward events overnight Exam/Review of Systems Vital Signs Vitals Vital Signs Date Time Temp Pulse Resp B/P Pulse Ox O2 Delivery O2 Flow Rate FiO2 06/06/17 10:19 98.7 62 18 132/60 92 Room Air Intake and Output 06/05/17 06/05/17 06/06/17 15:00 23:00 07:00 Intake Total 100 ml 1060 ml 920 ml Output Total 800 ml 1200 ml Balance 100 ml 260 ml -280 ml Exam Constitutional: alert, well developed Neck: non-tender, supple Respiratory: clear to auscultation, normal air movement Cardiovascular: nl pulses, regular rate and rhythm Gastrointestinal: non-tender, soft Musculoskeletal: nl extremities to inspection, nl gait and stance Neurological: nl speech, nl strength Skin: nl turgor, No rash or lesions Results Result Diagram: 06/06/17 0444 06/06/17 0444 Results 24 hrs Laboratory Tests Test 06/05/17 12:20 06/05/17 14:00 06/05/17 17:49 06/05/17 20:40 Bedside Glucose 246 H 245 H 250 H Stool Occult Blood NEGATIVE Test 06/06/17 00:57 06/06/17 04:44 06/06/17 05:14 06/06/17 08:40 Bedside Glucose 166 111 148 White Blood Count 7.6 Red Blood Count 4.60 L Hemoglobin 12.6 L Hematocrit 40.6 L Mean Corpuscular Volume 88.3 Mean Corpuscular Hemoglobin 27.4 L Mean Corpuscular Hemoglobin Concent 31.0 L Red Cell Distribution Width 15.1 H Platelet Count 135 L Mean Platelet Volume 10.1 Neutrophils % 65.4 Lymphocytes % 20.4 Monocytes % 12.6 H Eosinophils % 0.8 Basophils % 0.4 Nucleated Red Blood Cells % 0.0 Neutrophils # (Manual) 5.0 Lymphocytes # 1.6 Monocytes # 1.0 H Eosinophils # 0.1 Basophils # 0.0 Nucleated Red Blood Cells # 0.0 Sodium Level 142 Potassium Level 4.4 Chloride Level 98 Carbon Dioxide Level 34 H Anion Gap 14 Blood Urea Nitrogen 23 H Creatinine 1.03 Glucose Level 124 # Calcium Level 9.4 Phosphorus Level 4.2 Magnesium Level 2.4 Medications Medications Current Medications Amlodipine Besylate (Norvasc) 10 mg DAILY PO Last administered on 06/06/17 08: 36; Admin Dose 10 MG; Start 06/04/17 at 09:00 Aspirin (Halfprin) 81 mg DAILY PO Last administered on 06/06/17 08:38; Admin Dose 81 MG; Start 06/04/17 at 09:00 Atorvastatin Calcium (Lipitor) 40 mg DAILY PO Last administered on 06/06/17 08 :38; Admin Dose 40 MG; Start 06/04/17 at 09:00 Baclofen (Lioresal) 10 mg TID PO Last administered on 06/06/17 08:37; Admin Dose 10 MG; Start 06/04/17 at 09:00 Buspirone HCl (Buspar) 20 mg TID PO Last administered on 06/06/17 08:37; Admin Dose 20 MG; Start 06/04/17 at 09:00 Carvedilol (Coreg) 6.25 mg BID PO Last administered on 06/06/17 08:38; Admin Dose 6.25 MG; Start 06/04/17 at 09:00 Docusate Sodium (Colace) 100 mg TID PO Last administered on 06/06/17 08:36; Admin Dose 100 MG; Start 06/04/17 at 09:00 Acetaminophen/ Hydrocodone Bitart ([place] (10/325)) 1 tab Q6H PRN PO PAIN Last administered on 06/06/17 06:03; Admin Dose 1 TAB; Start 06/04/17 at 04:00 Insulin Glargine (Lantus) 40 unit BID SC Last administered on 06/06/17 08:41; Admin Dose 40 UNIT; Start 06/04/17 at 09:00 Losartan Potassium (Cozaar) 100 mg DAILY PO Last administered on 06/06/17 08: 37; Admin Dose 100 MG; Start 06/04/17 at 09:00 Tamsulosin HCl (Flomax) 0.8 mg HS PO Last administered on 06/05/17 20:41; Admin Dose 0.8 MG; Start 06/04/17 at 21:00 Miscellaneous Information 0.6 mg QAM SQ ; Start 06/04/17 at 09:00; Status UNV Pregabalin 75 mg 75 mg BID PO Last administered on 06/06/17 08:38; Admin Dose 75 MG; Start 06/04/17 at 09:00 Pantoprazole/ Sodium Chloride (Protonix Iv/NS) 100 ml @ 10 mls/hr Q10H IV Last administered on 06/06/17 06:49; Admin Dose 10 MLS/HR; Start 06/04/17 at 04 :00 Insulin Aspart (Novolog Insulin Pen) NOVOLOG *MILD* ALGORI... Q4 SC Last administered on 06/06/17 08:42; Admin Dose 1 UNIT; Start 06/04/17 at 05:00 Miscellaneous Information 1 ea NOTE XX ; Start 06/04/17 at 05:00 Glucose (Glutose) 15 gm Q15M PRN PO DECREASED GLUCOSE; Start 06/04/17 at 05:00 Glucose (Glutose) 22.5 gm Q15M PRN PO DECREASED GLUCOSE; Start 06/04/17 at 05: 00 Dextrose (D50w Syringe) 25 ml Q15M PRN IV DECREASED GLUCOSE; Start 06/04/17 at 05:00 Dextrose (D50w Syringe) 50 ml Q15M PRN IV DECREASED GLUCOSE; Start 06/04/17 at 05:00 Glucagon (Glucagen) 1 mg Q15M PRN IM DECREASED GLUCOSE; Start 06/04/17 at 05:00 Glucose (Glutose) 15 gm Q15M PRN BUCCAL DECREASED GLUCOSE; Start 06/04/17 at 05 :00 Albuterol (Ventolin Hfa) 1 puff QID INH ; Start 06/04/17 at 09:00; Status Future Hold Ipratropium [place] (Atrovent Hfa) 1 puff QID INH ; Start 06/04/17 at 09:00; Status Future Hold Miscellaneous Information (*Order Clarification Bulletin) MEDICATION REQUIRES CLARIFICATI... Q8H XX ; Start 06/04/17 at 11:30 Hydromorphone HCl (Dilaudid) 1 mg Q6H PRN IV PAIN Last administered on 07:37; Admin Dose 1 MG; Start 06/04/17 at 15:00 Sucralfate (Carafate) 1 gm QID PO Last administered on 06/06/17 08:37; Admin Dose 1 GM; Start 06/05/17 at 13:00; Stop 07/05/17 at 12:59 Famotidine (Pepcid) 40 mg HS PO Last administered on 06/05/17 20:41; Admin Dose 40 MG; Start 06/05/17 at 21:00; Stop 07/05/17 at 20:59 Linagliptin (Tradjenta) 5 mg DAILY PO Last administered on 06/06/17 08:36; Admin Dose 5 MG; Start 06/05/17 at 17:30 Diagnostic Test (Pha) (Accu-Chek) 1 ea 02 XX ; Start 06/07/17 at 02:00 Diagnostic Test (Pha) (Accu-Chek) 1 ea 02 XX ; Start 06/07/17 at 02:00 SHARON GARCIA NP Jun 06, 2017 11:33
[2017-06-06] MEDS ORDERED: INSULIN ASPART [NOVOLOG] 3 ML PEN SC SCH (11:40)
[2017-06-07] MEDS ORDERED: ACCU-CHEK XX SCH ×2 (02:00)
== END 2017-06-06 11:02 | disposition home or self-care (01) | DRG 378 ==
LOC: E/R 17:55 → MS1 06-04 01:43
PROVIDERS: ADMIT Family Medicine; ATTEND Family Medicine
PROC: 0DJ08ZZ Inspection of Upper Intestinal Tract, Via Natural or Artificial Opening Endoscopic (ICD-10-PCS; principal; 2017-06-04 18:30)
DX: K29.01 Acute gastritis with bleeding (principal); I50.40 Unspecified combined systolic (congestive) and diastolic (congestive) heart failure; I11.0 Hypertensive heart disease with heart failure; K74.60 Unspecified cirrhosis of liver; F31.89 Other bipolar disorder; E78.5 Hyperlipidemia, unspecified; I25.10 Atherosclerotic heart disease of native coronary artery without angina pectoris; J44.9 Chronic obstructive pulmonary disease, unspecified; Z79.4 Long term (current) use of insulin; Z79.82 Long term (current) use of aspirin; Z88.0 Allergy status to penicillin; Z95.5 Presence of coronary angioplasty implant and graft; Z87.891 Personal history of nicotine dependence; M54.40 Lumbago with sciatica, unspecified side; E11.65 Type 2 diabetes mellitus with hyperglycemia; I86.8 Varicose veins of other specified sites; N40.1 Benign prostatic hyperplasia with lower urinary tract symptoms; E66.9 Obesity, unspecified; Z68.37 Body mass index [BMI] 37.0-37.9, adult; G47.33 Obstructive sleep apnea (adult) (pediatric); K20.9 Esophagitis, unspecified; T39.395A Adverse effect of other nonsteroidal anti-inflammatory drugs [NSAID], initial encounter; Y92.009 Unspecified place in unspecified non-institutional (private) residence as the place of occurrence of the external cause
CPT/HCPCS: 36415; 80048; 80053; 80061; 80076; 82270; 82962; 83036; 83735; 83880; 84100; 85025; 85610; 85730; 93306; 96365; 96366; 96372; 96375; C9113; J1170; J1815; J1940; J2270; J2405

== ENCOUNTER 2017-06-12 16:20 | Emergency (ER) | payer BC ==
[~2017-06-12] VITALS: Ht 177.8 cm; Wt 109.1 kg
[~2017-06-12 16:20] MED LIST changes: -DIAZ-90 PO; +FAMO40TA52 PO; -HYDR-906 PO; -METH750T93 PO; -PRED20TA PO; +SUCR1TAB56 PO
[2017-06-12 16:23] VITALS: Ht 177.8 cm; Wt 109.1 kg
[2017-06-12] MEDS ORDERED: HYDROmorphONE 2 MG/ML SYG IM STA (16:52)
[2017-06-12] MEDS ORDERED: HYDR-902 PO (16:55)
[2017-06-12 17:19] VITALS: BP 153/71; PULSE 76; RESP 20; TEMP 99.6
--- NOTE | 2017-06-12 17:32 | ERD ---
ER Documentation Chief Complaint Date/Time DATE: 06/12/17 TIME: 17:26 Chief Complaint CHRONINC BACK PAIN WITH RIGHT SIDED SCIATICA & MUSCLE SPASMS HPI 61-year-old male with multiple medical problems and a history significant for severe lumbar disease causing right-sided sciatica presenting with uncontrolled back pain and sciatic pain he denies any new associated symptoms such as weakness or new numbness. He does have some pain that radiates into his right groin and has some numbness in his right groin, however this is not new. Pain is described as a sharp, stabbing pain that shoots down his right leg. It is a 10 out of 10, worse with movement, laying down, standing up. Somewhat better with sitting down.He is followed by a spinal surgeon. He started physical therapy but states it was really hard to do the work secondary to uncontrolled pain. He spoke with his primary care doctor, , today who prescribed him steroids to help control inflammation in his back. However the patient came to the ER as his pain was too severe to handle. He took his last Coventry today. He denies any fever, chills, urinary or bowel problems. No new focal weakness or numbness. ROS All systems reviewed and are negative except as per history of present illness. Medications Home Meds Active Scripts Hydrocodone/Acetaminophen ([place] 10-325 Tablet) 1 Each Tablet, 1 TAB PO Q6H Y for PAIN, #20 TAB Prov:NOAH WHITMAN MD 06/12/17 Sucralfate* (Carafate*) 1 Gm Tab, 1 GM PO Q6 for 14 Days, TAB Prov:SUNI CORRALES MD 06/06/17 Famotidine* (Famotidine*) 40 Mg Tablet, 40 MG PO HS for 30 Days, #30 TAB Prov:SUNI CORRALES MD 06/06/17 Amlodipine Besylate* (Amlodipine Besylate*) 10 Mg Tablet, 10 MG PO DAILY, #30 TAB Take one half pill once a day Prov:SUNI CORRALES MD 06/06/17 Hydrocodone/Acetaminophen ([place] 10-325 Tablet) 1 Each Tablet, 1 TAB PO Q6H Y for PAIN, #30 TAB Prov:GLENN CALLAWAY DO 05/21/17 Docusate Sodium* (Colace*) 100 Mg Capsule, 100 MG PO TID, #30 CAP Prov:TRINA GONG 05/16/17 Carvedilol* (Carvedilol*) 6.25 Mg Tablet, 6.25 MG PO BID for 30 Days, TAB 2 Refills Prov:SHILO PAREKH. 12/26/16 Aspirin* (Aspirin* EC) 81 Mg Tablet.dr, 81 MG PO DAILY for 30 Days, 2 Refills Prov:SHILO PAREKH. 12/26/16 Ticagrelor* (Brilinta*) 90 Mg Tablet, 90 MG PO BID for 30 Days, #60 TAB Prov:ESHA SIMMONS MD 11/17/16 Reported Medications Insulin Aspart* (Novolog Insulin Pen*) 100 Unit/Ml Soln, 20 UNIT SC WITH MEALS, EA PATIENT TAKE ONLY IF HE EAT CARBS 05/16/17 Insulin Glargine* (Lantus*) 100 Unit/Ml Soln, 40 UNIT SC BID, #1 VIAL 05/16/17 Liraglutide (Victoza 2-Juan C) 0.6 Mg/0.1 Ml Pen.injctr, 0.6 MG SQ QAM, SYR 05/16/17 Buspirone Hcl* (Buspirone Hcl*) 10 Mg Tab, 20 MG PO TID, TAB 10/28/16 Atorvastatin* (Atorvastatin*) 40 Mg Tablet, 40 MG PO DAILY, #30 TAB 10/28/16 Baclofen* (Baclofen*) 10 Mg Tablet, 10 MG PO TID, TAB 10/28/16 Metformin Hcl* (Metformin Hcl*) 1,000 Mg Tablet, 1000 MG PO WITH BREAKFAST DINNE , #60 TAB 10/28/16 Tamsulosin Hcl* (Tamsulosin Hcl*) 0.4 Mg Cap.er.24h, 0.8 MG PO HS, CAP 10/28/16 Albuterol/Ipratropium* (Combivent Respimat*) 20-100 Mcg/Inh - 4 Gm Aer.w.adap, 1 PUFF INHALATION QID, #1 INHALER 10/28/16 Losartan Potassium* (Losartan Potassium*) 100 Mg Tablet, 100 MG PO DAILY, TAB 10/28/16 Allergies Allergies: Coded Allergies: Penicillins (Verified Allergy, Severe, DIFFICULTY BREATHING, 06/12/17) cefazolin (Verified Allergy, Severe, DIFFICULTY BREATHING, 06/12/17) ciprofloxacin (Verified Allergy, Mild, RASH, 06/12/17) benazepril (Verified Allergy, Unknown, 06/12/17) ketorolac (Unverified Allergy, Unknown, pain worse, 06/12/17) sildenafil (Unverified Allergy, Unknown, 06/12/17) PMhx/Soc History of Surgery: Yes Anesthesia Reaction: No Hx Neurological Disorder: No Hx Respiratory Disorders: No Hx Cardiac Disorders: Yes (3 stents) Hx Psychiatric Problems: Yes (generalized anxiety) Hx Miscellaneous Medical Probl: Yes (HTN, chronic back pain) Hx Alcohol Use: No Hx Substance Use: No Hx Tobacco Use: Yes (quit smoking already) Smoking Status: Former smoker Physical Exam Vitals Vital Signs Date Time Temp Pulse Resp B/P Pulse Ox O2 Delivery O2 Flow Rate FiO2 06/12/17 17:19 99.6 76 20 153/71 95 Room Air 06/12/17 16:23 99.4 81 20 173/76 95 Physical Exam Const: Appears to be in mild distress secondary to pain, sitting upright on the edge of the bed Head: Atraumatic Eyes: Normal Conjunctiva ENT: Normal External Ears, Nose and Mouth. Neck: Supple Resp: Clear to auscultation bilaterally Cardio: Regular rate and rhythm, no murmurs Abd: Soft, non tender, non distended. Normal bowel sounds Skin: No petechiae or rashes Back: Diffuse lumbar right-sided paraspinal muscle tenderness. Positive straight leg raise on the right. Ext: No cyanosis, or edema Neur: Awake and alert, Strength 5 out of 5 in all 4 extremities with decreased effort in the right lower extremity secondary to pain. Psych: Normal Mood and Affect Results 24 hrs Current Medications Medications (Trade) Dose Ordered Sig/Giovanni Route PRN Reason Start Time Stop Time Status Last Admin Dose Admin Hydromorphone HCl (Dilaudid) 2 mg ONCE STAT IM 06/12/17 16:52 06/12/17 16:54 DC 06/12/17 17:08 Procedures/MDM Patient is presenting with uncontrolled chronic back pain with sciatica. Vitals are stable. I have a low suspicion for cauda equina, epidural abscess, spondylolisthesis, or spinal fracture. Patient's symptoms neurologically are stable. I discussed with him the importance of seeking a referral to pain management. He states he has to be on blood thinners for the next 6 months due to stents he had placed in his coronary arteries 6 months ago. Because of this he cannot get spinal surgery until he is off the blood thinners. With this in mind, I recommended he see oil painter to optimize his pain control until the surgery can be done. I will refill his Coventry 10 prescription today to get him through the weekend until he can see his primary care doctor after the weekend to discuss referral to oil painter. Patient feels comfortable with this plan. 1 dose of Dilaudid 2 mg IM was given here. Patient was discharged in stable condition. Return precautions were given. Departure Diagnosis: Primary Impression: Acute exacerbation of chronic low back pain Additional Impression: Uncontrolled pain Condition: Stable Patient Instructions: Pain Management Referrals: SUNI CORRALES MD Additional Instructions: Talk to your doctor about a referral to pain management. NOAH WHITMAN MD Jun 12, 2017 17:32
[2017-06-12] MEDS ORDERED: ONDANSETRON 4 MG INJ IV STA (18:04)
[2017-06-12] MEDS ORDERED: morphine 10 MG INJ ONE (18:06)
[2017-06-12] MEDS ORDERED: ONDANSETRON 4 MG INJ ONE (18:06)
[2017-06-12] MEDS ORDERED: morphine 10 MG INJ IV ONE (18:30)
== END 2017-06-12 18:43 | disposition home or self-care (01) ==
LOC: E/R 16:20
DX: M54.5 Low back pain (principal); I10 Essential (primary) hypertension; Z79.4 Long term (current) use of insulin; Z79.82 Long term (current) use of aspirin; Z79.84 Long term (current) use of oral hypoglycemic drugs; Z87.891 Personal history of nicotine dependence; Z98.61 Coronary angioplasty status
CPT/HCPCS: 96372; 96374; 96375; 99284; J1170; J2270; J2405

== ENCOUNTER 2017-06-17 09:50 | Emergency (ER) | payer BC ==
[~2017-06-17] VITALS: Ht 170.2 cm; Wt 110.0 kg
[2017-06-17 09:53] VITALS: Ht 170.2 cm; Wt 110.0 kg
[2017-06-17] MEDS ORDERED: HYDROmorphONE 1 MG/ML SYG IV STA (10:11)
--- NOTE | 2017-06-17 10:20 | ERD ---
ER Documentation Chief Complaint Date/Time DATE: 06/17/17 TIME: 10:15 Chief Complaint SEVERE SCIATICA PAIN HPI Patient is a 61-year-old male with a past medical history of hypertension, severe lumbar stenosis who presents emergency department for worsening back pain radiating down his right leg. Patient states his acute exacerbation of symptoms started last night. Patient has had chronic back pain now for many months. Patient denies any new trauma or falls. Patient denies any new weakness or numbness in his extremities. Patient denies any urinary incontinence, stool incontinence, fever, chills, nausea, vomiting, chest pain, shortness of breath or LOC. Patient states the pain is worse with movement. Patient does report taking the [place] at 6 AM today however he had no alleviation of pain. Patient states he scheduled to have a surgical repair on later this month. ROS All systems reviewed and are negative except as per history of present illness. Medications Home Meds Active Scripts Oxycodone HCl/Acetaminophen (Percocet 5-325 mg Tablet) 1 Each Tablet, 1 EACH PO Q6, #15 TAB Prov:AMEENA NIX PA-C 06/17/17 Hydrocodone/Acetaminophen ([place] 10-325 Tablet) 1 Each Tablet, 1 TAB PO Q6H Y for PAIN, #20 TAB Prov:NOAH WHITMAN MD 06/12/17 Sucralfate* (Carafate*) 1 Gm Tab, 1 GM PO Q6 for 14 Days, TAB Prov:SNUI CORRALES MD 06/06/17 Famotidine* (Famotidine*) 40 Mg Tablet, 40 MG PO HS for 30 Days, #30 TAB Prov:SUNI CORRALES MD 06/06/17 Amlodipine Besylate* (Amlodipine Besylate*) 10 Mg Tablet, 10 MG PO DAILY, #30 TAB Take one half pill once a day Prov:SUNI CORRALES MD 06/06/17 Hydrocodone/Acetaminophen ([place] 10-325 Tablet) 1 Each Tablet, 1 TAB PO Q6H Y for PAIN, #30 TAB Prov:GLENN CALLAWAY DO 05/21/17 Docusate Sodium* (Colace*) 100 Mg Capsule, 100 MG PO TID, #30 CAP Prov:TRINA GONG 05/16/17 Carvedilol* (Carvedilol*) 6.25 Mg Tablet, 6.25 MG PO BID for 30 Days, TAB 2 Refills Prov:SHILO PAREKH. 12/26/16 Aspirin* (Aspirin* EC) 81 Mg Tablet.dr, 81 MG PO DAILY for 30 Days, 2 Refills Prov:SHILO PAREKH. 12/26/16 Ticagrelor* (Brilinta*) 90 Mg Tablet, 90 MG PO BID for 30 Days, #60 TAB Prov:ESHA SIMMONS MD 11/17/16 Reported Medications Insulin Aspart* (Novolog Insulin Pen*) 100 Unit/Ml Soln, 20 UNIT SC WITH MEALS, EA PATIENT TAKE ONLY IF HE EAT CARBS 05/16/17 Insulin Glargine* (Lantus*) 100 Unit/Ml Soln, 40 UNIT SC BID, #1 VIAL 05/16/17 Liraglutide (Victoza 2-Juan C) 0.6 Mg/0.1 Ml Pen.injctr, 0.6 MG SQ QAM, SYR 05/16/17 Buspirone Hcl* (Buspirone Hcl*) 10 Mg Tab, 20 MG PO TID, TAB 10/28/16 Atorvastatin* (Atorvastatin*) 40 Mg Tablet, 40 MG PO DAILY, #30 TAB 10/28/16 Baclofen* (Baclofen*) 10 Mg Tablet, 10 MG PO TID, TAB 10/28/16 Metformin Hcl* (Metformin Hcl*) 1,000 Mg Tablet, 1000 MG PO WITH BREAKFAST DINNE , #60 TAB 10/28/16 Tamsulosin Hcl* (Tamsulosin Hcl*) 0.4 Mg Cap.er.24h, 0.8 MG PO HS, CAP 10/28/16 Albuterol/Ipratropium* (Combivent Respimat*) 20-100 Mcg/Inh - 4 Gm Aer.w.adap, 1 PUFF INHALATION QID, #1 INHALER 10/28/16 Losartan Potassium* (Losartan Potassium*) 100 Mg Tablet, 100 MG PO DAILY, TAB 10/28/16 Allergies Allergies: Coded Allergies: Penicillins (Verified Allergy, Severe, DIFFICULTY BREATHING, 06/12/17) cefazolin (Verified Allergy, Severe, DIFFICULTY BREATHING, 06/12/17) ciprofloxacin (Verified Allergy, Mild, RASH, 06/12/17) benazepril (Verified Allergy, Unknown, 06/12/17) ketorolac (Unverified Allergy, Unknown, pain worse, 06/12/17) sildenafil (Unverified Allergy, Unknown, 06/12/17) PMhx/Soc History of Surgery: Yes Anesthesia Reaction: No Hx Neurological Disorder: No Hx Respiratory Disorders: No Hx Cardiac Disorders: Yes (3 stents) Hx Psychiatric Problems: Yes (generalized anxiety) Hx Miscellaneous Medical Probl: Yes (HTN, chronic back pain) Hx Alcohol Use: No Hx Substance Use: No Hx Tobacco Use: Yes (quit smoking already) Smoking Status: Former smoker Physical Exam Vitals Vital Signs Date Time Temp Pulse Resp B/P Pulse Ox O2 Delivery O2 Flow Rate FiO2 06/17/17 12:32 173/71 06/17/17 09:53 98.4 86 18 189/91 98 Physical Exam GENERAL: Well-developed, well-nourished male. Appears in significant pain. HEAD: Normocephalic, atraumatic. EYES: Pupils are equally reactive bilaterally. EOMs grossly intact. No conjunctival erythema. ENT: Moist mucous membranes. No uvula deviation. No kissing tonsils. NECK: Supple. No meningismus. Normal range of motion of the neck. LUNG: Clear to auscultation bilaterally. No rhonchi, wheezing, rales or coarse breath sounds. HEART: Regular rate and rhythm. No murmurs, rubs or gallops. BACK: No midline tenderness. Bilateral lumbar paraspinous muscle tenderness. No new ecchymosis or swelling noted. Examination limited given that patient refuses to lie down in bed. EXTREMITIES: Equal pulses bilaterally. No peripheral clubbing, cyanosis or edema. No unilateral leg swelling. NEUROLOGIC: Alert and oriented. Moving all four extremities without any difficulty. Normal speech. Steady gait. SKIN: Normal color. Warm and dry. No rashes or lesions. Results 24 hrs Current Medications Medications (Trade) Dose Ordered Sig/Giovanni Route PRN Reason Start Time Stop Time Status Last Admin Dose Admin Hydromorphone HCl (Dilaudid) 1 mg ONCE STAT IV 06/17/17 10:11 06/17/17 10:13 DC 06/17/17 10:30 Oxycodone/ Acetaminophen (Percocet (5/ 325)) 1 tab ONCE ONCE PO 06/17/17 12:30 06/17/17 12:31 DC 06/17/17 12:09 Procedures/MDM ED COURSE: The patient was stable throughout ED course. I kept the patient and/or family informed of laboratory and diagnostic imaging results throughout the ED course. MEDICATIONS GIVEN: Dilaudid, Percocet Patient tolerated medication well with no adverse reactions. Patient reported improvement in pain. MEDICAL DECISION MAKING: This is a 61-year-old male with a history of significant lumbar stenosis who presents emergency department for acute exacerbation of his lower back pain with right-sided sciatica. Of note, patient has been seen here in emergency department for similar symptoms in the past. Vital signs were reviewed. His blood pressure was noted to elevated however patient states he did take his medication this morning. Patient denies any chest pain, shortness breath, headache, blurry vision or LOC. Patient was afebrile. Patient denied any saddle anesthesia, urinary incontinence, bowel incontinence, recent falls or recent trauma. Patient did recently have a lumbar MRI done on 05-16-17. MRI shows significant spinal stenosis of the L4-L5. Given the patient denied any recent falls or trauma, there is no indication for repeat imaging at this time. Patient was given IV Dilaudid here in the emergency department. Patient continued to have pain. I spoke to my supervising physician Dr. Sanches who spoke with Dr. Vila, the patient's consumer relations specialist. Patient is scheduled to have surgery on 07-05-17. Patient was given an additional dose of PO pain medication here in the ED. Dr. Sanches had a discussion with the patient as well as his family in regards to opioid use. Patient will need to see a spray i painter for further management of his ongoing chronic pain. Referral information was provided for spray i painter. At this time, patient's presentation is most consistent with acute exacerbation of chronic lower back pain. Low suspicion for cauda equina, epidural abscess, epidural hematoma, spinal fracture, UTI, pyelonephritis, nephrolithiasis. PRESCRIPTIONS: Percocet DISCHARGE: At this time, patient is stable for discharge and outpatient management. RICE therapy and ROM exercises were advised to avoid stiffness. I have instructed the patient to follow-up with his/her primary care physician in 1-2 days. I have discussed with the patient the possibility of needing to see an consumer relations specialist for further workup and imaging if the pain persists. I have instructed the patient to promptly return to the ER for any new or worsening symptoms including increased pain, swelling, warmth, urinary incontinence, stool incontinence, weakness or numbness. The patient and/or family expressed understanding of and agreement with this plan. All questions were answered. Home care instructions were provided. Patients blood pressure was elevated (>120/80) but appears stable without evidence of hypertensive emergency, hypertensive urgency or end-organ failure. I had discussion with the patient about the risks of hypertension. I have advised the patient to follow up with his/her primary care physician for outpatient monitoring and treatment for hypertension in 2-3 days. I have instructed the patient to return to the ER for any new or worsening symptoms including chest pain, shortness of breath, headache, blurred vision, confusion, nausea, vomiting or LOC. Departure Diagnosis: Primary Impression: Acute exacerbation of chronic low back pain Condition: Stable Patient Instructions: Back Pain (Acute Or Chronic) Referrals: ISABELA GARCIA MD (PCP) KARLA VILA MD, NATACHA Additional Instructions: Call your primary care doctor TOMORROW for an appointment during the next 1-2 days.See the doctor sooner or return here if your condition worsens before your appointment time. See pain management referral information. Follow up w your consumer relations specialist. AMEENA NIX PA-C Jun 17, 2017 10:20
[2017-06-17] MEDS ORDERED: OXYC-279 PO (12:09)
[2017-06-17] MEDS ORDERED: OXYCODONE/ACETAMINOPHEN (5/325) TAB PO ONE (12:30)
[2017-06-17 12:32] VITALS: BP 173/71
== END 2017-06-17 12:44 | disposition home or self-care (01) ==
LOC: FTE 09:50
DX: M54.5 Low back pain (principal); I10 Essential (primary) hypertension; Z79.4 Long term (current) use of insulin; Z79.82 Long term (current) use of aspirin; Z79.84 Long term (current) use of oral hypoglycemic drugs; Z87.891 Personal history of nicotine dependence; Z98.61 Coronary angioplasty status
CPT/HCPCS: 96374; 99284; J1170

== ENCOUNTER 2017-07-06 09:51 | Inpatient (IN) | payer BC ==
--- NOTE | 2017-06-25 16:31 | CONS ---
Date/Time of Note Date/Time of Note DATE: 06/25/17 TIME: 16:18 Assessment/Plan Assessment/Plan Problems: (1) Pre-op evaluation Status: Acute Comment: Preoperative medical evaluation prior to elective lumbar spine surgery. At this time assuming the cardiology clears him that I believe he is fully appropriate to proceed with surgery. I in fact would clear him from a cardiac standpoint. He is at slightly above average surgical risk as compared to his age-matched peers because of his cardiac history. Using modified Ellison 's criteria he has had intermediate to slightly higher risk. He should do well using standard and routine anesthesia precautions. Please note he will be seen by Dr. Garcia in consultation (2) Diabetes mellitus type 2 in obese Status: Chronic Comment: He has adequate control on his current regimen which will need to be continued during the hospitalization (3) Obstructive sleep apnea Status: Chronic Comment: Noted. Keep an eye on this especially in the postoperative setting (4) Systolic CHF with reduced left ventricular function, NYHA class 2 Status: Chronic Comment: Adequately compensated. I believe we have room here to increase his carvedilol as well as add in Spironolactone 25 mg every morning. (5) Coronary artery disease Status: Chronic Comment: Quiescent and inactive at the moment Qualifiers: Qualified Code: I25.10 - Coronary artery disease involving [place] coronary artery of [place] heart without angina pectoris (6) BPH w urinary obs/LUTS Status: Chronic Comment: Noted. He is on appropriate medication treatment and tolerating well (7) Diastolic dysfunction Status: Chronic Comment: As above. Increasing the beta blockade. Consultation Date/Type/Reason Admit Date/Time July 06, 2017 Date of Consultation: Jun 25, 2017 Type of Consultation: Internal medicine and preop Reason for Consultation Preoperative medical consultation; Referring Provider: KARLA BRANTLEY MD Hx of Present Illness 61-year-old right-handed male being brought in electively for spinal surgery due to spinal stenosis. He has advanced multiple medical problems. Constitutional: no complaints (Denies fevers chills or sweats) Eyes: no complaints ENT: no complaints Respiratory: no complaints (No cough shortness of breath or wheezing) Cardiovascular: edema (Lower extremity edema has improved with removal of the amlodipine.), no complaints (No chest pain palpitations PND or orthopnea) Gastrointestinal: no complaints Genitourinary: no complaints Musculoskeletal: back pain Skin: no complaints Neurologic: no complaints Endocrine: no complaints Lymphatic: no complaints Psychological: nl mood/affect, no complaints Immunologic: no complaints Past Medical History 1) organic heart disease-CHF systolic and diastolic; 2) asthma intermittent mild , 3) hypertension, 4) diabetes mellitus type 2 5) gastroesophageal reflux disease 6) benign prostatic hypertrophy 8) obesity 9) obstructive sleep apnea 10 ) usual childhood diseases Medications; metformin 1 g twice daily; losartan 100 mg daily; Brilinta 90 mg twice daily; tamsulosin 0.4 mg twice daily; atorvastatin 40 mg every afternoon; omeprazole 40 mg q. a.m.; sucralfate 1 g 4 times daily ending on July 05; albuterol metered-dose inhaler as needed; aspirin 81 mg once a day; buspirone 20 mg 3 times daily; carvedilol 6.25 twice daily; baclofen 5 mg 3 times daily; furosemide 40 mg daily; Victoza 0.6 mg every morning; Lantus insulin 40 units twice daily; Humalog insulin 20 units at meals Allergies-possibly penicillin, intolerant of amlodipine which causes edema; intolerant of CHELE inhibitors which induced cough Medical History: congestive heart failure, coronary artery disease, diabetes, GERD, high cholesterol, hypertension Past Surgical History Status post right ankle ORIF; status post appendectomy; status post cholecystectomy; status post cervical spine fusion C4 through C7; status post bilateral first rib resection secondary to thoracic outlet syndrome; status post PCI with stent 2 Past Surgical Hx: angioplasty, appendectomy, cholecystectomy, other Social History Alcohol Use: none Smoking Status: Never smoker Drug Use: none Other Social History Born in [place] but raised in the [facility] 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 With his family Exam/Review of Systems Vital Signs Vitals 5 feet 10-1/2 inches, 241 pounds, temperature 98.4, pulse 80, blood pressure 130 /64, respirations 18, pulse oximetry 96% Exam Constitutional: alert, oriented Psych: nl mood/affect, no complaints Head: atraumatic, normocephalic Eyes: EOMI, PERRL, nl conjunctiva, nl lids, nl sclera ENMT: mucosa pink and moist, nl external ears & nose, nl lips & teeth, nl nasal mucosa & septum Neck: non-tender, supple Respiratory: clear to auscultation, normal air movement (No wheezing no crackles) Cardiovascular: nl pulses, regular rate and rhythm Gastrointestinal: nl liver, spleen, non-tender, soft Extremities: edema (2+ edema), normal pulses Neurological: WAFER FAB TECHNICIAN II-XII intact, nl mental status, nl speech, nl strength Skin: nl turgor, rash or lesions Lymph: nl lymph nodes Copies To: CC: KARLA BRANTLEY MD; ISABELA GARCIA MD, JOSHUA A MD Jun 25, 2017 16:29
[2017-07-05 18:37] VITALS: Ht 177.8 cm; Wt 104.1 kg
[~2017-07-06] VITALS: Ht 177.8 cm; Wt 104.1 kg
[2017-07-06] VITALS (17 sets, daily range): BP systolic 107–160; BP diastolic 58–79; PULSE 72–82; RESP 11–22
[~2017-07-06 09:51] MED LIST changes: +LACTATED RINGER'S 1,000 ML IV* SCH; +OXYC-279 PO; +VANCOMYCIN 1 GM in NS 250 ML IVPB SCH
[2017-07-06] MEDS ORDERED: FURO-109 PO (10:16)
[2017-07-06] MEDS ORDERED: OMEP20CA16 PO (10:16)
[2017-07-06] MEDS ORDERED: CARV12.579 PO (10:16)
[2017-07-06] MEDS ORDERED: BACL10TA PO (10:17)
[2017-07-06] MEDS ORDERED: BUSP10TA2 PO (10:18)
[2017-07-06] MEDS ORDERED: DOCU250C68 PO (10:19)
[2017-07-06] MEDS ORDERED: GABA300C16 PO (10:19)
[2017-07-06] MEDS ORDERED: SPIR25TA PO (10:21)
[2017-07-06] MEDS ORDERED: GELATIN SIZE 100 SPONGE ONE (13:00)
[2017-07-06] MEDS ORDERED: SURGIFOAM POWDER 1 GM KIT ONE (13:00)
[2017-07-06] MEDS ORDERED: THROMBIN 5000 UNIT VIAL ONE (13:00)
[2017-07-06] MEDS ORDERED: POLYMYXIN/BACITRACIN 1L IRRIG ONE ×2 (13:01→14:22)
[2017-07-06] MEDS ORDERED: HEPARIN 1000 UNITS/ML 10 ML INJ ONE (13:01)
[2017-07-06] MEDS ORDERED: CEFAZOLIN 1 GM INJ ONE (13:02)
[2017-07-06] MEDS ORDERED: FENTAnyl 50 MCG/ML VIAL ONE ×2 (13:24→15:52)
[2017-07-06] MEDS ORDERED: SUCCINYLCHOLINE CHLORIDE 100 MG/5 ML SYG IV ONE (13:25)
--- NOTE | 2017-07-06 13:55 | HPN ---
Date/Time of Note Date/Time of Note DATE: 07/06/17 TIME: 13:54 Interval H&P Admission Note Pt. seen H&P reviewed: No system changes EMMANUEL QUINTANILLA PA-C Jul 06, 2017 13:55
[2017-07-06] MEDS ORDERED: ACETAMINOPHEN 325 MG TAB PO PRN (14:00)
[2017-07-06] MEDS ORDERED: HYDROCODONE/APAP (10/325) TAB PO PRN (14:00)
[2017-07-06] MEDS ORDERED: NALOXONE (0.4 MG/ML) INJ IV PRN (14:00)
[2017-07-06] MEDS ORDERED: ZOLPIDEM 5 MG TAB PO PRN (14:00)
[2017-07-06] MEDS ORDERED: ONDANSETRON 4 MG INJ IV PRN ×2 (14:00→15:30)
[2017-07-06] MEDS ORDERED: DIPHENHYDRAMINE 50 MG INJ IV PRN ×2 (14:00→15:30)
[2017-07-06] MEDS ORDERED: BISACODYL 10 MG SUPP PR PRN (14:00)
[2017-07-06] MEDS ORDERED: VANCOMYCIN 1 GM (PMX) 250 ML IVPB SCH (14:00)
[2017-07-06] MEDS ORDERED: CEPASTAT LOZENGE MT PRN (14:00)
[2017-07-06] MEDS ORDERED: CA CHLORIDE 10% 10 ML SYRINGE ONE (14:22)
--- NOTE | 2017-07-06 15:05 | RADRPT ---
PROCEDURE: Intraoperative imaging of the lumbar spine with fluoroscopy. CLINICAL INDICATION: Back pain. Intraoperative. TECHNIQUE: 6 images of the lumbar spine were obtained in the operating room with an image intensif ier. No radiologist was in attendance. Fluoroscopy time is 11.7 seconds. COMPARISON: MRI of the lumbar spine dated 05/16/2017. FINDINGS: Images demonstrate posterior surgical instruments overlying the lower lumbar spine IMPRESSION: 1. Intraoperative imaging of the lumbar spine. RPTAT: QQ .Nitin Navarro MD, Date Time Electronically viewed and signed by .Nitin Navarro MD, on 07/06/2017 15:05 .R/
[2017-07-06] MEDS ORDERED: FENTAnyl 50 MCG/ML VIAL IV PRN ×2 (15:30)
[2017-07-06] MEDS ORDERED: METOCLOPRAMIDE 10 MG INJ IV PRN (15:30)
[2017-07-06] MEDS ORDERED: HYDROmorphONE (0.2 MG/ML) 10ML SYG IV PRN ×2 (15:30)
[2017-07-06] MEDS ORDERED: ALBUTEROL 0.083% (NEB) 2.5 MG/3 ML AMP HHN PRN (15:30)
[2017-07-06] MEDS ORDERED: MEPERIDINE 25 MG INJ IV PRN (15:30)
[2017-07-06] MEDS ORDERED: LABETALOL HCL 20MG INJ IV PRN (15:30)
[2017-07-06] MEDS ORDERED: LIDOCAINE 2% (SDV) 5 ML INJ ONE (16:03)
[2017-07-06] MEDS ORDERED: SUGAMMADEX SODIUM 200 MG/2 ML VIAL IV ONE (16:03)
[2017-07-06] MEDS ORDERED: PROPOFOL 20 ML ONE (16:03)
[2017-07-06] MEDS ORDERED: ROCURONIUM 50 MG INJ ONE (16:03)
--- NOTE | 2017-07-06 16:33 | SIPON ---
Date/Time of Note Date/Time of Note DATE: 07/06/17 TIME: 16:32 Operative Report Preoperative Diagnosis Spinal stenosis Postoperative Diagnosis Spinal stenosis conjoined right L5-S1 nerve root Operation/Procedure Performed Lumbar decompression Surgeon see signature line retirement assistant Debora ahuja Anesthesia: general Estimated blood loss: 150 - 200 ml's Transfusion Required none Specimen Disc and spinous process Grafts/Implants none Complications none KARLA BRANTLEY MD Jul 06, 2017 16:33
[2017-07-06] MEDS: HYDROmorphONE 0.2 MG/ML PCA IV SCH ×2 (17:15→22:51)
--- NOTE | 2017-07-06 17:23 | PN ---
Date/Time of Note Date/Time of Note DATE: 07/06/17 TIME: 17:19 Assessment/Plan VTE Prophylaxis VTE Prophylaxis Intervention: SCD's Lines/Catheters IV Catheter Type (from [facility]): Peripheral IV Assessment/Plan Chief Complaint/Hosp Course 61-year-old right-handed male being brought in electively for spinal surgery due to spinal stenosis. He has advanced multiple medical problems. Problems: (1) Status post lumbar laminectomy Onset Date: ~ 07/06/2017 Status: Acute Comment: He is immediately postoperative at this point in time. He is doing well and should be managed accordingly. Will be going upstairs to a regular postoperative floor shortly (2) BPH w urinary obs/LUTS Status: Chronic Comment: Continue the tamsulosin. Please note presently has a Reddy catheter and that will come out tomorrow (3) Coronary artery disease Status: Chronic Comment: Quiescent without symptoms. Please note he she will go back onto his Brilinta and aspirin in the near future when cleared by orthopedic surgery Qualifiers: Coronary Disease-Associated Artery/Lesion type: circle artery [place] vs. transplanted heart: circle heart Associated angina: without angina Qualified Code: I25.10 - Coronary artery disease involving circle coronary artery of circle heart without angina pectoris (4) Systolic CHF with reduced left ventricular function, NYHA class 2 Status: Chronic Comment: Stable on medications. And continue titrating his beta blockade. He is off of his amlodipine appropriately which has resulted in decrease in lower extremity edema. (5) Obstructive sleep apnea Status: Chronic Comment: Noted. BiPAP if necessary in the hospital (6) Diabetes mellitus type 2 in obese Status: Chronic Comment: Adequate control coming in. He will be on his regular regimen of medications. (7) Diastolic dysfunction Status: Chronic Comment: Use of beta-blockade in the setting as well Subjective 24 Hr Interval Summary Free Text/Dictation Immediately postop after spinal decompressive surgery. At this time this pleasant gentleman reports that he is doing relatively well. His note that he is off of his Brilinta and aspirin. Constitutional: no complaints Respiratory: no complaints Cardiovascular: no complaints Gastrointestinal: no complaints Genitourinary: no complaints Exam/Review of Systems Vital Signs Vitals Vital Signs Date Time Temp Pulse Resp B/P Pulse Ox O2 Delivery O2 Flow Rate FiO2 07/06/17 17:15 72 11 145/69 99 Nasal Cannula 2.0 07/06/17 16:56 98.3 Exam Constitutional: alert, oriented Respiratory: clear to auscultation, normal air movement Cardiovascular: nl pulses, regular rate and rhythm Gastrointestinal: nl liver, spleen, non-tender, soft Results Results 24 hrs Laboratory Tests Test 07/06/17 11:03 07/06/17 17:03 Bedside Glucose 135 104 Medications Medications Current Medications Lactated Ringer's 1,000 ml @ 0 mls/hr Q0M IV* ; Start 07/06/17 at 06:00; Stop 07/06/17 at 23:00 Vancomycin HCl 250 ml @ 125 mls/hr PREOP IVPB Last administered on 07/06/17t 12:21; Admin Dose 125 MLS/HR; Start 07/06/17 at 06:00; Stop 07/06/17 at 23:00 Potassium Chloride/Sodium Chloride (1/2 NS + KCl 20 Meq) 1,000 ml @ 100 mls/hr Q10H IV ; Start 07/06/17 at 13:55 Acetaminophen/ Hydrocodone Bitart ([place] (10/325)) 1 tab Q4H PRN PO PAIN LEVEL 1-5; Start 07/06/17 at 14:00 Acetaminophen/ Hydrocodone Bitart ([place] (10/325)) 2 tab Q4H PRN PO PAIN LEVEL 6-10; Start 07/06/17 at 14:00 Hydromorphone HCl 0.2 mg 0.2 mg Q1H PRN IV BREAKTHROUGH PAIN; Start 07/06/17 at 14:00 Vancomycin HCl (Vancocin) 250 ml @ 125 mls/hr Q12H IVPB ; Start 07/06/17 at 14: 00; Stop 07/07/17 at 03:59 Ondansetron HCl (Zofran Inj) 4 mg Q6H PRN IV NAUSEA AND/OR VOMITING; Start at 14:00 Bisacodyl (Dulcolax Supp) 10 mg DAILY PRN [place] CONSTIPATION; Start 07/06/17 at 14 :00 Docusate Sodium (Colace) 100 mg BID PO ; Start 07/06/17 at 21:00 Acetaminophen (Tylenol Tab) 650 mg Q4H PRN PO MONTESINOS OR TEMP GREATER THAN 101.3F; Start 07/06/17 at 14:00 Cyclobenzaprine HCl (Flexeril) 10 mg TID PRN PO MUSCLE SPASMS; Start 07/06/17 at 14:00 Phenol (Cepastat Lozenge) 1 lozenge PRN PRN [place] SORE THROAT; Start 07/06/17 at 14:00 Diphenhydramine HCl (Benadryl) 25 mg Q6H PRN IV ITCHING; Start 07/06/17 at 14: 00 Naloxone HCl (Narcan) 0.2 mg Q2M PRN IV RR 8 BREATHS/MIN OR LESS; Start at 14:00 Hydromorphone HCl (Dilaudid GRADING MACHINE FEEDER) GRADING MACHINE FEEDER to be started in PACU Q4PCA IV Last administered on 07/06/17t 17:15; Admin Dose 6 MG; Start 07/06/17 at 14:00 Miscellaneous Information 1. Hold GRADING MACHINE FEEDER at 1,000... GRADING MACHINE FEEDER IV ; Start 07/06/17 at 14: 00 SUNI CORRALES MD Jul 06, 2017 17:23
[2017-07-06] MEDS ORDERED: DEXTROSE 50% 50 ML SYRINGE IV PRN ×2 (18:00)
[2017-07-06] MEDS ORDERED: GLUCOSE GEL 15 GRAM TUBE BUCCAL PRN (18:00)
[2017-07-06] MEDS ORDERED: GLUCOSE GEL 15 GRAM TUBE PO PRN ×2 (18:00)
[2017-07-06] MEDS ORDERED: GLUCAGON 1 MG INJ IM PRN (18:00)
--- NOTE | 2017-07-06 18:03 | OPR ---
DATE OF OPERATION: 07/06/2017 PREOPERATIVE DIAGNOSIS: L4-5 L5-S1 stenosis with radiculopathy. POSTOPERATIVE DIAGNOSIS: 1. L4-5 stenosis with radiculopathy. 2. Conjoined right L5-S1 nerve root. PROCEDURE: 1. Central decompressive laminectomy, L4-5 and L5-S1 decompression of L4, L5, S1 nerve roots bilaterally for stenosis. 2. Right L4-5 diskectomy. 3. Use of operative microscope. 4. Use of C-arm flush within the patient without radiologist present. 5. Epidural injection via catheter. 6. Intraoperative neuro monitoring (2 hours). PRIMARY SURGEON: Dr. Maycol Vila. NEXT CATH LAB TECH: Debora Lara PA-C. . NEED FOR RATE MANAGER: home care assistant was required for retraction of the neurovascular elements. OPERATIVE FINDINGS AT SURGERY: The case revealed left L4 amplitude down 30 percent, left L5 amplitude down 20 percent, left S1 amplitude down 40 percent, right L4 amplitude down 70 percent, right L5 amplitude down 50 percent, right S1 amplitude down 40 percent. At the end of the case, nerve signals returned to normal. The patient had stenosis from L4 to the sacrum. He had a far lateral herniation at L4-5. He appeared to have a paracentral herniation at L5-S1 but a conjoined nerve root at L5, S1 was identified. ESTIMATED BLOOD LOSS: 200 cc. DRAINS: One. SPECIMEN: Spinous process in disc. COMPLICATIONS: None. ANESTHESIOLOGIST: Dr. Teixeira. ANESTHESIA: General. INDICATION FOR PROCEDURE: This is a 61-year-old gentleman with lumbosacral radiculopathy, worse on the right in the setting of stenosis and disc herniation. He failed nonoperative measures. Therefore, recommend proceeding with the above mentioned surgery. Preoperatively, discussed risks, benefits, and alternatives. He understood and wished to proceed. OPERATIVE PROCEDURE: The patient was identified in the preoperative holding area, given vancomycin antibiotics in the operating room, where he was successfully placed under general anesthesia. Neuro monitors were placed. Sequential compressive devices were applied. Reddy catheter and arterial line were placed. Patient placed on the operating table in the prone position on a Markus frame. All bony problems were padded, the back was prepped and draped in usual sterile fashion. I injected the incision site with Marcaine and epinephrine. Incision was made through the skin and taken down to the dorsal fascia, which was incised with Bovie cautery. I then subperiosteally dissected the L4, L5 and S1 lamina bilaterally. I then placed a Kerrisons under the lamina and took lateral films to confirm the correct levels. Once this was confirmed, central decompressive laminectomy was performed at L4-5 and L5-S1. I decompressed the central canal and decompressed the L4, L5 and S1 nerve roots bilaterally. After completing this, left-sided nerve signals improved but the patient's still had a residual nerve compression on the right, L4 and S1 nerve roots. As such, I brought the microscope in. I extended the facetectomy on the right side at the L4-5 level. I identified the anulus and made annulotomy and removed the far-lateral disc herniations. This discectomy was done in order to further alleviate the stenosis. This allowed the L4 nerve signal to return to normal. I then turned my attention to the L5-S1 level. Similarly here I extended the facetectomy more laterally. Here, however, there was a conjoined nerve root and I was unable to immobilize the nerve to identify the anulus to make an annulotomy. That said, however, after further decompression, the nerve signals returned to normal. At the end of the case all nerve signals returned to normal. Once this was done, I irrigated the wound. Hemostasis was achieved with bipolar cautery and Surgifoam. Valsalva maneuver was performed. There was no leak of CSF. Microscope was taken off the field. I passed an epidural catheter through which I injected 100 mcg of fentanyl. I placed a drain subfascially and closed the fascia with a number 1 Vicryl stitch. I closed subcutaneous tissue with 2-0 Vicryl stitch. 4-0 Monocryl closure then performed. Dermabond and sterile dressing was then applied. The patient was then awakened from anesthesia, and taken to recovery in stable condition. Lap, sponge, and counts correct x2. There were no apparent complications during the procedure. The patient was admitted to [facility] for routine postoperative care to include pain control, antibiotics and physical therapy. Dictated By: Maycol Vila MD /loni/aranza /Document#: [id number]
[2017-07-06] MEDS: 1/2 NS + KCL 20 MEQ 1,000 ML IV SCH ×2 (18:57→23:55)
[2017-07-06] MEDS: SUCRALFATE 1 GM TAB PO SCH (19:03)
[2017-07-06] MEDS: metFORMIN 500 MG TAB PO SCH (19:04)
[2017-07-06] MEDS: CYCLOBENZAPRINE 10 MG TAB PO PRN (20:07)
[2017-07-06] MEDS: ALBUTEROL 18 GM INHALER INH SCH (20:21)
[2017-07-06] MEDS: IPRATROPIUM (HFA) 12.9 GM INHALER INH SCH (20:22)
--- NOTE | 2017-07-06 20:36 | CONS ---
Date/Time of Note Date/Time of Note DATE: 07/06/17 TIME: 20:32 Assessment/Plan Assessment/Plan Additional Assessment/Plan Status post laminectomy CAD with history of PCI November 2016 Hypertension Preserved ejection fraction Diabetes Obesity Arthritis -Patient status post spinal surgery. Would recommend restarting dual antiplatelet therapy as soon as possible, when okay by our surgery colleagues given patient with drug-eluting coronary stents placed less than 1 year ago. Continue beta-tomas and statin therapy. Pain management. Consultation Date/Type/Reason Admit Date/Time July 06, 2017 Type of Consultation: cv Reason for Consultation Cardiac evaluation Hx of Present Illness This is a 61-year-old male with extensive cardiac history including multiple PCI in November 2016 with status post spinal surgery. Patient doing well postoperatively and denies chest pain, shortness of breath, palpitations or dizziness. Denies any back pain. Denied exertional chest pain or shortness of breath prior to procedure but activity was quite limited secondary to his spinal disease. Constitutional: no complaints Eyes: no complaints ENT: no complaints Respiratory: no complaints Cardiovascular: no complaints Gastrointestinal: no complaints Genitourinary: no complaints Musculoskeletal: back pain Skin: no complaints Neurologic: no complaints Endocrine: no complaints Lymphatic: no complaints Psychological: nl mood/affect, no complaints Immunologic: no complaints Past Medical History Medical History: congestive heart failure, coronary artery disease, diabetes, GERD, high cholesterol, hypertension Past Surgical History Past Surgical Hx: angioplasty, appendectomy, cholecystectomy, other Social History Alcohol Use: none Smoking Status: Never smoker Drug Use: none Exam/Review of Systems Vital Signs Vitals Vital Signs Date Time Temp Pulse Resp B/P Pulse Ox O2 Delivery O2 Flow Rate FiO2 07/06/17 18:42 98.7 74 14 152/67 98 Nasal Cannula 2.0 Exam Family at bedside Constitutional: alert, obese, oriented Head: normocephalic Respiratory: clear to auscultation, normal air movement Cardiovascular: other (S1-S2 heard), regular rate and rhythm Gastrointestinal: bowel sounds, non-tender, soft Genitourinary - Male: other (Has Reddy) Extremities: edema (Trace) Results Results 24 hrs Laboratory Tests Test 07/06/17 11:03 07/06/17 17:03 Bedside Glucose 135 104 Medications Medications Current Medications Lactated Ringer's 1,000 ml @ 0 mls/hr Q0M IV* ; Start 07/06/17 at 06:00; Stop 07/06/17 at 23:00 Vancomycin HCl 250 ml @ 125 mls/hr PREOP IVPB Last administered on 07/06/17 12:21; Admin Dose 125 MLS/HR; Start 07/06/17 at 06:00; Stop 07/06/17 at 23:00 Potassium Chloride/Sodium Chloride (1/2 NS + KCl 20 Meq) 1,000 ml @ 100 mls/hr Q10H IV Last administered on 07/06/17 18:57; Admin Dose 100 MLS/HR; Start at 13:55 Acetaminophen/ Hydrocodone Bitart ([place] (10/325)) 1 tab Q4H PRN PO PAIN LEVEL 1-5; Start 07/06/17 at 14:00 Acetaminophen/ Hydrocodone Bitart ([place] (10/325)) 2 tab Q4H PRN PO PAIN LEVEL 6-10; Start 07/06/17 at 14:00 Hydromorphone HCl 0.2 mg 0.2 mg Q1H PRN IV BREAKTHROUGH PAIN; Start 07/06/17 at 14:00 Vancomycin HCl (Vancocin) 250 ml @ 125 mls/hr Q12H IVPB ; Start 07/06/17 at 14: 00; Stop 07/07/17 at 03:59 Ondansetron HCl (Zofran Inj) 4 mg Q6H PRN IV NAUSEA AND/OR VOMITING; Start at 14:00 Bisacodyl (Dulcolax Supp) 10 mg DAILY PRN [place] CONSTIPATION; Start 07/06/17 at 14 :00 Docusate Sodium (Colace) 100 mg BID PO ; Start 07/06/17 at 21:00 Acetaminophen (Tylenol Tab) 650 mg Q4H PRN PO MONTESINOS OR TEMP GREATER THAN 101.3F; Start 07/06/17 at 14:00 Cyclobenzaprine HCl (Flexeril) 10 mg TID PRN PO MUSCLE SPASMS Last administered on 07/06/17 20:07; Admin Dose 10 MG; Start 07/06/17 at 14:00 Phenol (Cepastat Lozenge) 1 lozenge PRN PRN [place] SORE THROAT; Start 07/06/17 at 14:00 Diphenhydramine HCl (Benadryl) 25 mg Q6H PRN IV ITCHING; Start 07/06/17 at 14: 00 Naloxone HCl (Narcan) 0.2 mg Q2M PRN IV RR 8 BREATHS/MIN OR LESS; Start at 14:00 Hydromorphone HCl (Dilaudid AUTO MECHANIC APPRENTICE) AUTO MECHANIC APPRENTICE to be started in PACU Q4PCA IV Last administered on 07/06/17 17:15; Admin Dose 6 MG; Start 07/06/17 at 14:00 Miscellaneous Information 1. Hold AUTO MECHANIC APPRENTICE at 1,000... AUTO MECHANIC APPRENTICE IV ; Start 07/06/17 at 14: 00 Atorvastatin Calcium (Lipitor) 40 mg DAILY PO ; Start 07/07/17 at 09:00 Baclofen (Lioresal) 5 mg TID PO ; Start 07/06/17 at 21:00 Buspirone HCl (Buspar) 20 mg TID PO ; Start 07/06/17 at 21:00 Carvedilol (Coreg) 12.5 mg BID PO ; Start 07/06/17 at 21:00 Famotidine (Pepcid) 40 mg HS PO ; Start 07/06/17 at 21:00 Furosemide (Lasix) 40 mg QAM PO ; Start 07/07/17 at 09:00 Gabapentin (Neurontin) 300 mg TID PO ; Start 07/06/17 at 21:00 Losartan Potassium (Cozaar) 100 mg DAILY PO ; Start 07/07/17 at 09:00 Spironolactone (Aldactone) 25 mg QAM PO ; Start 07/07/17 at 09:00 Sucralfate (Carafate) 1 gm Q6 PO Last administered on 07/06/17 19:03; Admin Dose 1 GM; Start 07/06/17 at 18:00 Tamsulosin HCl (Flomax) 0.8 mg HS PO ; Start 07/06/17 at 21:00 Exenatide (Byetta) 5 mcg BID SC ; Start 07/06/17 at 21:00 Pantoprazole (Protonix Tab) 40 mg DAILY@06 PO ; Start 07/07/17 at 06:00 Miscellaneous Information 1 ea NOTE XX ; Start 07/06/17 at 18:00 Glucose (Glutose) 15 gm Q15M PRN PO DECREASED GLUCOSE; Start 07/06/17 at 18:00 Glucose (Glutose) 22.5 gm Q15M PRN PO DECREASED GLUCOSE; Start 07/06/17 at 18: 00 Dextrose (D50w Syringe) 25 ml Q15M PRN IV DECREASED GLUCOSE; Start 07/06/17 at 18:00 Dextrose (D50w Syringe) 50 ml Q15M PRN IV DECREASED GLUCOSE; Start 07/06/17 at 18:00 Glucagon (Glucagen) 1 mg Q15M PRN IM DECREASED GLUCOSE; Start 07/06/17 at 18:00 Glucose (Glutose) 15 gm Q15M PRN BUCCAL DECREASED GLUCOSE; Start 07/06/17 at 18 :00 Albuterol (Ventolin Hfa) 1 puff QID INH Last administered on 07/06/17 20:21; Admin Dose 1 PUFF; Start 07/06/17 at 21:00 Ipratropium [place] (Atrovent Hfa) 1 puff QID INH Last administered on 20:22; Admin Dose 1 PUFF; Start 07/06/17 at 21:00 Humble Cohen DO Jul 06, 2017 20:36
[2017-07-06] MEDS ORDERED: NON-FORMULARY/PATIENT OWN MED (Albuterol/Ipratropium* (Combivent Respimat*) 1 PUFF) INHALATION SCH (21:00)
[2017-07-06] MEDS: EXENATIDE 250 MCG/ML 1.2ML PEN SC SCH (21:00)
[2017-07-06] MEDS: BACLOFEN 10 MG TAB PO SCH (21:02)
[2017-07-06] MEDS: BUSPIRONE 10 MG TAB PO SCH (21:03)
[2017-07-06] MEDS: FAMOTIDINE 20 MG TAB PO SCH (21:03)
[2017-07-06] MEDS: TAMSULOSIN (SR) 0.4 MG CAP PO SCH (21:03)
[2017-07-06] MEDS: DOCUSATE SODIUM 100 MG CAP PO SCH (21:03)
[2017-07-06] MEDS: GABAPENTIN 300 MG CAP PO SCH (21:03)
[2017-07-06] MEDS: HYDROmorphONE 1 MG/ML SYG IV PRN (22:27)
[2017-07-07] MEDS: VANCOMYCIN 1 GM (PMX) 250 ML IVPB SCH ×2 (00:29→12:43)
[2017-07-07] MEDS: SUCRALFATE 1 GM TAB PO SCH ×4 (00:29→18:44)
[2017-07-07] MEDS: HYDROmorphONE 1 MG/ML SYG IV PRN ×2 (03:17→06:27)
[2017-07-07] MEDS: HYDROmorphONE 0.2 MG/ML PCA IV SCH ×2 (03:35→09:05)
[2017-07-07 05:28] LABS: BASOPHILS % 0.3 % (0.0-2.0); EOSINOPHILS # 0.1 10^3/ul (0.0-0.5); EOSINOPHILS % 1.5 % (0.0-7.0); HEMATOCRIT 32.9 % (42.0-52.0); HEMOGLOBIN 10.5 g/dl (14.0-18.0); LYMPHOCYTES # 0.9 10^3/ul (0.8-2.9); LYMPHOCYTES % 15.5 % (15.0-51.0); MEAN CORPUSCULAR HEMOGLOBIN 27.9 pg (29.0-33.0); MEAN CORPUSCULAR HGB CONC 31.9 g/dl (32.0-37.0); MEAN CORPUSCULAR VOLUME 87.5 fl (82.0-101.0); MEAN PLATELET VOLUME 9.2 fl (7.4-10.4); MONOCYTE # 0.9 10^3/ul (0.3-0.9); NEUTROPHIL # 3.9 10^3/ul (1.6-7.5); PLATELET COUNT 144 10^3/UL (140-415); RED BLOOD COUNT 3.76 10^6/ul (4.70-6.10); RED CELL DISTRIBUTION WIDTH 14.9 % (11.5-14.5); WHITE BLOOD COUNT 5.9 10^3/ul (4.8-10.8)
[2017-07-07] MEDS: PANTOPRAZOLE (EC) 40 MG TAB PO SCH (05:55)
[2017-07-07] MEDS: 1/2 NS + KCL 20 MEQ 1,000 ML IV SCH ×2 (05:57→17:44)
[2017-07-07 06:05] LABS: CALCIUM 8.5 mg/dl (8.4-10.2); CREATININE 0.84 mg/dl (0.61-1.24); MAGNESIUM 2.2 mg/dl (1.7-2.5); POTASSIUM 4.3 mmol/L (3.5-5.1)
[2017-07-07] MEDS: CYCLOBENZAPRINE 10 MG TAB PO PRN (06:36)
[2017-07-07 07:30] VITALS: BP 136/63; RESP 18
[2017-07-07] MEDS: EXENATIDE 250 MCG/ML 1.2ML PEN SC SCH ×2 (09:00→21:00)
[2017-07-07] MEDS: BACLOFEN 10 MG TAB PO SCH ×3 (09:08→21:01)
[2017-07-07] MEDS: DOCUSATE SODIUM 100 MG CAP PO SCH ×2 (09:10→21:01)
[2017-07-07] MEDS: FUROSEMIDE 40 MG TAB PO SCH (09:10)
[2017-07-07] MEDS: LOSARTAN 50 MG TAB PO SCH (09:22)
[2017-07-07] MEDS: GABAPENTIN 300 MG CAP PO SCH ×3 (09:23→21:02)
[2017-07-07] MEDS: metFORMIN 500 MG TAB PO SCH ×2 (09:24→17:38)
[2017-07-07] MEDS: BUSPIRONE 10 MG TAB PO SCH ×3 (09:42→21:01)
[2017-07-07] MEDS: ATORVASTATIN 40 MG TAB PO SCH (09:43)
[2017-07-07] MEDS: SPIRONOLACTONE 25 MG TAB PO SCH (09:43)
[2017-07-07] MEDS: ALBUTEROL 18 GM INHALER INH SCH ×4 (09:45→21:02)
[2017-07-07] MEDS: IPRATROPIUM (HFA) 12.9 GM INHALER INH SCH ×4 (09:45→21:02)
--- NOTE | 2017-07-07 09:49 | PN ---
Date/Time of Note Date/Time of Note DATE: 07/07/17 TIME: 09:48 Assessment/Plan Lines/Catheters IV Catheter Type (from Nrsg): Peripheral IV Reddy in Place (from Nrsg): Yes Assessment/Plan Assessment/Plan s/p lumbar fusion change to soma cont current care Subjective 24 Hr Interval Summary c/o back pain Exam/Review of Systems Vital Signs Vitals Vital Signs Date Time Temp Pulse Resp B/P Pulse Ox O2 Delivery O2 Flow Rate FiO2 07/07/17 07:30 98.7 80 18 136/63 98 07/06/17 20:12 Nasal Cannula 2.0 Intake and Output 07/06/17 07/06/17 07/07/17 15:00 23:00 07:00 Intake Total 1400 ml 1950 ml Output Total 656 ml 1300 ml Balance 744 ml 650 ml Exam Free Text/Dictation nvi Results Result Diagram: 07/07/17 0459 07/07/17 0459 KARLA BRANTLEY MD Jul 07, 2017 09:49
[2017-07-07] MEDS: CARISOPRODOL 350 MG TAB PO SCH ×2 (12:45→21:00)
--- NOTE | 2017-07-07 12:55 | CONS ---
Date/Time of Note Date/Time of Note DATE: 07/07/17 TIME: 12:54 Assessment/Plan Assessment/Plan Additional Assessment/Plan Status post laminectomy CAD with history of PCI November 2016 Hypertension Preserved ejection fraction Diabetes Obesity Arthritis -Patient status post spinal surgery. Would recommend restarting dual antiplatelet therapy as soon as possible, when okay by our surgery colleagues given patient with drug-eluting coronary stents placed less than 1 year ago. Continue beta-tomas and statin therapy. Pain management. Consultation Date/Type/Reason Admit Date/Time Jul 06, 2017 at 09:51 Initial Consult Date 06/25/17 Type of Consultation: cv Referring Provider: KARLA BRANTLEY MD 24 HR Interval Summary Free Text/Dictation Ambulating today, denies chest pain, shortness of breath, dizziness or palpitations Exam/Review of Systems Vital Signs Vitals Vital Signs Date Time Temp Pulse Resp B/P Pulse Ox O2 Delivery O2 Flow Rate FiO2 07/07/17 08:00 2.0 07/07/17 07:30 98.7 80 18 136/63 98 07/06/17 20:12 Nasal Cannula Intake and Output 07/06/17 07/06/17 07/07/17 15:00 23:00 07:00 Intake Total 1400 ml 1950 ml Output Total 656 ml 1300 ml Balance 744 ml 650 ml Exam No apparent distress Constitutional: alert, obese, oriented Head: normocephalic Respiratory: other (Coarse breath sounds bilaterally, no wheezing) Cardiovascular: other (S1-S2 heard), regular rate and rhythm Gastrointestinal: bowel sounds, non-tender, soft Extremities: edema Results Result Diagram: 07/07/17 0459 07/07/17 0459 Results 24 hrs Laboratory Tests Test 07/06/17 17:03 07/07/17 00:34 07/07/17 04:59 07/07/17 05:54 Bedside Glucose 104 96 114 White Blood Count 5.9 # Red Blood Count 3.76 L Hemoglobin 10.5 L Hematocrit 32.9 L Mean Corpuscular Volume 87.5 Mean Corpuscular Hemoglobin 27.9 L Mean Corpuscular Hemoglobin Concent 31.9 L Red Cell Distribution Width 14.9 H Platelet Count 144 Mean Platelet Volume 9.2 Neutrophils % 67.0 Lymphocytes % 15.5 Monocytes % 15.0 H Eosinophils % 1.5 Basophils % 0.3 Nucleated Red Blood Cells % 0.0 Neutrophils # 3.9 Lymphocytes # 0.9 Monocytes # 0.9 Eosinophils # 0.1 Basophils # 0.0 Nucleated Red Blood Cells # 0.0 Sodium Level 135 Potassium Level 4.3 Chloride Level 103 Carbon Dioxide Level 28 Anion Gap 8 Blood Urea Nitrogen 20 Creatinine 0.84 Glucose Level 108 Calcium Level 8.5 Magnesium Level 2.2 Test 07/07/17 08:34 Bedside Glucose 128 Medications Medications Current Medications Potassium Chloride/Sodium Chloride (1/2 NS + KCl 20 Meq) 1,000 ml @ 100 mls/hr Q10H IV Last administered on 07/07/17 05:57; Admin Dose 100 MLS/HR; Start at 13:55 Acetaminophen/ Hydrocodone Bitart ([place] (10/325)) 1 tab Q4H PRN PO PAIN LEVEL 1-5; Start 07/06/17 at 14:00 Acetaminophen/ Hydrocodone Bitart ([place] (10/325)) 2 tab Q4H PRN PO PAIN LEVEL 6-10; Start 07/06/17 at 14:00 Hydromorphone HCl (Dilaudid) 0.2 mg Q1H PRN IV BREAKTHROUGH PAIN Last administered on 07/07/17 06:27; Admin Dose 0.2 MG; Start 07/06/17 at 14:00 Ondansetron HCl (Zofran Inj) 4 mg Q6H PRN IV NAUSEA AND/OR VOMITING; Start at 14:00 Bisacodyl (Dulcolax Supp) 10 mg DAILY PRN [place] CONSTIPATION; Start 07/06/17 at 14 :00 Docusate Sodium (Colace) 100 mg BID PO Last administered on 07/07/17 09:10; Admin Dose 100 MG; Start 07/06/17 at 21:00 Acetaminophen (Tylenol Tab) 650 mg Q4H PRN PO MONTESINOS OR TEMP GREATER THAN 101.3F; Start 07/06/17 at 14:00 Phenol (Cepastat Lozenge) 1 lozenge PRN PRN [place] SORE THROAT Last administered on 07/07/17 00:29; Admin Dose 2 LOZENGE; Start 07/06/17 at 14:00 Diphenhydramine HCl (Benadryl) 25 mg Q6H PRN IV ITCHING; Start 07/06/17 at 14: 00 Naloxone HCl (Narcan) 0.2 mg Q2M PRN IV RR 8 BREATHS/MIN OR LESS; Start at 14:00 Miscellaneous Information 1. Hold DIE EQUIPMENT OPERATOR at 1,000... DIE EQUIPMENT OPERATOR IV ; Start 07/06/17 at 14: 00 Atorvastatin Calcium (Lipitor) 40 mg DAILY PO Last administered on 07/07/17 09 :43; Admin Dose 40 MG; Start 07/07/17 at 09:00 Baclofen (Lioresal) 5 mg TID PO Last administered on 07/07/17 12:45; Admin Dose 5 MG; Start 07/06/17 at 21:00 Buspirone HCl (Buspar) 20 mg TID PO Last administered on 07/07/17 12:45; Admin Dose 20 MG; Start 07/06/17 at 21:00 Carvedilol (Coreg) 12.5 mg BID PO Last administered on 07/07/17 09:43; Admin Dose 12.5 MG; Start 07/06/17 at 21:00 Famotidine (Pepcid) 40 mg HS PO Last administered on 07/06/17 21:03; Admin Dose 40 MG; Start 07/06/17 at 21:00 Furosemide (Lasix) 40 mg QAM PO Last administered on 07/07/17 09:10; Admin Dose 40 MG; Start 07/07/17 at 09:00 Gabapentin (Neurontin) 300 mg TID PO Last administered on 07/07/17 12:44; Admin Dose 300 MG; Start 07/06/17 at 21:00 Losartan Potassium (Cozaar) 100 mg DAILY PO Last administered on 07/07/17 09: 22; Admin Dose 100 MG; Start 07/07/17 at 09:00 Spironolactone (Aldactone) 25 mg QAM PO Last administered on 07/07/17 09:43; Admin Dose 25 MG; Start 07/07/17 at 09:00 Sucralfate (Carafate) 1 gm Q6 PO Last administered on 07/07/17 12:45; Admin Dose 1 GM; Start 07/06/17 at 18:00 Tamsulosin HCl (Flomax) 0.8 mg HS PO Last administered on 07/06/17 21:03; Admin Dose 0.8 MG; Start 07/06/17 at 21:00 Exenatide (Byetta) 5 mcg BID SC ; Start 07/06/17 at 21:00 Pantoprazole (Protonix Tab) 40 mg DAILY@06 PO Last administered on 07/07/17 05 :55; Admin Dose 40 MG; Start 07/07/17 at 06:00 Miscellaneous Information 1 ea NOTE XX ; Start 07/06/17 at 18:00 Glucose (Glutose) 15 gm Q15M PRN PO DECREASED GLUCOSE; Start 07/06/17 at 18:00 Glucose (Glutose) 22.5 gm Q15M PRN PO DECREASED GLUCOSE; Start 07/06/17 at 18: 00 Dextrose (D50w Syringe) 25 ml Q15M PRN IV DECREASED GLUCOSE; Start 07/06/17 at 18:00 Dextrose (D50w Syringe) 50 ml Q15M PRN IV DECREASED GLUCOSE; Start 07/06/17 at 18:00 Glucagon (Glucagen) 1 mg Q15M PRN IM DECREASED GLUCOSE; Start 07/06/17 at 18:00 Glucose (Glutose) 15 gm Q15M PRN BUCCAL DECREASED GLUCOSE; Start 07/06/17 at 18 :00 Albuterol (Ventolin Hfa) 1 puff QID INH Last administered on 07/07/17 09:45; Admin Dose 1 PUFF; Start 07/06/17 at 21:00 Ipratropium [place] 1 puff 1 puff QID INH Last administered on 07/07/17 09:45 ; Admin Dose 1 PUFF; Start 07/06/17 at 21:00 Vancomycin HCl (Vancocin) 250 ml @ 125 mls/hr Q12H IVPB Last administered on 12:43; Admin Dose 125 MLS/HR; Start 07/07/17 at 00:00; Stop 07/07/17 at 13:59 Hydromorphone HCl (Dilaudid DIE EQUIPMENT OPERATOR) DIE EQUIPMENT OPERATOR to be started in PACU Q4PCA IV Last administered on 07/07/17 09:05; Admin Dose 6 MG; Start 07/07/17 at 07:00 Carisoprodol (Soma) 350 mg TID PO Last administered on 07/07/17 12:45; Admin Dose 350 MG; Start 07/07/17 at 13:00 Humlbe Cohen DO Jul 07, 2017 12:55
--- NOTE | 2017-07-07 13:01 | CONS ---
Date/Time of Note Date/Time of Note DATE: 07/07/17 TIME: 12:57 Assessment/Plan Assessment/Plan Chief Complaint/Hosp Course 61-year-old right-handed male being brought in electively for spinal surgery due to spinal stenosis. He has advanced multiple medical problems. Problems: (1) BPH w urinary obs/LUTS Status: Chronic Comment: Continue with treatment. He is Reddy should come out today. (2) Coronary artery disease Status: Chronic Qualifiers: Coronary Disease-Associated Artery/Lesion type: [place] artery [place] vs. transplanted heart: [place] heart Associated angina: without angina Qualified Code: I25.10 - Coronary artery disease involving [place] coronary artery of [place] heart without angina pectoris (3) Systolic CHF with reduced left ventricular function, NYHA class 2 Status: Chronic Comment: He is stable on his current medical regimen and compensated. (4) Diabetes mellitus type 2 in obese Status: Chronic Comment: Excellent control with his current regimen. Please note the Byetta is another brand of GLP 1 drug the same as the Victoza if using the Victoza it is 1.2 mg every morning. The second click on the device (5) Obstructive sleep apnea Status: Chronic Comment: Noted. Declines using CPAP (6) Diastolic dysfunction Status: Chronic Comment: Stable on treatment (7) Status post lumbar laminectomy Onset Date: ~ 07/06/2017 Status: Acute Comment: Proceeding postoperatively. Consultation Date/Type/Reason Admit Date/Time Jul 06, 2017 at 09:51 Initial Consult Date 06/25/17 Type of Consultation: Endocrinology-internal medicin Reason for Consultation Diabetes mellitus type 2; CHF [place] [employer] 2 diastolic and systolic; obesity; Referring Provider: KARLA BRANTLEY MD 24 HR Interval Summary Free Text/Dictation She was starting his diet today. He reports is been up with physical therapist. Constitutional: no complaints (No fevers chills or sweats) Detailed Summary Respiratory: no complaints Cardiovascular: no complaints (denies PND orthopnea palpitations etc.) Gastrointestinal: no complaints Genitourinary: no complaints Exam/Review of Systems Vital Signs Vitals Vital Signs Date Time Temp Pulse Resp B/P Pulse Ox O2 Delivery O2 Flow Rate FiO2 07/07/17 08:00 2.0 07/07/17 07:30 98.7 80 18 136/63 98 07/06/17 20:12 Nasal Cannula Intake and Output 07/06/17 07/06/17 07/07/17 15:00 23:00 07:00 Intake Total 1400 ml 1950 ml Output Total 656 ml 1300 ml Balance 744 ml 650 ml Exam Constitutional: alert, oriented Neck: non-tender, supple Respiratory: clear to auscultation, normal air movement Cardiovascular: nl pulses, regular rate and rhythm Gastrointestinal: nl liver, spleen, non-tender, soft Results Result Diagram: 07/07/17 0459 07/07/17 0459 Results 24 hrs Laboratory Tests Test 07/06/17 17:03 07/07/17 00:34 07/07/17 04:59 07/07/17 05:54 Bedside Glucose 104 96 114 White Blood Count 5.9 # Red Blood Count 3.76 L Hemoglobin 10.5 L Hematocrit 32.9 L Mean Corpuscular Volume 87.5 Mean Corpuscular Hemoglobin 27.9 L Mean Corpuscular Hemoglobin Concent 31.9 L Red Cell Distribution Width 14.9 H Platelet Count 144 Mean Platelet Volume 9.2 Neutrophils % 67.0 Lymphocytes % 15.5 Monocytes % 15.0 H Eosinophils % 1.5 Basophils % 0.3 Nucleated Red Blood Cells % 0.0 Neutrophils # 3.9 Lymphocytes # 0.9 Monocytes # 0.9 Eosinophils # 0.1 Basophils # 0.0 Nucleated Red Blood Cells # 0.0 Sodium Level 135 Potassium Level 4.3 Chloride Level 103 Carbon Dioxide Level 28 Anion Gap 8 Blood Urea Nitrogen 20 Creatinine 0.84 Glucose Level 108 Calcium Level 8.5 Magnesium Level 2.2 Test 07/07/17 08:34 Bedside Glucose 128 Medications Medications Current Medications Potassium Chloride/Sodium Chloride (1/2 NS + KCl 20 Meq) 1,000 ml @ 100 mls/hr Q10H IV Last administered on 07/07/17t 05:57; Admin Dose 100 MLS/HR; Start at 13:55 Acetaminophen/ Hydrocodone Bitart ([place] (10/325)) 1 tab Q4H PRN PO PAIN LEVEL 1-5; Start 07/06/17 at 14:00 Acetaminophen/ Hydrocodone Bitart ([place] (10/325)) 2 tab Q4H PRN PO PAIN LEVEL 6-10; Start 07/06/17 at 14:00 Hydromorphone HCl (Dilaudid) 0.2 mg Q1H PRN IV BREAKTHROUGH PAIN Last administered on 07/07/17 06:27; Admin Dose 0.2 MG; Start 07/06/17 at 14:00 Ondansetron HCl (Zofran Inj) 4 mg Q6H PRN IV NAUSEA AND/OR VOMITING; Start at 14:00 Bisacodyl (Dulcolax Supp) 10 mg DAILY PRN [place] CONSTIPATION; Start 07/06/17 at 14 :00 Docusate Sodium (Colace) 100 mg BID PO Last administered on 07/07/17 09:10; Admin Dose 100 MG; Start 07/06/17 at 21:00 Acetaminophen (Tylenol Tab) 650 mg Q4H PRN PO MONTESINOS OR TEMP GREATER THAN 101.3F; Start 07/06/17 at 14:00 Phenol (Cepastat Lozenge) 1 lozenge PRN PRN [place] SORE THROAT Last administered on 07/07/17 00:29; Admin Dose 2 LOZENGE; Start 07/06/17 at 14:00 Diphenhydramine HCl (Benadryl) 25 mg Q6H PRN IV ITCHING; Start 07/06/17 at 14: 00 Naloxone HCl (Narcan) 0.2 mg Q2M PRN IV RR 8 BREATHS/MIN OR LESS; Start at 14:00 Miscellaneous Information 1. Hold MILANESE KNITTING MACHINE OPERATOR at 1,000... MILANESE KNITTING MACHINE OPERATOR IV ; Start 07/06/17 at 14: 00 Atorvastatin Calcium (Lipitor) 40 mg DAILY PO Last administered on 07/07/17 09 :43; Admin Dose 40 MG; Start 07/07/17 at 09:00 Baclofen (Lioresal) 5 mg TID PO Last administered on 07/07/17 12:45; Admin Dose 5 MG; Start 07/06/17 at 21:00 Buspirone HCl (Buspar) 20 mg TID PO Last administered on 07/07/17 12:45; Admin Dose 20 MG; Start 07/06/17 at 21:00 Carvedilol (Coreg) 12.5 mg BID PO Last administered on 07/07/17 09:43; Admin Dose 12.5 MG; Start 07/06/17 at 21:00 Famotidine (Pepcid) 40 mg HS PO Last administered on 07/06/17 21:03; Admin Dose 40 MG; Start 07/06/17 at 21:00 Furosemide (Lasix) 40 mg QAM PO Last administered on 07/07/17 09:10; Admin Dose 40 MG; Start 07/07/17 at 09:00 Gabapentin (Neurontin) 300 mg TID PO Last administered on 07/07/17 12:44; Admin Dose 300 MG; Start 07/06/17 at 21:00 Losartan Potassium (Cozaar) 100 mg DAILY PO Last administered on 07/07/17 09: 22; Admin Dose 100 MG; Start 07/07/17 at 09:00 Spironolactone (Aldactone) 25 mg QAM PO Last administered on 07/07/17 09:43; Admin Dose 25 MG; Start 07/07/17 at 09:00 Sucralfate (Carafate) 1 gm Q6 PO Last administered on 07/07/17 12:45; Admin Dose 1 GM; Start 07/06/17 at 18:00 Tamsulosin HCl (Flomax) 0.8 mg HS PO Last administered on 07/06/17 21:03; Admin Dose 0.8 MG; Start 07/06/17 at 21:00 Exenatide (Byetta) 5 mcg BID SC ; Start 07/06/17 at 21:00 Pantoprazole (Protonix Tab) 40 mg DAILY@06 PO Last administered on 07/07/17 05 :55; Admin Dose 40 MG; Start 07/07/17 at 06:00 Miscellaneous Information 1 ea NOTE XX ; Start 07/06/17 at 18:00 Glucose (Glutose) 15 gm Q15M PRN PO DECREASED GLUCOSE; Start 07/06/17 at 18:00 Glucose (Glutose) 22.5 gm Q15M PRN PO DECREASED GLUCOSE; Start 07/06/17 at 18: 00 Dextrose (D50w Syringe) 25 ml Q15M PRN IV DECREASED GLUCOSE; Start 07/06/17 at 18:00 Dextrose (D50w Syringe) 50 ml Q15M PRN IV DECREASED GLUCOSE; Start 07/06/17 at 18:00 Glucagon (Glucagen) 1 mg Q15M PRN IM DECREASED GLUCOSE; Start 07/06/17 at 18:00 Glucose (Glutose) 15 gm Q15M PRN BUCCAL DECREASED GLUCOSE; Start 07/06/17 at 18 :00 Albuterol (Ventolin Hfa) 1 puff QID INH Last administered on 07/07/17 09:45; Admin Dose 1 PUFF; Start 07/06/17 at 21:00 Ipratropium [place] 1 puff 1 puff QID INH Last administered on 07/07/17 09:45 ; Admin Dose 1 PUFF; Start 07/06/17 at 21:00 Vancomycin HCl (Vancocin) 250 ml @ 125 mls/hr Q12H IVPB Last administered on 12:43; Admin Dose 125 MLS/HR; Start 07/07/17 at 00:00; Stop 07/07/17 at 13:59 Hydromorphone HCl (Dilaudid MILANESE KNITTING MACHINE OPERATOR) MILANESE KNITTING MACHINE OPERATOR to be started in PACU Q4PCA IV Last administered on 07/07/17 09:05; Admin Dose 6 MG; Start 07/07/17 at 07:00 Carisoprodol (Soma) 350 mg TID PO Last administered on 07/07/17 12:45; Admin Dose 350 MG; Start 07/07/17 at 13:00 SUNI CORRALES MD Jul 07, 2017 13:01
[2017-07-07] MEDS: INSULIN ASPART [NOVOLOG] 3 ML PEN SC SCH (18:43)
[2017-07-07 20:00] VITALS: BP 133/63; RESP 20
[2017-07-07] MEDS: TAMSULOSIN (SR) 0.4 MG CAP PO SCH (21:02)
[2017-07-07] MEDS: FAMOTIDINE 20 MG TAB PO SCH (21:02)
[2017-07-08] MEDS: CARISOPRODOL 350 MG TAB PO SCH ×4 (00:20→20:47)
[2017-07-08] MEDS: SUCRALFATE 1 GM TAB PO SCH ×5 (00:20→23:18)
[2017-07-08 02:00] VITALS: BP 127/72; RESP 20
[2017-07-08] MEDS: HYDROmorphONE 0.2 MG/ML PCA IV SCH (02:24)
[2017-07-08 05:24] LABS: BASOPHILS % 0.3 % (0.0-2.0); EOSINOPHILS % 0.6 % (0.0-7.0); HEMOGLOBIN 10.2 g/dl (14.0-18.0); LYMPHOCYTES # 1.1 10^3/ul (0.8-2.9); LYMPHOCYTES % 14.7 % (15.0-51.0); MEAN CORPUSCULAR HEMOGLOBIN 27.6 pg (29.0-33.0); MEAN CORPUSCULAR HGB CONC 31.9 g/dl (32.0-37.0); MEAN CORPUSCULAR VOLUME 86.5 fl (82.0-101.0); MEAN PLATELET VOLUME 9.8 fl (7.4-10.4); MONOCYTE # 1.2 10^3/ul (0.3-0.9); MONOCYTES % 16.8 % (0.0-11.0); NEUTROPHIL # 4.8 10^3/ul (1.6-7.5); NEUTROPHILS % 67.2 % (39.0-77.0); PLATELET COUNT 154 10^3/UL (140-415); RED CELL DISTRIBUTION WIDTH 15.2 % (11.5-14.5); WHITE BLOOD COUNT 7.1 10^3/ul (4.8-10.8)
[2017-07-08] MEDS: 1/2 NS + KCL 20 MEQ 1,000 ML IV SCH (05:55)
[2017-07-08] MEDS: PANTOPRAZOLE (EC) 40 MG TAB PO SCH (06:03)
[2017-07-08 06:12] LABS: CALCIUM 8.5 mg/dl (8.4-10.2); CREATININE 0.95 mg/dl (0.61-1.24); POTASSIUM 4.7 mmol/L (3.5-5.1)
[2017-07-08] MEDS ORDERED: SPECIAL NON-STANDARD MEDICATION SC SCH (07:20)
[2017-07-08 07:32] VITALS: BP 132/62; RESP 18
--- NOTE | 2017-07-08 08:18 | PN ---
Date/Time of Note Date/Time of Note DATE: 07/08/17 TIME: 08:16 Assessment/Plan Lines/Catheters IV Catheter Type (from Nrsg): Peripheral IV Beach in Place (from Nrsg): Yes Assessment/Plan Assessment/Plan s/p lumbar decompression D/C beach and DIVISION MANAGER today continue PT, ambulate pain control continue routine care anticipate D/C tomorrow from surgical standpoint, may resume anticoagulation per cardiology starting Subjective 24 Hr Interval Summary patient improving c/o back spasms Exam/Review of Systems Vital Signs Vitals Vital Signs Date Time Temp Pulse Resp B/P Pulse Ox O2 Delivery O2 Flow Rate FiO2 07/08/17 07:32 97.9 84 18 132/62 98 07/07/17 20:00 Nasal Cannula 2.0 Intake and Output 07/07/17 07/07/17 07/08/17 15:00 23:00 07:00 Intake Total 250 ml 960 ml 1100 ml Output Total 1620 ml 30 ml Balance 250 ml -660 ml 1070 ml Exam Free Text/Dictation drain output 30cc drain D/C'ed, incision C/D/I, new dressing applied NVID Results Result Diagram: 07/08/17 0433 07/08/17 0433 EMMANUEL QUINTANILLA PA-C Jul 08, 2017 08:18
[2017-07-08] MEDS: HYDROCODONE/APAP (10/325) TAB PO PRN ×4 (08:24→22:20)
[2017-07-08] MEDS: IPRATROPIUM (HFA) 12.9 GM INHALER INH SCH ×4 (09:00→20:48)
[2017-07-08] MEDS: ALBUTEROL 18 GM INHALER INH SCH ×4 (09:00→20:48)
[2017-07-08] MEDS: metFORMIN 500 MG TAB PO SCH ×2 (09:08→18:07)
[2017-07-08] MEDS: SPIRONOLACTONE 25 MG TAB PO SCH (09:08)
[2017-07-08] MEDS: DOCUSATE SODIUM 100 MG CAP PO SCH ×2 (09:09→20:47)
[2017-07-08] MEDS: ATORVASTATIN 40 MG TAB PO SCH (09:09)
[2017-07-08] MEDS: FUROSEMIDE 40 MG TAB PO SCH (09:09)
[2017-07-08] MEDS: GABAPENTIN 300 MG CAP PO SCH ×3 (09:09→20:47)
[2017-07-08] MEDS: BUSPIRONE 10 MG TAB PO SCH ×3 (09:09→20:48)
[2017-07-08] MEDS: LOSARTAN 50 MG TAB PO SCH (09:09)
[2017-07-08] MEDS: BACLOFEN 10 MG TAB PO SCH ×3 (09:10→20:47)
[2017-07-08] MEDS: INSULIN ASPART [NOVOLOG] 3 ML PEN SC SCH ×3 (09:15→18:29)
[2017-07-08] MEDS: LIRAGLUTIDE 0.6 MG/0.1 ML SC SCH (09:16)
[2017-07-08 13:35] VITALS: BP 136/63; RESP 18
--- NOTE | 2017-07-08 14:30 | CONS ---
Date/Time of Note Date/Time of Note DATE: 07/08/17 TIME: 14:28 Assessment/Plan Assessment/Plan Chief Complaint/Hosp Course 61-year-old right-handed male being brought in electively for spinal surgery due to spinal stenosis. He has advanced multiple medical problems. Problems: (1) Status post lumbar laminectomy Onset Date: ~ 07/06/2017 Status: Acute Comment: Postoperatively doing well. It appears that he is having a good outcome. Continue with physical therapy with possible discharge in morning (2) Diastolic dysfunction Status: Chronic Comment: Adequately controlled on beta blockade. (3) Systolic CHF with reduced left ventricular function, NYHA class 2 Status: Chronic Comment: Adequately controlled using combination of diuretics angiotensin II receptor blockers and beta-blockers (4) Obstructive sleep apnea Status: Chronic Comment: Noted. Hopefully he will be able to lose some weight which will then allow us to have an easier time with him (5) Diabetes mellitus type 2 in obese Status: Chronic Comment: His sugars are drifted up today although I believe that is a bit of dietary issues. Continue observation (6) Obesity (BMI 30-39.9) Status: Chronic Comment: Calorie restriction diet and counseled (7) BPH w urinary obs/LUTS Status: Chronic Comment: Stable and able to urinate without the Reddy catheter (8) Coronary artery disease Status: Chronic Comment: Quiescent. Resume Brilinta and aspirin in the morning Qualifiers: Coronary Disease-Associated Artery/Lesion type: [place] artery [place] vs. transplanted heart: [place] heart Associated angina: without angina Qualified Code: I25.10 - Coronary artery disease involving [place] coronary artery of [place] heart without angina pectoris Consultation Date/Type/Reason Admit Date/Time Jul 06, 2017 at 09:51 Initial Consult Date 06/25/17 Type of Consultation: Endocrinology-internal medicin Reason for Consultation Diabetes mellitus type 2; CHF systolic and diastolic; hypertension; hyperlipidemia; postoperative assistance Referring Provider: KARLA BRANTLEY MD 24 HR Interval Summary Free Text/Dictation He is feeling well and is moving around better. Constitutional: no complaints Detailed Summary Respiratory: no complaints Cardiovascular: no complaints Gastrointestinal: no complaints Genitourinary: no complaints Exam/Review of Systems Vital Signs Vitals Vital Signs Date Time Temp Pulse Resp B/P Pulse Ox O2 Delivery O2 Flow Rate FiO2 07/08/17 13:35 98.0 79 18 136/63 99 07/07/17 20:00 Nasal Cannula 2.0 Intake and Output 07/07/17 07/07/17 07/08/17 15:00 23:00 07:00 Intake Total 250 ml 960 ml 1100 ml Output Total 1620 ml 30 ml Balance 250 ml -660 ml 1070 ml Exam Constitutional: alert, oriented Respiratory: clear to auscultation, normal air movement Cardiovascular: nl pulses, regular rate and rhythm Gastrointestinal: nl liver, spleen, non-tender, soft Results Result Diagram: 07/08/17 0433 07/08/17 0433 Results 24 hrs Laboratory Tests Test 07/07/17 17:42 07/07/17 21:07 07/08/17 04:33 07/08/17 08:22 Bedside Glucose 167 199 231 H White Blood Count 7.1 # Red Blood Count 3.70 L Hemoglobin 10.2 L Hematocrit 32.0 L Mean Corpuscular Volume 86.5 Mean Corpuscular Hemoglobin 27.6 L Mean Corpuscular Hemoglobin Concent 31.9 L Red Cell Distribution Width 15.2 H Platelet Count 154 Mean Platelet Volume 9.8 Neutrophils % 67.2 Lymphocytes % 14.7 L Monocytes % 16.8 H Eosinophils % 0.6 Basophils % 0.3 Nucleated Red Blood Cells % 0.0 Neutrophils # 4.8 Lymphocytes # 1.1 Monocytes # 1.2 H Eosinophils # 0.0 Basophils # 0.0 Nucleated Red Blood Cells # 0.0 Sodium Level 130 L Potassium Level 4.7 Chloride Level 99 Carbon Dioxide Level 26 Anion Gap 10 Blood Urea Nitrogen 17 Creatinine 0.95 Glucose Level 210 # Calcium Level 8.5 Magnesium Level 2.0 Test 07/08/17 12:52 Bedside Glucose 239 H Medications Medications Current Medications Acetaminophen/ Hydrocodone Bitart ([place] (10/325)) 1 tab Q4H PRN PO PAIN LEVEL 1-5; Start 07/06/17 at 14:00 Acetaminophen/ Hydrocodone Bitart ([place] (10/325)) 2 tab Q4H PRN PO PAIN LEVEL 6-10 Last administered on 07/08/17 12:12; Admin Dose 2 TAB; Start 07/06/17 at 14:00 Hydromorphone HCl (Dilaudid) 0.2 mg Q1H PRN IV BREAKTHROUGH PAIN Last administered on 07/07/17 06:27; Admin Dose 0.2 MG; Start 07/06/17 at 14:00 Ondansetron HCl (Zofran Inj) 4 mg Q6H PRN IV NAUSEA AND/OR VOMITING; Start at 14:00 Bisacodyl (Dulcolax Supp) 10 mg DAILY PRN [place] CONSTIPATION; Start 07/06/17 at 14 :00 Docusate Sodium (Colace) 100 mg BID PO Last administered on 07/08/17 09:09; Admin Dose 100 MG; Start 07/06/17 at 21:00 Acetaminophen (Tylenol Tab) 650 mg Q4H PRN PO MONTESINOS OR TEMP GREATER THAN 101.3F; Start 07/06/17 at 14:00 Phenol (Cepastat Lozenge) 1 lozenge PRN PRN [place] SORE THROAT Last administered on 07/07/17 00:29; Admin Dose 2 LOZENGE; Start 07/06/17 at 14:00 Diphenhydramine HCl (Benadryl) 25 mg Q6H PRN IV ITCHING; Start 07/06/17 at 14: 00 Naloxone HCl (Narcan) 0.2 mg Q2M PRN IV RR 8 BREATHS/MIN OR LESS; Start at 14:00 Atorvastatin Calcium (Lipitor) 40 mg DAILY PO Last administered on 07/08/17 09 :09; Admin Dose 40 MG; Start 07/07/17 at 09:00 Baclofen (Lioresal) 5 mg TID PO Last administered on 07/08/17 12:58; Admin Dose 5 MG; Start 07/06/17 at 21:00 Buspirone HCl (Buspar) 20 mg TID PO Last administered on 07/08/17 12:58; Admin Dose 20 MG; Start 07/06/17 at 21:00 Carvedilol (Coreg) 12.5 mg BID PO Last administered on 07/08/17 09:10; Admin Dose 12.5 MG; Start 07/06/17 at 21:00 Famotidine (Pepcid) 40 mg HS PO Last administered on 07/07/17 21:02; Admin Dose 40 MG; Start 07/06/17 at 21:00 Furosemide (Lasix) 40 mg QAM PO Last administered on 07/08/17 09:09; Admin Dose 40 MG; Start 07/07/17 at 09:00 Gabapentin (Neurontin) 300 mg TID PO Last administered on 07/08/17 12:58; Admin Dose 300 MG; Start 07/06/17 at 21:00 Losartan Potassium (Cozaar) 100 mg DAILY PO Last administered on 07/08/17 09: 09; Admin Dose 100 MG; Start 07/07/17 at 09:00 Spironolactone (Aldactone) 25 mg QAM PO Last administered on 07/08/17 09:08; Admin Dose 25 MG; Start 07/07/17 at 09:00 Sucralfate (Carafate) 1 gm Q6 PO Last administered on 07/08/17 12:12; Admin Dose 1 GM; Start 07/06/17 at 18:00 Tamsulosin HCl (Flomax) 0.8 mg HS PO Last administered on 07/07/17 21:02; Admin Dose 0.8 MG; Start 07/06/17 at 21:00 Pantoprazole (Protonix Tab) 40 mg DAILY@06 PO Last administered on 07/08/17 06 :03; Admin Dose 40 MG; Start 07/07/17 at 06:00 Miscellaneous Information 1 ea NOTE XX ; Start 07/06/17 at 18:00 Glucose (Glutose) 15 gm Q15M PRN PO DECREASED GLUCOSE; Start 07/06/17 at 18:00 Glucose (Glutose) 22.5 gm Q15M PRN PO DECREASED GLUCOSE; Start 07/06/17 at 18: 00 Dextrose (D50w Syringe) 25 ml Q15M PRN IV DECREASED GLUCOSE; Start 07/06/17 at 18:00 Dextrose (D50w Syringe) 50 ml Q15M PRN IV DECREASED GLUCOSE; Start 07/06/17 at 18:00 Glucagon (Glucagen) 1 mg Q15M PRN IM DECREASED GLUCOSE; Start 07/06/17 at 18:00 Glucose (Glutose) 15 gm Q15M PRN BUCCAL DECREASED GLUCOSE; Start 07/06/17 at 18 :00 Albuterol (Ventolin Hfa) 1 puff QID INH Last administered on 07/07/17 21:02; Admin Dose 1 PUFF; Start 07/06/17 at 21:00 Ipratropium [place] (Atrovent Hfa) 1 puff QID INH Last administered on 21:02; Admin Dose 1 PUFF; Start 07/06/17 at 21:00 Hydromorphone HCl (Dilaudid SOCCER BALL ASSEMBLER) SOCCER BALL ASSEMBLER to be started in PACU Q4PCA IV Last administered on 07/08/17 02:24; Admin Dose 6 MG; Start 07/07/17 at 07:00 Carisoprodol (Soma) 350 mg TID PO Last administered on 07/08/17 12:58; Admin Dose 350 MG; Start 07/07/17 at 13:00 Patient Own Medication 0.6 ea DAILY SC Last administered on 07/08/17 09:16; Admin Dose 0.6 EA; Start 07/08/17 at 09:00 Ticagrelor (Brilinta) 90 mg BID PO ; Start 07/09/17 at 09:00 Aspirin (Halfprin) 81 mg DAILY PO ; Start 07/09/17 at 09:00 SUNI CORRALES MD Jul 08, 2017 14:30
--- NOTE | 2017-07-08 18:11 | CONS ---
Date/Time of Note Date/Time of Note DATE: 07/08/17 TIME: 18:10 Assessment/Plan Assessment/Plan Additional Assessment/Plan Status post laminectomy CAD with history of PCI November 2016 Hypertension Preserved ejection fraction Diabetes Obesity Arthritis -Patient status post spinal surgery. As per surgery, okay to restart dual antiplatelet therapy tomorrow. Continue beta-tomas and statin therapy. Pain management. Consultation Date/Type/Reason Admit Date/Time Jul 06, 2017 at 09:51 Initial Consult Date 06/25/17 Type of Consultation: cv Referring Provider: AKRLA BRANTLEY MD 24 HR Interval Summary Free Text/Dictation Denies chest pain, shortness of breath or palpitations Exam/Review of Systems Vital Signs Vitals Vital Signs Date Time Temp Pulse Resp B/P Pulse Ox O2 Delivery O2 Flow Rate FiO2 07/08/17 13:35 98.0 79 18 136/63 99 07/07/17 20:00 Nasal Cannula 2.0 Intake and Output 07/07/17 07/07/17 07/08/17 15:00 23:00 07:00 Intake Total 250 ml 960 ml 1100 ml Output Total 1620 ml 30 ml Balance 250 ml -660 ml 1070 ml Exam No apparent distress Constitutional: alert, obese, oriented Respiratory: other (Coarse breath sounds bilaterally, no wheezing) Cardiovascular: other (S1-S2 heard), regular rate and rhythm Gastrointestinal: bowel sounds, non-tender, soft Extremities: edema Results Result Diagram: 07/08/17 0433 07/08/17 0433 Results 24 hrs Laboratory Tests Test 07/07/17 21:07 07/08/17 04:33 07/08/17 08:22 07/08/17 12:52 Bedside Glucose 199 231 H 239 H White Blood Count 7.1 # Red Blood Count 3.70 L Hemoglobin 10.2 L Hematocrit 32.0 L Mean Corpuscular Volume 86.5 Mean Corpuscular Hemoglobin 27.6 L Mean Corpuscular Hemoglobin Concent 31.9 L Red Cell Distribution Width 15.2 H Platelet Count 154 Mean Platelet Volume 9.8 Neutrophils % 67.2 Lymphocytes % 14.7 L Monocytes % 16.8 H Eosinophils % 0.6 Basophils % 0.3 Nucleated Red Blood Cells % 0.0 Neutrophils # 4.8 Lymphocytes # 1.1 Monocytes # 1.2 H Eosinophils # 0.0 Basophils # 0.0 Nucleated Red Blood Cells # 0.0 Sodium Level 130 L Potassium Level 4.7 Chloride Level 99 Carbon Dioxide Level 26 Anion Gap 10 Blood Urea Nitrogen 17 Creatinine 0.95 Glucose Level 210 # Calcium Level 8.5 Magnesium Level 2.0 Test 07/08/17 17:36 Bedside Glucose 195 Medications Medications Current Medications Acetaminophen/ Hydrocodone Bitart ([place] (10/325)) 1 tab Q4H PRN PO PAIN LEVEL 1-5; Start 07/06/17 at 14:00 Acetaminophen/ Hydrocodone Bitart ([place] (10/325)) 2 tab Q4H PRN PO PAIN LEVEL 6-10 Last administered on 07/08/17 18:07; Admin Dose 2 TAB; Start 07/06/17 at 14:00 Hydromorphone HCl (Dilaudid) 0.2 mg Q1H PRN IV BREAKTHROUGH PAIN Last administered on 07/07/17 06:27; Admin Dose 0.2 MG; Start 07/06/17 at 14:00 Ondansetron HCl (Zofran Inj) 4 mg Q6H PRN IV NAUSEA AND/OR VOMITING; Start at 14:00 Bisacodyl (Dulcolax Supp) 10 mg DAILY PRN [place] CONSTIPATION; Start 07/06/17 at 14 :00 Docusate Sodium (Colace) 100 mg BID PO Last administered on 07/08/17 09:09; Admin Dose 100 MG; Start 07/06/17 at 21:00 Acetaminophen (Tylenol Tab) 650 mg Q4H PRN PO MONTESINOS OR TEMP GREATER THAN 101.3F; Start 07/06/17 at 14:00 Phenol (Cepastat Lozenge) 1 lozenge PRN PRN [place] SORE THROAT Last administered on 07/07/17 00:29; Admin Dose 2 LOZENGE; Start 07/06/17 at 14:00 Diphenhydramine HCl (Benadryl) 25 mg Q6H PRN IV ITCHING; Start 07/06/17 at 14: 00 Naloxone HCl (Narcan) 0.2 mg Q2M PRN IV RR 8 BREATHS/MIN OR LESS; Start at 14:00 Atorvastatin Calcium (Lipitor) 40 mg DAILY PO Last administered on 07/08/17 09 :09; Admin Dose 40 MG; Start 07/07/17 at 09:00 Baclofen (Lioresal) 5 mg TID PO Last administered on 07/08/17 12:58; Admin Dose 5 MG; Start 07/06/17 at 21:00 Buspirone HCl (Buspar) 20 mg TID PO Last administered on 07/08/17 12:58; Admin Dose 20 MG; Start 07/06/17 at 21:00 Carvedilol (Coreg) 12.5 mg BID PO Last administered on 07/08/17 09:10; Admin Dose 12.5 MG; Start 07/06/17 at 21:00 Famotidine (Pepcid) 40 mg HS PO Last administered on 07/07/17 21:02; Admin Dose 40 MG; Start 07/06/17 at 21:00 Furosemide (Lasix) 40 mg QAM PO Last administered on 07/08/17 09:09; Admin Dose 40 MG; Start 07/07/17 at 09:00 Gabapentin (Neurontin) 300 mg TID PO Last administered on 07/08/17 12:58; Admin Dose 300 MG; Start 07/06/17 at 21:00 Losartan Potassium (Cozaar) 100 mg DAILY PO Last administered on 07/08/17 09: 09; Admin Dose 100 MG; Start 07/07/17 at 09:00 Spironolactone (Aldactone) 25 mg QAM PO Last administered on 07/08/17 09:08; Admin Dose 25 MG; Start 07/07/17 at 09:00 Sucralfate (Carafate) 1 gm Q6 PO Last administered on 07/08/17 17:38; Admin Dose 1 GM; Start 07/06/17 at 18:00 Tamsulosin HCl (Flomax) 0.8 mg HS PO Last administered on 07/07/17 21:02; Admin Dose 0.8 MG; Start 07/06/17 at 21:00 Pantoprazole (Protonix Tab) 40 mg DAILY@06 PO Last administered on 07/08/17 06 :03; Admin Dose 40 MG; Start 07/07/17 at 06:00 Miscellaneous Information 1 ea NOTE XX ; Start 07/06/17 at 18:00 Glucose (Glutose) 15 gm Q15M PRN PO DECREASED GLUCOSE; Start 07/06/17 at 18:00 Glucose (Glutose) 22.5 gm Q15M PRN PO DECREASED GLUCOSE; Start 07/06/17 at 18: 00 Dextrose (D50w Syringe) 25 ml Q15M PRN IV DECREASED GLUCOSE; Start 07/06/17 at 18:00 Dextrose (D50w Syringe) 50 ml Q15M PRN IV DECREASED GLUCOSE; Start 07/06/17 at 18:00 Glucagon (Glucagen) 1 mg Q15M PRN IM DECREASED GLUCOSE; Start 07/06/17 at 18:00 Glucose (Glutose) 15 gm Q15M PRN BUCCAL DECREASED GLUCOSE; Start 07/06/17 at 18 :00 Albuterol (Ventolin Hfa) 1 puff QID INH Last administered on 07/07/17 21:02; Admin Dose 1 PUFF; Start 07/06/17 at 21:00 Ipratropium [place] (Atrovent Hfa) 1 puff QID INH Last administered on 21:02; Admin Dose 1 PUFF; Start 07/06/17 at 21:00 Hydromorphone HCl (Dilaudid CHIEF NUCLEAR MEDICINE TECHNOLOGIST) CHIEF NUCLEAR MEDICINE TECHNOLOGIST to be started in PACU Q4PCA IV Last administered on 07/08/17 02:24; Admin Dose 6 MG; Start 07/07/17 at 07:00 Carisoprodol (Soma) 350 mg TID PO Last administered on 07/08/17 12:58; Admin Dose 350 MG; Start 07/07/17 at 13:00 Patient Own Medication 0.6 ea DAILY SC Last administered on 07/08/17 09:16; Admin Dose 0.6 EA; Start 07/08/17 at 09:00 Ticagrelor (Brilinta) 90 mg BID PO ; Start 07/09/17 at 09:00 Aspirin (Halfprin) 81 mg DAILY PO ; Start 07/09/17 at 09:00 Humble Cohen DO Jul 08, 2017 18:11
[2017-07-08 20:47] VITALS: BP 143/66; RESP 20
[2017-07-08] MEDS: FAMOTIDINE 20 MG TAB PO SCH (20:47)
[2017-07-08] MEDS: TAMSULOSIN (SR) 0.4 MG CAP PO SCH (20:47)
[2017-07-09] MEDS: CYCLOBENZAPRINE 10 MG TAB PO PRN ×2 (01:09→11:24)
[2017-07-09] MEDS: HYDROCODONE/APAP (10/325) TAB PO PRN ×3 (02:17→11:23)
[2017-07-09 02:20] VITALS: BP 140/65; RESP 20
[2017-07-09 05:19] LABS: BASOPHILS % 0.3 % (0.0-2.0); EOSINOPHILS # 0.1 10^3/ul (0.0-0.5); EOSINOPHILS % 1.9 % (0.0-7.0); HEMATOCRIT 31.7 % (42.0-52.0); HEMOGLOBIN 10.2 g/dl (14.0-18.0); LYMPHOCYTES # 1.1 10^3/ul (0.8-2.9); LYMPHOCYTES % 17.6 % (15.0-51.0); MEAN CORPUSCULAR HEMOGLOBIN 27.6 pg (29.0-33.0); MEAN CORPUSCULAR HGB CONC 32.2 g/dl (32.0-37.0); MEAN CORPUSCULAR VOLUME 85.7 fl (82.0-101.0); MEAN PLATELET VOLUME 9.8 fl (7.4-10.4); MONOCYTE # 0.9 10^3/ul (0.3-0.9); MONOCYTES % 13.9 % (0.0-11.0); NEUTROPHIL # 4.1 10^3/ul (1.6-7.5); PLATELET COUNT 140 10^3/UL (140-415); RED CELL DISTRIBUTION WIDTH 14.7 % (11.5-14.5); WHITE BLOOD COUNT 6.2 10^3/ul (4.8-10.8)
[2017-07-09] MEDS: PANTOPRAZOLE (EC) 40 MG TAB PO SCH (05:24)
[2017-07-09] MEDS: SUCRALFATE 1 GM TAB PO SCH ×2 (05:24→12:43)
[2017-07-09 05:36] LABS: CALCIUM 9.4 mg/dl (8.4-10.2); CREATININE 0.96 mg/dl (0.61-1.24); MAGNESIUM 1.8 mg/dl (1.7-2.5); POTASSIUM 4.3 mmol/L (3.5-5.1)
[2017-07-09 07:00] VITALS: BP 143/65; RESP 20
[2017-07-09] MEDS: DOCUSATE SODIUM 100 MG CAP PO SCH (08:18)
[2017-07-09] MEDS: BUSPIRONE 10 MG TAB PO SCH ×2 (08:18→12:43)
[2017-07-09] MEDS: FUROSEMIDE 40 MG TAB PO SCH (08:19)
[2017-07-09] MEDS: GABAPENTIN 300 MG CAP PO SCH ×2 (08:19→12:43)
[2017-07-09] MEDS: SPIRONOLACTONE 25 MG TAB PO SCH (08:19)
[2017-07-09] MEDS: BACLOFEN 10 MG TAB PO SCH ×2 (08:20→12:43)
[2017-07-09] MEDS: LOSARTAN 50 MG TAB PO SCH (08:20)
[2017-07-09] MEDS: CARISOPRODOL 350 MG TAB PO SCH ×2 (08:22→12:42)
[2017-07-09] MEDS: ATORVASTATIN 40 MG TAB PO SCH (08:23)
[2017-07-09] MEDS: IPRATROPIUM (HFA) 12.9 GM INHALER INH SCH ×2 (08:23→12:43)
[2017-07-09] MEDS: ALBUTEROL 18 GM INHALER INH SCH ×2 (08:23→12:43)
[2017-07-09] MEDS: metFORMIN 500 MG TAB PO SCH (08:48)
[2017-07-09] MEDS: LIRAGLUTIDE 0.6 MG/0.1 ML SC SCH (08:52)
[2017-07-09] MEDS: HYDROmorphONE 1 MG/ML SYG IV PRN (08:53)
[2017-07-09] MEDS: INSULIN ASPART [NOVOLOG] 3 ML PEN SC SCH ×2 (09:00→12:47)
[2017-07-09] MEDS ORDERED: TICAGRELOR 90 MG TABLET PO SCH (09:00)
[2017-07-09] MEDS ORDERED: ASPIRIN (EC) 81 MG TAB PO SCH (09:00)
--- NOTE | 2017-07-09 09:05 | DS ---
Date/Time of Note Date/Time of Note DATE: 07/09/17 TIME: 09:04 Discharge Summary Admission/Discharge Info Admit Date/Time Jul 06, 2017 at 09:51 Discharge Date/Time 07/09 Discharge Diagnosis s/p lumbar decompression Patient Condition: Good Procedures lumbar decompression Hx of Present Illness leg pain Hospital Course patient admitted after undergoing lumbar decompression. hospital course uncomplicated. stable for d/c. f/u arranged Home Meds Active Scripts Sucralfate* (Carafate*) 1 Gm Tab, 1 GM PO Q6 for 14 Days, TAB Prov:ORLANDO GRIFFITHS MD 06/06/17 Famotidine* (Famotidine*) 40 Mg Tablet, 40 MG PO HS for 30 Days, #30 TAB Prov:ORLANDO GRIFFITHS MD 06/06/17 Amlodipine Besylate* (Amlodipine Besylate*) 10 Mg Tablet, 10 MG PO DAILY, #30 TAB Take one half pill once a day Prov:ORLANDO GRIFFITHS MD 06/06/17 Aspirin* (Aspirin* EC) 81 Mg Tablet., 81 MG PO DAILY for 30 Days, 2 Refills Prov:SHILO PAREKH 12/26/16 Ticagrelor* (Brilinta*) 90 Mg Tablet, 90 MG PO BID for 30 Days, #60 TAB Prov:ESHA SIMMONS MD 11/17/16 Reported Medications Spironolactone* (Aldactone*) 25 Mg Tablet, 25 MG PO QAM, #30 TAB 07/06/17 Docusate Sodium* (Dok*) 250 Mg Capsule, 250 MG PO BID Y for CONSTIPATION, #60 CAP 07/06/17 Gabapentin* (Gabapentin*) 300 Mg Capsule, 300 MG PO TID, #90 CAP 07/06/17 Buspirone Hcl* (Buspirone Hcl*) 10 Mg Tab, 20 MG PO TID, TAB 07/06/17 Baclofen* (Baclofen*) 10 Mg Tablet, 15 MG PO TID, TAB 07/06/17 Omeprazole* (Omeprazole*) 20 Mg Capsule.dr, 20 MG PO DAILY, #30 CAP 07/06/17 Carvedilol* (Carvedilol*) 12.5 Mg Tablet, 12.5 MG PO BID, #60 TAB 07/06/17 Furosemide* (Lasix*) 40 Mg Tablet, 40 MG PO QAM, TAB 07/06/17 Insulin Aspart* (Novolog Insulin Pen*) 100 Unit/Ml Soln, 20 UNIT SC WITH MEALS, EA PATIENT TAKE ONLY IF HE EAT CARBS 05/16/17 Insulin Glargine* (Lantus*) 100 Unit/Ml Soln, 40 UNIT SC BID, #1 VIAL 05/16/17 Liraglutide (Victoza 2-Juan C) 0.6 Mg/0.1 Ml Pen.injctr, 0.6 MG SQ QAM, SYR 05/16/17 Atorvastatin* (Atorvastatin*) 40 Mg Tablet, 40 MG PO DAILY, #30 TAB 10/28/16 Metformin Hcl* (Metformin Hcl*) 1,000 Mg Tablet, 1000 MG PO WITH BREAKFAST DINNE , #60 TAB 10/28/16 Tamsulosin Hcl* (Tamsulosin Hcl*) 0.4 Mg Cap.er.24h, 0.8 MG PO HS, CAP 10/28/16 Albuterol/Ipratropium* (Combivent Respimat*) 20-100 Mcg/Inh - 4 Gm Aer.w.adap, 1 PUFF INHALATION QID, #1 INHALER 10/28/16 Losartan Potassium* (Losartan Potassium*) 100 Mg Tablet, 100 MG PO DAILY, TAB 10/28/16 Discontinued Reported Medications Buspirone Hcl* (Buspirone Hcl*) 10 Mg Tab, 20 MG PO TID, TAB 10/28/16 Baclofen* (Baclofen*) 10 Mg Tablet, 10 MG PO TID, TAB 10/28/16 Discontinued Scripts Oxycodone HCl/Acetaminophen (Percocet 5-325 mg Tablet) 1 Each Tablet, 1 EACH PO Q6, #15 TAB Prov:AMEENA NIX PA-C 06/17/17 Hydrocodone/Acetaminophen (Dafter 10-325 Tablet) 1 Each Tablet, 1 TAB PO Q6H Y for PAIN, #20 TAB Prov:NOAH WHITMAN MD 06/12/17 Hydrocodone/Acetaminophen (Dafter 10-325 Tablet) 1 Each Tablet, 1 TAB PO Q6H Y for PAIN, #30 TAB Prov:GLENN CALLAWAY DO 05/21/17 Docusate Sodium* (Colace*) 100 Mg Capsule, 100 MG PO TID, #30 CAP Prov:TRINA GONG 05/16/17 Carvedilol* (Carvedilol*) 6.25 Mg Tablet, 6.25 MG PO BID for 30 Days, TAB 2 Refills Prov:SHILO PAREKH 12/26/16 Primary Care Provider Orlando Griffiths MD Pending Labs Laboratory Tests Test 07/08/17 12:52 07/08/17 17:36 07/09/17 04:45 07/09/17 08:47 Bedside Glucose 239mg/dL (70-220) 195mg/dL (70-220) 220mg/dL (70-220) White Blood Count 6.210^3/ul (4.8-10.8) Red Blood Count 3.7010^6/ul (4.70-6.10) Hemoglobin 10.2g/dl (14.0-18.0) Hematocrit 31.7% (42.0-52.0) Mean Corpuscular Volume 85.7fl (82.0-101.0) Mean Corpuscular Hemoglobin 27.6pg (29.0-33.0) Mean Corpuscular Hemoglobin Concent 32.2g/dl (32.0-37.0) Red Cell Distribution Width 14.7% (11.5-14.5) Platelet Count 82027^3/UL (140-415) Mean Platelet Volume 9.8fl (7.4-10.4) Neutrophils % 66.0% (39.0-77.0) Lymphocytes % 17.6% (15.0-51.0) Monocytes % 13.9% (0.0-11.0) Eosinophils % 1.9% (0.0-7.0) Basophils % 0.3% (0.0-2.0) Nucleated Red Blood Cells % 0.0/100WBC (0.0-0.0) Neutrophils # 4.110^3/ul (1.6-7.5) Lymphocytes # 1.110^3/ul (0.8-2.9) Monocytes # 0.910^3/ul (0.3-0.9) Eosinophils # 0.110^3/ul (0.0-0.5) Basophils # 0.010^3/ul (0.0-0.1) Nucleated Red Blood Cells # 0.010^3/ul (0.0-0.0) Sodium Level 132mmol/L (135-144) Potassium Level 4.3mmol/L (3.5-5.1) Chloride Level 97mmol/L (97-110) Carbon Dioxide Level 30mmol/L (21-31) Anion Gap 9 (8-16) Blood Urea Nitrogen 18mg/dl (7-20) Creatinine 0.96mg/dl (0.61-1.24) Glucose Level 203mg/dl (70-220) Calcium Level 9.4mg/dl (8.4-10.2) Magnesium Level 1.8mg/dl (1.7-2.5) KARLA BRANTLEY MD Jul 09, 2017 09:05
[2017-07-09 14:00] VITALS: BP 127/58; RESP 20
--- NOTE | 2017-07-09 14:57 | CONS ---
Date/Time of Note Date/Time of Note DATE: 07/09/17 TIME: 14:55 Assessment/Plan Assessment/Plan Chief Complaint/Hosp Course 61-year-old right-handed male being brought in electively for spinal surgery due to spinal stenosis. He has advanced multiple medical problems. Problems: (1) Status post lumbar laminectomy Onset Date: ~ 07/06/2017 Status: Acute Comment: Ready for discharge with outpatient Rehab (2) Diastolic dysfunction Status: Chronic Comment: controlled (3) Diabetes mellitus type 2 in obese Status: Chronic Comment: controlled (4) Systolic CHF with reduced left ventricular function, NYHA class 2 Status: Chronic Comment: controlled (5) BPH w urinary obs/LUTS Status: Chronic Comment: controlled Consultation Date/Type/Reason Admit Date/Time Jul 06, 2017 at 09:51 Initial Consult Date 06/25/17 Type of Consultation: Internal Medicine Reason for Consultation CHF; DM2 Referring Provider: KARLA BRANTLEY MD 24 HR Interval Summary Free Text/Dictation staedily improving Exam/Review of Systems Vital Signs Vitals Vital Signs Date Time Temp Pulse Resp B/P Pulse Ox O2 Delivery O2 Flow Rate FiO2 07/09/17 07:00 98.5 79 20 143/65 93 07/07/17 20:00 Nasal Cannula 2.0 Intake and Output 07/08/17 07/08/17 07/09/17 15:00 23:00 07:00 Intake Total 1200 ml 600 ml Output Total 800 ml Balance 1200 ml -200 ml Exam Constitutional: alert, oriented Cardiovascular: nl pulses, regular rate and rhythm Gastrointestinal: nl liver, spleen, non-tender, soft Results Result Diagram: 07/09/17 0445 07/09/17 0445 Results 24 hrs Laboratory Tests Test 07/08/17 17:36 07/09/17 04:45 07/09/17 08:47 07/09/17 12:42 Bedside Glucose 195 220 250 H White Blood Count 6.2 Red Blood Count 3.70 L Hemoglobin 10.2 L Hematocrit 31.7 L Mean Corpuscular Volume 85.7 Mean Corpuscular Hemoglobin 27.6 L Mean Corpuscular Hemoglobin Concent 32.2 Red Cell Distribution Width 14.7 H Platelet Count 140 Mean Platelet Volume 9.8 Neutrophils % 66.0 Lymphocytes % 17.6 Monocytes % 13.9 H Eosinophils % 1.9 Basophils % 0.3 Nucleated Red Blood Cells % 0.0 Neutrophils # 4.1 Lymphocytes # 1.1 Monocytes # 0.9 Eosinophils # 0.1 Basophils # 0.0 Nucleated Red Blood Cells # 0.0 Sodium Level 132 L Potassium Level 4.3 Chloride Level 97 Carbon Dioxide Level 30 Anion Gap 9 Blood Urea Nitrogen 18 Creatinine 0.96 Glucose Level 203 Calcium Level 9.4 Magnesium Level 1.8 Medications Medications Current Medications Acetaminophen/ Hydrocodone Bitart ([place] (10/325)) 1 tab Q4H PRN PO PAIN LEVEL 1-5; Start 07/06/17 at 14:00 Acetaminophen/ Hydrocodone Bitart ([place] (10/325)) 2 tab Q4H PRN PO PAIN LEVEL 6-10 Last administered on 07/09/17 11:23; Admin Dose 2 TAB; Start 07/06/17 at 14:00 Hydromorphone HCl (Dilaudid) 0.2 mg Q1H PRN IV BREAKTHROUGH PAIN Last administered on 07/09/17 08:53; Admin Dose 0.2 MG; Start 07/06/17 at 14:00 Ondansetron HCl (Zofran Inj) 4 mg Q6H PRN IV NAUSEA AND/OR VOMITING; Start at 14:00 Bisacodyl (Dulcolax Supp) 10 mg DAILY PRN OK CONSTIPATION; Start 07/06/17 at 14 :00 Docusate Sodium (Colace) 100 mg BID PO Last administered on 07/09/17 08:18; Admin Dose 100 MG; Start 07/06/17 at 21:00 Acetaminophen (Tylenol Tab) 650 mg Q4H PRN PO MONTESINOS OR TEMP GREATER THAN 101.3F; Start 07/06/17 at 14:00 Phenol (Cepastat Lozenge) 1 lozenge PRN PRN MT SORE THROAT Last administered on 07/07/17 00:29; Admin Dose 2 LOZENGE; Start 07/06/17 at 14:00 Diphenhydramine HCl (Benadryl) 25 mg Q6H PRN IV ITCHING; Start 07/06/17 at 14: 00 Naloxone HCl (Narcan) 0.2 mg Q2M PRN IV RR 8 BREATHS/MIN OR LESS; Start at 14:00 Atorvastatin Calcium (Lipitor) 40 mg DAILY PO Last administered on 07/09/17 08 :23; Admin Dose 40 MG; Start 07/07/17 at 09:00 Baclofen (Lioresal) 5 mg TID PO Last administered on 07/09/17 12:43; Admin Dose 5 MG; Start 07/06/17 at 21:00 Buspirone HCl (Buspar) 20 mg TID PO Last administered on 07/09/17 12:43; Admin Dose 20 MG; Start 07/06/17 at 21:00 Carvedilol (Coreg) 12.5 mg BID PO Last administered on 07/09/17 08:20; Admin Dose 12.5 MG; Start 07/06/17 at 21:00 Famotidine (Pepcid) 40 mg HS PO Last administered on 07/08/17 20:47; Admin Dose 40 MG; Start 07/06/17 at 21:00 Furosemide (Lasix) 40 mg QAM PO Last administered on 07/09/17 08:19; Admin Dose 40 MG; Start 07/07/17 at 09:00 Gabapentin (Neurontin) 300 mg TID PO Last administered on 07/09/17 12:43; Admin Dose 300 MG; Start 07/06/17 at 21:00 Losartan Potassium (Cozaar) 100 mg DAILY PO Last administered on 07/09/17 08: 20; Admin Dose 100 MG; Start 07/07/17 at 09:00 Spironolactone (Aldactone) 25 mg QAM PO Last administered on 07/09/17 08:19; Admin Dose 25 MG; Start 07/07/17 at 09:00 Sucralfate (Carafate) 1 gm Q6 PO Last administered on 07/09/17 12:43; Admin Dose 1 GM; Start 07/06/17 at 18:00 Tamsulosin HCl (Flomax) 0.8 mg HS PO Last administered on 07/08/17 20:47; Admin Dose 0.8 MG; Start 07/06/17 at 21:00 Pantoprazole (Protonix Tab) 40 mg DAILY@06 PO Last administered on 07/09/17 05 :24; Admin Dose 40 MG; Start 07/07/17 at 06:00 Miscellaneous Information 1 ea NOTE XX ; Start 07/06/17 at 18:00 Glucose (Glutose) 15 gm Q15M PRN PO DECREASED GLUCOSE; Start 07/06/17 at 18:00 Glucose (Glutose) 22.5 gm Q15M PRN PO DECREASED GLUCOSE; Start 07/06/17 at 18: 00 Dextrose (D50w Syringe) 25 ml Q15M PRN IV DECREASED GLUCOSE; Start 07/06/17 at 18:00 Dextrose (D50w Syringe) 50 ml Q15M PRN IV DECREASED GLUCOSE; Start 07/06/17 at 18:00 Glucagon (Glucagen) 1 mg Q15M PRN IM DECREASED GLUCOSE; Start 07/06/17 at 18:00 Glucose (Glutose) 15 gm Q15M PRN BUCCAL DECREASED GLUCOSE; Start 07/06/17 at 18 :00 Albuterol (Ventolin Hfa) 1 puff QID INH Last administered on 07/09/17 12:43; Admin Dose 1 PUFF; Start 07/06/17 at 21:00 Ipratropium [place] (Atrovent Hfa) 1 puff QID INH Last administered on 12:43; Admin Dose 1 PUFF; Start 07/06/17 at 21:00 Hydromorphone HCl (Dilaudid JEWELRY ENGRAVER) JEWELRY ENGRAVER to be started in PACU Q4PCA IV Last administered on 07/08/17 02:24; Admin Dose 6 MG; Start 07/07/17 at 07:00 Carisoprodol (Soma) 350 mg TID PO Last administered on 07/09/17 12:42; Admin Dose 350 MG; Start 07/07/17 at 13:00 Patient Own Medication 0.6 ea DAILY SC Last administered on 07/09/17 08:52; Admin Dose 0.6 EA; Start 07/08/17 at 09:00 Ticagrelor (Brilinta) 90 mg BID PO Last administered on 07/09/17 08:28; Admin Dose 90 MG; Start 07/09/17 at 09:00 Aspirin (Halfprin) 81 mg DAILY PO Last administered on 07/09/17 08:19; Admin Dose 81 MG; Start 07/09/17 at 09:00 Cyclobenzaprine HCl (Flexeril) 10 mg Q8H PRN PO SPASMS Last administered on 11:24; Admin Dose 10 MG; Start 07/09/17 at 00:30 SUNI CORRALES MD Jul 09, 2017 14:57
== END 2017-07-09 15:30 | disposition home or self-care (01) | DRG 519 ==
LOC: REC 09:51 → EDSTATUS 13:30 → MS1 18:15
PROVIDERS: ADMIT Specialist; ATTEND Specialist
PROC: 0SB40ZZ Excision of Lumbosacral Disc, Open Approach (ICD-10-PCS; 2017-07-06)
PROC: 01NB0ZZ Release Lumbar Nerve, Open Approach (ICD-10-PCS; principal; 2017-07-06 13:30)
DX: M48.06 Spinal stenosis, lumbar region (principal); I50.42 Chronic combined systolic (congestive) and diastolic (congestive) heart failure; I11.0 Hypertensive heart disease with heart failure; E11.9 Type 2 diabetes mellitus without complications; M51.17 Intervertebral disc disorders with radiculopathy, lumbosacral region; Q07.9 Congenital malformation of nervous system, unspecified; E66.9 Obesity, unspecified; Z68.32 Body mass index [BMI] 32.0-32.9, adult; Z95.5 Presence of coronary angioplasty implant and graft; N40.1 Benign prostatic hyperplasia with lower urinary tract symptoms; G47.33 Obstructive sleep apnea (adult) (pediatric)
CPT/HCPCS: 72110; 80048; 82962; 83735; 85025; 86850; 86900; 86901; 86920; 86999; 87086; 97116; 97161; 97530; J0690; J1170; J1644; J1815; J2175; J2405; J3010; J3370; J3480; J7999

== ENCOUNTER 2017-08-11 16:24 | Inpatient (IN) | payer BC, OTHER ==
[~2017-08-11] VITALS: Ht 177.8 cm; Wt 105.6 kg
[2017-08-11] MEDS: BUSPIRONE 10 MG TAB PO SCH (02:05)
[~2017-08-11 16:24] MED LIST changes: +CARV12.579 PO; -CARV6.2579 PO; -DOCU-144 PO; +DOCU250C68 PO; +FURO-109 PO; +GABA300C16 PO; -HYDR-902 PO; -LACTATED RINGER'S 1,000 ML IV* SCH; +OMEP20CA16 PO; -OXYC-279 PO; +SPIR25TA PO; -VANCOMYCIN 1 GM in NS 250 ML IVPB SCH
--- NOTE | 2017-08-11 16:45 | ERD ---
ER Documentation Chief Complaint Chief Complaint PT presents with R sided facial numbness and slurred speech since 0900. HPI The patient is a 61-year-old male, presenting to the ER because of right facial numbness, slurred speech that began about 9 AM today. The symptoms are not getting better. He denies similar symptoms yesterday, headache, blurred vision , neck pain, chest pain, dyspnea, abdominal pain, vomiting, dysuria, diarrhea. He denies any upper or lower extremity weakness. He has minimal right lower extremity weakness due to recent back surgery on July 06, 2017. He does not smoke nor drink. He is currently taking Percocet 10 mg regularly a few times a day for his back pain, he is requesting pain medication Past medical history: Sleep apnea, asthma, history of CHF, hypertension, CAD, spinal stenosis, diabetes mellitus, BPH Past surgical history: Appendectomy, cholecystectomy, lumbar decompression, stent PCI, right ankle ROS All systems reviewed and are negative except as per history of present illness. Medications Home Meds Active Scripts Sucralfate* (Carafate*) 1 Gm Tab, 1 GM PO Q6 for 14 Days, TAB Prov:SUNI CORRALES MD 06/06/17 Famotidine* (Famotidine*) 40 Mg Tablet, 40 MG PO HS for 30 Days, #30 TAB Prov:SUNI CORRALES MD 06/06/17 Aspirin* (Aspirin* EC) 81 Mg Tablet.dr, 81 MG PO DAILY for 30 Days, 2 Refills Prov:SHILO PAREKH 12/26/16 Ticagrelor* (Brilinta*) 90 Mg Tablet, 90 MG PO BID for 30 Days, #60 TAB Prov:ESHA SIMMONS MD 11/17/16 Reported Medications Carvedilol* (Carvedilol*) 6.25 Mg Tablet, 6.25 MG PO BID, #60 TAB 08/11/17 Oxycodone HCl/Acetaminophen (Percocet 10-325 mg Tablet) 1 Each Tablet, 2 EACH PO Q6H, TAB 08/11/17 Docusate Sodium* (Dok*) 250 Mg Capsule, 250 MG PO BID Y for CONSTIPATION, #60 CAP 07/06/17 Gabapentin* (Gabapentin*) 300 Mg Capsule, 300 MG PO TID, #90 CAP 07/06/17 Buspirone Hcl* (Buspirone Hcl*) 10 Mg Tab, 20 MG PO TID, TAB 07/06/17 Baclofen* (Baclofen*) 10 Mg Tablet, 15 MG PO TID, TAB 07/06/17 Omeprazole* (Omeprazole*) 20 Mg Capsule.dr, 20 MG PO DAILY, #30 CAP 07/06/17 Furosemide* (Lasix*) 40 Mg Tablet, 40 MG PO QAM, TAB 07/06/17 Insulin Aspart* (Novolog Insulin Pen*) 100 Unit/Ml Soln, 20 UNIT SC WITH MEALS, EA PATIENT TAKE ONLY IF HE EAT CARBS 05/16/17 Insulin Glargine* (Lantus*) 100 Unit/Ml Soln, 42 UNIT SC BID, #1 VIAL 05/16/17 Liraglutide (Victoza 2-Juan C) 0.6 Mg/0.1 Ml Pen.injctr, 0.6 MG SQ QAM, SYR 05/16/17 Atorvastatin* (Atorvastatin*) 40 Mg Tablet, 40 MG PO DAILY, #30 TAB 10/28/16 Metformin Hcl* (Metformin Hcl*) 1,000 Mg Tablet, 1000 MG PO WITH BREAKFAST DINNE , #60 TAB 10/28/16 Tamsulosin Hcl* (Tamsulosin Hcl*) 0.4 Mg Cap.er.24h, 0.8 MG PO HS, CAP 10/28/16 Losartan Potassium* (Losartan Potassium*) 100 Mg Tablet, 100 MG PO DAILY, TAB 10/28/16 Discontinued Reported Medications Spironolactone* (Aldactone*) 25 Mg Tablet, 25 MG PO QAM, #30 TAB 07/06/17 Carvedilol* (Carvedilol*) 12.5 Mg Tablet, 12.5 MG PO BID, #60 TAB 07/06/17 Albuterol/Ipratropium* (Combivent Respimat*) 20-100 Mcg/Inh - 4 Gm Aer.w.adap, 1 PUFF INHALATION QID, #1 INHALER 10/28/16 Discontinued Scripts Amlodipine Besylate* (Amlodipine Besylate*) 10 Mg Tablet, 10 MG PO DAILY, #30 TAB Take one half pill once a day Prov:SUNI CORRALES MD 06/06/17 Allergies Allergies: Coded Allergies: Penicillins (Verified Allergy, Severe, DIFFICULTY BREATHING, 08/11/17) cefazolin (Verified Allergy, Severe, DIFFICULTY BREATHING, 08/11/17) ciprofloxacin (Verified Allergy, Mild, RASH, 08/11/17) benazepril (Verified Allergy, Unknown, 08/11/17) ketorolac (Unverified Allergy, Unknown, pain worse, 07/06/17) sildenafil (Unverified Allergy, Unknown, 07/06/17) PMhx/Soc History of Surgery: Yes (APPENDECTOMY,CHOLECYSTECTOMY,SPINE SURGERY,PCI WITH STENT,RT ANKLE ORIF) Anesthesia Reaction: No Hx Neurological Disorder: No Hx Respiratory Disorders: Yes (SLEEP APNEA,ASTHMA) Hx Cardiac Disorders: Yes (CHF,HTN,CAD) Hx Psychiatric Problems: No Hx Miscellaneous Medical Probl: Yes (see H&P) Hx Alcohol Use: No Hx Substance Use: No Hx Tobacco Use: No Physical Exam Vitals Vital Signs Date Time Temp Pulse Resp B/P Pulse Ox O2 Delivery O2 Flow Rate FiO2 08/11/17 16:32 98.1 92 18 157/65 95 Physical Exam Const: No acute distress. Head: Atraumatic. Eyes: Normal Conjunctiva. ENT: Normal External Ears, Nose and Mouth. Neck: Full range of motion. No meningismus. Resp: Clear to auscultation bilaterally. Cardio: Regular rate and rhythm. Abd: Soft, non distended, normal bowel sounds, non tender. Skin: No petechiae or rashes. Back: No midline or flank tenderness. Ext: No cyanosis, or edema. Neur: Awake and alert. No focal deficit. Psych: Normal Mood and Affect. Result Diagram: 08/11/17 1645 08/11/17 1645 Results 24 hrs Laboratory Tests Test 08/11/17 16:45 White Blood Count 7.310^3/ul Red Blood Count 4.0210^6/ul Hemoglobin 11.0g/dl Hematocrit 35.4% Mean Corpuscular Volume 88.1fl Mean Corpuscular Hemoglobin 27.4pg Mean Corpuscular Hemoglobin Concent 31.1g/dl Red Cell Distribution Width 15.6% Platelet Count 35763^3/UL Mean Platelet Volume 9.8fl Neutrophils % 60.7% Lymphocytes % 24.8% Monocytes % 11.4% Eosinophils % 2.3% Basophils % 0.5% Nucleated Red Blood Cells % 0.0/100WBC Neutrophils # 4.410^3/ul Lymphocytes # 1.810^3/ul Monocytes # 0.810^3/ul Eosinophils # 0.210^3/ul Basophils # 0.010^3/ul Nucleated Red Blood Cells # 0.010^3/ul Prothrombin Time 13.1Sec Prothrombin Time Ratio 1.0 INR International Normalized Ratio 0.99 Activated Partial Thromboplast Time 28.6Sec Sodium Level 138mmol/L Potassium Level 4.5mmol/L Chloride Level 96mmol/L Carbon Dioxide Level 28mmol/L Anion Gap 19 Blood Urea Nitrogen 31mg/dl Creatinine 1.19mg/dl Glucose Level 92mg/dl Calcium Level 9.4mg/dl Troponin I < 0.012ng/ml Current Medications Medications (Trade) Dose Ordered Sig/Giovanni Route PRN Reason Start Time Stop Time Status Last Admin Dose Admin Morphine Sulfate (morphine) 4 mg ONCE STAT IV 08/11/17 17:09 08/11/17 17:10 DC 08/11/17 17:20 Ondansetron HCl (Zofran Inj) 4 mg ONCE STAT IV 08/11/17 17:09 08/11/17 17:10 DC 08/11/17 17:09 Aspirin (Aspirin) 325 mg ONCE ONCE PO 08/11/17 18:30 08/11/17 18:43 DC Procedures/MDM EKG: Read by emergency physician Rate/Rhythm: Normal Sinus Rhythm 76 beats/min QRS, ST, T-waves: No ST elevation, no T inversion Impression: Normal EKG [place] [id number] Radiology Main Line: [phone] DIAGNOSTIC IMAGING REPORT Patient: ZONIA BRAR : 1955 Age: 61 Sex: M MR #: [id number] DOS: 08/11/17 1633 Ordering MD: MUNDO HERZOG MD Location: E/R Room/Bed: PROCEDURE: XR Chest. CLINICAL INDICATION: Cough. TECHNIQUE: Single frontal view. COMPARISON: 01/14/2017. FINDINGS: The lungs are clear. The heart is enlarged. Surgical clips are noted overlying the right upper chest. There has been prior cervical spine surgery with plate and screws noted. There is no pleural effusion. There is no pneumothorax. IMPRESSION: 1. Cardiomegaly. 2. Clear lungs. 3. Prior cervical spine surgery. 4. Surgical clips overlying the right upper chest. 5. Otherwise unremarkable chest radiograph. RPTAT: QQ .Nitin Navarro MD, MD Date Time Electronically viewed and signed by .Nitin Navarro MD, MD on 08/11/2017 16:55 .R/ CC: MUNDO HERZOG MD [place] [id number] Radiology Main Line: [phone] DIAGNOSTIC IMAGING REPORT Patient: ZONIA BRAR : 1955 Age: 61 Sex: M MR #: [id number] DOS: 08/11/17 1633 Ordering MD: MUNDO HERZOG MD Location: E/R Room/Bed: PROCEDURE: CT Brain without contrast. CLINICAL INDICATION: Slurred speech. TECHNIQUE: A CT of the brain was performed on a multidetector CT scanner utilizing axial sections from the skull base through the vertex without contrast. Images were reviewed on a high-resolution PACS workstation. Exam CTDI = 44.26 mGy and the DLP = 720.23 mGy-cm. One or the following dose reduction techniques were used: -Automated exposure control. -Adjustment of the mA and/or KV according to patient's size. -Use of iterative reconstruction technique COMPARISON: None available FINDINGS: Mild diffuse cerebral and cerebellar atrophy is present. There is proportionate dilatation of the ventricular system and sulci in a symmetric fashion. There is prominence of the extraaxial spaces secondary to atrophy. There is no evidence of intracranial hemorrhage, mass effect or midline shift. No abnormal intra-axial or extra-axial fluid collections are seen. The density of the brain is normal and the orr/white matter differentiation is well preserved. Mild patchy diffuse deep white matter microangiopathic ischemic change is seen. The osseous structures and visualized paranasal sinuses are unremarkable. Vascular calcifications are identified. IMPRESSION: 1. No evidence of acute intracranial pathology. 2. Age-related volume loss and small vessel ischemic changes. 3. Intracranial atherosclerosis. RPTAT: [facility] Sd Tan Physician Date Time Electronically viewed and signed by Sd Tna Physician on 08/11/2017 16: 52 JH/ CC: MUNDO HERZOG MD EKG: Read by emergency physician Rate/Rhythm: Normal Sinus Rhythm 76 beats/min QRS, ST, T-waves: No ST elevation, no T inversion Impression: Normal EKG MEDICAL MAKING DECISION: The patient is a 61-year-old male, presenting with acute right facial numbness, slurred speech, concerning for acute TIA, acute dehydration. He was treated with aspirin 325 mg p.o.,, normal saline 500 mL IV for acute dehydration, morphine 4 mg IV for pain and Zofran IV for nausea with good response. The differential diagnoses considered include but are not limited to TIA, impending stroke, anxiety attack, panic attack Departure Diagnosis: Primary Impression: Right facial numbness Additional Impressions: Dehydration Anemia Condition: Stable Comments I discussed the findings with the patient. I discussed the patient with his physician Dr. Oneal who was made aware of the lab, the treatment, the patient condition. The patient is admitted to Tel 6:30 pm Disclaimer: Inadvertent spelling and grammatical errors are likely due to EHR/ dictation software use and do not reflect on the overall quality of patient care. Also, please note that the electronic time recorded on this note does not necessarily reflect the actual time of the patient encounter. MUNDO HERZOG MD Aug 11, 2017 16:45
--- NOTE | 2017-08-11 16:52 | RADRPT ---
PROCEDURE: CT Brain without contrast. CLINICAL INDICATION: Slurred speech. TECHNIQUE: A CT of the brain was performed on a multidetector CT scanner utilizing axial sections from the skull base through the vertex without contrast. Images were reviewed on a high-resolution [employer] workstation. Exam CTDI = 44.26 mGy and the DLP = 720.23 mGy-cm. One or the following dose reduction techniques were used: -Automated exposure control. -Adjustment of the mA and/or KV according to patient's size. -Use of iterative reconstruction technique COMPARISON: None available FINDINGS: Mild diffuse cerebral and cerebellar atrophy is present. There is proportionate dilatation of the v entricular system and sulci in a symmetric fashion. There is prominence of the extraaxial spaces sec ondary to atrophy. There is no evidence of intracranial hemorrhage, mass effect or midline shift. N o abnormal intra-axial or extra-axial fluid collections are seen. The density of the brain is sarkis l and the orr/white matter differentiation is well preserved. Mild patchy diffuse deep white matte r microangiopathic ischemic change is seen. The osseous structures and visualized paranasal sinuses are unremarkable. Vascular calcifications are identified. IMPRESSION: 1. No evidence of acute intracranial pathology. 2. Age-related volume loss and small vessel ischemic changes. 3. Intracranial atherosclerosis. RPTAT: [facility] Physician Vidal Date Time Electronically viewed and signed by Physician Vidal on 08/11/2017 16:52 /
--- NOTE | 2017-08-11 16:56 | RADRPT ---
PROCEDURE: XR Chest. CLINICAL INDICATION: Cough. TECHNIQUE: Single frontal view. COMPARISON: 01/14/2017. FINDINGS: The lungs are clear. The heart is enlarged. Surgical clips are noted overlying the right upper chest. There has been prio r cervical spine surgery with plate and screws noted. There is no pleural effusion. There is no pneumothorax. IMPRESSION: 1. Cardiomegaly. 2. Clear lungs. 3. Prior cervical spine surgery. 4. Surgical clips overlying the right upper chest. 5. Otherwise unremarkable chest radiograph. RPTAT: QQ .Nitin Navarro MD, MD Date Time Electronically viewed and signed by .Nitin Navarro MD, MD on 08/11/2017 16:55 .R/
[2017-08-11] MEDS ORDERED: morphine 4 MG/ML VIAL IV STA (17:09)
[2017-08-11] MEDS ORDERED: ONDANSETRON 4 MG INJ IV STA (17:09)
[2017-08-11] MEDS ORDERED: OXYC-209 PO (18:03)
[2017-08-11] MEDS ORDERED: ASPIRIN 325 MG TAB PO ONE (18:30)
[2017-08-11] MEDS ORDERED: CARV6.2579 PO (18:32)
[2017-08-11 21:00] VITALS: BP 140/66; RESP 18
[2017-08-11 21:07] VITALS: PULSE 75
[2017-08-11] MEDS ORDERED: ONDANSETRON 4 MG INJ IV PRN (23:00)
[2017-08-11] MEDS: ALPRAZOLAM 0.5 MG TAB PO PRN (23:06)
[2017-08-11] MEDS: OXYCODONE/ACETAMINOPHEN (10/325) TAB PO PRN (23:06)
[2017-08-11 23:30] VITALS: Ht 177.8 cm; Wt 105.6 kg
[2017-08-11] MEDS ORDERED: DEXTROSE 50% 50 ML SYRINGE IV PRN ×2 (23:45)
[2017-08-11] MEDS ORDERED: GLUCOSE GEL 15 GRAM TUBE PO PRN ×2 (23:45)
[2017-08-11] MEDS ORDERED: GLUCOSE GEL 15 GRAM TUBE BUCCAL PRN (23:45)
[2017-08-11] MEDS ORDERED: GLUCAGON 1 MG INJ IM PRN (23:45)
[2017-08-12] VITALS (12 sets, daily range): BP systolic 122–137; BP diastolic 57–66; PULSE 59–71; RESP 16–19
[2017-08-12] MEDS: TAMSULOSIN (SR) 0.4 MG CAP PO SCH ×2 (00:18→20:34)
[2017-08-12] MEDS: DOCUSATE SODIUM 250 MG CAP PO PRN (00:18)
[2017-08-12] MEDS: GABAPENTIN 300 MG CAP PO SCH ×4 (00:19→20:12)
[2017-08-12] MEDS: BACLOFEN 10 MG TAB NGT SCH ×4 (00:19→20:12)
[2017-08-12] MEDS: TICAGRELOR 90 MG TABLET PO SCH ×3 (00:23→20:29)
[2017-08-12] MEDS ORDERED: ACCU-CHEK XX SCH (02:00)
[2017-08-12] MEDS: INSULIN ASPART [NOVOLOG] 3 ML PEN SC SCH ×9 (02:05→20:43)
[2017-08-12] MEDS: INSULIN GLARGINE [LANtus] 3 ML PEN SC SCH ×3 (02:06→20:41)
[2017-08-12] MEDS: ACCU-CHEK XX SCH (02:07)
[2017-08-12] MEDS: FUROSEMIDE 40 MG TAB PO SCH (06:09)
[2017-08-12] MEDS: MAGNESIUM HYDROXIDE 30ML CUP PO PRN (07:02)
[2017-08-12] MEDS: metFORMIN 500 MG TAB PO SCH ×2 (08:14→17:51)
[2017-08-12] MEDS: ASPIRIN 81 MG TAB PO SCH (08:18)
[2017-08-12] MEDS: BUSPIRONE 10 MG TAB PO SCH ×3 (08:20→20:10)
[2017-08-12] MEDS: LOSARTAN 50 MG TAB PO SCH (08:20)
[2017-08-12] MEDS: FINASTERIDE 5 MG TAB PO SCH (14:08)
[2017-08-12] MEDS: OXYCODONE/ACETAMINOPHEN (10/325) TAB PO PRN ×2 (14:09→20:13)
--- NOTE | 2017-08-12 14:15 | CONS ---
Date/Time of Note Date/Time of Note DATE: 08/12/17 TIME: 14:08 Assessment/Plan Assessment/Plan Additional Assessment/Plan Right facial droop and numbness concerning for TIA Recent C-spine surgery CAD with history of multiple PCI Hypertension Preserved ejection fraction Diabetes Dyslipidemia -Patient with right-sided facial droop with numbness and drooling. Symptoms have since improved. CT head with no evidence of CVA at the current time. Patient is already on dual antiplatelet therapy given recent PCI. Increase statin to high dose given possible TIA. Will check carotid Doppler, consider MR brain. Continue on telemetry to evaluate for any arrhythmias. Continue monitoring blood glucose levels. Consultation Date/Type/Reason Admit Date/Time Aug 11, 2017 at 18:37 Type of Consultation: cv Reason for Consultation Facial droop and possible TIA Hx of Present Illness This is a 62-year-old male with past medical history of recent spinal surgery, CAD with history of PCI, diabetes, hypertension who presents with right facial droop and numbness. He did notice drooling from the right side of his mouth and this was apparent to his . Patient thinks his symptoms began sometime in the middle the night. He also was complaining of an episode of bilateral arm and leg shaking but he was conscious. He has been complaining of lower extremity weakness intermittently since his spinal surgery. In regards to his facial droop and numbness, this has since improved. He does feel mild weakness in the right side of his face. Denies any chest pain, shortness of breath, dizziness or lightheadedness or palpitations. He has not had any changes to his narcotic medications. 12 point review of systems was performed with all pertinent positives and negatives mentioned above and all else is negative Past Medical History Medical History: coronary artery disease, diabetes, high cholesterol, hypertension Past Surgical History Past Surgical Hx: angioplasty, appendectomy, cholecystectomy, other Family History Significant Family History: no pertinent family hx Social History Smoking Status: Former smoker Exam/Review of Systems Vital Signs Vitals Vital Signs Date Time Temp Pulse Resp B/P Pulse Ox O2 Delivery O2 Flow Rate FiO2 08/12/17 12:15 59 08/12/17 11:24 98.1 16 131/65 96 08/11/17 20:32 Room Air Exam Sitting up in bed, no apparent distress Constitutional: alert, obese, oriented Head: normocephalic Respiratory: clear to auscultation, normal air movement Cardiovascular: other (S1-S2 heard), regular rate and rhythm Gastrointestinal: bowel sounds, non-tender, soft Extremities: edema (Trace) Results Result Diagram: 08/12/17 0713 08/12/17 0713 Results 24 hrs Laboratory Tests Test 08/11/17 16:45 08/11/17 23:09 08/12/17 01:50 08/12/17 07:13 White Blood Count 7.3 4.5 #L Red Blood Count 4.02 L 3.79 L Hemoglobin 11.0 L 10.4 L Hematocrit 35.4 L 33.9 L Mean Corpuscular Volume 88.1 89.4 Mean Corpuscular Hemoglobin 27.4 L 27.4 L Mean Corpuscular Hemoglobin Concent 31.1 L 30.7 L Red Cell Distribution Width 15.6 H 15.6 H Platelet Count 213 # 156 # Mean Platelet Volume 9.8 8.9 Neutrophils % 60.7 55.8 Lymphocytes % 24.8 28.8 Monocytes % 11.4 H 11.8 H Eosinophils % 2.3 2.5 Basophils % 0.5 0.7 Nucleated Red Blood Cells % 0.0 0.0 Neutrophils # 4.4 2.5 Lymphocytes # 1.8 1.3 Monocytes # 0.8 0.5 Eosinophils # 0.2 0.1 Basophils # 0.0 0.0 Nucleated Red Blood Cells # 0.0 0.0 Prothrombin Time 13.1 13.7 Prothrombin Time Ratio 1.0 1.1 INR International Normalized Ratio 0.99 1.05 Activated Partial Thromboplast Time 28.6 D-Dimer 455.79 D-Dimer Comment Sodium Level 138 140 Potassium Level 4.5 4.7 Chloride Level 96 L 100 Carbon Dioxide Level 28 33 H Anion Gap 19 H 12 # Blood Urea Nitrogen 31 H 31 H Creatinine 1.19 1.13 Glucose Level 92 165 Calcium Level 9.4 9.6 Troponin I < 0.012 Bedside Glucose 212 212 Hemoglobin A1c 7.9 H Total Bilirubin 0.2 Direct Bilirubin 0.00 Indirect Bilirubin 0.2 Aspartate Amino Transf (AST/SGOT) 27 Alanine Aminotransferase (ALT/SGPT) 34 Alkaline Phosphatase 120 Total Protein 6.8 Albumin 3.6 Globulin 3.20 Albumin/Globulin Ratio 1.12 Thyroid Stimulating Hormone (TSH) 2.720 Test 08/12/17 07:51 08/12/17 11:37 Bedside Glucose 171 234 H Medications Medications Current Medications Oxycodone/ Acetaminophen (Endocet (10/ 325)) 2 tab Q6H PRN PO PAIN Last administered on 08/11/17 23:06; Admin Dose 2 TAB; Start 08/11/17 at 23:00 Ondansetron HCl (Zofran Inj) 4 mg Q6H PRN IV NAUSEA AND/OR VOMITING; Start 08/11/17 at 23:00 Alprazolam (Xanax) 0.5 mg Q12H PRN PO ANXIETY Last administered on 08/11/17 23 :06; Admin Dose 0.5 MG; Start 08/11/17 at 23:00 Ticagrelor (Brilinta) 90 mg BID PO Last administered on 08/12/17 08:19; Admin Dose 90 MG; Start 08/11/17 at 23:30 Baclofen (Lioresal) 15 mg TID NGT Last administered on 08/12/17 12:10; Admin Dose 15 MG; Start 08/11/17 at 23:30 Insulin Glargine (Lantus) 42 unit BID SC Last administered on 08/12/17 08:17; Admin Dose 42 UNIT; Start 08/11/17 at 23:30 Diagnostic Test (Pha) (Accu-Chek) 1 ea 02 XX Last administered on 08/12/17 02: 07; Admin Dose 1 EA; Start 08/12/17 at 02:00 Docusate Sodium (Colace) 250 mg BID PRN PO CONSTIPATION Last administered on 00:18; Admin Dose 250 MG; Start 08/11/17 at 23:30 Magnesium Hydroxide (Milk Of Mag) 30 ml DAILY PRN PO CONSTIPATION Last administered on 08/12/17 07:02; Admin Dose 30 ML; Start 08/11/17 at 23:30 Gabapentin (Neurontin) 300 mg TID PO Last administered on 08/12/17 12:10; Admin Dose 300 MG; Start 08/11/17 at 23:30 Buspirone HCl (Buspar) 20 mg TID PO Last administered on 08/12/17 12:10; Admin Dose 20 MG; Start 08/11/17 at 23:30 Aspirin (Aspirin) 81 mg DAILY PO Last administered on 08/12/17 08:18; Admin Dose 81 MG; Start 08/12/17 at 09:00 Famotidine (Pepcid) 40 mg HS PO ; Start 08/12/17 at 21:00 Losartan Potassium (Cozaar) 100 mg DAILY PO Last administered on 08/12/17 08: 20; Admin Dose 100 MG; Start 08/12/17 at 09:00 Tamsulosin HCl (Flomax) 0.8 mg HS PO Last administered on 08/12/17 00:18; Admin Dose 0.8 MG; Start 08/12/17 at 00:00 Atorvastatin Calcium (Lipitor) 40 mg HS PO ; Start 08/12/17 at 21:00 Furosemide (Lasix) 80 mg DAILY@06 PO Last administered on 08/12/17 06:09; Admin Dose 80 MG; Start 08/12/17 at 06:00 Miscellaneous Information 1 ea NOTE XX ; Start 08/11/17 at 23:45 Glucose (Glutose) 15 gm Q15M PRN PO DECREASED GLUCOSE; Start 08/11/17 at 23:45 Glucose (Glutose) 22.5 gm Q15M PRN PO DECREASED GLUCOSE; Start 08/11/17 at 23: 45 Dextrose (D50w Syringe) 25 ml Q15M PRN IV DECREASED GLUCOSE; Start 08/11/17 at 23:45 Dextrose (D50w Syringe) 50 ml Q15M PRN IV DECREASED GLUCOSE; Start 08/11/17 at 23:45 Glucagon (Glucagen) 1 mg Q15M PRN IM DECREASED GLUCOSE; Start 08/11/17 at 23:45 Glucose (Glutose) 15 gm Q15M PRN BUCCAL DECREASED GLUCOSE; Start 08/11/17 at 23 :45 Carvedilol (Coreg) 9.375 mg BID PO ; Start 08/12/17 at 21:00 Finasteride (Proscar) 5 mg DAILY PO ; Start 08/12/17 at 14:00 Procedures Procedures ECG sinus rhythm at 76 bpm, normal QRS duration, no significant ischemic STT wave abnormalities Humble Cohen DO Aug 12, 2017 14:15
--- NOTE | 2017-08-12 15:51 | RADRPT ---
PROCEDURE: US Carotids. CLINICAL INDICATION: Transient ischemic attack. TECHNIQUE: Multiple sonographic of the carotid arteries were obtained utilizing orr scale imaging . Color and Doppler imaging was performed. The images were reviewed on a PACS workstation. COMPARISON: No prior studies are available for comparison. FINDINGS: Location Right Left CCA 69 cm/sec 106 cm/sec Prox ICA 78 cm/sec 79 cm/sec Mid ICA 81 cm/sec 113 cm/sec Dist ICA 82 cm/sec 81 cm/sec ECA 85 cm/sec 106 cm/sec ICA/CCA 1.2 1.2 Antegrade flow is seen within the vertebral arteries bilaterally. Moderate bilateral atherosclerotic plaque is present, worst at the right proximal ICA. No hemodynamically significant stenosis or occl usion is identified. IMPRESSION: 1. Moderate bilateral atherosclerotic plaque, worse at the right proximal ICA, without evidence for hemodynamically significant stenosis - validated velocity measurements with angiographic measurement s, velocity criteria are extrapolated from diameter data as defined by the Society of Radiologists i n Ultrasound Consensus Conference Radiology 2003; 229;340-346. This study does indirectly reference the measurement of the distal ICA diameter as the denominator for stenosis measurement. 2. Antegrade flow seen within the vertebral arteries bilaterally. SRU Consensus Conference Criteria for the Diagnosis of Carotid Artery Stenosis Degree of Stenosis, % ICA PSV, cm/sec Plaque Estimate, % ICA/CCA PSV Ratio Normal <125 None <2.0 <50 <125 <50 <2.0 50 69 125-230 >50 2.0-4.0 >70 but less than near occlusion >230 >50 <4.0 Near occlusion High, low, or undetectable Visible Variable Total occlusion Undetectable Visible, no detectable lumen Not applicable *Cartoid artery stenosis: orr-scale and Doppler US diagnosis. Society of Radiologists in Ultrasound Consensus Conference. Radiology 2003; 229: 340-346 RPTAT: JJ .Jason Noonan MD, MD Date Time Electronically viewed and signed by .Jason Noonan MD, MD on 08/12/2017 15:51 .A/
[2017-08-12] MEDS: ALPRAZOLAM 0.5 MG TAB PO PRN (18:43)
[2017-08-12] MEDS: ATORVASTATIN 80 MG TAB PO SCH (20:12)
[2017-08-12] MEDS ORDERED: ATORVASTATIN 40 MG TAB PO SCH (21:00)
--- NOTE | 2017-08-12 21:25 | HP ---
Date/Time of Note Date/Time of Note DATE: 08/12/17 TIME: 21:16 Assessment/Plan VTE Prophylaxis VTE Prophylaxis Intervention: other Lines/Catheters IV [facility] Saline Lock Assessment/Plan Problems: (1) Transient ischemic attack (TIA) Status: Acute Comment: He appears to have had what looks like a TIA despite being on fairly aggressive anticoagulant therapy. He will be observed carefully I will have him evaluated by physical therapy speech therapy and occupational therapy as precaution. However he is fully resolved by the time that he been in the hospital overnight. Again will have careful observation will continue with appropriate blood thinners. Please note that his imaging studies were unremarkable, with the exception of the carotid duplex study. Because of these findings he will be on maximally aggressive risk factor modification. Qualifiers: Transient cerebral ischemia type: other Qualified Code: G45.8 - Other specified transient cerebral ischemias (2) BPH w urinary obs/LUTS Status: Chronic Comment: Continue with treatment and add in finasteride. He has had a good response so far (3) Anemia Status: Acute Comment: He will receive 1 dose of Ferrlecit while he is in the hospital Qualifiers: Anemia type: iron deficiency Iron deficiency anemia type: unspecified iron deficiency Qualified Code: D50.9 - Iron deficiency anemia, unspecified iron deficiency anemia type (4) Coronary artery disease Status: Chronic Comment: Noted in quiescent. Qualifiers: Coronary Disease-Associated Artery/Lesion type: three affiliated artery [place] vs. transplanted heart: three affiliated heart Associated angina: without angina Qualified Code: I25.10 - Coronary artery disease involving three affiliated coronary artery of three affiliated heart without angina pectoris (5) Systolic CHF with reduced left ventricular function, NYHA class 2 Status: Chronic Comment: He has done quite well with his therapeutics in bed and take this opportunity to raise up his dosage of carvedilol. Please note his persistent lower extremity edema is from many years of edema which was driven by him being on amlodipine. His RED hose stockings to help drive the fluid him back into the circulation which will then allow us to get his legs more accustomed to a standard status (6) Obstructive sleep apnea Status: Chronic Comment: Noted. He will be using his CPAP at home. (7) Obesity (BMI 30-39.9) Status: Chronic Comment: Calorie restriction diet. (8) Diabetes mellitus type 2 in obese Status: Chronic Comment: He has had excellent control with adjustments to his regimen were done the last admission. We will continue those along. HPI/ROS Admit Date/Time Admit Date/Time Aug 11, 2017 at 18:37 Hx of Present Illness -year-old right-handed male admitted with possible neurologic event. He had been in his usual state of health is recuperating after spinal surgery roughly 1 month ago. Please note that he is on long-term anticoagulant therapy using both Brilinta and antiplatelet therapy. He developed loss of movement of his right face and some change in his speech patterns. He did not have any change in his baseline lower extremity or upper extremity neurologic function. He did not have any confusion headache change in vision or swallowing difficulties. He presented to the emergency room and was admitted directly. ROS Constitutional: no complaints (Denies fevers chills or sweats) ENT: no complaints Respiratory: no complaints Cardiovascular: edema (Chronic lower extremity edema which is significantly less than it was 4 months ago), no complaints (No chest pain no dyspnea no palpitations no orthopnea no PND) Gastrointestinal: no complaints Genitourinary: no complaints Musculoskeletal: back pain Neurologic: focal-weakness (Focal facial weakness. Please note this is largely resolved by the morning of August 12) Endocrine: no complaints Psychological: nl mood/affect, no complaints PMH/Family/Social Past Medical History Medical History: congestive heart failure, coronary artery disease, diabetes, high cholesterol, hypertension Past Surgical History Past Surgical Hx: angioplasty, appendectomy, cholecystectomy, other ( Decompressive laminectomy L4-5 and L5-S1 one month ago) Family History Significant Family History: no pertinent family hx Social History Alcohol Use: none Smoking Status: Former smoker Drug Use: none Exam/Review of Systems Vital Signs Vitals Vital Signs Date Time Temp Pulse Resp B/P Pulse Ox O2 Delivery O2 Flow Rate FiO2 08/12/17 20:33 97.8 71 18 133/62 94 08/11/17 20:32 Room Air Exam Exam Ambulating with walker Constitutional: alert, oriented Head: atraumatic, normocephalic Eyes: EOMI, PERRL, nl conjunctiva, nl lids, nl sclera ENMT: mucosa pink and moist, nl external ears & nose, nl lips & teeth, nl nasal mucosa & septum, other (Slight flattening of the right nasolabial fold but with full movement) Neck: non-tender, supple Respiratory: clear to auscultation, normal air movement Cardiovascular: nl pulses, regular rate and rhythm Gastrointestinal: nl liver, spleen, non-tender, soft Extremities: normal pulses Neurological: PATIENT PORTAL REPRESENTATIVE II-XII intact, nl mental status, nl speech, nl strength Skin: nl turgor, rash or lesions Labs Result Diagram: 08/12/1713 08/12/17 0713 Medications Medications Current Medications Oxycodone/ Acetaminophen (Endocet (10/ 325)) 2 tab Q6H PRN PO PAIN Last administered on 08/12/17 20:13; Admin Dose 2 TAB; Start 08/11/17 at 23:00 Ondansetron HCl (Zofran Inj) 4 mg Q6H PRN IV NAUSEA AND/OR VOMITING; Start 08/11/17 at 23:00 Alprazolam (Xanax) 0.5 mg Q12H PRN PO ANXIETY Last administered on 08/12/17 18 :43; Admin Dose 0.5 MG; Start 08/11/17 at 23:00 Ticagrelor (Brilinta) 90 mg BID PO Last administered on 08/12/17 20:29; Admin Dose 90 MG; Start 08/11/17 at 23:30 Baclofen (Lioresal) 15 mg TID NGT Last administered on 08/12/17 20:12; Admin Dose 15 MG; Start 08/11/17 at 23:30 Diagnostic Test (Pha) (Accu-Chek) 1 ea 02 XX Last administered on 08/12/17 02: 07; Admin Dose 1 EA; Start 08/12/17 at 02:00 Docusate Sodium (Colace) 250 mg BID PRN PO CONSTIPATION Last administered on 00:18; Admin Dose 250 MG; Start 08/11/17 at 23:30 Magnesium Hydroxide (Milk Of Mag) 30 ml DAILY PRN PO CONSTIPATION Last administered on 08/12/17 07:02; Admin Dose 30 ML; Start 08/11/17 at 23:30 Gabapentin (Neurontin) 300 mg TID PO Last administered on 08/12/17 20:12; Admin Dose 300 MG; Start 08/11/17 at 23:30 Buspirone HCl (Buspar) 20 mg TID PO Last administered on 08/12/17 20:10; Admin Dose 20 MG; Start 08/11/17 at 23:30 Aspirin (Aspirin) 81 mg DAILY PO Last administered on 08/12/17 08:18; Admin Dose 81 MG; Start 08/12/17 at 09:00 Famotidine (Pepcid) 40 mg HS PO ; Start 08/12/17 at 21:00 Losartan Potassium (Cozaar) 100 mg DAILY PO Last administered on 08/12/17 08: 20; Admin Dose 100 MG; Start 08/12/17 at 09:00 Tamsulosin HCl (Flomax) 0.8 mg HS PO Last administered on 08/12/17 20:34; Admin Dose 0.8 MG; Start 08/12/17 at 00:00 Furosemide (Lasix) 80 mg DAILY@06 PO Last administered on 08/12/17 06:09; Admin Dose 80 MG; Start 08/12/17 at 06:00 Miscellaneous Information 1 ea NOTE XX ; Start 08/11/17 at 23:45 Glucose (Glutose) 15 gm Q15M PRN PO DECREASED GLUCOSE; Start 08/11/17 at 23:45 Glucose (Glutose) 22.5 gm Q15M PRN PO DECREASED GLUCOSE; Start 08/11/17 at 23: 45 Dextrose (D50w Syringe) 25 ml Q15M PRN IV DECREASED GLUCOSE; Start 08/11/17 at 23:45 Dextrose (D50w Syringe) 50 ml Q15M PRN IV DECREASED GLUCOSE; Start 08/11/17 at 23:45 Glucagon (Glucagen) 1 mg Q15M PRN IM DECREASED GLUCOSE; Start 08/11/17 at 23:45 Glucose (Glutose) 15 gm Q15M PRN BUCCAL DECREASED GLUCOSE; Start 08/11/17 at 23 :45 Carvedilol (Coreg) 9.375 mg BID PO Last administered on 08/12/17 20:12; Admin Dose 9.375 MG; Start 08/12/17 at 21:00 Finasteride (Proscar) 5 mg DAILY PO Last administered on 08/12/17 14:08; Admin Dose 5 MG; Start 08/12/17 at 14:00 Atorvastatin Calcium (Lipitor) 80 mg HS PO Last administered on 08/12/17 20:12 ; Admin Dose 80 MG; Start 08/12/17 at 21:00 Insulin Glargine (Lantus) 40 unit BID SC Last administered on 08/12/17t 20:41; Admin Dose 40 UNIT; Start 08/12/17 at 21:00 SUNI CORRALES MD Aug 12, 2017 21:25
[2017-08-12] MEDS: FAMOTIDINE 20 MG TAB PO SCH (21:26)
[2017-08-12] MEDS ORDERED: SOD FERRIC GLUC COMPLX 125 MG in SOD CHLORIDE 0.9% 100 ML IVPB ONE (22:00)
[2017-08-13] VITALS (13 sets, daily range): BP systolic 116–154; BP diastolic 58–87; PULSE 67–73; RESP 18–20
[2017-08-13] MEDS: OXYCODONE/ACETAMINOPHEN (10/325) TAB PO PRN ×4 (02:47→23:06)
[2017-08-13] MEDS: ACCU-CHEK XX SCH (02:51)
[2017-08-13] MEDS: FUROSEMIDE 40 MG TAB PO SCH (05:55)
[2017-08-13] MEDS: DOCUSATE SODIUM 250 MG CAP PO PRN (06:04)
[2017-08-13] MEDS: FINASTERIDE 5 MG TAB PO SCH (08:13)
[2017-08-13] MEDS: metFORMIN 500 MG TAB PO SCH ×2 (08:13→17:14)
[2017-08-13] MEDS: ASPIRIN 81 MG TAB PO SCH (08:13)
[2017-08-13] MEDS: BACLOFEN 10 MG TAB NGT SCH ×3 (08:13→20:45)
[2017-08-13] MEDS: BUSPIRONE 10 MG TAB PO SCH ×3 (08:13→20:44)
[2017-08-13] MEDS: GABAPENTIN 300 MG CAP PO SCH ×3 (08:14→20:47)
[2017-08-13] MEDS: LOSARTAN 50 MG TAB PO SCH (08:16)
[2017-08-13] MEDS: TICAGRELOR 90 MG TABLET PO SCH ×2 (08:21→20:56)
[2017-08-13] MEDS: INSULIN ASPART [NOVOLOG] 3 ML PEN SC SCH ×7 (08:21→20:43)
[2017-08-13] MEDS: INSULIN GLARGINE [LANtus] 3 ML PEN SC SCH ×2 (08:28→20:57)
[2017-08-13] MEDS: MAGNESIUM HYDROXIDE 30ML CUP PO PRN (09:51)
--- NOTE | 2017-08-13 11:22 | CONS ---
Date/Time of Note Date/Time of Note DATE: 08/13/17 TIME: 11:20 Assessment/Plan Assessment/Plan Additional Assessment/Plan Right facial droop and numbness concerning for TIA Recent C-spine surgery CAD with history of multiple PCI Hypertension Preserved ejection fraction Diabetes Dyslipidemia -Patient presented with right-sided facial droop with numbness and drooling. Symptoms have since improved. CT head with no evidence of CVA at the current time. Patient is already on dual antiplatelet therapy given recent PCI. Carotid ultrasound with evidence of carotid plaque/atherosclerosis but does not appear obstructive hemodynamically. Statin therapy dose has been increased. No evidence of arrhythmias on review of telemetry over the past 24 hours. No further inpatient cardiac workup needed at the current time. Consultation Date/Type/Reason Admit Date/Time Aug 11, 2017 at 18:37 Initial Consult Date Type of Consultation: cv 24 HR Interval Summary Free Text/Dictation Patient denies facial numbness today, denies shortness of breath, chest pain or palpitations. Having occasional nausea and possibly dizziness Exam/Review of Systems Vital Signs Vitals Vital Signs Date Time Temp Pulse Resp B/P Pulse Ox O2 Delivery O2 Flow Rate FiO2 08/13/17 08:20 98.0 70 18 123/62 98 08/11/17 20:32 Room Air Intake and Output 08/12/17 08/12/17 08/13/17 15:00 23:00 07:00 Intake Total 480 ml 900 ml 250 ml Balance 480 ml 900 ml 250 ml Exam No apparent distress Constitutional: alert, obese, oriented Head: normocephalic Respiratory: other (Coarse breath sounds bilaterally, no wheezing) Cardiovascular: other (S1-S2 heard), regular rate and rhythm Gastrointestinal: bowel sounds, non-tender, soft Extremities: other (No significant edema) Results Result Diagram: 08/13/17 0701 08/13/17 0701 Results 24 hrs Laboratory Tests Test 08/12/17 11:37 08/12/17 16:51 08/12/17 17:01 08/12/17 17:19 Bedside Glucose 234 H 59 L 60 L 93 Test 08/12/17 17:31 08/12/17 18:39 08/12/17 20:35 08/13/17 02:25 Bedside Glucose 147 192 159 103 Test 08/13/17 07:01 08/13/17 08:03 White Blood Count 5.2 Red Blood Count 3.86 L Hemoglobin 10.6 L Hematocrit 34.5 L Mean Corpuscular Volume 89.4 Mean Corpuscular Hemoglobin 27.5 L Mean Corpuscular Hemoglobin Concent 30.7 L Red Cell Distribution Width 15.5 H Platelet Count 169 Mean Platelet Volume 9.8 Neutrophils % 59.3 Lymphocytes % 25.7 Monocytes % 11.9 H Eosinophils % 2.5 Basophils % 0.4 Nucleated Red Blood Cells % 0.0 Neutrophils # 3.1 Lymphocytes # 1.3 Monocytes # 0.6 Eosinophils # 0.1 Basophils # 0.0 Nucleated Red Blood Cells # 0.0 Erythrocyte Sedimentation Rate 45.0 H Sodium Level 140 Potassium Level 4.5 Chloride Level 99 Carbon Dioxide Level 33 H Anion Gap 13 Blood Urea Nitrogen 27 H Creatinine 1.12 Glucose Level 147 Calcium Level 9.6 Total Bilirubin 0.1 L Direct Bilirubin 0.00 Indirect Bilirubin 0.1 Aspartate Amino Transf (AST/SGOT) 31 Alanine Aminotransferase (ALT/SGPT) 37 Alkaline Phosphatase 89 Total Protein 6.8 Albumin 3.6 Globulin 3.20 Albumin/Globulin Ratio 1.12 Bedside Glucose 182 Medications Medications Current Medications Oxycodone/ Acetaminophen (Endocet (10/ 325)) 2 tab Q6H PRN PO PAIN Last administered on 08/13/17 08:56; Admin Dose 2 TAB; Start 08/11/17 at 23:00 Ondansetron HCl (Zofran Inj) 4 mg Q6H PRN IV NAUSEA AND/OR VOMITING; Start 08/11/17 at 23:00 Alprazolam (Xanax) 0.5 mg Q12H PRN PO ANXIETY Last administered on 08/12/17 18 :43; Admin Dose 0.5 MG; Start 08/11/17 at 23:00 Ticagrelor (Brilinta) 90 mg BID PO Last administered on 08/13/17 08:21; Admin Dose 90 MG; Start 08/11/17 at 23:30 Baclofen (Lioresal) 15 mg TID NGT Last administered on 08/13/17 08:13; Admin Dose 15 MG; Start 08/11/17 at 23:30 Diagnostic Test (Pha) (Accu-Chek) 1 ea 02 XX Last administered on 08/13/17 02: 51; Admin Dose 1 EA; Start 08/12/17 at 02:00 Docusate Sodium (Colace) 250 mg BID PRN PO CONSTIPATION Last administered on 06:04; Admin Dose 250 MG; Start 08/11/17 at 23:30 Magnesium Hydroxide (Milk Of Mag) 30 ml DAILY PRN PO CONSTIPATION Last administered on 08/13/17 09:51; Admin Dose 30 ML; Start 08/11/17 at 23:30 Gabapentin (Neurontin) 300 mg TID PO Last administered on 08/13/17 08:14; Admin Dose 300 MG; Start 08/11/17 at 23:30 Buspirone HCl (Buspar) 20 mg TID PO Last administered on 08/13/17 08:13; Admin Dose 20 MG; Start 08/11/17 at 23:30 Aspirin (Aspirin) 81 mg DAILY PO Last administered on 08/13/17 08:13; Admin Dose 81 MG; Start 08/12/17 at 09:00 Famotidine (Pepcid) 40 mg HS PO Last administered on 08/12/17 21:26; Admin Dose 40 MG; Start 08/12/17 at 21:00 Losartan Potassium (Cozaar) 100 mg DAILY PO Last administered on 08/13/17 08: 16; Admin Dose 100 MG; Start 08/12/17 at 09:00 Tamsulosin HCl (Flomax) 0.8 mg HS PO Last administered on 08/12/17 20:34; Admin Dose 0.8 MG; Start 08/12/17 at 00:00 Furosemide (Lasix) 80 mg DAILY@06 PO Last administered on 08/13/17 05:55; Admin Dose 80 MG; Start 08/12/17 at 06:00 Miscellaneous Information 1 ea NOTE XX ; Start 08/11/17 at 23:45 Glucose (Glutose) 15 gm Q15M PRN PO DECREASED GLUCOSE; Start 08/11/17 at 23:45 Glucose (Glutose) 22.5 gm Q15M PRN PO DECREASED GLUCOSE; Start 08/11/17 at 23: 45 Dextrose (D50w Syringe) 25 ml Q15M PRN IV DECREASED GLUCOSE; Start 08/11/17 at 23:45 Dextrose (D50w Syringe) 50 ml Q15M PRN IV DECREASED GLUCOSE; Start 08/11/17 at 23:45 Glucagon (Glucagen) 1 mg Q15M PRN IM DECREASED GLUCOSE; Start 08/11/17 at 23:45 Glucose (Glutose) 15 gm Q15M PRN BUCCAL DECREASED GLUCOSE; Start 08/11/17 at 23 :45 Carvedilol (Coreg) 9.375 mg BID PO Last administered on 08/13/17 08:16; Admin Dose 9.375 MG; Start 08/12/17 at 21:00 Finasteride (Proscar) 5 mg DAILY PO Last administered on 08/13/17 08:13; Admin Dose 5 MG; Start 08/12/17 at 14:00 Atorvastatin Calcium (Lipitor) 80 mg HS PO Last administered on 08/12/17 20:12 ; Admin Dose 80 MG; Start 08/12/17 at 21:00 Insulin Glargine (Lantus) 40 unit BID SC Last administered on 08/13/17 08:28; Admin Dose 40 UNIT; Start 08/12/17 at 21:00 Humble Cohen DO Aug 13, 2017 11:22
[2017-08-13] MEDS: FAMOTIDINE 20 MG TAB PO SCH (20:44)
[2017-08-13] MEDS: TAMSULOSIN (SR) 0.4 MG CAP PO SCH (20:45)
[2017-08-13] MEDS: ATORVASTATIN 80 MG TAB PO SCH (20:45)
[2017-08-13] MEDS: ALPRAZOLAM 0.5 MG TAB PO PRN (23:06)
[2017-08-14] VITALS (9 sets, daily range): BP systolic 122–139; BP diastolic 60–77; PULSE 66–96; RESP 18–20
[2017-08-14] MEDS: ACCU-CHEK XX SCH (02:20)
[2017-08-14] MEDS: OXYCODONE/ACETAMINOPHEN (10/325) TAB PO PRN ×4 (05:45→23:50)
[2017-08-14] MEDS: FUROSEMIDE 40 MG TAB PO SCH (05:45)
[2017-08-14] MEDS: ASPIRIN 81 MG TAB PO SCH (08:22)
[2017-08-14] MEDS: BACLOFEN 10 MG TAB NGT SCH ×3 (08:22→20:48)
[2017-08-14] MEDS: metFORMIN 500 MG TAB PO SCH ×2 (08:23→17:38)
[2017-08-14] MEDS: FINASTERIDE 5 MG TAB PO SCH (08:23)
[2017-08-14] MEDS: GABAPENTIN 300 MG CAP PO SCH ×3 (08:23→20:50)
[2017-08-14] MEDS: BUSPIRONE 10 MG TAB PO SCH ×3 (08:23→20:50)
[2017-08-14] MEDS: LOSARTAN 50 MG TAB PO SCH (08:24)
[2017-08-14] MEDS: INSULIN ASPART [NOVOLOG] 3 ML PEN SC SCH ×7 (08:28→20:52)
[2017-08-14] MEDS: TICAGRELOR 90 MG TABLET PO SCH ×2 (08:30→21:40)
[2017-08-14] MEDS: INSULIN GLARGINE [LANtus] 3 ML PEN SC SCH ×2 (08:30→20:47)
[2017-08-14] MEDS ORDERED: HYDROmorphONE 2 MG TAB PO PRN (10:30)
--- NOTE | 2017-08-14 10:48 | PN ---
Date/Time of Note Date/Time of Note DATE: 08/14/17 TIME: 10:37 Assessment/Plan VTE Prophylaxis VTE Prophylaxis Intervention: ambulation, SCD's Lines/Catheters IV Catheter Type (from Nrsg): Saline Lock Urinary Cath still in place: No Assessment/Plan Problems: (1) Lumbar back pain Status: Chronic Comment: Not well-controlled. Will double gabapentin from 300 mg tid to 600 mg tid. Start lidoderm patch. Add dilaudid 2 mg po for breakthrough. Resume PT (2) BPPV (benign paroxysmal positional vertigo) Status: Chronic Comment: Order PT (3) Myoclonic jerking Status: Chronic Comment: May need neurologist in the future. (4) Anxiety disorder Status: Chronic Comment: Change alprazolam to hydroxyzine at pt. request (5) Chronic erosive gastritis Status: Chronic Comment: Add pantoprazole 40 mg bid and carafate 1 g qid (6) Transient ischemic attack (TIA) Status: Resolved Qualifiers: Transient cerebral ischemia type: other Qualified Code: G45.8 - Other specified transient cerebral ischemias (7) Right facial numbness Status: Resolved (8) Anemia Status: Acute Comment: Cont. IV Fe. Recheck tomorrow. Qualifiers: Anemia type: iron deficiency Iron deficiency anemia type: unspecified iron deficiency Qualified Code: D50.9 - Iron deficiency anemia, unspecified iron deficiency anemia type (9) Coronary artery disease Status: Chronic Comment: On ASA/Brillinta. Cardiology signing off. Will transfer off tele Qualifiers: Coronary Disease-Associated Artery/Lesion type: [place] artery [place] vs. transplanted heart: [place] heart Associated angina: without angina Qualified Code: I25.10 - Coronary artery disease involving [place] coronary artery of [place] heart without angina pectoris (10) Systolic CHF with reduced left ventricular function, NYHA class 2 Status: Chronic Comment: On carvedilol/furosemide. Cardiology signing off. Will transfer off tele (11) Obstructive sleep apnea Status: Chronic Comment: Restart CPAP (12) Diabetes mellitus type 2 in obese Status: Chronic Comment: Good glycemic control. Cont. current insulin regimen (13) BPH w urinary obs/LUTS Status: Chronic Comment: On finasteride and tamsulosin (14) Essential (primary) hypertension Status: Chronic Comment: Occ. above goal but will not resume amlodipine given edema. On max dose of losartan. Could increase carvedilol but would defer to cards for this Subjective 24 Hr Interval Summary Constitutional: no complaints Respiratory: no complaints Cardiovascular: no complaints Gastrointestinal: pain (epigastrium) Genitourinary: no complaints Musculoskeletal: back pain (radiating down legs; no longer responding to percocet as well or for as long; increasing intensity) Neurologic: dizziness (while reading or moves head, worried it's related to his anemia), other (myoclonic jerks of hands and shoulders) Psychological: anxiety (doesn't like xanax; wants hydroxizine) Exam/Review of Systems Vital Signs Vitals VS - Last 72 Hours, by Label Date Time Temp Pulse Resp B/P Pulse Ox O2 Delivery O2 Flow Rate FiO2 08/14/17 08:09 84 08/14/17 07:58 98.7 73 18 131/68 95 08/14/17 04:07 66 08/14/17 03:56 98.0 71 20 139/75 95 08/14/17 00:08 68 08/13/17 23:33 97.9 69 20 154/70 96 08/13/17 20:04 73 08/13/17 19:56 98.6 72 20 150/68 94 08/13/17 16:12 68 08/13/17 15:50 98.0 71 18 133/63 98 08/13/17 12:20 98.0 76 18 116/58 98 08/13/17 12:10 73 08/13/17 08:20 98.0 70 18 123/62 98 08/13/17 08:04 72 08/13/17 04:15 67 08/13/17 04:00 98.3 77 20 143/87 98 08/13/17 00:15 67 08/13/17 00:03 97.8 66 20 134/64 94 08/12/17 20:33 97.8 71 18 133/62 94 08/12/17 20:00 71 08/12/17 16:28 65 08/12/17 15:19 98.2 64 18 122/57 95 08/12/17 12:15 59 08/12/17 11:24 98.1 65 16 131/65 96 08/12/17 08:36 65 08/12/17 07:40 97.8 80 18 131/60 97 08/12/17 04:52 65 08/12/17 04:09 97.7 66 19 137/66 96 08/12/17 00:04 97.7 63 19 130/63 95 08/12/17 00:00 64 08/11/17 21:07 75 08/11/17 21:00 97.8 100 18 140/66 97 08/11/17 20:32 74 14 156/69 97 Room Air 08/11/17 16:32 98.1 92 18 157/65 95 Vital Signs Date Time Temp Pulse Resp B/P Pulse Ox O2 Delivery O2 Flow Rate FiO2 08/14/17 08:09 84 08/14/17 07:58 98.7 18 131/68 95 08/11/17 20:32 Room Air Intake and Output 08/13/17 08/13/17 08/14/17 14:59 22:59 06:59 Intake Total 800 ml 250 ml Balance 800 ml 250 ml Exam Constitutional: alert, obese, oriented Psych: nl mood/affect, no complaints Respiratory: clear to auscultation, normal air movement Cardiovascular: edema (1+ BLE), nl pulses, regular rate and rhythm, No murmurs/extra sounds, No rub Gastrointestinal: bowel sounds, nl liver, spleen, non-tender, soft, No mass, No rebound or guarding Musculoskeletal: nl extremities to inspection Extremities: edema (1+ BLE), normal pulses, No clubbing, No cyanosis Neurological: ATLASSIAN ADMINISTRATOR II-XII intact, nl mental status, nl speech, nl strength Additional Comments Bedside Glucose - 72 Hours Test 08/11/17 23:09 08/12/17 01:50 08/12/17 07:51 08/12/17 11:37 Bedside Glucose 212mg/dL (70-220) 212mg/dL (70-220) 171mg/dL (70-220) 234mg/dL (70-220) H Test 08/12/17 16:51 08/12/17 17:01 08/12/17 17:19 08/12/17 17:31 Bedside Glucose 59mg/dL (70-220) L 60mg/dL (70-220) L 93mg/dL (70-220) 147mg/dL (70-220) Test 08/12/17 18:39 08/12/17 20:35 08/13/17 02:25 08/13/17 08:03 Bedside Glucose 192mg/dL (70-220) 159mg/dL (70-220) 103mg/dL (70-220) 182mg/dL (70-220) Test 08/13/17 11:55 08/13/17 17:13 08/13/17 20:42 08/14/17 02:04 Bedside Glucose 187mg/dL (70-220) 75mg/dL (70-220) 144mg/dL (70-220) 88mg/dL (70-220) Test 08/14/17 08:21 Bedside Glucose 169mg/dL (70-220) Results Result Diagram: 08/13/17 0701 08/13/17 0701 Results 24 hrs Laboratory Tests Test 08/13/17 11:55 08/13/17 17:13 08/13/17 20:42 08/14/17 02:04 Bedside Glucose 187 75 144 88 Test 08/14/17 08:21 Bedside Glucose 169 Medications Medications Current Medications Oxycodone/ Acetaminophen (Endocet ()) 2 tab Q6H PRN PO PAIN Last administered on 08/14/17 05:45; Admin Dose 2 TAB; Start 08/11/17 at 23:00 Ondansetron HCl (Zofran Inj) 4 mg Q6H PRN IV NAUSEA AND/OR VOMITING; Start 08/11/17 at 23:00 Ticagrelor (Brilinta) 90 mg BID PO Last administered on 08/14/17 08:30; Admin Dose 90 MG; Start 08/11/17 at 23:30 Baclofen (Lioresal) 15 mg TID NGT Last administered on 08/14/17 08:22; Admin Dose 15 MG; Start 08/11/17 at 23:30 Diagnostic Test (Pha) (Accu-Chek) 1 ea 02 XX Last administered on 08/14/17 02: 20; Admin Dose 1 EA; Start 08/12/17 at 02:00 Docusate Sodium (Colace) 250 mg BID PRN PO CONSTIPATION Last administered on 06:04; Admin Dose 250 MG; Start 08/11/17 at 23:30 Magnesium Hydroxide (Milk Of Mag) 30 ml DAILY PRN PO CONSTIPATION Last administered on 08/13/17 09:51; Admin Dose 30 ML; Start 08/11/17 at 23:30 Buspirone HCl (Buspar) 20 mg TID PO Last administered on 08/14/17 08:23; Admin Dose 20 MG; Start 08/11/17 at 23:30 Aspirin (Aspirin) 81 mg DAILY PO Last administered on 08/14/17 08:22; Admin Dose 81 MG; Start 08/12/17 at 09:00 Famotidine (Pepcid) 40 mg HS PO Last administered on 08/13/17 20:44; Admin Dose 40 MG; Start 08/12/17 at 21:00 Losartan Potassium (Cozaar) 100 mg DAILY PO Last administered on 08/14/17 08: 24; Admin Dose 100 MG; Start 08/12/17 at 09:00 Tamsulosin HCl (Flomax) 0.8 mg HS PO Last administered on 08/13/17 20:45; Admin Dose 0.8 MG; Start 08/12/17 at 00:00 Furosemide (Lasix) 80 mg DAILY@06 PO Last administered on 08/14/17 05:45; Admin Dose 80 MG; Start 08/12/17 at 06:00 Miscellaneous Information 1 ea NOTE XX ; Start 08/11/17 at 23:45 Glucose (Glutose) 15 gm Q15M PRN PO DECREASED GLUCOSE; Start 08/11/17 at 23:45 Glucose (Glutose) 22.5 gm Q15M PRN PO DECREASED GLUCOSE; Start 08/11/17 at 23: 45 Dextrose (D50w Syringe) 25 ml Q15M PRN IV DECREASED GLUCOSE; Start 08/11/17 at 23:45 Dextrose (D50w Syringe) 50 ml Q15M PRN IV DECREASED GLUCOSE; Start 08/11/17 at 23:45 Glucagon (Glucagen) 1 mg Q15M PRN IM DECREASED GLUCOSE; Start 08/11/17 at 23:45 Glucose (Glutose) 15 gm Q15M PRN BUCCAL DECREASED GLUCOSE; Start 08/11/17 at 23 :45 Carvedilol (Coreg) 9.375 mg BID PO Last administered on 08/14/17 08:24; Admin Dose 9.375 MG; Start 08/12/17 at 21:00 Finasteride (Proscar) 5 mg DAILY PO Last administered on 08/14/17 08:23; Admin Dose 5 MG; Start 08/12/17 at 14:00 Atorvastatin Calcium (Lipitor) 80 mg HS PO Last administered on 08/13/17 20:45 ; Admin Dose 80 MG; Start 08/12/17 at 21:00 Insulin Glargine (Lantus) 40 unit BID SC Last administered on 08/14/17 08:30; Admin Dose 40 UNIT; Start 08/12/17 at 21:00 Gabapentin (Neurontin) 600 mg TID PO ; Start 08/14/17 at 13:00; Status UNV Pantoprazole (Protonix Tab) 40 mg BID@,18 PO ; Start 08/14/17 at 10:30; Status UNV Lidocaine (Lidoderm) 1 patch DAILY TD ; Start 08/14/17 at 10:30; Status UNV Hydromorphone HCl (Dilaudid) 2 mg Q6H PRN PO BREAKTHROUGH PAIN; Start 08/14/17 at 10:30; Status UNV Hydroxyzine Pamoate (Vistaril) 25 mg TID PRN PO ANXIETY; Start 08/14/17 at 10: 30; Status UNV Sucralfate (Carafate) 1 gm QID PO ; Start 08/14/17 at 13:00; Status UNV MUNDO LENZ MD Aug 14, 2017 10:48
[2017-08-14] MEDS ORDERED: hydrOXYzine PAMOATE 25 MG CAP PO PRN (11:30)
[2017-08-14] MEDS: SUCRALFATE 1 GM TAB PO SCH ×3 (12:02→20:50)
[2017-08-14] MEDS: PANTOPRAZOLE (EC) 40 MG TAB PO SCH ×2 (12:02→20:49)
[2017-08-14] MEDS: LIDOCAINE 5% PATCH TD SCH (12:03)
--- NOTE | 2017-08-14 13:59 | PN ---
Date/Time of Note Date/Time of Note DATE: 08/14/17 TIME: 13:57 Assessment/Plan VTE Prophylaxis VTE Prophylaxis Intervention: SCD's Lines/Catheters IV Catheter Type (from Nrsg): Saline Lock Urinary Cath still in place: No Assessment/Plan Assessment/Plan Right facial droop and numbness concerning for TIA Recent C-spine surgery CAD with history of multiple PCI Hypertension Preserved ejection fraction Diabetes Dyslipidemia -Patient presented with right-sided facial droop with numbness and drooling. Symptoms have since improved. CT head with no evidence of CVA at the current time. Patient is already on dual antiplatelet therapy given recent PCI. Carotid ultrasound with evidence of carotid plaque/atherosclerosis but does not appear obstructive hemodynamically. Statin therapy dose has been increased. No evidence of arrhythmias on review of telemetry over the past 24 hours. No further inpatient cardiac workup needed at the current time. -d/c tele -increase coreg -sw dr hogan Subjective 24 Hr Interval Summary Free Text/Dictation The patient doing well post TIA Exam/Review of Systems Vital Signs Vitals Vital Signs Date Time Temp Pulse Resp B/P Pulse Ox O2 Delivery O2 Flow Rate FiO2 08/14/17 12:04 67 08/14/17 11:32 98.5 18 122/77 96 08/11/17 20:32 Room Air Intake and Output 08/13/17 08/13/17 08/14/17 15:00 23:00 07:00 Intake Total 800 ml 250 ml Balance 800 ml 250 ml Results Result Diagram: 08/13/17 0701 08/13/17 0701 Results 24 hrs Laboratory Tests Test 08/13/17 17:13 08/13/17 20:42 08/14/17 02:04 08/14/17 08:21 Bedside Glucose 75 144 88 169 Test 08/14/17 12:07 Bedside Glucose 190 Medications Medications Current Medications Oxycodone/ Acetaminophen (Endocet (10/ 325)) 2 tab Q6H PRN PO PAIN Last administered on 08/14/17 05:45; Admin Dose 2 TAB; Start 08/11/17 at 23:00 Ondansetron HCl (Zofran Inj) 4 mg Q6H PRN IV NAUSEA AND/OR VOMITING; Start 08/11/17 at 23:00 Ticagrelor (Brilinta) 90 mg BID PO Last administered on 08/14/17 08:30; Admin Dose 90 MG; Start 08/11/17 at 23:30 Baclofen (Lioresal) 15 mg TID NGT Last administered on 08/14/17 12:03; Admin Dose 15 MG; Start 08/11/17 at 23:30 Diagnostic Test (Pha) (Accu-Chek) 1 ea 02 XX Last administered on 08/14/17 02: 20; Admin Dose 1 EA; Start 08/12/17 at 02:00 Docusate Sodium (Colace) 250 mg BID PRN PO CONSTIPATION Last administered on 06:04; Admin Dose 250 MG; Start 08/11/17 at 23:30 Magnesium Hydroxide (Milk Of Mag) 30 ml DAILY PRN PO CONSTIPATION Last administered on 08/13/17 09:51; Admin Dose 30 ML; Start 08/11/17 at 23:30 Buspirone HCl (Buspar) 20 mg TID PO Last administered on 08/14/17 12:03; Admin Dose 20 MG; Start 08/11/17 at 23:30 Aspirin (Aspirin) 81 mg DAILY PO Last administered on 08/14/17 08:22; Admin Dose 81 MG; Start 08/12/17 at 09:00 Famotidine (Pepcid) 40 mg HS PO Last administered on 08/13/17 20:44; Admin Dose 40 MG; Start 08/12/17 at 21:00 Losartan Potassium (Cozaar) 100 mg DAILY PO Last administered on 08/14/17 08: 24; Admin Dose 100 MG; Start 08/12/17 at 09:00 Tamsulosin HCl (Flomax) 0.8 mg HS PO Last administered on 08/13/17 20:45; Admin Dose 0.8 MG; Start 08/12/17 at 00:00 Furosemide (Lasix) 80 mg DAILY@06 PO Last administered on 08/14/17 05:45; Admin Dose 80 MG; Start 08/12/17 at 06:00 Miscellaneous Information 1 ea NOTE XX ; Start 08/11/17 at 23:45 Glucose (Glutose) 15 gm Q15M PRN PO DECREASED GLUCOSE; Start 08/11/17 at 23:45 Glucose (Glutose) 22.5 gm Q15M PRN PO DECREASED GLUCOSE; Start 08/11/17 at 23: 45 Dextrose (D50w Syringe) 25 ml Q15M PRN IV DECREASED GLUCOSE; Start 08/11/17 at 23:45 Dextrose (D50w Syringe) 50 ml Q15M PRN IV DECREASED GLUCOSE; Start 08/11/17 at 23:45 Glucagon (Glucagen) 1 mg Q15M PRN IM DECREASED GLUCOSE; Start 08/11/17 at 23:45 Glucose (Glutose) 15 gm Q15M PRN BUCCAL DECREASED GLUCOSE; Start 08/11/17 at 23 :45 Carvedilol (Coreg) 9.375 mg BID PO Last administered on 08/14/17 08:24; Admin Dose 9.375 MG; Start 08/12/17 at 21:00 Finasteride (Proscar) 5 mg DAILY PO Last administered on 08/14/17 08:23; Admin Dose 5 MG; Start 08/12/17 at 14:00 Atorvastatin Calcium (Lipitor) 80 mg HS PO Last administered on 08/13/17 20:45 ; Admin Dose 80 MG; Start 08/12/17 at 21:00 Insulin Glargine (Lantus) 40 unit BID SC Last administered on 08/14/17 08:30; Admin Dose 40 UNIT; Start 08/12/17 at 21:00 Gabapentin (Neurontin) 600 mg TID PO Last administered on 08/14/17 12:03; Admin Dose 600 MG; Start 08/14/17 at 13:00 Pantoprazole (Protonix Tab) 40 mg BID@06,18 PO Last administered on 08/14/17 12:02; Admin Dose 40 MG; Start 08/14/17 at 11:00 Lidocaine (Lidoderm) 1 patch DAILY TD Last administered on 08/14/17 12:03; Admin Dose 1 PATCH; Start 08/14/17 at 11:00 Hydromorphone HCl (Dilaudid) 2 mg Q6H PRN PO BREAKTHROUGH PAIN; Start 08/14/17 at 10:30 Hydroxyzine Pamoate (Vistaril) 25 mg TID PRN PO ANXIETY; Start 08/14/17 at 11: 30 ISABELA GARCIA MD Aug 14, 2017 13:59
[2017-08-14] MEDS: FAMOTIDINE 20 MG TAB PO SCH (20:49)
[2017-08-14] MEDS: TAMSULOSIN (SR) 0.4 MG CAP PO SCH (20:49)
[2017-08-14] MEDS: ATORVASTATIN 80 MG TAB PO SCH (20:51)
[2017-08-14] MEDS: DOCUSATE SODIUM 250 MG CAP PO PRN (21:46)
[2017-08-14] MEDS: MAGNESIUM HYDROXIDE 30ML CUP PO PRN (21:46)
[2017-08-15] MEDS: ACCU-CHEK XX SCH (01:25)
[2017-08-15 01:33] VITALS: BP 137/63; RESP 18
[2017-08-15 01:55] VITALS: BP 137/63; RESP 18
[2017-08-15] MEDS: PANTOPRAZOLE (EC) 40 MG TAB PO SCH (06:05)
[2017-08-15] MEDS: FUROSEMIDE 40 MG TAB PO SCH (06:05)
[2017-08-15] MEDS: OXYCODONE/ACETAMINOPHEN (10/325) TAB PO PRN (06:05)
[2017-08-15 07:53] VITALS: BP 138/66; RESP 18
[2017-08-15] MEDS: GABAPENTIN 300 MG CAP PO SCH (08:17)
[2017-08-15] MEDS: BACLOFEN 10 MG TAB NGT SCH (08:17)
[2017-08-15] MEDS: metFORMIN 500 MG TAB PO SCH (08:18)
[2017-08-15] MEDS: BUSPIRONE 10 MG TAB PO SCH (08:18)
[2017-08-15] MEDS: SUCRALFATE 1 GM TAB PO SCH (08:18)
[2017-08-15] MEDS: FINASTERIDE 5 MG TAB PO SCH (08:19)
[2017-08-15] MEDS: ASPIRIN 81 MG TAB PO SCH (08:19)
[2017-08-15] MEDS: LOSARTAN 50 MG TAB PO SCH (08:19)
[2017-08-15] MEDS: INSULIN GLARGINE [LANtus] 3 ML PEN SC SCH (08:22)
[2017-08-15] MEDS: TICAGRELOR 90 MG TABLET PO SCH (08:22)
[2017-08-15] MEDS: INSULIN ASPART [NOVOLOG] 3 ML PEN SC SCH ×2 (08:23→08:24)
[2017-08-15] MEDS: LIDOCAINE 5% PATCH TD SCH (10:09)
--- NOTE | 2017-08-15 10:19 | PDOCDIS ---
Discharge Instructions DIAGNOSIS Discharge Diagnosis TIA CONDITION Patient Condition: Good HOME CARE INSTRUCTIONS: Diet Instructions: Special Diet: 2000 ADA, Carbohydrate Controlled ACTIVITY: Activity Restrictions: No Restrictions Bathing Restrictions: Shower FOLLOW UP/APPOINTMENTS Follow-up Plan f/u w/Dr. Griffiths 2 weeks; f/u w/ Dr. Cherry 2 weeks MUNDO LENZ MD Aug 15, 2017 10:19
[2017-08-15] MEDS ORDERED: DICL100G37 TOP (10:25)
[2017-08-15] MEDS ORDERED: SUCR1TAB56 PO (10:25)
[2017-08-15] MEDS ORDERED: LIDO700A45 TD (10:25)
[2017-08-15] MEDS ORDERED: HYDR25CA98 PO (10:25)
[2017-08-15] MEDS ORDERED: FINA5TAB4 PO (10:25)
[2017-08-15] MEDS ORDERED: CARV12.579 PO (10:25)
[2017-08-15] MEDS ORDERED: FURO40TA4 PO (10:25)
[2017-08-15] MEDS ORDERED: GABA300C16 PO (10:25)
[2017-08-15] MEDS ORDERED: ATOR80TA75 PO (10:25)
--- NOTE | 2017-08-15 10:31 | DS ---
Date/Time of Note Date/Time of Note DATE: 08/15/17 TIME: 10:28 Discharge Summary Admission/Discharge Info Admit Date/Time Aug 11, 2017 at 18:37 Discharge Date/Time 08/15/2017 @ 1200 Discharge Diagnosis TIA Patient Condition: Good Consults Vicki: cardiology Procedures brain CT (-), carotid duplex w/ non-obstructive plaque B Hx of Present Illness 61 year-old right-handed male admitted with possible neurologic event. He had been in his usual state of health is recuperating after spinal surgery roughly 1 month ago. Please note that he is on long-term anticoagulant therapy using both Brilinta and antiplatelet therapy. He developed loss of movement of his right face and some change in his speech patterns. He did not have any change in his baseline lower extremity or upper extremity neurologic function. He did not have any confusion headache change in vision or swallowing difficulties. He presented to the emergency room and was admitted directly. Hospital Course Patient monitored. Symptoms on presentation resolved spontaneously. BP, BG, CHF optimized. Atorvastatin, furosemide, carvedilol increased. Back pain controlled. Chronic gastritis optimized. Pt. back to baseline. Ready for d/c Home Meds Active Scripts Diclofenac Sodium* (Voltaren* Gel) 1% -100 Gm Gel, 4 GM TOP TID Y for PAIN for 30 Days, #1 TUB 5 Refills Prov:MUNDO LENZ MD 08/15/17 Finasteride* (Finasteride*) 5 Mg Tablet, 5 MG PO DAILY for 30 Days, #30 TAB 5 Refills Prov:MUNDO LENZ MD 08/15/17 Lidocaine (Lidocaine) 1 Each Adh..patch, 1 PATCH TD DAILY for 30 Days, #30 PATCH 5 Refills Prov:MUNDO LENZ MD 08/15/17 Furosemide* (Furosemide*) 40 Mg Tablet, 80 MG PO DAILY@06 for 30 Days, #30 TAB 5 Refills Prov:MUNDO LENZ MD 08/15/17 Hydroxyzine Pamoate* (Hydroxyzine Pamoate*) 25 Mg Capsule, 25 MG PO TID Y for ANXIETY for 30 Days, #90 CAP 5 Refills Prov:MUNDO LENZ MD 08/15/17 Gabapentin* (Gabapentin*) 300 Mg Capsule, 600 MG PO TID for 30 Days, #90 CAP 5 Refills Prov:MUNDO LENZ MD 08/15/17 Carvedilol* (Carvedilol*) 12.5 Mg Tablet, 12.5 MG PO BID for 30 Days, #60 TAB 5 Refills Prov:MUNDO LENZ MD 08/15/17 Atorvastatin* (Atorvastatin*) 80 Mg Tablet, 80 MG PO HS for 30 Days, #30 TAB 5 Refills Prov:MUNDO LENZ MD 08/15/17 Sucralfate* (Carafate*) 1 Gm Tab, 1 GM PO QID for 30 Days, #120 TAB 5 Refills Prov:MUNDO LENZ MD 08/15/17 Famotidine* (Famotidine*) 40 Mg Tablet, 40 MG PO HS for 30 Days, #30 TAB Prov:ORLANDO GRIFFITHS MD 06/06/17 Aspirin* (Aspirin* EC) 81 Mg Tablet.dr, 81 MG PO DAILY for 30 Days, 2 Refills Prov:SHILO PAREKH 12/26/16 Ticagrelor* (Brilinta*) 90 Mg Tablet, 90 MG PO BID for 30 Days, #60 TAB Prov:ESHA SIMMONS MD 11/17/16 Reported Medications Carvedilol* (Carvedilol*) 6.25 Mg Tablet, 6.25 MG PO BID, #60 TAB 08/11/17 Oxycodone HCl/Acetaminophen (Percocet 10-325 mg Tablet) 1 Each Tablet, 2 EACH PO Q6H, TAB 08/11/17 Docusate Sodium* (Dok*) 250 Mg Capsule, 250 MG PO BID Y for CONSTIPATION, #60 CAP 07/06/17 Gabapentin* (Gabapentin*) 300 Mg Capsule, 300 MG PO TID, #90 CAP 07/06/17 Buspirone Hcl* (Buspirone Hcl*) 10 Mg Tab, 20 MG PO TID, TAB 07/06/17 Baclofen* (Baclofen*) 10 Mg Tablet, 15 MG PO TID, TAB 07/06/17 Omeprazole* (Omeprazole*) 20 Mg Capsule.dr, 20 MG PO DAILY, #30 CAP 07/06/17 Furosemide* (Lasix*) 40 Mg Tablet, 40 MG PO QAM, TAB 07/06/17 Insulin Aspart* (Novolog Insulin Pen*) 100 Unit/Ml Soln, 20 UNIT SC WITH MEALS, EA PATIENT TAKE ONLY IF HE EAT CARBS 05/16/17 Insulin Glargine* (Lantus*) 100 Unit/Ml Soln, 42 UNIT SC BID, #1 VIAL 05/16/17 Liraglutide (Victoza 2-Juan C) 0.6 Mg/0.1 Ml Pen.injctr, 0.6 MG SQ QAM, SYR 05/16/17 Atorvastatin* (Atorvastatin*) 40 Mg Tablet, 40 MG PO DAILY, #30 TAB 10/28/16 Metformin Hcl* (Metformin Hcl*) 1,000 Mg Tablet, 1000 MG PO WITH BREAKFAST DINNE , #60 TAB 10/28/16 Tamsulosin Hcl* (Tamsulosin Hcl*) 0.4 Mg Cap.er.24h, 0.8 MG PO HS, CAP 10/28/16 Losartan Potassium* (Losartan Potassium*) 100 Mg Tablet, 100 MG PO DAILY, TAB 10/28/16 Discontinued Reported Medications Spironolactone* (Aldactone*) 25 Mg Tablet, 25 MG PO QAM, #30 TAB 07/06/17 Carvedilol* (Carvedilol*) 12.5 Mg Tablet, 12.5 MG PO BID, #60 TAB 07/06/17 Albuterol/Ipratropium* (Combivent Respimat*) 20-100 Mcg/Inh - 4 Gm Aer.w.adap, 1 PUFF INHALATION QID, #1 INHALER 10/28/16 Discontinued Scripts Amlodipine Besylate* (Amlodipine Besylate*) 10 Mg Tablet, 10 MG PO DAILY, #30 TAB Take one half pill once a day Prov:ORLANDO GRIFFITHS MD 06/06/17 Follow-up Plan f/u w/Dr. Griffiths 2 weeks; f/u w/ Dr. Cherry 2 weeks Primary Care Provider Orlando Griffiths MD Time spent on discharge: > 30 minutes Pending Labs Laboratory Tests Test 08/14/17 12:07 08/14/17 17:36 08/14/17 20:40 08/15/17 05:46 Bedside Glucose 190mg/dL (70-220) 203mg/dL (70-220) 86mg/dL (70-220) White Blood Count 5.310^3/ul (4.8-10.8) Red Blood Count 3.6710^6/ul (4.70-6.10) Hemoglobin 10.0g/dl (14.0-18.0) Hematocrit 32.5% (42.0-52.0) Mean Corpuscular Volume 88.6fl (82.0-101.0) Mean Corpuscular Hemoglobin 27.2pg (29.0-33.0) Mean Corpuscular Hemoglobin Concent 30.8g/dl (32.0-37.0) Red Cell Distribution Width 15.7% (11.5-14.5) Platelet Count 58067^3/UL (140-415) Mean Platelet Volume 9.8fl (7.4-10.4) Neutrophils % 54.7% (39.0-77.0) Lymphocytes % 32.1% (15.0-51.0) Monocytes % 10.9% (0.0-11.0) Eosinophils % 1.5% (0.0-7.0) Basophils % 0.4% (0.0-2.0) Nucleated Red Blood Cells % 0.0/100WBC (0.0-0.0) Neutrophils # 2.910^3/ul (1.6-7.5) Lymphocytes # 1.710^3/ul (0.8-2.9) Monocytes # 0.610^3/ul (0.3-0.9) Eosinophils # 0.110^3/ul (0.0-0.5) Basophils # 0.010^3/ul (0.0-0.1) Nucleated Red Blood Cells # 0.010^3/ul (0.0-0.0) Sodium Level 139mmol/L (135-144) Potassium Level 4.4mmol/L (3.5-5.1) Chloride Level 103mmol/L (97-110) Carbon Dioxide Level 28mmol/L (21-31) Anion Gap 12 (8-16) Blood Urea Nitrogen 30mg/dl (7-20) Creatinine 1.09mg/dl (0.61-1.24) Glucose Level 165mg/dl (70-220) Calcium Level 9.5mg/dl (8.4-10.2) Test 08/15/17 08:13 Bedside Glucose 177mg/dL (70-220) MUNDO LENZ MD Aug 15, 2017 10:31
== END 2017-08-15 12:15 | disposition home or self-care (01) | DRG 69 ==
LOC: E/R 16:24 → TEL 18:37 → MS2 08-14 15:40
PROVIDERS: ADMIT Internal Medicine; ATTEND Internal Medicine
DX: G45.9 Transient cerebral ischemic attack, unspecified (principal); I10 Essential (primary) hypertension; I25.10 Atherosclerotic heart disease of native coronary artery without angina pectoris; E11.9 Type 2 diabetes mellitus without complications; E78.5 Hyperlipidemia, unspecified
CPT/HCPCS: 36415; 70450; 71010; 80048; 80053; 82962; 83036; 84443; 84484; 85025; 85378; 85610; 85651; 85730; 92523; 93005; 93880; 94660; 96374; 96375; 97161; 97162; 97166; J1815; J2270; J2405; J2916

== ENCOUNTER 2017-08-25 21:33 | Emergency (ER) | payer BC, OTHER ==
[~2017-08-25] VITALS: Wt 110.0 kg
[~2017-08-25 21:33] MED LIST changes: -AMLO-147 PO; -ATOR40TA68 PO; +ATOR80TA75 PO; +DICL100G37 TOP; +FINA5TAB4 PO; -FURO-109 PO; +FURO40TA4 PO; +HYDR25CA98 PO; -IPRA4AER INHALATION; +LIDO700A45 TD; +OXYC-209 PO; -SPIR25TA PO
--- NOTE | 2017-08-25 23:56 | ERD ---
ER Documentation Chief Complaint Chief Complaint SOB X2 DAYS, SPEAKS IN FULL SENTENCES. HX CHF HPI The patient is a 61-year-old male, presenting to the ER because of acute on chronic sob for 2 days, had similar symptoms previously. He denies headache, blurred vision, neck pain, chest pain, abdominal pain, vomiting, dysuria, diarrhea. He c/o bilateral lower extremity edema for 1 1/2 weeks. He has chronic MILES, denies PND. He does not smoke nor drink. Past medical history: Sleep apnea, asthma, history of CHF, hypertension, CAD, spinal stenosis, diabetes mellitus, BPH Past surgical history: Appendectomy, cholecystectomy, lumbar decompression, stent PCI, right ankle ROS All systems reviewed and are negative except as per history of present illness. Medications Home Meds Active Scripts Diclofenac Sodium* (Voltaren* Gel) 1% -100 Gm Gel, 4 GM TOP TID Y for PAIN for 30 Days, #1 TUB 5 Refills Prov:MUNDO LENZ MD 08/15/17 Finasteride* (Finasteride*) 5 Mg Tablet, 5 MG PO DAILY for 30 Days, #30 TAB 5 Refills Prov:MUNDO LENZ MD 08/15/17 Lidocaine (Lidocaine) 1 Each Adh..patch, 1 PATCH TD DAILY for 30 Days, #30 PATCH 5 Refills Prov:MUNDO LENZ MD 08/15/17 Furosemide* (Furosemide*) 40 Mg Tablet, 80 MG PO DAILY@06 for 30 Days, #30 TAB 5 Refills Prov:MUNDO LENZ MD 08/15/17 Hydroxyzine Pamoate* (Hydroxyzine Pamoate*) 25 Mg Capsule, 25 MG PO TID Y for ANXIETY for 30 Days, #90 CAP 5 Refills Prov:MUNDO LENZ MD 08/15/17 Gabapentin* (Gabapentin*) 300 Mg Capsule, 600 MG PO TID for 30 Days, #90 CAP 5 Refills Prov:MUNDO LENZ MD 08/15/17 Carvedilol* (Carvedilol*) 12.5 Mg Tablet, 12.5 MG PO BID for 30 Days, #60 TAB 5 Refills Prov:MUNDO LENZ MD 08/15/17 Atorvastatin* (Atorvastatin*) 80 Mg Tablet, 80 MG PO HS for 30 Days, #30 TAB 5 Refills Prov:MUNDO LENZ MD 08/15/17 Sucralfate* (Carafate*) 1 Gm Tab, 1 GM PO QID for 30 Days, #120 TAB 5 Refills Prov:MUNDO LENZ MD 08/15/17 Famotidine* (Famotidine*) 40 Mg Tablet, 40 MG PO HS for 30 Days, #30 TAB Prov:SUNI GRIFFITHS MD 06/06/17 Aspirin* (Aspirin* EC) 81 Mg Tablet., 81 MG PO DAILY for 30 Days, 2 Refills Prov:SHILO PAREKH 12/26/16 Ticagrelor* (Brilinta*) 90 Mg Tablet, 90 MG PO BID for 30 Days, #60 TAB Prov:ESHA SIMMONS MD 11/17/16 Reported Medications Oxycodone HCl/Acetaminophen (Percocet 10-325 mg Tablet) 1 Each Tablet, 2 EACH PO Q6H, TAB 08/11/17 Docusate Sodium* (Dok*) 250 Mg Capsule, 250 MG PO BID Y for CONSTIPATION, #60 CAP 07/06/17 Buspirone Hcl* (Buspirone Hcl*) 10 Mg Tab, 20 MG PO TID, TAB 07/06/17 Baclofen* (Baclofen*) 10 Mg Tablet, 15 MG PO TID, TAB 07/06/17 Omeprazole* (Omeprazole*) 20 Mg Capsule.dr, 20 MG PO DAILY, #30 CAP 07/06/17 Insulin Aspart* (Novolog Insulin Pen*) 100 Unit/Ml Soln, 20 UNIT SC WITH MEALS, EA PATIENT TAKE ONLY IF HE EAT CARBS 05/16/17 Insulin Glargine* (Lantus*) 100 Unit/Ml Soln, 42 UNIT SC BID, #1 VIAL 05/16/17 Liraglutide (Victoza 2-Juan C) 0.6 Mg/0.1 Ml Pen.injctr, 0.6 MG SQ QAM, SYR 05/16/17 Metformin Hcl* (Metformin Hcl*) 1,000 Mg Tablet, 1000 MG PO WITH BREAKFAST DINNE , #60 TAB 10/28/16 Tamsulosin Hcl* (Tamsulosin Hcl*) 0.4 Mg Cap.er.24h, 0.8 MG PO HS, CAP 10/28/16 Losartan Potassium* (Losartan Potassium*) 100 Mg Tablet, 100 MG PO DAILY, TAB 10/28/16 Allergies Allergies: Coded Allergies: Penicillins (Verified Allergy, Severe, DIFFICULTY BREATHING, 08/11/17) cefazolin (Verified Allergy, Severe, DIFFICULTY BREATHING, 08/11/17) ciprofloxacin (Verified Allergy, Mild, RASH, 08/11/17) benazepril (Verified Allergy, Unknown, 08/11/17) ketorolac (Unverified Allergy, Unknown, pain worse, 07/06/17) sildenafil (Unverified Allergy, Unknown, 07/06/17) PMhx/Soc History of Surgery: Yes (Right ankle ORIF, Appendectomy, Cholecystectomy, spine surg.) Anesthesia Reaction: No Hx Neurological Disorder: No Hx Respiratory Disorders: Yes (Sleep apnea, asthma) Hx Cardiac Disorders: Yes (CHF, CAD, HTN, S/P PCI with stent) Hx Psychiatric Problems: No Hx Miscellaneous Medical Probl: Yes Hx Alcohol Use: No Hx Substance Use: No Hx Tobacco Use: Yes Physical Exam Vitals Vital Signs Date Time Temp Pulse Resp B/P Pulse Ox O2 Delivery O2 Flow Rate FiO2 08/25/17 22:04 99.2 80 22 118/59 93 Physical Exam Const: No acute distress. Head: Atraumatic. Eyes: Normal Conjunctiva. ENT: Normal External Ears, Nose and Mouth. Neck: Full range of motion. No meningismus. Resp: Clear to auscultation bilaterally. Cardio: Regular rate and rhythm. Abd: Soft, non distended, normal bowel sounds, non tender. Skin: No petechiae or rashes. Back: No midline or flank tenderness. Ext: Bilateral lower extremity mild edema, mild calf tenderness Neur: Awake and alert. No focal deficit Psych: Normal Mood and Affect. Result Diagram: 08/26/17 0030 08/26/17 0030 Results 24 hrs Laboratory Tests Test 08/26/17 00:30 08/26/17 00:34 White Blood Count 6.110^3/ul Red Blood Count 3.8010^6/ul Hemoglobin 10.2g/dl Hematocrit 32.8% Mean Corpuscular Volume 86.3fl Mean Corpuscular Hemoglobin 26.8pg Mean Corpuscular Hemoglobin Concent 31.1g/dl Red Cell Distribution Width 15.7% Platelet Count 80783^3/UL Mean Platelet Volume 9.8fl Neutrophils % 57.1% Lymphocytes % 28.3% Monocytes % 12.1% Eosinophils % 1.8% Basophils % 0.5% Nucleated Red Blood Cells % 0.0/100WBC Neutrophils # 3.510^3/ul Lymphocytes # 1.710^3/ul Monocytes # 0.710^3/ul Eosinophils # 0.110^3/ul Basophils # 0.010^3/ul Nucleated Red Blood Cells # 0.010^3/ul Prothrombin Time 14.2Sec Prothrombin Time Ratio 1.1 INR International Normalized Ratio 1.10 Activated Partial Thromboplast Time 29.7Sec Sodium Level 137mmol/L Potassium Level 4.9mmol/L Chloride Level 97mmol/L Carbon Dioxide Level 33mmol/L Anion Gap 12 Blood Urea Nitrogen 39mg/dl Creatinine 1.17mg/dl Glucose Level 180mg/dl Calcium Level 9.9mg/dl Troponin I 0.017ng/ml B-Type Natriuretic Peptide 671PG/ML Bedside Urine pH (LAB) 6.0 Bedside Urine Protein (LAB) Negative Bedside Urine Glucose (UA) Negative Bedside Urine Ketones (LAB) Negative Bedside Urine Blood Negative Bedside Urine Nitrite (LAB) Negative Bedside Urine Leukocyte Esterase (L Negative Procedures/MDM [place] [address] Radiology Main Line: [phone] DIAGNOSTIC IMAGING REPORT Patient: ZONIA BRAR : 1955 Age: 61 Sex: M MR #: [id number] DOS: 08/26/17 0017 Ordering MD: MUNDO HERZOG MD Location: E/R Room/Bed: PROCEDURE: ULTRASOUND BILATERAL LOWER EXTREMITY VENOUS CLINICAL INDICATION: 61-year-old male with lower extremity swelling and shortness of breath. TECHNIQUE: Multiple sonographic images of the bilateral lower extremity deep venous system was obtained utilizing grayscale, color-flow, compressive sonography and doppler imaging with augmentation. The images were reviewed on a PACS workstation. COMPARISON: None. FINDINGS: There is normal compressibility and flow within the common femoral, deep femoral , superficial femoral, popliteal, posterior tibial and peroneal veins. IMPRESSION: No sonographic evidence for deep venous thrombosis. .Arturo Duron MD, MD Date Time Electronically viewed and signed by .Arturo Duron MD, MD on 08/26/2017 00:46 .M/ CC: MUNDO HERZOG MD [place] [address] Radiology Main Line: [phone] DIAGNOSTIC IMAGING REPORT Patient: ZONIA BRAR : 1955 Age: 61 Sex: M MR #: [id number] DOS: 08/26/17 0017 Ordering MD: MUNDO HERZOG MD Location: E/R Room/Bed: PROCEDURE: CHEST CLINICAL INDICATION: 61-year-old male with shortness of breath. TECHNIQUE: AP semi-erect view of the chest was obtained portably on two radiographs. The images were reviewed on a PACS workstation. COMPARISON: CR CHEST 01/14/2017; CR CHEST 12/24/2016; CR CHEST 11/12/2016 FINDINGS: The cardiomediastinal silhouette is mildly enlarged but without significant interval change. There is mild elevation right hemidiaphragm. There is no evidence for an infiltrate. There is no evidence for congestive heart failure. There is no evidence for pneumothorax. Surgical clips are seen overlying the lung apices. There is a plate and screws within the lower cervical spine from prior fusion. IMPRESSION: 1. No evidence for active cardiopulmonary disease. 2. Stable cardiomegaly. 3. Prior cervical fusion. .Arturo Duron MD, MD Date Time Electronically viewed and signed by .Arturo Duron MD, MD on 08/26/2017 00:52 .M/ CC: MUNDO HERZOG MD EKG: Read by emergency physician Rate/Rhythm: Normal Sinus Rhythm 82 beats/min QRS, ST, T-waves: No ST elevation, no T inversion Impression: Normal EKG MEDICAL MAKING DECISION: The patient is a 61-year-old male, presenting to the ER because of chronic CHF. He is stable for outpatient follow-up The differential diagnoses considered include but are not limited to asthma, COPD, pneumonia, pulmonary embolus, pleural effusion, congestive heart failure. Departure Diagnosis: Primary Impression: Chronic CHF Additional Impression: Anemia Condition: Good Comments Consultation: I discussed the patient with Dr. Oneal who was on-call for his physician Dr. Griffiths, who agreed to discharge the patient I discussed the findings with the patient. I advised the patient to follow-up with the primary physician in about 1-2 days [address] brewing technician Dr Cohen tomorrow , and return if any concern. Disclaimer: Inadvertent spelling and grammatical errors are likely due to EHR/ dictation software use and do not reflect on the overall quality of patient care. Also, please note that the electronic time recorded on this note does not necessarily reflect the actual time of the patient encounter. MUNDO HERZOG MD Aug 25, 2017 23:56
[2017-08-26] VITALS: BP 118/59; PULSE 91; RESP 22; TEMP 98.6
[2017-08-26 00:36] LABS: URINE BLOOD (Dip) POC Negative (NEGATIVE)
--- NOTE | 2017-08-26 00:46 | RADRPT ---
PROCEDURE: ULTRASOUND BILATERAL LOWER EXTREMITY VENOUS CLINICAL INDICATION: 61-year-old male with lower extremity swelling and shortness of breath. TECHNIQUE: Multiple sonographic images of the bilateral lower extremity deep venous system was obt ained utilizing grayscale, color-flow, compressive sonography and doppler imaging with augmentation. The images were reviewed on a PACS workstation. COMPARISON: None. FINDINGS: There is normal compressibility and flow within the common femoral, deep femoral, superficial femora l, popliteal, posterior tibial and peroneal veins. IMPRESSION: No sonographic evidence for deep venous thrombosis. .Arturo Duron MD, MD Date Time Electronically viewed and signed by .Arturo Duron MD, MD on 08/26/2017 00:46 .M/
[2017-08-26 00:50] LABS: BASOPHILS % 0.5 % (0.0-2.0); EOSINOPHILS # 0.1 10^3/ul (0.0-0.5); EOSINOPHILS % 1.8 % (0.0-7.0); HEMATOCRIT 32.8 % (42.0-52.0); HEMOGLOBIN 10.2 g/dl (14.0-18.0); LYMPHOCYTES # 1.7 10^3/ul (0.8-2.9); LYMPHOCYTES % 28.3 % (15.0-51.0); MEAN CORPUSCULAR HEMOGLOBIN 26.8 pg (29.0-33.0); MEAN CORPUSCULAR HGB CONC 31.1 g/dl (32.0-37.0); MEAN CORPUSCULAR VOLUME 86.3 fl (82.0-101.0); MEAN PLATELET VOLUME 9.8 fl (7.4-10.4); MONOCYTE # 0.7 10^3/ul (0.3-0.9); MONOCYTES % 12.1 % (0.0-11.0); NEUTROPHIL # 3.5 10^3/ul (1.6-7.5); NEUTROPHILS % 57.1 % (39.0-77.0); PLATELET COUNT 170 10^3/UL (140-415); RED CELL DISTRIBUTION WIDTH 15.7 % (11.5-14.5); WHITE BLOOD COUNT 6.1 10^3/ul (4.8-10.8)
--- NOTE | 2017-08-26 00:53 | RADRPT ---
PROCEDURE: CHEST CLINICAL INDICATION: 61-year-old male with shortness of breath. TECHNIQUE: AP semi-erect view of the chest was obtained portably on two radiographs. The images w ere reviewed on a PACS workstation. COMPARISON: CR CHEST 01/14/2017; CR CHEST 12/24/2016; CR CHEST 11/12/2016 FINDINGS: The cardiomediastinal silhouette is mildly enlarged but without significant interval change. There i s mild elevation right hemidiaphragm. There is no evidence for an infiltrate. There is no evidence for congestive heart failure. There is no evidence for pneumothorax. Surgical clips are seen overly ing the lung apices. There is a plate and screws within the lower cervical spine from prior fusion. IMPRESSION: 1. No evidence for active cardiopulmonary disease. 2. Stable cardiomegaly. 3. Prior cervical fusion. .Arturo Duron MD, Date Time Electronically viewed and signed by .Arturo Duron MD, on 08/26/2017 00:52 .M/
[2017-08-26 01:06] LABS: INR 1.1; PROTIME 14.2 Sec (12.2-14.2); PT RATIO 1.1
[2017-08-26 01:07] LABS: PARTIAL THROMBOPLASTIN TIME 29.7 Sec (25.0-35.0)
[2017-08-26 01:12] LABS: CALCIUM 9.9 mg/dl (8.4-10.2); CREATININE 1.17 mg/dl (0.61-1.24); POTASSIUM 4.9 mmol/L (3.5-5.1)
[2017-08-26 01:20] LABS: TROPONIN-I 0.017 ng/ml (0.00-0.12)
== END 2017-08-26 03:14 | disposition home or self-care (01) ==
LOC: E/R 21:33
DX: I50.9 Heart failure, unspecified (principal); D64.9 Anemia, unspecified; E11.9 Type 2 diabetes mellitus without complications; I10 Essential (primary) hypertension; J45.909 Unspecified asthma, uncomplicated; I25.10 Atherosclerotic heart disease of native coronary artery without angina pectoris; Z79.4 Long term (current) use of insulin; Z79.82 Long term (current) use of aspirin; Z79.84 Long term (current) use of oral hypoglycemic drugs; Z98.61 Coronary angioplasty status
CPT/HCPCS: 71010; 80048; 81003; 83880; 84484; 85025; 85610; 85730; 93005; 93970

== ENCOUNTER → 2017-11-15 | Outpatient (CLI) | END | disposition home or self-care (01) ==

== ENCOUNTER 2018-02-07 12:59 | Emergency (ER) | END 2018-02-07 15:26 | disposition home or self-care (01) ==

== ENCOUNTER → 2018-02-18 | Outpatient (CLI) | END | disposition home or self-care (01) ==

== ENCOUNTER 2018-03-29 08:46 | Inpatient (IN) | END 2018-04-06 14:49 | disposition home or self-care (01) | DRG 454 ==

== ENCOUNTER 2018-04-21 17:55 | Emergency (ER) | END 2018-04-22 02:45 | disposition home or self-care (01) ==

== ENCOUNTER 2018-05-01 10:27 | Inpatient (IN) | END 2018-05-12 15:48 | disposition home or self-care (01) | DRG 981 ==

== ENCOUNTER 2018-08-12 21:04 | Emergency (ER) | END 2018-08-13 04:26 | disposition home or self-care (01) ==

== ENCOUNTER 2018-11-04 01:56 | Emergency (ER) | payer BC ==
[~2018-11-04] VITALS: Ht 177.8 cm; Wt 110.2 kg
[~2018-11-04 01:56] MED LIST changes: +ALLO100T PO; -ASPI-664 PO; +ATOR-2 PO; -ATOR80TA75 PO; -BACL10TA PO; +BUME2TAB2 PO; -BUSP10TA2 PO; -CARV12.579 PO; +CARV25TA79 PO; -DICL100G37 TOP; -DOCU250C68 PO; -FAMO40TA52 PO; -FURO40TA4 PO; -HYDR25CA98 PO; -LIDO700A45 TD; -LIRA0.6P SQ; +LORA1TAB PO; -LOSA100T7 PO; +LOSA50TA14 PO; -METF1000 PO; -NOVO3I SC; -OMEP20CA16 PO; +PANT40TA4 PO; +SPIR25TA PO; -TICA90TA PO
[2018-11-04 02:03] VITALS: Ht 177.8 cm; Wt 110.2 kg
[2018-11-04] MEDS ORDERED: ALBUTEROL 0.083% (NEB) 2.5 MG/3 ML AMP HHN STA (02:29)
[2018-11-04] MEDS ORDERED: IPRATROPIUM (NEB) 0.5 MG/2.5 ML AMP HHN ONE (02:30)
[2018-11-04] MEDS ORDERED: DEXAMETHASONE 10 MG/ML 1 ML INJ IM ONE (02:30)
--- NOTE | 2018-11-04 02:33 | ERD ---
ER Documentation Chief Complaint Chief Complaint rash on arms yesterday HPI This is a 63-year-old male who presents emergency department with complaints of rash/itchiness to bilateral arms, thighs. Stated it started yesterday. No changes in diet, detergents. Denies headache, head injury, loss of consciousness, dizziness, neck pain, neck stiffness, throat pain, difficulty swallowing, difficulty breathing lying flat, shoulder pain, chest pain, back pain, abdominal pain, nausea, vomiting, constipation, diarrhea, urinary symptoms, loss of bowel and bladder control, t rauma, injury, falls, difficulty walking due to pain, numbness or tingling sensation, calf pain, recent travel, recent major surgery in the last 3 weeks, calf pain, recent long travel, recent exposure to any illness, recent antibiotic use in the last 3 months, fever, chills, seizures. Past medical history: Diabetes. Hypertension. CHF. Surgical history: Social: Denies smoking, use of alcoholic beverages, use of illegal drugs. ROS All systems reviewed and are negative except as per history of present illness. Medications Home Meds Active Scripts Hydroxyzine Hcl* (Hydroxyzine Hcl*) 10 Mg Tablet, 10 MG PO Q6H PRN for ITCHING, #30 TAB Prov:SARAGEOVANYGARY 11/04/18 Albuterol Sulfate* (Proair HFA*) 8.5 Gm Hfa.aer.ad, 2 PUFF INH Q4H PRN for WHEEZING AND SOB, #1 INHALER Prov:SARAGEOVANYGARY 11/04/18 Loratadine (Loratadine) 10 Mg Capsule, 10 MG PO DAILY, #30 CAP Prov:ELENOSTARGARY 11/04/18 Famotidine* (Pepcid*) 20 Mg Tablet, 40 MG PO DAILY for 30 Days, TAB Prov:PASILAGEOVANYGARY F 11/04/18 Reported Medications Gabapentin* (Gabapentin*) 300 Mg Capsule, 900 MG PO TID, #270 CAP 08/13/18 Losartan Potassium* (Losartan Potassium*) 50 Mg Tablet, 50 MG PO DAILY, TAB 08/13/18 Bumetanide* (Bumetanide*) 2 Mg Tablet, 2 MG PO BID, TAB 08/13/18 Sucralfate* (Carafate*) 1 Gm Tab, 1 GM PO Q6, TAB 05/01/18 Oxycodone HCl/Acetaminophen (Percocet 10-325 mg Tablet) 1 Each Tablet, 2 EACH PO TID PRN for PAIN, TAB 05/01/18 Finasteride* (Finasteride*) 5 Mg Tablet, 5 MG PO DAILY, TAB 03/29/18 Insulin Glargine* (Lantus*) 100 Unit/Ml Soln, 50 UNIT SC BID, #1 VIAL 02/07/18 Lorazepam* (Lorazepam*) 1 Mg Tablet, 1 MG PO HS PRN for ANXIETY, #30 TAB 02/07/18 Pantoprazole* (Pantoprazole*) 40 Mg Tablet.dr, 40 MG PO AC BREAKFAST, TAB 02/07/18 Allopurinol* (Allopurinol*) 100 Mg Tablet, 100 MG PO QAM, TAB 02/07/18 Tamsulosin Hcl* (Tamsulosin Hcl*) 0.4 Mg Cap.er.24h, 0.4 MG PO HS, CAP 02/07/18 Atorvastatin* (Atorvastatin*) 80 Mg Tablet, 80 MG PO QHS, #30 TAB 02/07/18 Spironolactone* (Aldactone*) 25 Mg Tablet, 50 MG PO QAM, #30 TAB 02/07/18 Carvedilol* (Carvedilol*) 25 Mg Tablet, 25 MG PO BID, #60 TAB 02/07/18 Allergies Allergies: Coded Allergies: Penicillins (Unverified Allergy, Severe, DIFFICULTY BREATHING, 08/13/18) cefazolin (Unverified Allergy, Severe, DIFFICULTY BREATHING, 08/13/18) ciprofloxacin (Unverified Allergy, Mild, RASH, 08/13/18) benazepril (Unverified Allergy, Unknown, 08/13/18) ketorolac (Unverified Allergy, Unknown, pain worse, 08/13/18) sildenafil (Unverified Allergy, Unknown, 08/13/18) PMhx/Soc History of Surgery: Yes (APPENDECTOMY, LAP ALEXANDR, DOUBLE LUMBAR FUSION, LAMENECTOMY, BILAT RIB RESEC) Anesthesia Reaction: No Hx Neurological Disorder: No Hx Respiratory Disorders: Yes (ASTHMA) Hx Cardiac Disorders: Yes (CHF, HTN, STENTS X3) Hx Psychiatric Problems: Yes (ANXIETY) Hx Miscellaneous Medical Probl: Yes (Bipolar ) Hx Alcohol Use: Yes (15 YEARS) Hx Substance Use: No Hx Tobacco Use: Yes Physical Exam Vitals Vital Signs Date Temp Pulse Resp B/P (MAP) Pulse Ox O2 O2 Flow FiO2 Time Delivery Rate 11/04/18 98.3 80 16 166/72 98 02:03 (103) Physical Exam Const: No acute distress Head: Atraumatic Eyes: Normal Conjunctiva ENT: Normal External Ears, Nose and Mouth. Throat: Uvula is midline and nondisplaced. Tonsils are +1 bilaterally without redness and without exudates. Tolerating secretions. Patent airway. No signs of angioedema. Neck: Full range of motion. No meningismus. Resp: Clear to auscultation bilaterally Cardio: Regular rate and rhythm, no murmurs Abd: Soft, non tender, non distended. Normal bowel sounds Skin: No petechiae. Pruritic rash noted to bilateral arms, bilateral thighs. Back: No midline or flank tenderness Ext: No cyanosis, or edema Neur: Awake and alert. No neurological deficits. Psych: Normal Mood and Affect Results 24 hrs Current Medications Medications Dose Sig/Giovanni Start Time Status Last (Trade) Ordered Route PRN Stop Time Admin Dose Reason Admin 10 mg ONCE ONCE 11/04/18 DC 11/04/18 Dexamethasone IM 02:30 02:49 (Decadron) 11/04/18 02:31 Albuterol 5 mg ONCE STAT 11/04/18 DC 11/04/18 (Proventil HHN 02:29 02:49 0.083% (Neb)) 11/04/18 02:30 Ipratropium 0.5 mg ONCE ONCE 11/04/18 DC 11/04/18 [place] HHN 02:30 02:49 (Atrovent 11/04/18 02:31 0.02% (Neb)) Famotidine 40 mg ONCE ONCE 11/04/18 DC 11/04/18 (Pepcid) PO 03:00 02:47 11/04/18 03:01 Procedures/MDM Diagnostic tests: Clinical exam. Treatment: Dexamethasone IM. Albuterol and Atrovent breathing treatment. Re-evaluation: Rashes has decreased tremendously. Respirations even and unlabored. Lung sounds are clear to auscultation. Differential diagnosis I have low suspicion for airway obstruction, anaphylactic shock, CHF, COPD exacerbation. Final diagnosis: Urticaria. Allergic rash. Prescription: Hydroxyzine. Pepcid. Claritin. Follow-up with PCP in the next 24-48 hours. Follow-up with your internal control specialist in the next 3-4 days. Come back here in the emergency department for any new symptoms or any worsening symptoms. All questions and concerns were answered. Patient and family members verbalized understanding and agreed with plan of care. Hemodynamically stable on discharge. Departure Diagnosis: Primary Impression: Allergic reaction Additional Impression: Wheezing Condition: Stable Additional Instructions: Follow-up with PCP in the next 24-48 hours. Follow-up with your allergy spe cialist in the next 3-4 days. Come back here in the emergency department for any new symptoms or any worsening symptoms. GARY MARTINEZ Nov 04, 2018 02:33
[2018-11-04] MEDS ORDERED: LORA10CA9 PO (02:38)
[2018-11-04] MEDS ORDERED: FAMO-96 PO (02:38)
[2018-11-04] MEDS ORDERED: ALBU8.5H8 INH (02:39)
[2018-11-04] MEDS ORDERED: HYDR-3029 PO (02:39)
[2018-11-04] MEDS ORDERED: FAMOTIDINE 20 MG TAB PO ONE (03:00)
[2018-11-04 03:37] VITALS: BP 124/56; PULSE 74; RESP 18
== END 2018-11-04 03:46 | disposition home or self-care (01) ==
LOC: FTE 01:56
DX: L50.0 Allergic urticaria (principal); E11.9 Type 2 diabetes mellitus without complications; J45.901 Unspecified asthma with (acute) exacerbation; I50.9 Heart failure, unspecified; I11.0 Hypertensive heart disease with heart failure; Z98.61 Coronary angioplasty status; Z87.891 Personal history of nicotine dependence; Z79.4 Long term (current) use of insulin
CPT/HCPCS: 94664; J1100; 96372

== ENCOUNTER → 2019-01-12 | Outpatient (CLI) | payer BC ==
[~2019-01-12] MED LIST changes: +ALBU8.5H8 INH; +ALBUTEROL 0.083% (NEB) 2.5 MG/3 ML AMP ONE; +FAMO-96 PO; +HYDR-3029 PO; +LORA10CA9 PO
== END | disposition home or self-care (01) ==
LOC: PUL 08:59
PROVIDERS: ATTEND Specialist
DX: E11.9 Type 2 diabetes mellitus without complications (principal); E78.00 Pure hypercholesterolemia, unspecified; R06.02 Shortness of breath
CPT/HCPCS: 94060; 94664; 94726; 94729

== ENCOUNTER → 2019-04-17 | Outpatient (CLI) | payer BC ==
[~2019-04-17] MED LIST changes: -ALBUTEROL 0.083% (NEB) 2.5 MG/3 ML AMP ONE
== END | disposition home or self-care (01) ==
LOC: LAB 13:00
PROVIDERS: ATTEND Internal Medicine
DX: D68.311 Acquired hemophilia (principal); N18.3 Chronic kidney disease, stage 3 (moderate)
CPT/HCPCS: 80053; 83970; 84560; 85025

== ENCOUNTER 2019-06-15 07:04 | Day surgery (SDC) | payer BC ==
[~2019-06-15] VITALS: Ht 177.8 cm; Wt 108.4 kg
[2019-06-15] VITALS (17 sets, daily range): BP systolic 124–168; BP diastolic 53–82; PULSE 72–77; RESP 15–22; Ht 177.8 cm; Wt 108.4 kg
[~2019-06-15 07:04] MED LIST changes: +DICL100G37 TOP; +EMPA10TA PO; +FLUT9.9S NASAL; +IPRA4AER INHALATION; +LIRA0.6P2 SQ; +MONT10TA21 PO; +MTF1000T PO; +NOVO3I SC; +SENN-115 PO
[2019-06-15] MEDS ORDERED: PROPOFOL 20 ML ONE (07:52)
[2019-06-15] MEDS ORDERED: NEOSTIGMINE 3 MG/3 ML SYRINGE ONE (07:52)
[2019-06-15] MEDS ORDERED: ROCURONIUM 50 MG INJ ONE (07:52)
[2019-06-15] MEDS ORDERED: GLYCOPYRROLATE 0.4 MG INJ ONE (07:52)
[2019-06-15] MEDS ORDERED: SUCCINYLCHOLINE CHLORIDE 100 MG/5 ML SYG IV ONE (07:52)
[2019-06-15] MEDS ORDERED: CEFAZOLIN 1 GM INJ ONE (07:52)
[2019-06-15] MEDS ORDERED: FENTAnyl 50 MCG/ML VIAL ONE (07:57)
[2019-06-15] MEDS ORDERED: MIDAZOLAM 1 MG/ML 2 ML INJ ONE (07:57)
[2019-06-15] MEDS ORDERED: ONDANSETRON 4 MG INJ ONE (07:58)
[2019-06-15] MEDS ORDERED: DEXAMETHASONE 4 MG/ML 5 ML INJ ONE (07:58)
[2019-06-15] MEDS ORDERED: VANCOMYCIN 1 GM (PMX) 250 ML IVPB ONE (08:00)
[2019-06-15] MEDS ORDERED: DEXAMETHASONE 2 MG TAB PO ONE (08:00)
[2019-06-15] MEDS ORDERED: GABAPENTIN 300 MG CAP PO ONE (08:00)
[2019-06-15] MEDS ORDERED: ROPIVACAINE 0.5 % 30 ML VIAL ONE (08:37)
[2019-06-15] MEDS ORDERED: BUPIVACAINE 0.5% (SDV) 30 ML, morphine SULFATE (PF) 8 MG, EPINEPHrine 0.3 MG, KETOROLAC... IRR SCH ×7 (09:30)
[2019-06-15] MEDS ORDERED: ALBUTEROL 0.083% (NEB) 2.5 MG/3 ML AMP HHN PRN (10:00)
[2019-06-15] MEDS ORDERED: FENTAnyl 50 MCG/ML VIAL IV PRN ×3 (10:00)
[2019-06-15] MEDS ORDERED: IPRATROPIUM (NEB) 0.5 MG/2.5 ML AMP HHN PRN (10:00)
[2019-06-15] MEDS ORDERED: MEPERIDINE 25 MG INJ IV PRN (10:00)
[2019-06-15] MEDS ORDERED: TRIMETHOBENZAMIDE 100 MG/ML VIAL IM PRN (10:00)
[2019-06-15] MEDS ORDERED: ONDANSETRON 4 MG INJ IV PRN (10:00)
[2019-06-15] MEDS ORDERED: DIPHENHYDRAMINE 50 MG INJ IV PRN (10:00)
[2019-06-15] MEDS ORDERED: MIDAZOLAM 1 MG/ML 2 ML INJ IV PRN (10:00)
[2019-06-15] MEDS ORDERED: EPHEDrine 25 MG/5 ML SYG IV PRN (10:00)
[2019-06-15] MEDS ORDERED: LABETALOL HCL 20MG INJ IV PRN (10:00)
[2019-06-15] MEDS ORDERED: hydrALAzine 20 MG INJ IV PRN (10:00)
[2019-06-15] MEDS ORDERED: OXYCODONE/ACETAMINOPHEN (5/325) TAB PO PRN ×2 (10:00)
[2019-06-15] MEDS ORDERED: HYDROmorphONE 1 MG/5 ML IV SYRINGE IV PRN ×3 (10:00)
[2019-06-15] MEDS ORDERED: SUGAMMADEX SODIUM 200 MG/2 ML VIAL IV ONE (11:02)
== END 2019-06-15 14:00 | disposition home or self-care (01) ==
LOC: SDS 07:04
PROVIDERS: ATTEND Orthopaedic Surgery
DX: M75.41 Impingement syndrome of right shoulder (principal); M13.811 Other specified arthritis, right shoulder; S43.401A Unspecified sprain of right shoulder joint, initial encounter; X58.XXXA Exposure to other specified factors, initial encounter; Y93.89 Activity, other specified; Y92.89 Other specified places as the place of occurrence of the external cause; Y99.8 Other external cause status; I25.10 Atherosclerotic heart disease of native coronary artery without angina pectoris; E11.9 Type 2 diabetes mellitus without complications; N40.1 Benign prostatic hyperplasia with lower urinary tract symptoms; G47.33 Obstructive sleep apnea (adult) (pediatric); I50.20 Unspecified systolic (congestive) heart failure
CPT/HCPCS: 29824; 29826; 82962; 94664; J0171; J0690; J0735; J1100; J1885; J2250; J2274; J2405; J2710; J2795; J3010; J3370